=== PATIENT | female | born 1985 | race Two or more races ===

== ENCOUNTER → 2024-02-14 | Outpatient (CLI) | payer BC, SELFPAY ==
--- NOTE | 2024-02-14 15:30 | XR_ITS ---
Examination: Knee, left , 3 views Technique: Knee AP, lateral, oblique 3 views Date and time of exam: February 14, 2024 1456 hours INDICATIONS: Left knee pain today. FINDINGS: No fracture or dislocation. No significant arthritic change No opaque foreign bodies or ossified joint bodies IMPRESSION: No fracture or significant arthritic change
--- NOTE | 2024-02-14 15:30 | XR_ITS ---
Examination: Foot, right, 3 views Technique: AP, oblique, lateral views foot, 3 views Date and time of exam: February 14, 2024 1556 hours INDICATIONS: Patient fell last week with injury to foot, foot pain. FINDINGS: Moderate osteopenia No acute fracture No dislocation IMPRESSION: No acute fracture
--- NOTE | 2024-02-14 15:30 | XR_ITS ---
EXAMINATION: Ankle, right 3 views . Technique: Ankle AP, oblique, lateral 3 views Date and time of exam: February 14, 2024 1546 hours INDICATIONS: Onset ankle pain today. FINDINGS: No fracture or dislocation No avascular necrosis 2 mm plantar bony calcaneal spur IMPRESSION: No fracture or dislocation
--- NOTE | 2024-02-14 15:30 | XR_ITS ---
Examination: Tibia-Fibula, left , 2 views Technique: Tibia-fibula AP lateral 2 views Date and time of exam: February 14, 2024 1456 hours INDICATIONS: Left lower leg pain today FINDINGS: Mild osteopenia. No fracture or dislocation. No cortical bone destruction IMPRESSION: No fracture or dislocation
== END | disposition home or self-care (01) ==
PROVIDERS: Referring Provider Nurse Practitioner Family; Visit Provider Nurse Practitioner Family
DX: M25.571 Pain in right ankle and joints of right foot (principal); M79.662 Pain in left lower leg; S99.921A Unspecified injury of right foot, initial encounter; W19.XXXA Unspecified fall, initial encounter
CPT/HCPCS: 73562; 73590; 73610; 73630

== ENCOUNTER → 2024-03-05 | Outpatient (CLI) | payer BC, SELFPAY ==
--- NOTE | 2024-03-05 10:30 | XR_ITS ---
Examination: MRI right ankle, without contrast Date and time of exam: March 05, 2024 1151 hours INDICATIONS: Patient fell February 10, 2024 with twisting injury to the ankle Technique: Multiple axial sagittal and coronal images of the left ankle have been obtained with the Siemens high-resolution 1.5 Delicia MRI scanner. Images obtained include T2-weighted fat-suppressed sagittal sections, TR 3500, TE 46, T2 weighted coronal fat suppressed images, TR 3050, TE 84, T2-weighted transverse fat suppressed images, TR 3260, TE 63, proton density transverse images, TR 4720 TE 46, and T1 weighted coronal images, TR 560, TE 13. Findings: Mild biconvex thickening of the sella extending Significant edema in the anterior talus Mild thickening and edema involving the plantar fascia Anterior posterior inferior tibiofibular ligaments intact Talar fibular ligaments are intact Diffuse mild tendinitis flexor tendons most prominent posterior tibial tendon Extensor tendons intact IMPRESSION: Significant edema in the anterior talus, consider CT scan ankle without contrast follow-up to assess for microtrabecular fracture lines involving the talus
== END | disposition home or self-care (01) ==
LOC: SMRI 10:21
PROVIDERS: PCP Registered Nurse; Referring Provider Registered Nurse; Visit Provider Registered Nurse
DX: M25.471 Effusion, right ankle (principal); S99.911A Unspecified injury of right ankle, initial encounter; W19.XXXA Unspecified fall, initial encounter
CPT/HCPCS: 73721

== ENCOUNTER → 2024-04-02 | Outpatient (CLI) | payer BC, SELFPAY ==
--- NOTE | 2024-04-02 13:22 | XR_ITS ---
Examination: PA lateral chest 2 views TECHNIQUE: Upright PA lateral chest 2 views Exam date and time: April 02, 2024 at 1342 hours Comparison August 05, 2023 INDICATIONS: Chest pain, shortness of breath beginning 2 weeks ago, cardiomegaly on chest film 2023 FINDINGS: Mild enlargement cardiac contour Moderate vascular congestion Fluid in the fissures on the lateral view IMPRESSION: Suspicious for mild chronic heart failure
[2024-04-02 14:31] LABS: Basophils % (Auto) 1 % (0-2.5); Eosinophils % (Auto) 2 % (0-10); Hematocrit 48.2 % (36.0-46.0); Hemoglobin 15.6 g/dL (12.0-16.0); Lymphocytes # (Auto) 1.9 Thou/mm3 (1.0-4.8); Lymphocytes % (Auto) 21 % (10-50); Mean Corpuscular HGB Conc 32.4 g/dl (31.0-37.0); Mean Corpuscular Hemoglobin 26.2 pg (25.0-35.0); Mean Corpuscular Volume 81 fL (80-100); Monocytes # (Auto) 0.7 Thou/mm3 (0.0-0.8); Monocytes % (Auto) 8 % (0-12); Neutrophils # (Auto) 5.9 Thou/mm3 (1.8-7.7); Neutrophils % (Auto) 68 % (37-80); Platelet Count 251 Thou/mm3 (140-440); RDW Standard Deviation 42.9 fL (36.4-46.3); Red Blood Count 5.95 Miln/mm3 (4.00-5.20); White Blood Count 8.8 Thou/mm3 (3.6-11.0)
[2024-04-02 14:32] LABS: Basophils # (Auto) 0.1 Thou/mm3 (0.0-0.2); Eosinophils # (Auto) 0.2 Thou/mm3 (0.0-0.5); Immature Granulocytes % (Auto) 1 % (0-0); Immature Granulocytes Auto 0.04 Thou/mm3 (0.00-0.00); Nucleated Red Blood Cell % 0 /100 WBC (0)
[2024-04-02 14:53] LABS: Alanine Aminotransferase 20 U/L (10-49); Albumin, Serum 4.3 gm/dL (3.5-5.0); Albumin/Globulin Ratio 1.5 (1.2-2.2); Alkaline Phosphatase 166 U/L (46-116); Anion Gap 9 (7-16); Aspartate Amino Transferase 11 U/L (0-34); B-Type Natriuretic Peptide 1077 pg/mL (0-100); BUN/Creatinine Ratio 18 Ratio (12-20); Bilirubin,Total 4.8 mg/dL (0.3-1.2); Blood Urea Nitrogen 18 mg/dL (9-23); Calcium 9.7 mg/dL (8.3-10.6); Calcium (Corrected) 9.7 mg/dL (8.5-10.1); Carbon Dioxide 26.9 mMol/L (20.0-31.0); Chloride 103 mMol/L (98-107); Globulin 2.9 gm/dL (2.3-3.5); Glucose 121 mg/dL (74-106); Osmolality,Calculated 280 (275-295); Potassium 3.7 mMol/L (3.4-5.1); Sodium 139 mMol/L (136-145); Total Protein 7.2 gm/dL (5.7-8.2); eGFR > 60 See Note
[2024-04-02 14:57] LABS: Troponin I 0.269 ng/mL (0.0-0.045)
== END | disposition home or self-care (01) ==
LOC: COPL 13:02
PROVIDERS: PCP Family Medicine; Referring Provider Registered Nurse; Visit Provider Radiology Diagnostic Radiology
DX: R07.9 Chest pain, unspecified (principal)
CPT/HCPCS: 36415; 71046; 80053; 83880; 84484; 85025

== ENCOUNTER → 2024-05-20 | Outpatient (CLI) | payer BC, SELFPAY ==
--- NOTE | 2024-05-20 13:08 | XR_ITS ---
Examination: Foot, right, 3 views Technique: AP, oblique, lateral views foot, 3 views Date and time of exam: May 20, 2024 1500 hrs. Comparison February 14, 2024 Indications: Patient fell 3 months ago with injury to foot, foot pain Findings: Prominent osteopenia No acute fracture No dislocation Impression: No acute fracture
== END | disposition home or self-care (01) ==
LOC: CDIM 13:03
PROVIDERS: PCP Family Medicine; Referring Provider Registered Nurse; Visit Provider Registered Nurse
DX: S99.921A Unspecified injury of right foot, initial encounter (principal); W19.XXXA Unspecified fall, initial encounter
CPT/HCPCS: 73630

== ENCOUNTER 2024-07-02 11:39 | Inpatient (IN) | payer BC, SELFPAY ==
[2024-07-02] VITALS (60 sets, daily range): BP systolic 173–250; BP diastolic 90–142; PULSE 73–96; RESP 13–38; TEMP 36.6–36.9; O2SAT 92–100; BMI 36.5; BMI 36.1
--- NOTE | 2024-07-02 12:02 | PD.EDADULT ---
ED General RME/HPI General Chief complaint: Chest Pain Stated complaint: SENT BY PCP- SOB, WEIGHT GAIN, CHEST PAIN, ABN EKG Time Seen by Provider: 07/02/24 12:01 Arrival date/time: 07/02/24 11:39 RME / HPI RME / HPI narrative: DR. NOVA MAIN ED EVALUATION: 39 year old female presents to the Emergency Department with complaint of shortness of breath onset 4 days. She states that for the last 4 days she has not been able to sleep well because she is so short of breath. Laying down exacerbates the pain. She also mentions having mild right-sided chest pain that radiates to her right arm and bilateral leg swelling. She states she is on diuretics and takes them daily. She reports a weight gain of 15 pounds, from 218 to 233 pounds. PMHx: Hypertension on hydrochlorothiazide and lisinopril and seizure disorder. Social Hx: No tobacco, alcohol, or substance use. Related Data Home Medications ?Medication ?Instructions ?Recorded ?Confirmed aripiprazole 5 mg tablet 5 mg PO QDAY 11/24/20 09/11/23 duloxetine 60 mg capsule,delayed 60 mg PO HS 11/24/20 09/11/23 release levetiracetam 750 mg tablet 750 mg PO BID 11/24/20 09/11/23 carvedilol 25 mg tablet 25 mg PO 3XD 09/11/23 09/11/23 clonidine HCl 0.1 mg tablet 0.1 mg PO BID 09/11/23 09/11/23 lisinopril 40 mg tablet 40 mg PO QDAY 09/11/23 09/11/23 Allergies Allergy/AdvReac Type Severity Reaction Status Date / Time venlafaxine Allergy Mild Itching Verified 07/02/24 11:44 glucosamine Allergy Unknown Verified 07/02/24 11:44 JALAPENO Allergy Mild THROAT Uncoded 07/02/24 11:44 CLOSES UP Review of Systems Review of Systems Systems Reviewed: All systems reviewed, normal except as documented Past Medical History Past Medical History NEUROLOGIC: Positive Neurological Disorders, Seizures and Martinez's Palsy CARDIAC: Positive Cardiac Disorders and Hypertension RESPIRATORY: Positive Bronchitis GENITOURINARY: Positive Genitourinary Disorders REPRODUCTIVE: Positive Endometriosis and Pelvic Inflammatory Disease ENT: Positive Ear Infection ENDOCRINE: Positive Endocrine Disorders, Hyperthyroidism, Hypothyroidism (normal now) and Graves' Disease PSYCHO/SOCIAL: Positive Depression and Anxiety OTHER HISTORY: Positive Chicken Pox Family History FAMILY HISTORY: Positive Family Psychiatric Problems, Family Cardiac Disorders, Family Cancer, Family Surgery and Family Anesthesia Reaction; Negative Family Respiratory Disorders Surgical History SURGICAL: Positive Section Social History SMOKING STATUS: Never smoker SUBSTANCE USE: does not use ALCOHOL: Never ED Exam Narrative Physical exam: GENERAL APPEARANCE: alert and oriented x 4, well-developed, well-nourished, no acute distress, tachypneic and appears dyspneic VITALS: All vitals were reviewed and the pulse ox is % on room air, which is normal according to my interpretation. HEENT: Normocephalic, atraumatic; pupils equal, round, reactive to light; EOMI; mucous membranes pink, moist; oropharynx clear NECK: Supple LUNGS: tachypneic and appears dyspneic; no wheezes, no rales, no rhonchi HEART: Regular rate, regular rhythm; normal S1, S2; no murmurs ABDOMEN: non distended; normal BS; soft, no tenderness, no guarding, no rebound; no masses, no organomegaly, no hernia BACK: no CVA tenderness EXTREMITIES: atraumatic; there is 3+ pitting edema bilaterally NEUROLOGIC: awake; alert and oriented x4; cranial nerves II-XII grossly intact; no focal sensory or motor deficits PSYCHIATRIC: appropriate mood and affect SKIN: warm, dry, normal color; no rashes Course Quality Measures none Orders Category Date Time Status Bedside COVID-19 Antigen Test NOW Care 07/02/24 12:27 Active Bedside Influenza A&B Antigen Test NOW Care 07/02/24 12:27 Completed Security Systems Engineer NOW Care 07/02/24 12:03 Active EKG (ED ONLY) *Do not use* NOW Care 07/02/24 11:49 Completed CA echo doppler complete Stat Exams 07/02/24 13:02 Ordered EKG (ED Only) Stat Exams 07/02/24 11:48 Ordered XR chest 1V portable Stat Exams 07/02/24 12:03 Completed B-Type Natriuretic Peptide Stat Lab 07/02/24 12:24 Completed CBC Stat Lab 07/02/24 12:24 Completed Comprehensive Metabolic Panel Stat Lab 07/02/24 12:24 Completed Lipase Stat Lab 07/02/24 12:24 Completed Magnesium Stat Lab 07/02/24 12:24 Completed Partial Thromboplastin Time Stat Lab 07/02/24 12:24 Completed Prothrombin Time with INR Stat Lab 07/02/24 12:24 Completed Troponin I Stat Lab 07/02/24 12:24 Completed Aspirin Chew Med 07/02/24 13:22 Discontinued 324 mg PO X1 ONE Bumetanide Inj [Bumex Inj] Med 07/02/24 14:45 Active 2 mg IVP BID Furosemide Inj [Lasix Inj] Med 07/02/24 12:29 Discontinued 40 mg IVP X1 ONE Nicardipine/Ns 20Mg Ivpb [Cardene Ivpb] Med 07/02/24 13:53 Discontinued 20 mg in 200 ml IV 5 mg/hr Nitroglycerin Oint 2% [Nitro-paste Oint 2%] Med 07/02/24 12:27 Discontinued 1 inch TOP X1 ONE Nitroglycerin/D5w 50 MG IVPB [Nitroglycerin in D5w Ivpb Med 07/02/24 14:38 Active ] 50 mg in 250 ml IV 5 mcg/min hydrALAZINE INJ [Apresoline Inj] Med 07/02/24 12:28 Discontinued 10 mg IV X1 ONE Vital Signs Vital signs: Vital Signs Temperature 98.5 F 07/02/24 12:03 Pulse Rate 86 07/02/24 12:03 Respiratory Rate 28 H 07/02/24 12:03 Blood Pressure 250/133 H 07/02/24 12:03 Pulse Oximetry (%) 98 07/02/24 12:03 Oxygen Delivery Method Room Air 07/02/24 12:03 [facility] Patient data External records reviewed:: [facility] previous records (Reviewed operative note by Dr. Lomeli, dated 09/12/23.) Clinical information provided by:: patient Social determinants that could affect healthcare access:: none Patient has the following chronic illnesses:: Hypertension on hydrochlorothiazide and lisinopril and seizure disorder. How is presenting disease/condition affected by chronic disease/condition?: exacerbated by Evaluation data The following diagnostics were reviewed and interpreted by me:: lab results, radiology exam(s) and EKG tracing(s) (EKG#1: EKG at 1159 hours. Interpreted by me: sinus rhythm, rate 90, no acute ischemic changes) Lab and/or radiology exams considered but not ordered:: none Interpretation Summary: Procedure(s): XR chest 1V portable Accession Number(s): [id number] cc: Aubrey Bocanegra MD; Jacqui Nova MD~ Examination: AP chest single view Technique: Portable AP sitting chest single view Exam date and time: April 02, 2024 at 1243 hrs. Indications: Chest pain today. Findings: Mild to moderate enlargement cardiac contour Moderate vascular congestion. No lobar pneumonia or pulmonary edema Impression: Moderate vascular congestion Dictated By: Aubrey Bocanegra MD Medications Medications considered but not ordered:: none Medication administrations:: Medication Administration History Acetaminophen (Acetaminophen 325 Mg Tablet) 650 mg PO Q6H PRN PRN Reason: Fever >101.5 Stop: 08/01/24 14:59 Acetaminophen (Acetaminophen 325 Mg Tablet) 650 mg PO Q6H PRN PRN Reason: PAIN SCALE 1-3 (mild Stop: 08/01/24 14:59 Bumetanide (Bumetanide Inj 0.25 Mg/Ml Vial 4 Ml) 2 mg IVP BID LEON Stop: 08/01/24 14:44 Heparin Sodium (Porcine) (Heparin Sod Inj 5000 Unit/Ml Vial) 5,000 unit SC Q8HR LEON Stop: 07/16/24 21:59 Nitroglycerin/Dextrose (Nitroglycerin In D5w Ivpb) 50 mg in 250 mls @ 1.5 mls/hr IV .Q24H PRN; Protocol PRN Reason: PER PROTOCOL Stop: 08/01/24 14:37 Ondansetron HCl (Ondansetron Inj 2 Mg/Ml Inj 2 Ml) 4 mg IV Q6H PRN; Protocol PRN Reason: NAUSEA OR VOMITING Stop: 08/01/24 14:59 Discontinued Medications Aspirin (Aspirin 81 Mg Chew) 324 mg PO X1 ONE Stop: 07/02/24 13:23 Last Admin: 07/02/24 14:10 Dose: 324 mg Documented By: LANNY Furosemide (Furosemide Inj 10 Mg/Ml 4ml Vial) 40 mg IVP X1 ONE Stop: 07/02/24 12:30 Last Admin: 07/02/24 12:53 Dose: 40 mg Documented By: LANNY Hydralazine HCl (Hydralazine Inj 20 Mg/Ml Vial) 10 mg IV X1 ONE Stop: 07/02/24 12:29 Last Admin: 07/02/24 12:51 Dose: 10 mg Documented By: LANNY Nicardipine/Sodium Chloride (Cardene Ivpb) 20 mg in 200 mls @ 50 mls/hr IV .Q4H PRN; Protocol PRN Reason: PER PROTOCOL Stop: 08/01/24 13:52 Nitroglycerin (Nitroglycerin Oint 2% 1 Inch Packet) 1 inch TOP X1 ONE Stop: 07/02/24 12:28 Last Admin: 07/02/24 12:55 Dose: 1 inch Documented By: LANNY see above Consultations Consultation(s) initiated? (list below): Yes Consultation #1 (Physician, Specialty, Details): Discussed test HPI, PMHx, lab, radiology results and/or management with ICU Dr. Miller. Will admit for further evaluation and management. Accepts patient for admission. Time: 14:50 Diagnosis Differential Diagnosis ED Complaint MDM: CHF, PE, pneumonia Most likely diagnosis given after review of the tests above:: CHF Hypertensive emergency Admission Indicated Admission indicated?: indicated Explain why admission is indicated or not indicated:: Diagnoses meet admission criteria. Admission Request Was there a request for admission?: Yes Admission Attestation Admission request attestation: Discussed case with [] from Hospitalist service regarding admission. Discussed patients ED course, exam findings, labs, and radiology results. The Hospitalist [agrees,declines] to accept the patient for admission. Disposition Plan Disposition Plan: Admit (ICU) Medical Decision Making MDM Narrative MDM Narrative: I, Rona Lobo, am scribing for and in the presence of Dr. Nova. Differential Diagnosis Differential Diagnosis: CHF, PE, pneumonia Lab Data 07/02/24 12:24 07/02/24 12:24 Labs: Lab Results 07/02/24 Range/Units 12:24 WBC 9.2 (3.6-11.0) Thou/mm3 RBC 5.20 (4.00-5.20) Miln/mm3 Hgb 14.1 (12.0-16.0) g/dL Hct 42.7 (36.0-46.0) % MCV 82 (80-100) fL MCH 27.1 (25.0-35.0) pg MCHC 33.0 (31.0-37.0) g/dl RDW Std Deviation 42.5 (36.4-46.3) fL Plt Count 202 (140-440) Thou/mm3 Neut % (Auto) 70 (37-80) % Lymph % (Auto) 18 (10-50) % Bracken % (Auto) 10 (0-12) % Eos % (Auto) 1 (0-10) % Baso % (Auto) 0 (0-2.5) % Neut # (Auto) 6.5 (1.8-7.7) Thou/mm3 Lymph # (Auto) 1.7 (1.0-4.8) Thou/mm3 Bracken # (Auto) 1.0 H (0.0-0.8) Thou/mm3 Eos # (Auto) 0.1 (0.0-0.5) Thou/mm3 Baso # (Auto) 0.0 (0.0-0.2) Thou/mm3 Immature Gran # (Auto) 0.02 H (0.00-0.00) Thou/mm3 Absolute Nucleated RBC 0.00 (0.00-0.00) Thou/mm3 Immature Gran % 0 (0-0) % Nucleated RBC % 0 (0) /100 WBC PT 11.9 (9.0-12.2) Seconds INR 1.1 (0.9-1.3) APTT 25.3 (22.0-36.0) Seconds Sodium 138 (136-145) mMol/L Potassium 3.7 (3.4-5.1) mMol/L Chloride 106 (98-107) mMol/L Carbon Dioxide 21.6 (20.0-31.0) mMol/L Anion Gap 10 (7-16) BUN 21 (9-23) mg/dL Creatinine 0.9 (0.6-1.3) mg/dL Estim Creat Clear Calc 102.9 (>60) mL/min eGFR > 60 (60 - ) See Note BUN/Creatinine Ratio 23 H (12-20) Ratio Glucose 139 H (74-106) mg/dL Calculated Osmolality 280 (275-295) Calcium 8.6 (8.3-10.6) mg/dL Corrected Calcium 8.9 (8.5-10.1) mg/dL Magnesium 1.6 (1.6-2.6) mg/dL Total Bilirubin 3.6 H (0.3-1.2) mg/dL AST 33 (0-34) U/L ALT 23 (10-49) U/L Alkaline Phosphatase 139 H (46-116) U/L Troponin I 0.201 H* (0.0-0.045) ng/mL B-Natriuretic Peptide 1351 H* (0-100) pg/mL Total Protein 6.4 (5.7-8.2) gm/dL Albumin 3.6 (3.5-5.0) gm/dL Globulin 2.8 (2.3-3.5) gm/dL Albumin/Globulin Ratio 1.3 (1.2-2.2) Lipase 38 (12-53) U/L Discharge Plan Plan Patient Disposition: Admit Acute Care w/in Hospital Disposition Comment: ICU Problem List Clinical Impression: CHF (congestive heart failure), Hypertensive emergency
[2024-07-02 12:44] LABS: Basophils % (Auto) 0 % (0-2.5); Eosinophils # (Auto) 0.1 Thou/mm3 (0.0-0.5); Eosinophils % (Auto) 1 % (0-10); Hematocrit 42.7 % (36.0-46.0); Hemoglobin 14.1 g/dL (12.0-16.0); Immature Granulocytes % (Auto) 0 % (0-0); Immature Granulocytes Auto 0.02 Thou/mm3 (0.00-0.00); Lymphocytes # (Auto) 1.7 Thou/mm3 (1.0-4.8); Lymphocytes % (Auto) 18 % (10-50); Mean Corpuscular Hemoglobin 27.1 pg (25.0-35.0); Mean Corpuscular Volume 82 fL (80-100); Monocytes % (Auto) 10 % (0-12); Neutrophils # (Auto) 6.5 Thou/mm3 (1.8-7.7); Neutrophils % (Auto) 70 % (37-80); Nucleated Red Blood Cell % 0 /100 WBC (0); Platelet Count 202 Thou/mm3 (140-440); RDW Standard Deviation 42.5 fL (36.4-46.3); White Blood Count 9.2 Thou/mm3 (3.6-11.0)
[2024-07-02] MEDS: hydrALAZINE INJ 20 MG/ML VIAL 10 MG IV (12:51)
[2024-07-02] MEDS: FUROSEMIDE INJ 10 MG/ML 4ML VIAL 40 MG IVP (12:53)
[2024-07-02] MEDS: NITROGLYCERIN OINT 2% 1 INCH PACKET TOP (12:55)
[2024-07-02 12:58] LABS: INR 1.1 (0.9-1.3); Partial Thromboplastin Time 25.3 Seconds (22.0-36.0); Prothrombin Time 11.9 Seconds (9.0-12.2)
[2024-07-02 13:05] LABS: B-Type Natriuretic Peptide 1351 pg/mL (0-100)
[2024-07-02 13:06] LABS: Alanine Aminotransferase 23 U/L (10-49); Albumin, Serum 3.6 gm/dL (3.5-5.0); Albumin/Globulin Ratio 1.3 (1.2-2.2); Alkaline Phosphatase 139 U/L (46-116); Anion Gap 10 (7-16); Aspartate Amino Transferase 33 U/L (0-34); BUN/Creatinine Ratio 23 Ratio (12-20); Bilirubin,Total 3.6 mg/dL (0.3-1.2); Blood Urea Nitrogen 21 mg/dL (9-23); Calcium 8.6 mg/dL (8.3-10.6); Calcium (Corrected) 8.9 mg/dL (8.5-10.1); Carbon Dioxide 21.6 mMol/L (20.0-31.0); Chloride 106 mMol/L (98-107); Creatinine (Component) 0.9 mg/dL (0.6-1.3); Estimated Creatinine Clearance 102.9 mL/min (>60); Globulin 2.8 gm/dL (2.3-3.5); Glucose 139 mg/dL (74-106); Lipase 38 U/L (12-53); Magnesium 1.6 mg/dL (1.6-2.6); Osmolality,Calculated 280 (275-295); Potassium 3.7 mMol/L (3.4-5.1); Sodium 138 mMol/L (136-145); Total Protein 6.4 gm/dL (5.7-8.2); eGFR > 60 See Note
[2024-07-02 13:09] LABS: Troponin I 0.201 ng/mL (0.0-0.045)
[2024-07-02] MEDS: ASPIRIN 81 MG CHEW 324 MG PO (14:10)
--- NOTE | 2024-07-02 15:18 | ESCONSULT_ITS ---
<Statement entered by Eliane Lomeli MD - 07/06/24 19:46> The patient personally examined by me admitted to hospital with severe uncontrolled hypertension stage II malignant hypertension with heart failure symptoms massive edema recommend aggressive diuretic with Bumex I have known this patient for several years agree with the treatment plan recommendation as formulated by PGY 3 Dr. Eladio Mooney aggressive diuresis and resume her medications including carvedilol 25 mg twice daily subsequently 3 times daily. HPI Data of Consult Patient: known to practice within the last 3 years Requesting Physician: Emil Miller MD Admitting Provider: Emil Miller MD Attending Provider: Emil Miller MD Primary Care Provider: Tigist Rubi NP Consult Narrative Reason for consult: Hypertensive emergency History of present illness: 39-year-old female with a past medical history of chronic pericarditis, seizures, depression, resistant hypertension presented to the emergency department due to shortness of breath lower peripheral edema that started about 3 days ago. Patient was seen by her international first officer on 06/25/2024 in the outpatient setting patient had elevated blood pressure then but no edema. Patient called her international first officer today notifying that she has been having severe shortness of breath with lower extremity edema. Police Artist recommended the patient to come to the clinic for an evaluation. While in the clinic patient was notably short of breath unable to speak full sentences and noted to have lower extremity edema. No change in her management has been done for the past few weeks. Patient does complain of shortness of breath, chest pain. Denies any palpitation. Patient has history of chronic pericarditis being managed in the outpatient setting. In the emergency department patient arrived blood pressure of 250/133 with a heart rate of 86 respiratory rate of 28 satting at 98% on room air. X-ray showed significant pulmonary edema with evident cardiomegaly compared to previous x-rays. Labs showed elevated troponins and BNP. Bedside POCUS was notable for global hypokinesis suggesting decreased ejection fraction, no pericardial effusion noted. cc:: cc: Emil Miller MD Exam Vital Signs Temp Pulse Resp BP Pulse Ox O2 Del Method O2 Flow Rate 97.8 F 80 22 H 217/121 H 100 Nasal Cannula 3 07/02/24 14:40 07/02/24 14:40 07/02/24 14:40 07/02/24 14:40 07/02/24 14:40 07/02/24 14:40 07/02/24 14:40 Narrative Exam Constitutional: AOx3, unable to speak full sentences due to shortness of breath HEENT: NC/AT, PERRLA, oral mucosa moist, prominent JVD CVS: RRR, S1-S2 present, decrescendo diastolic murmur best heard in left lower sternal border 2 out of 6, with notable S3 heart sound RESP: Bilateral lower lobe crackles GI: non distended, non tender to palpation, NBS MSK: full ROM, 2+ peripheral edema, peripheral pulses present Skin: warm and wet, no rashes Neuro: airport ramp agent II-XII grossly intact. Sensation grossly intact. Results Labs 07/02/24 12:24 07/02/24 12:24 Labs: Short CBC 07/02/24 Range/Units 12:24 WBC 9.2 (3.6-11.0) Thou/mm3 Hgb 14.1 (12.0-16.0) g/dL Hct 42.7 (36.0-46.0) % Plt Count 202 (140-440) Thou/mm3 BMP 07/02/24 12:24 Sodium 138 Potassium 3.7 Chloride 106 Carbon Dioxide 21.6 BUN 21 Creatinine 0.9 Glucose 139 H Calcium 8.6 Cardiac Enzymes 07/02/24 Range/Units 12:24 Troponin I 0.201 H* (0.0-0.045) ng/mL Liver Function 07/02/24 Range/Units 12:24 Total Bilirubin 3.6 H (0.3-1.2) mg/dL AST 33 (0-34) U/L ALT 23 (10-49) U/L Alkaline Phosphatase 139 H (46-116) U/L Albumin 3.6 (3.5-5.0) gm/dL Quality Measures Quality Measures none Medications Home Medications and Allergies Home Medications ?Medication ?Instructions ?Recorded ?Confirmed ?Type aripiprazole 5 mg tablet 5 mg PO QDAY 11/24/20 History duloxetine 60 mg capsule,delayed 60 mg PO HS 11/24/20 09/11/23 History release levetiracetam 750 mg tablet 750 mg PO BID 11/24/20 History carvedilol 25 mg tablet 25 mg PO 3XD 09/11/23 History clonidine HCl 0.1 mg tablet 0.1 mg PO BID 09/11/23 History lisinopril 40 mg tablet 40 mg PO QDAY 09/11/2309/10 History Allergies Allergy/AdvReac Type Severity Reaction Status Date / Time venlafaxine Allergy Mild Itching Verified 07/02/24 11:44 glucosamine Allergy Unknown Verified 07/02/24 11:44 JALAPENO Allergy Mild THROAT Uncoded 07/02/24 11:44 CLOSES UP Visit Medications Acetaminophen (Acetaminophen 325 Mg Tablet) 650 mg PO Q6H PRN PRN Reason: Fever >101.5 Stop: 08/01/24 14:59 Acetaminophen (Acetaminophen 325 Mg Tablet) 650 mg PO Q6H PRN PRN Reason: PAIN SCALE 1-3 (mild Stop: 08/01/24 14:59 Bumetanide (Bumetanide Inj 0.25 Mg/Ml Vial 4 Ml) 2 mg IVP BID LEON Stop: 08/01/24 14:44 Heparin Sodium (Porcine) (Heparin Sod Inj 5000 Unit/Ml Vial) 5,000 unit SC Q8HR LEON Stop: 07/16/24 21:59 Nitroglycerin/Dextrose (Nitroglycerin In D5w Ivpb) 50 mg in 250 mls @ 1.5 mls/hr IV .Q24H PRN; Protocol PRN Reason: PER PROTOCOL Stop: 08/01/24 14:37 Ondansetron HCl (Ondansetron Inj 2 Mg/Ml Inj 2 Ml) 4 mg IV Q6H PRN; Protocol PRN Reason: NAUSEA OR VOMITING Stop: 08/01/24 14:59 Discontinued Medications Aspirin (Aspirin 81 Mg Chew) 324 mg PO X1 ONE Stop: 07/02/24 13:23 Last Admin: 07/02/24 14:10 Dose: 324 mg Furosemide (Furosemide Inj 10 Mg/Ml 4ml Vial) 40 mg IVP X1 ONE Stop: 07/02/24 12:30 Last Admin: 07/02/24 12:53 Dose: 40 mg Hydralazine HCl (Hydralazine Inj 20 Mg/Ml Vial) 10 mg IV X1 ONE Stop: 07/02/24 12:29 Last Admin: 07/02/24 12:51 Dose: 10 mg Nicardipine/Sodium Chloride (Cardene Ivpb) 20 mg in 200 mls @ 50 mls/hr IV .Q4H PRN; Protocol PRN Reason: PER PROTOCOL Stop: 08/01/24 13:52 Nitroglycerin (Nitroglycerin Oint 2% 1 Inch Packet) 1 inch TOP X1 ONE Stop: 07/02/24 12:28 Last Admin: 07/02/24 12:55 Dose: 1 inch Assessment & Plan Plan #Hypertensive emergency #Acute respiratory distress #Acute decompensated heart failure #Supply and demand ischemia #Fluid overload #Angina equivalent #History of chronic pericarditis #History of resistant hypertension Assessment: Patient presented with shortness of breath upon exertion, chest pain, lower extremity edema, orthopnea, paroxysmal lower extremity dyspnea for the past 3 days. This is the first time patient has ever had the symptoms after being treated for 7 years for resistant hypertension and chronic pericarditis. Patient's currently on 5 medications max dose for the treatment of resistant hypertension. Patient has already gotten a renal artery angiogram which showed no fibrodysplasia or renal artery stenosis. Patient in 2023 also had workup for pheochromocytoma which the metanephrines and VMA's were negative. Patient also got worked up for any aldosterone or renin abnormalities which returned normal. Etiology of the patient's heart failure likely indicative of patient's hypertensive emergency with evidence of elevated troponin and BNP. Bedside POCUS showed global hypokinesis indicative of low ejection fraction. Also on physical exam he can hear a delay diastolic duction no murmur consistent with aortic regurgitation likely in the setting of fluid overload in the setting of emergency hypertension. X-ray showed moderate to severe pulmonary edema with a very and large cardiac silhouette comparison to previous x-ray patient has significant cardiomegaly noted on this admission. Upon further review back in 2020 patient had a left heart cath which showed no coronary artery disease. Recommendations: Resume patient's home blood pressure medications. After discussion with the product development director it was recommended to put the patient on a nitroglycerin drip to offset patient's increased afterload in the setting of hypertensive emergency. We will diurese the patient with bumetanide 2 mg IV twice daily, we will monitor patient's urine output and a Cuevas will be placed We will order a echocardiogram to evaluate patient's LV function, rule out any valvular disease. - Patient's care was discussed with my attending physician, Dr. Armani Hobbs MD Internal Medicine PGY-3
[2024-07-02 15:19] LABS: Collection Type, Urine Voided; Squamous Epithelial Cell,Urine 0 /hpf (0-5)
[2024-07-02 15:26] LABS: Bacteria,Urine Rare; Bilirubin,Urine Negative (Negative); Blood,Urine Negative (Negative); Clarity,Urine Clear (Clear/Hazy); Color,Urine Colorless (Lt Yel-Yel); Glucose, Urine Negative (Negative); Ketones,Urine Negative (Negative); Leukocyte Esterase,Urine Negative (Negative); Nitrite,Urine Negative (Negative); PH,Urine 7.5 (5.0-7.0); Protein,Urine Negative (Neg - Trace); RBC,Urine 3 /hpf (0-3); Specific Gravity,Urine 1.006 (1.001-1.035); Urobilinogen,Urine Negative mg/dL (0.0-1.0); WBC,Urine 1 /hpf (0-5)
[2024-07-02] MEDS: BUMETANIDE INJ 0.25 MG/ML VIAL 4 ML 2 MG IVP ×2 (15:30→21:37)
[2024-07-02 15:31] LABS: Misc Send Out* See Sep Rpt
[2024-07-02] MEDS: Nitroglycerin/D5w 50 MG IVPB 50 MG/250 ML BTL IV (15:40)
[2024-07-02 16:04] LABS: Thyroid Stimulating Hormone < 0.01 uIU/mL (0.55-4.78)
--- NOTE | 2024-07-02 16:04 | PC.NURSE ---
Patient presents to ED with c/o SOB, bilateral leg swelling, difficulty sleeping and has to sleep in recliner for past 4days. Patient is alert and oriented on room air, noted patient increased WOB and patient is unable to lie flat on gurney, patient prefers to sit up.
--- NOTE | 2024-07-02 16:30 | PC.NURSE ---
report given to Giselle BOWMAN, patient will transfer to ICU.
--- NOTE | 2024-07-02 17:22 | PD.RESHP ---
Documentation for date of: 07/02/24 HPI History of Present Illness History of present illness: 39 yo female with PMH of hyperthyroidism, generalized anxiety disorder with panic attacks, seizure disorder, and resistant hypertension presented to [facility] on 07/02 due to chest pain and shortness of breath. Patient refers for the past 2 weeks she has been experiencing progressively worseing LE edema, accompanied by dyspnea and chest pain that worsens with walking. Patient refers that during this time she has been appropriately taking her antihypertensive medications and has been checking BP at home averaging around 220 systolic, with the highest reading being 255. Today patient's dyspnea significantly increased so she went to her cost control specialist Dr Lomeli's office, where her blood pressure has found to be high and she was advised to present to the ED. Patient denies being sick, sick contacts, fevers. On arrival to the ED: Patient's vitals: 250/199, pulse 86, respiratory rate 20, saturating adequately on room air. Pertinent labs: BNP: 1351. Troponin 0.201. Chest x-ray: Enlarged cardiac contour with vascular congestion. While in the ED patient received Lasix 40 x 1 IV push, hydralazine 10 x 1, and was started on nitroglycerin drip. Cardiology consulted, Bedside echo revealed significant global hypokinesis. Patient will be admitted to ICU for further management of hypertensive emergency PMH: As above Surgical: Cholecystectomy, 2 c-sections Social: Denies alcohol, drugs, cigarrette smoking Meds: Please see med rec section Review of Systems Review of Systems Systems Reviewed: All systems reviewed, normal except as documented Exam Vital Signs Temp Pulse Resp BP Pulse Ox O2 Del Method O2 Flow Rate 98.0 F 76 26 H 227/133 H 92 L Room Air 3 07/02/24 16:16 07/02/24 16:16 07/02/24 16:16 07/02/24 16:16 07/02/24 16:16 07/02/24 16:16 07/02/24 14:40 Narrative Exam GENERAL: Awake, alert and oriented. Dyspneic HEENT: Normocephalic, atraumatic and nontender.? Pupils are equal and reactive to light and accommodation.? Oral mucosa moist. NECK: Supple without adenopathy. Trachea midline. Nontender, carotid pulse 2+ bilaterally without bruits, no JVD.? CHEST: Heart rate and rythm normal, no murmurs, gallops auscultated. S1 & 2 normal insensity. Nontender on palpation, no deformity and no crepitus. LUNGS: Cardiac wheeze auscultated? No intercostal subcostal retraction. Room air ABDOMEN: Soft,symmetric , nontender, no guarding or rebound tenderness. No abnormal masses palpated.? No pulsatile masses or bruits.? Bowel sounds are normoactive in all 4 quadrants. EXTREMITIES: Nontender.? 3+ pitting edema? No cyanosis.? Patient is able to move all 4 extremities. SKIN: No rashes noted. NEURO:? Cranial nerves intact.? There is no focalization.? GCS is 15. Results: Labs 07/03/24 04:15 07/03/24 11:14 Labs: Short CBC 07/02/24 Range/Units 12:24 WBC 9.2 (3.6-11.0) Thou/mm3 Hgb 14.1 (12.0-16.0) g/dL Hct 42.7 (36.0-46.0) % Plt Count 202 (140-440) Thou/mm3 BMP 07/02/24 12:24 Sodium 138 Potassium 3.7 Chloride 106 Carbon Dioxide 21.6 BUN 21 Creatinine 0.9 Glucose 139 H Calcium 8.6 Cardiac Enzymes 07/02/24 Range/Units 12:24 Troponin I 0.201 H* (0.0-0.045) ng/mL Liver Function 07/02/24 Range/Units 12:24 Total Bilirubin 3.6 H (0.3-1.2) mg/dL AST 33 (0-34) U/L ALT 23 (10-49) U/L Alkaline Phosphatase 139 H (46-116) U/L Albumin 3.6 (3.5-5.0) gm/dL Urine 07/02/24 Range/Units 15:14 Urine Color Colorless A (Lt Yel-Yel) Urine Clarity Clear (Clear/Hazy) Urine pH 7.5 H (5.0-7.0) Ur Specific [place] 1.006 (1.001-1.035) Urine Protein Negative (Neg - Trace) Urine Glucose (UA) Negative (Negative) Quality Measures Quality Measures none Medications Home Medications and Allergies Home Medications ?Medication ?Instructions ?Recorded ?Confirmed ?Type aripiprazole 5 mg tablet 5 mg PO QDAY 11/24/20 07/02/24 History duloxetine 60 mg capsule,delayed 60 mg PO HS 11/24/20 09/11/23 History release carvedilol 25 mg tablet 25 mg PO 3XD 09/11/23 07/02/24 History clonidine HCl 0.1 mg tablet 0.1 mg PO QDAY PRN hypertensive 09/11/23 07/02/24 History emergency lisinopril 40 mg tablet 40 mg PO QDAY 09/11/23 07/02/24 History amlodipine 5 mg tablet 5 mg PO BID 07/02/24 07/02/24 History aripiprazole 20 mg tablet (Abilify) 20 mg PO QDAY PRN migraine headache 07/02/24 07/02/24 History bumetanide 2 mg tablet 2 mg PO QDAY 07/02/24 07/02/24 History bupropion HCl 75 mg tablet 150 mg PO BID 07/02/24 07/02/24 History isosorbide mononitrate 60 mg 60 mg PO QDAY 07/02/24 07/02/24 History tablet,extended release 24 hr levetiracetam 500 mg tablet 500 mg PO BID 07/02/24 07/02/24 History methimazole 10 mg tablet 30 mg PO QDAY 07/02/24 07/02/24 History propranolol 10 mg tablet 10 mg PO TID 07/02/24 07/02/24 History rilonacept 220 mg subcutaneous 220 mg subcut Q7D 07/02/24 07/02/24 History solution (Arcalyst) spironolactone 25 mg tablet 25 mg PO QDAY 07/02/24 07/02/24 History ubrogepant 50 mg tablet (Ubrelvy) 50 mg PO .QD PRN migraine headache 07/02/24 07/02/24 History Allergies Allergy/AdvReac Type Severity Reaction Status Date / Time pepper (genus Capsicum) Allergy Mild Swelling Unverified 07/03/24 08:22 of Lip/Tongue/Throat venlafaxine Allergy Mild Itching Verified 07/02/24 11:44 glucosamine Allergy Unknown Verified 07/02/24 11:44 JALAPENO Allergy Mild THROAT Uncoded 07/02/24 11:44 CLOSES UP Visit Medications Acetaminophen (Acetaminophen 325 Mg Tablet) 650 mg PO Q6H PRN PRN Reason: Fever >101.5 Stop: 08/01/24 14:59 Acetaminophen (Acetaminophen 325 Mg Tablet) 650 mg PO Q6H PRN PRN Reason: PAIN SCALE 1-3 (mild Stop: 08/01/24 14:59 Bumetanide (Bumetanide Inj 0.25 Mg/Ml Vial 4 Ml) 2 mg IVP BID [facility] Stop: 08/01/24 14:44 Last Admin: 07/02/24 15:30 Dose: 2 mg Heparin Sodium (Porcine) (Heparin Sod Inj 5000 Unit/Ml Vial) 5,000 unit SC Q8HR [facility] Stop: 07/16/24 21:59 Nitroglycerin/Dextrose (Nitroglycerin In D5w Ivpb) 50 mg in 250 mls @ 1.5 mls/hr IV .Q24H PRN; Protocol PRN Reason: PER PROTOCOL Stop: 08/01/24 14:37 Last Titration: 07/02/24 17:05 Dose: 155 mcg/min, 46.5 mls/hr Ondansetron HCl (Ondansetron Inj 2 Mg/Ml Inj 2 Ml) 4 mg IV Q6H PRN; Protocol PRN Reason: NAUSEA OR VOMITING Stop: 08/01/24 14:59 Discontinued Medications Aspirin (Aspirin 81 Mg Chew) 324 mg PO X1 ONE Stop: 07/02/24 13:23 Last Admin: 07/02/24 14:10 Dose: 324 mg Furosemide (Furosemide Inj 10 Mg/Ml 4ml Vial) 40 mg IVP X1 ONE Stop: 07/02/24 12:30 Last Admin: 07/02/24 12:53 Dose: 40 mg Hydralazine HCl (Hydralazine Inj 20 Mg/Ml Vial) 10 mg IV X1 ONE Stop: 07/02/24 12:29 Last Admin: 07/02/24 12:51 Dose: 10 mg Nicardipine/Sodium Chloride (Cardene Ivpb) 20 mg in 200 mls @ 50 mls/hr IV .Q4H PRN; Protocol PRN Reason: PER PROTOCOL Stop: 08/01/24 13:52 Nitroglycerin (Nitroglycerin Oint 2% 1 Inch Packet) 1 inch TOP X1 ONE Stop: 07/02/24 12:28 Last Admin: 07/02/24 12:55 Dose: 1 inch Assessment & Plan Plan 39 yo female with PMH of hyperthyroidism, generalized anxiety disorder with panic attacks, seizure disorder, and resistant hypertension presented to [facility] on 07/02 due to chest pain and shortness of breath and was found to have hypertensive emergency. ROVING HAND -Stable [facility] #Hypertensive emergency with concurrent #Heart failure and volume overload -Presented with a BP of 250/133, dyspnea, edema 3+, bnp 1351, troponin 0.201 -Bedside echo showed global hypokinesia -Chest xray: Enlarged cardiac contour with vascular congestion -As to the precipitating factor/cause of resistant hypertension, could be hyperthyriodism, bilateral renal stenosis has been ruled out -Follow up formal echocardiogram -Follow up urine VMA and metanephrines -Nitroglycerin drip -Bumex 2mg BID -Daily weight -Strict I&O -Hvac Specialist Dr Lomeli consulted, appreciate recs RESP -Stable GI -Stable ENDO #Hyperthyroidism -Might be the underlying factor for resistant hypertension -Currently takes methimazole 30 QDAY, resume -Follow up Thyroid panel ID -stable Heme onc -stable PSYCH #Anxiety with panick atacks -Restart home buspar #Migraine -Currently asymptomatic Disposition: Patient admitted to ICU for management of hypertensive emergency with concurrent heart failure and volume overload. Diet and fluids: Cardiac DVT prophylaxis:Heparin GI prophylaxis:None CODE STATUS:FULL Cuevas:In place Lines:Peripheral Patient's care discussed with attending physician, Dr Paul Berg MD PGY3 Attending Provider Attestation/Addendum Patient seen and examined with above resident, Lidia Berg MD. I agree with the findings, assessment, and plan of care as document except for any differences below. Patient with accelerated hypertension in setting of hypertensive emergency now with endorgan damage as presence of pulmonary edema and likely worsening acute on chronic diastolic versus systolic heart failure. Previously preserved ejection fraction per cardiology no repeat testing will be done later this hospitalization. They suspected that high afterload previously led to low EF which improved when she was on outpatient basis with multidrug regimen. Patient with extensive history of hypertension after her second . Both pregnancies were complicated by high blood pressure but did not require treatment, no history of pre-/eclampsia. Patient also with recent thyroid storm after COVID, she is being treated for hypothyroidism with methimazole. Pressured speech, evidence of dorsocervical fat pad suggesting potential possible hypercortisolism, will previously excluded both hypercortisolemia as well as hyperaldosteronism. Extensive workup as outpatient to exclude presence of renal vascular disease with catheterization confirming patency without significant stenosis despite noninvasive imaging suggesting otherwise. Patient will be started on BiPAP along with nitroglycerin and challenge with Bumex. She notably has had 10 pound weight gain the previous few weeks. Was seen in cardiology clinic today for from where she was referred to hypertension with increasing shortness of breath. Total critical care time: I personally spent 45 minutes for review of physiologic parameters, directing plan of care throughout the day, coordination of care with other subspecialists, and counseling patient at bedside. This is exclusive of time spent teaching housestaff or performing separate billable procedures. Patient continues to require critical care services for hypertensive emergency with pulmonary edema in setting of acute on chronic diastolic heart failure. Patient remains at high risk for further morbidity and mortality warranting close monitoring and care only available in the intensive care unit.
[2024-07-02] MEDS: ACETAMINOPHEN 325 MG TABLET 650 MG PO (19:24)
--- NOTE | 2024-07-02 20:05 | PC.NURSE ---
Per IV pump guardrail, Maximum dose for Nitroglycerin is 200 mcg/min. per MAR maximum dose is 400mcg/min. Verified with pharmacy and they clarified that maximum dose should be 200mcg/min. Notified MD Watts and she will change order.
[2024-07-02 20:32] LABS: Anion Gap 11 (7-16); BUN/Creatinine Ratio 21 Ratio (12-20); Blood Urea Nitrogen 19 mg/dL (9-23); Calcium 8.9 mg/dL (8.3-10.6); Carbon Dioxide 25.5 mMol/L (20.0-31.0); Chloride 103 mMol/L (98-107); Creatinine (Component) 0.9 mg/dL (0.6-1.3); Estimated Creatinine Clearance 102.4 mL/min (>60); Glucose 109 mg/dL (74-106); Osmolality,Calculated 280 (275-295); Potassium 2.9 mMol/L (3.4-5.1); Sodium 139 mMol/L (136-145); eGFR > 60 See Note
[2024-07-02 21:12] LABS: Magnesium 1.6 mg/dL (1.6-2.6)
[2024-07-02] MEDS: Nitroglycerin/D5w 50 MG IVPB 50 MG/250 ML BTL 60 MG IV (21:15)
[2024-07-02] MEDS: levETIRAcetam 250 MG TABLET 500 MG PO (21:36)
[2024-07-02] MEDS: POTASSIUM CHLORIDE 20 mEq TABCR 40 MEQ PO (21:36)
[2024-07-02] MEDS: BuPROPion HCL 75 MG TABLET 150 MG PO (21:37)
[2024-07-02] MEDS: Magnesium Sulfate 4 GM Ivpb 4 GM/50 ML BAG IV (21:37)
[2024-07-03] VITALS (132 sets, daily range): BP systolic 105–220; BP diastolic 36–127; PULSE 66–96; RESP 14–41; TEMP 36.2–36.9; O2SAT 88–99; BMI 35.4
[2024-07-03] MEDS: POTASSIUM CHLORIDE 20 mEq TABCR 40 MEQ PO (00:43)
[2024-07-03] MEDS: Nitroglycerin/D5w 50 MG IVPB 50 MG/250 ML BTL 60 MG IV ×2 (01:26→10:03)
[2024-07-03] MEDS: Nitroglycerin/D5w 50 MG IVPB 50 MG/250 ML BTL 57 MG IV (05:42)
[2024-07-03] MEDS: HEPARIN SOD INJ 5000 UNIT/ML VIAL SC ×3 (05:43→21:31)
[2024-07-03 06:21] LABS: Anion Gap 11 (7-16); BUN/Creatinine Ratio 21 Ratio (12-20); Blood Urea Nitrogen 21 mg/dL (9-23); Calcium 8.6 mg/dL (8.3-10.6); Carbon Dioxide 26.4 mMol/L (20.0-31.0); Cardiac Risk Estimate 3.4 RATIO (3.7-5.6); Chloride 103 mMol/L (98-107); Cholesterol 112 mg/dL (132-200); Estimated Creatinine Clearance 92.1 mL/min (>60); Glucose 113 mg/dL (74-106); HDL Cholesterol 33 mg/dL (40-60); LDL Cholesterol,Calculated 65 mg/dL (0-130); Magnesium 2.2 mg/dL (1.6-2.6); Osmolality,Calculated 283 (275-295); Phosphorous 3.2 mg/dL (2.4-5.1); Potassium 3.4 mMol/L (3.4-5.1); Sodium 140 mMol/L (136-145); Triglycerides 70 mg/dL (30-150); eGFR > 60 See Note
[2024-07-03 06:28] LABS: Basophils % (Auto) 0 % (0-2.5); Eosinophils # (Auto) 0.1 Thou/mm3 (0.0-0.5); Eosinophils % (Auto) 1 % (0-10); Hemoglobin 13.6 g/dL (12.0-16.0); Immature Granulocytes % (Auto) 0 % (0-0); Immature Granulocytes Auto 0.04 Thou/mm3 (0.00-0.00); Lymphocytes # (Auto) 1.3 Thou/mm3 (1.0-4.8); Lymphocytes % (Auto) 14 % (10-50); Mean Corpuscular HGB Conc 32.4 g/dl (31.0-37.0); Mean Corpuscular Hemoglobin 26.8 pg (25.0-35.0); Mean Corpuscular Volume 83 fL (80-100); Monocytes # (Auto) 1.1 Thou/mm3 (0.0-0.8); Monocytes % (Auto) 11 % (0-12); Neutrophils # (Auto) 7.2 Thou/mm3 (1.8-7.7); Neutrophils % (Auto) 73 % (37-80); Nucleated Red Blood Cell % 0 /100 WBC (0); Platelet Count 181 Thou/mm3 (140-440); RDW Standard Deviation 42.6 fL (36.4-46.3); Red Blood Count 5.07 Miln/mm3 (4.00-5.20); White Blood Count 9.8 Thou/mm3 (3.6-11.0)
[2024-07-03] MEDS: ACETAMINOPHEN 325 MG TABLET 650 MG PO (07:56)
[2024-07-03] MEDS: KETOROLAC INJ 60 MG/2 ML VIAL 30 MG IM (08:29)
[2024-07-03] MEDS: BUMETANIDE INJ 0.25 MG/ML VIAL 4 ML 2 MG IVP (08:34)
[2024-07-03] MEDS: levETIRAcetam 250 MG TABLET 500 MG PO ×2 (08:36→21:29)
[2024-07-03] MEDS: METHIMAZOLE 5 MG TABLET 30 MG PO (08:36)
[2024-07-03] MEDS: BuPROPion HCL 75 MG TABLET 150 MG PO ×2 (08:36→21:30)
[2024-07-03] MEDS: predniSONE 20 MG TABLET PO (09:56)
[2024-07-03] MEDS: VALSARTAN 80 MG TABLET 160 MG PO (10:36)
--- NOTE | 2024-07-03 10:45 | PC.SS ---
Update: Patient is alert/oriented. Room air. On i.v. antibiotics. Cuevas cath in place. P.o. feedings. Cardiac diet. Cardiology consult. Family at bedside.
--- NOTE | 2024-07-03 11:33 | PC.SS ---
BALANCE WEIGHER conducted bedside contact with the patient conduct initial assessment and to discuss discharge planning.? Patient admitted to ICU for management of hypertensive emergency.? Patient confirmed demographic information.? Patient is employed.? Patient resides at home with spouse, Smooth Adam .? Patient does not utilize DME for ambulation assistance.? Patient does not utilize home oxygen.? Patient is able to complete ADL?s independently.? Patient identified spouse, Smooth Adam; as surrogate medical decision maker.? Patient?s PCP is Tigist Rubi.? Patient?s civil celebrant is Dr. Lomeli.? Patient utilizes [facility] for [facility].? Patient reports history of elevated blood pressure.? Patient possesses history of anxiety.? Discharge plan is for the patient to return home at the time of discharge.? Family will provide transportation on behalf of the patient.? ??No further intervention required at this time, social psychologist will be available to address any further concerns.? Next of Kin: Smooth Jair D/C Plan: Home
[2024-07-03 11:37] LABS: Anion Gap 9 (7-16); BUN/Creatinine Ratio 18 Ratio (12-20); Blood Urea Nitrogen 20 mg/dL (9-23); Calcium 8.6 mg/dL (8.3-10.6); Carbon Dioxide 25.4 mMol/L (20.0-31.0); Chloride 103 mMol/L (98-107); Creatinine (Component) 1.1 mg/dL (0.6-1.3); Glucose 129 mg/dL (74-106); Osmolality,Calculated 278 (275-295); Potassium 3.6 mMol/L (3.4-5.1); Sodium 137 mMol/L (136-145); eGFR > 60 See Note
[2024-07-03] MEDS: carVEDILOL 12.5 MG TABLET 25 MG PO ×2 (11:44→17:52)
[2024-07-03] MEDS: CHLORTHALIDONE 25 MG TABLET (NON-FORMULARY) 50 MG PO (11:45)
--- NOTE | 2024-07-03 13:02 | ECHO_ITS ---
Transthoracic Echo Report Ht (in): 67 Wt (lb): 227 Exam Location: Portable Status: Inpatient Discharge Door Operator: MATEO Franklin^^^^ Indications: Procedure Performed: BP: 209 / 105 HR: MEASUREMENTS (Male / Female) Normal Values 2D ECHO LV Diastolic Diameter PLAX 5.1 cm 4.2 - 5.9 / 3.9 - 5.3 cm LV Systolic Diameter PLAX 4.3 cm IVS Diastolic Thickness 0.9 cm 0.6 - 1.0 / 0.6 - 0.9 cm LVPW Diastolic Thickness 1.3 cm 0.6 - 1.0 / 0.6 - 0.9 cm LV Relative Wall Thickness 0.4 LVOT Diameter 1.8 cm Aortic Root Diameter 3.2 cm LA Systolic Diameter LX 2.8 cm 3.0 - 4.0 / 2.7 - 3.8 cm LV Ejection Fraction MOD BP 57.3 % >= 55 % LV Ejection Fraction MOD 4C 65.4 % LV Ejection Fraction 4C AL 66.4 % LV Ejection Fraction MOD 2C 39.6 % LV Ejection Fraction 2C AL 37.2 % LA Volume Index 38.5 cm?/m? 16 - 28 cm?/m? Ascending Aorta Diameter 3.0 cm DOPPLER AV Peak Velocity 183.5 cm/s AV Peak Gradient 13.5 mmHg AV Mean Gradient 7.5 mmHg AV Velocity Time Integral 33.7 cm LVOT Peak Velocity 122.0 cm/s LVOT Peak Gradient 6.0 mmHg LVOT Velocity Time Integral 22.5 cm AV Area Cont Eq vti 1.7 cm? AV Area Cont Eq pk 1.7 cm? MV Area PHT 4.5 cm? MR Peak Velocity 260.0 cm/s MR Peak Gradient 27.0 mmHg Mitral E Point Velocity 96.3 cm/s Mitral A Point Velocity 52.1 cm/s Mitral E to A Ratio 1.8 LV E' Lateral Velocity 7.8 cm/s Mitral E to LV E' Lateral Ratio 12.3 LV E' Septal Velocity 5.6 cm/s Mitral E to LV E' Septal Ratio 17.3 TR Peak Velocity 268.0 cm/s TR Peak Gradient 28.7 mmHg PV Peak Velocity 93.3 cm/s PV Peak Gradient 3.5 mmHg RVOT Peak Velocity 64.3 cm/s FINDINGS Left Ventricle Normal left ventricular size, there is severe concentric left ventricular hypertrophy. mild global hypokinesis LVEF 40-45% Right Ventricle The right ventricle is normal in size and systolic function. The estimated right ventricular systolic pressure, 50 mmHg. Left Atrium The left atrial cavity size is mildly increased. Right Atrium The right atrium is normal by two-dimensional imaging, color flow and Doppler imaging with no structural abnormalities, no thrombus formation present. Atrial Septum The interatrial septum appears normal with no evidence of a shunt. Aorta The aorta is normal by two-dimensional, color flow and Doppler interrogation. Mitral Valve Mild mitral regurgitation. Mild mitral annular calcification. Aortic Valve Mild thickening of the aortic valve leaflets. Diffuse calcification of the aortic valve. Mild aortic valve stenosis, mean gradient 7.5 mmHg, MADDY 1.7 cm?. Tricuspid Valve There is mild tricuspid valve regurgitation. Pulmonic Valve Trivial pulmonic valve regurgitation. Vessels The pulmonary artery appears normal. The inferior vena cava pulmonary and hepatic veins appear normal. Pericardium The pericardium is normal by two-dimensional imaging. There is no significant pericardial effusion. CONCLUSIONS indication: Cardiomegaly Concentric LVH with mild global hypokinesis LV EF 40-45% RV is normal with RVSP 50 mmHg. Mild pulmonary hypertension LA is mildly dilated. Aortic valve sclerosi with no stenosis Mild mitral and tricuspid regurgitation Yvonne Irizarry (Electronically Signed) Final Date: 03 July 2024 12:45
--- NOTE | 2024-07-03 13:26 | ESPR_ITS ---
Documentation for date of: 07/03/24 Subjective Subjective Interval history: 39 yo female with PMH of hyperthyroidism, generalized anxiety disorder with panic attacks, seizure disorder, and resistant hypertension presented to [facility] on 07/02 due to chest pain and shortness of breath. Patient refers for the past 2 weeks she has been experiencing progressively worseing LE edema, accompanied by dyspnea and chest pain that worsens with walking. Patient refers that during this time she has been appropriately taking her antihypertensive medications and has been checking BP at home averaging around 220 systolic, with the highest reading being 255. 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 Patient denies being sick, sick contacts, fevers. On arrival to the ED: Patient's vitals: 250/199, pulse 86, respiratory rate 20, saturating adequately on room air. Pertinent labs: BNP: 1351. Troponin 0.201. Chest x-ray: Enlarged cardiac contour with vascular congestion. While in the ED patient received Lasix 40 x 1 IV push, hydralazine 10 x 1, and was started on nitroglycerin drip. Cardiology consulted, Bedside echo revealed significant global hypokinesis. Patient will be admitted to ICU for further management of hypertensive emergency 07/03: Patient still hypertensive raging from 190s-220s, most likely cause is hyperthyroidism, so we will start steroids. However we will still rule out pheochromocytoma, ordered 24 hr metanephrines and VMA. (previously negative last year). Previous abdomen MRA negative, we will hld off on doing MRA for now, depending on urine metanephrines if we order or not. Cardiology recommended starting antihypertensive medications: coreg, chlorthalidone, and valsartan. Overnight patient had 4.6 urine output and yesterday 2L. Balance is -6L. Exam Vital Signs Temp Pulse Resp BP Pulse Ox O2 Del Method O2 Flow Rate 98.4 F 70 18 124/61 94 L Room Air 3 07/03/24 12:01 07/03/24 13:06 07/03/24 13:06 07/03/24 13:06 07/03/24 13:06 07/03/24 12:01 07/02/24 14:40 Narrative Exam GENERAL: Awake, alert and oriented. No acute distress. HEENT: Normocephalic, atraumatic and nontender.? Pupils are equal and reactive to light and accommodation.? Oral mucosa moist. NECK: Supple without adenopathy. Traquea midline. Nontender, carotid pulse 2+ bilaterally without bruits, no JVD.? CHEST: Heart rate and rythm normal, no murmurs, gallops auscultated. S1 & 2 normal insensity. Nontender on palpation, no deformity and no crepitus. LUNGS: Lung sounds are clear.? No wheezing, rales or ronchi.? No intercostal subcostal retraction. Room air ABDOMEN: Soft,symmetric , nontender, no guarding or rebound tenderness. No abnormal masses palpated.? No pulsatile masses or bruits.? Bowel sounds are normoactive in all 4 quadrants. EXTREMITIES: Nontender.? 1+ edema.? No cyanosis.? Patient is able to move all 4 extremities. SKIN: No rashes noted. NEURO:? Cranial nerves intact.? There is no focalization.? GCS is 15. Objective Labs 07/04/24 04:07 07/04/24 04:07 Labs: Laboratory Results - last 24 hr 07/02/24 07/02/24 07/02/24 12:24 15:14 18:08 WBC RBC Hgb Hct MCV MCH MCHC RDW Std Deviation Plt Count Neut % (Auto) Lymph % (Auto) Dickenson % (Auto) Eos % (Auto) Baso % (Auto) Neut # (Auto) Lymph # (Auto) Dickenson # (Auto) Eos # (Auto) Baso # (Auto) Immature Gran # (Auto) Absolute Nucleated RBC Immature Gran % Nucleated RBC % Sodium 139 Potassium 2.9 L D Chloride 103 Carbon Dioxide 25.5 Anion Gap 11 BUN 19 Creatinine 0.9 Estim Creat Clear Calc 102.4 eGFR > 60 BUN/Creatinine Ratio 21 H Glucose 109 H Calculated Osmolality 280 Calcium 8.9 Phosphorus Magnesium 1.6 Triglycerides Cholesterol LDL Cholesterol, Calc HDL Cholesterol Cholesterol/HDL Ratio TSH < 0.01 L* Free T4 3.80 H Ur Collection Type Voided Urine Color Colorless A Urine Clarity Clear Urine pH 7.5 H Ur Specific [place] 1.006 Urine Protein Negative Urine Glucose (UA) Negative Urine Ketones Negative Urine Blood Negative Urine Nitrite Negative Urine Bilirubin Negative Urine Urobilinogen (Auto) Negative Ur Leukocyte Esterase Negative Urine RBC 3 Urine WBC 1 Ur Squamous Epith Cells 0 Urine Bacteria Rare 07/03/24 07/03/24 04:15 11:14 WBC 9.8 RBC 5.07 Hgb 13.6 Hct 42.0 MCV 83 MCH 26.8 MCHC 32.4 RDW Std Deviation 42.6 Plt Count 181 Neut % (Auto) 73 Lymph % (Auto) 14 Dickenson % (Auto) 11 Eos % (Auto) 1 Baso % (Auto) 0 Neut # (Auto) 7.2 Lymph # (Auto) 1.3 Dickenson # (Auto) 1.1 H Eos # (Auto) 0.1 Baso # (Auto) 0.0 Immature Gran # (Auto) 0.04 H Absolute Nucleated RBC 0.00 Immature Gran % 0 Nucleated RBC % 0 Sodium 140 137 Potassium 3.4 D 3.6 Chloride 103 103 Carbon Dioxide 26.4 25.4 Anion Gap 11 9 BUN 21 20 Creatinine 1.0 1.1 Estim Creat Clear Calc 92.1 83.0 eGFR > 60 > 60 BUN/Creatinine Ratio 21 H 18 Glucose 113 H 129 H Calculated Osmolality 283 278 Calcium 8.6 8.6 Phosphorus 3.2 Magnesium 2.2 Triglycerides 70 Cholesterol 112 L LDL Cholesterol, Calc 65 HDL Cholesterol 33 L Cholesterol/HDL Ratio 3.4 L TSH Free T4 Ur Collection Type Urine Color Urine Clarity Urine pH Ur Specific [place] Urine Protein Urine Glucose (UA) Urine Ketones Urine Blood Urine Nitrite Urine Bilirubin Urine Urobilinogen (Auto) Ur Leukocyte Esterase Urine RBC Urine WBC Ur Squamous Epith Cells Urine Bacteria Quality Measures Quality Measures none Assessment & Plan Assessment Current Active Medications: Generic Name Dose Route Start Last Admin Trade Name Freq PRN Reason Stop Dose Admin Acetaminophen 650 mg 07/03/24 07:40 Acetaminophen 325 Mg Tablet PO 08/01/24 14:59 Q6H PRN Fever >100.4 Acetaminophen 650 mg 07/03/24 07:40 07/03/24 07:56 Acetaminophen 325 Mg Tablet PO 08/01/24 14:59 650 mg Q6H PRN Administration Pain Scale 1-8 Bupropion HCl 150 mg 07/02/24 21:00 07/03/24 08:36 Bupropion Hcl 75 Mg Tablet PO 08/01/24 20:59 150 mg BID LEON Administration Carvedilol 25 mg 07/03/24 12:00 07/03/24 11:44 Carvedilol 12.5 Mg Tablet PO 08/02/24 11:59 25 mg TIDWM LEON Administration Chlorthalidone 50 mg 07/03/24 10:30 07/03/24 11:45 Chlorthalidone 25 Mg Tablet (Non-Formulary) PO 08/02/24 10:29 50 mg QDAY LEON Administration Heparin Sodium (Porcine) 5,000 unit 07/02/24 22:00 07/03/24 05:43 Heparin Sod Inj 5000 Unit/Ml Vial SC 07/16/24 21:59 5,000 unit Q8HR LEON Administration Nitroglycerin/Dextrose 50 mg in 250 mls @ 1.5 mls/hr 07/02/24 20:00 07/03/24 12:59 Nitroglycerin In D5w Ivpb IV 08/01/24 14:37 0 mcg/min .Q24H PRN 0 mls/hr PER PROTOCOL Titration Protocol 5 MCG/MIN Levetiracetam 500 mg 07/02/24 21:00 07/03/24 08:36 Levetiracetam 250 Mg Tablet PO 08/01/24 20:59 500 mg BID LEON Administration Methimazole 30 mg 07/03/24 09:00 07/03/24 08:36 Methimazole 5 Mg Tablet PO 08/02/24 08:59 30 mg QDAY LEON Administration Ondansetron HCl 4 mg 07/02/24 15:00 Ondansetron Inj 2 Mg/Ml Inj 2 Ml IV 08/01/24 14:59 Q6H PRN NAUSEA OR VOMITING Protocol Prednisone 20 mg 07/03/24 09:45 07/03/24 09:56 Prednisone 20 Mg Tablet PO 08/02/24 09:44 20 mg QDAY LEON Administration Valsartan 160 mg 07/03/24 10:15 07/03/24 10:36 Valsartan 80 Mg Tablet PO 08/02/24 10:14 160 mg QDAY LEON Administration Plan 39 yo female with PMH of hyperthyroidism, generalized anxiety disorder with panic attacks, seizure disorder, and resistant hypertension presented to [facility] on 07/02 due to chest pain and shortness of breath and was found to have 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 #Hypertensive emergency with concurrent #Heart failure and volume overload, improving -Presented with a BP of 250/133, dyspnea, edema 3+, bnp 1351, troponin 0.201 -Bedside echo showed global hypokinesia -Chest xray: Enlarged cardiac contour with vascular congestion -As to the precipitating factor/cause of resistant hypertension, could be hyperthyriodism, bilateral renal stenosis has been ruled out -Follow up formal echocardiogram -Follow up urine VMA and metanephrines -Nitroglycerin drip, discontinued -Bumex 2mg BID, discontinued -Daily weight -Strict I&O, 6L negative balance since admit -[employer] 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, appreciate recs: Start: Valsartan, chlorthalidone , coreg RESP -Stable GI -IBS diarrhea predominant -Patient states she's been dagnosed with IBS diarrhea predominant, however picture fits more with GI disturbances associated with hyperthyroidism ENDO #Hyperthyroidism -Most likely underlying factor for resistant hypertension -Thyroid panel: TSH <0.01, T4 3.8 -Currently takes methimazole 30 QDAY, resume, will need outpatient endocrinology follow up to consider ablation/surgical resection since shes not getting adequate control on max dose methimazole for years -Startting prednisone qday ID -stable Heme onc -stable PSYCH #Anxiety with panick atacks -Restart home buspar #Migraine -Currently asymptomatic Disposition: Patient admitted to ICU for management of hypertensive emergency with concurrent heart failure and volume overload. Diet and fluids: Cardiac DVT prophylaxis:Heparin GI prophylaxis:None CODE STATUS:FULL Cuevas:In place Lines:Peripheral Patient's care discussed with attending physician, Dr Paul Berg MD PGY3 Attending Provider Attestation/Addendum Patient seen and examined with above resident, Lidia Berg MD. I agree with the findings, assessment, and plan of care as document except for any differences below. Patient with significant improvement in blood pressure on nitroglycerin drip. Oral regimen initiated by cardiology at their discretion. Patient had significant urine output of nearly 6 L with resolution of pedal edema and return to baseline room air. Her echocardiogram does show consistent findings of hypertensive heart disease with now systolic dysfunction. Patient will need to optimize medical therapy in the long run. Underlying etiology continues to require further investigation, will do 24-hour collections of both metanephrines as well as cortisol to exclude presence of hypercortisolism or pheochromocytoma. Previous abdominal imaging did exclude presence of adrenal lesion. She does not have any other signs of central source of elevated ACTH. Alternative etiology for elevated VMA would be explained by presence of paraganglioma, this can be excluded by MRI of the spine should chemistry testing patient's clinical scenario however close consistent with hyperthyroidism given about her pressured speech, GI symptoms, and persistent hypertension with failure to respond to methimazole. She had been previously on propranolol which has been discontinued while we readjust her regimen based on new findings of heart disease. We can consider potential imaging but prior studies have been repeatedly negative for thyroid nodules and with required thyroidectomy. However given the hyperactive thyroid this may still be warranted for definitive therapy. She did not have a history of thyroid storm following viral infection with COVID. Patient with strong family history of malignancy with multiple family members with bone cancer though these were most likely metastatic versus true sarcomas given the advanced age of her family members at the time of diagnosis. Patient will continued to be monitored in the intensive care unit overnight with plan to transition to medicine song for ongoing management. Total critical care time: I personally spent 45 minutes for review of physiologic parameters, directing plan of care throughout the day, coordination of care with other subspecialties, and counseling the patient and her mother at bedside. This is exclusive of time spent teaching housestaff or performing any separate billable procedures. Patient continued require critical care services for acute hypertensive emergency with acute on chronic systolic heart failure secondary to hypertensive heart disease. She remains at significant risk for morbidity and mortality warranting close monitoring and care only available in the ICU.
--- NOTE | 2024-07-03 13:27 | ESPR_ITS ---
<Statement entered by Eliane Lomeli MD - 07/10/24 22:31> The patient is examined and seen by me patient is doing little better blood pressure control better does not complain of any chest pain shortness of breath with the stress was not chest pain or pericarditis evaluated the patient with resident physician PGY 3 Dr. Hednricks agree with treatment plan recommendation as documented and will continue to monitor the patient closely I was present during examination all essential complaints documentatioN Documentation for date of: 07/03/24 Subjective Subjective Interval history: Patient seen and examined the ICU. Patient feels better. Blood pressure look undercontrol after adding PO medications. 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 Sensation grossly intact. Objective Labs 07/06/24 06:31 07/06/24 06:31 Labs: Laboratory Results - last 24 hr 07/02/24 07/02/24 07/02/24 12:24 15:14 18:08 WBC RBC Hgb Hct MCV MCH MCHC RDW Std Deviation Plt Count Neut % (Auto) Lymph % (Auto) Ransom % (Auto) Eos % (Auto) Baso % (Auto) Neut # (Auto) Lymph # (Auto) Ransom # (Auto) Eos # (Auto) Baso # (Auto) Immature Gran # (Auto) Absolute Nucleated RBC Immature Gran % Nucleated RBC % Sodium 139 Potassium 2.9 L D Chloride 103 Carbon Dioxide 25.5 Anion Gap 11 BUN 19 Creatinine 0.9 Estim Creat Clear Calc 102.4 eGFR > 60 BUN/Creatinine Ratio 21 H Glucose 109 H Calculated Osmolality 280 Calcium 8.9 Phosphorus Magnesium 1.6 Triglycerides Cholesterol LDL Cholesterol, Calc HDL Cholesterol Cholesterol/HDL Ratio TSH < 0.01 L* Free T4 3.80 H Ur Collection Type Voided Urine Color Colorless A Urine Clarity Clear Urine pH 7.5 H Ur Specific [place] 1.006 Urine Protein Negative Urine Glucose (UA) Negative Urine Ketones Negative Urine Blood Negative Urine Nitrite Negative Urine Bilirubin Negative Urine Urobilinogen (Auto) Negative Ur Leukocyte Esterase Negative Urine RBC 3 Urine WBC 1 Ur Squamous Epith Cells 0 Urine Bacteria Rare 07/03/24 07/03/24 04:15 11:14 WBC 9.8 RBC 5.07 Hgb 13.6 Hct 42.0 MCV 83 MCH 26.8 MCHC 32.4 RDW Std Deviation 42.6 Plt Count 181 Neut % (Auto) 73 Lymph % (Auto) 14 Ransom % (Auto) 11 Eos % (Auto) 1 Baso % (Auto) 0 Neut # (Auto) 7.2 Lymph # (Auto) 1.3 Ransom # (Auto) 1.1 H Eos # (Auto) 0.1 Baso # (Auto) 0.0 Immature Gran # (Auto) 0.04 H Absolute Nucleated RBC 0.00 Immature Gran % 0 Nucleated RBC % 0 Sodium 140 137 Potassium 3.4 D 3.6 Chloride 103 103 Carbon Dioxide 26.4 25.4 Anion Gap 11 9 BUN 21 20 Creatinine 1.0 1.1 Estim Creat Clear Calc 92.1 83.0 eGFR > 60 > 60 BUN/Creatinine Ratio 21 H 18 Glucose 113 H 129 H Calculated Osmolality 283 278 Calcium 8.6 8.6 Phosphorus 3.2 Magnesium 2.2 Triglycerides 70 Cholesterol 112 L LDL Cholesterol, Calc 65 HDL Cholesterol 33 L Cholesterol/HDL Ratio 3.4 L TSH Free T4 Ur Collection Type Urine Color Urine Clarity Urine pH Ur Specific [place] Urine Protein Urine Glucose (UA) Urine Ketones Urine Blood Urine Nitrite Urine Bilirubin Urine Urobilinogen (Auto) Ur Leukocyte Esterase Urine RBC Urine WBC Ur Squamous Epith Cells Urine Bacteria Quality Measures Quality Measures none Assessment & Plan Assessment Current Active Medications: Generic Name Dose Route Start Last Admin Trade Name Freq PRN Reason Stop Dose Admin Acetaminophen 650 mg 07/03/24 07:40 Acetaminophen 325 Mg Tablet PO 08/01/24 14:59 Q6H PRN Fever >100.4 Acetaminophen 650 mg 07/03/24 07:40 07/03/24 07:56 Acetaminophen 325 Mg Tablet PO 08/01/24 14:59 650 mg Q6H PRN Administration Pain Scale 1-8 Bupropion HCl 150 mg 07/02/24 21:00 07/03/24 08:36 Bupropion Hcl 75 Mg Tablet PO 08/01/24 20:59 150 mg BID LEON Administration Carvedilol 25 mg 07/03/24 12:00 07/03/24 11:44 Carvedilol 12.5 Mg Tablet PO 08/02/24 11:59 25 mg TIDWM LEON Administration Chlorthalidone 50 mg 07/03/24 10:30 07/03/24 11:45 Chlorthalidone 25 Mg Tablet (Non-Formulary) PO 08/02/24 10:29 50 mg QDAY LEON Administration Heparin Sodium (Porcine) 5,000 unit 07/02/24 22:00 07/03/24 05:43 Heparin Sod Inj 5000 Unit/Ml Vial SC 07/16/24 21:59 5,000 unit Q8HR LEON Administration Nitroglycerin/Dextrose 50 mg in 250 mls @ 1.5 mls/hr 07/02/24 20:00 07/03/24 12:59 Nitroglycerin In D5w Ivpb IV 08/01/24 14:37 0 mcg/min .Q24H PRN 0 mls/hr PER PROTOCOL Titration Protocol 5 MCG/MIN Levetiracetam 500 mg 07/02/24 21:00 07/03/24 08:36 Levetiracetam 250 Mg Tablet PO 08/01/24 20:59 500 mg BID LEON Administration Methimazole 30 mg 07/03/24 09:00 07/03/24 08:36 Methimazole 5 Mg Tablet PO 08/02/24 08:59 30 mg QDAY LEON Administration Ondansetron HCl 4 mg 07/02/24 15:00 Ondansetron Inj 2 Mg/Ml Inj 2 Ml IV 08/01/24 14:59 Q6H PRN NAUSEA OR VOMITING Protocol Prednisone 20 mg 07/03/24 09:45 07/03/24 09:56 Prednisone 20 Mg Tablet PO 08/02/24 09:44 20 mg QDAY LEON Administration Valsartan 160 mg 07/03/24 10:15 07/03/24 10:36 Valsartan 80 Mg Tablet PO 08/02/24 10:14 160 mg QDAY LEON Administration Plan #Hypertensive emergency #Acute respiratory distress #Acute decompensated heart failure #Supply and demand ischemia #Fluid overload #Angina equivalent #History of chronic pericarditis #History of resistant hypertension Assessment: Patient presented with shortness of breath upon exertion, chest pain, lower extremity edema, orthopnea, paroxysmal lower extremity dyspnea for the past 3 days. This is the first time patient has ever had the symptoms after being treated for 7 years for resistant hypertension and chronic pericarditis. Patient's currently on 5 medications max dose for the treatment of resistant hypertension. Patient has already gotten a renal artery angiogram which showed no fibrodysplasia or renal artery stenosis. Patient in 2023 also had workup for pheochromocytoma which the metanephrines and VMA's were negative. Patient also got worked up for any aldosterone or renin abnormalities which returned normal. Etiology of the patient's heart failure likely indicative of patient's hypertensive emergency with evidence of elevated troponin and BNP. Bedside POCUS showed global hypokinesis indicative of low ejection fraction. Also on physical exam he can hear a delay diastolic duction no murmur consistent with aortic regurgitation likely in the setting of fluid overload in the setting of emergency hypertension. X-ray showed moderate to severe pulmonary edema with a very and large cardiac silhouette comparison to previous x-ray patient has significant cardiomegaly noted on this admission. Upon further review back in 2020 patient had a left heart cath which showed no coronary artery disease. Recommendations: DC nitro drip We will diurese the patient with bumetanide 2 mg IV twice daily, we will monitor patient's urine output and a Cuevas will be placed Start carvediolol 25mg TID Start valsartan 160mg QD Start chlotharidone 50mg QD - Patient's care was discussed with my attending physician, Dr. Armani Hobbs MD Internal Medicine PGY-3
[2024-07-04] VITALS (88 sets, daily range): BP systolic 131–195; BP diastolic 71–129; PULSE 61–81; RESP 11–37; TEMP 36–37; O2SAT 91–99; BMI 34.9
[2024-07-04 05:17] LABS: Basophils % (Auto) 0 % (0-2.5); Eosinophils # (Auto) 0.2 Thou/mm3 (0.0-0.5); Eosinophils % (Auto) 2 % (0-10); Hematocrit 42.7 % (36.0-46.0); Immature Granulocytes % (Auto) 0 % (0-0); Immature Granulocytes Auto 0.02 Thou/mm3 (0.00-0.00); Lymphocytes # (Auto) 2.2 Thou/mm3 (1.0-4.8); Lymphocytes % (Auto) 26 % (10-50); Mean Corpuscular HGB Conc 32.8 g/dl (31.0-37.0); Mean Corpuscular Hemoglobin 26.9 pg (25.0-35.0); Mean Corpuscular Volume 82 fL (80-100); Monocytes # (Auto) 0.9 Thou/mm3 (0.0-0.8); Monocytes % (Auto) 10 % (0-12); Neutrophils # (Auto) 5.4 Thou/mm3 (1.8-7.7); Neutrophils % (Auto) 62 % (37-80); Nucleated Red Blood Cell % 0 /100 WBC (0); Platelet Count 202 Thou/mm3 (140-440); RDW Standard Deviation 42.5 fL (36.4-46.3); White Blood Count 8.7 Thou/mm3 (3.6-11.0)
[2024-07-04 05:44] LABS: Anion Gap 9 (7-16); BUN/Creatinine Ratio 21 Ratio (12-20); Blood Urea Nitrogen 27 mg/dL (9-23); Calcium 8.8 mg/dL (8.3-10.6); Carbon Dioxide 24.7 mMol/L (20.0-31.0); Chloride 104 mMol/L (98-107); Creatinine (Component) 1.3 mg/dL (0.6-1.3); Estimated Creatinine Clearance 70.2 mL/min (>60); Glucose 86 mg/dL (74-106); Magnesium 2.3 mg/dL (1.6-2.6); Osmolality,Calculated 279 (275-295); Phosphorous 5.2 mg/dL (2.4-5.1); Potassium 4.1 mMol/L (3.4-5.1); Sodium 138 mMol/L (136-145); eGFR 53 See Note
[2024-07-04] MEDS: HEPARIN SOD INJ 5000 UNIT/ML VIAL SC ×2 (06:15→21:32)
[2024-07-04] MEDS: ACETAMINOPHEN 325 MG TABLET 650 MG PO (06:53)
[2024-07-04] MEDS: carVEDILOL 12.5 MG TABLET 25 MG PO ×3 (07:54→18:39)
[2024-07-04] MEDS: VALSARTAN 80 MG TABLET 160 MG PO (08:00)
[2024-07-04] MEDS: BuPROPion HCL 75 MG TABLET 150 MG PO ×2 (08:00→21:29)
[2024-07-04] MEDS: predniSONE 20 MG TABLET PO (08:02)
[2024-07-04] MEDS: METHIMAZOLE 5 MG TABLET 30 MG PO (08:02)
[2024-07-04] MEDS: levETIRAcetam 250 MG TABLET 500 MG PO ×2 (08:02→21:29)
[2024-07-04] MEDS: CHLORTHALIDONE 25 MG TABLET (NON-FORMULARY) 50 MG PO (08:03)
--- NOTE | 2024-07-04 10:07 | XR_ITS ---
Examination: CT chest with intravenous contrast 2-D sagittal and coronal reconstructions Exam date and time: July 04, 2024 1210 hrs. Indications: History chest pain difficulty breathing, vascular congestion on chest film July 02, 2024, diagnosis thyroid goiter CTDI:vol (mGy) 18.0 DLP: (mGycm) 636 Technique: Multiple axial sections of the thorax have been obtained. Sections have been obtained, 3 mm slice thickness. Mediastinal and lung density settings have been obtained. Intravenous contrast administered, 30 cc Isovue-300. 2-D sagittal, coronal images obtained. Low dose protocols were performed. One or more of the following dose reduction techniques were used; automated exposure control, adjustment of the mA and/or KV according to patient size, use of iterative reconstruction technique. Findings: Bilateral mild thyromegaly No thoracic aortic aneurysm dilatation Pulmonary artery opacification is significantly reduced, no gross filling defects Mild prominence cardiac contour No paratracheal tracheobronchial or bronchopulmonary adenopathy No pneumonia or pulmonary edema or pleural disease No liver splenic lesions Absent gallbladder No pancreatic or adrenal mass Kidneys partially visualized no hydronephrosis Intact osseous structures Impression: Pulmonary artery opacification is poor, no gross filling defects No mediastinal lymphadenopathy Bilateral mild thyromegaly No pneumonia, pulmonary edema or pleural disease
[2024-07-04 11:21] LABS: Misc Send Out* See Sep Rpt
--- NOTE | 2024-07-04 13:14 | PC.SS ---
Update: Patient on room air. P.O. feeding. Blood pressure improving. Patient downgraded from ICU today.
--- NOTE | 2024-07-04 15:25 | ESPR_ITS ---
<Statement entered by Eliane Lomeli MD - 07/06/24 19:47> I personally examined the patient patient appears to be doing better today blood pressure control much better restarted on beta-fred carvedilol 25 mg 3 times daily Diovan 160 mg twice daily continue to have some chest pain due to pericarditis will probably restart her on Arcalyst home medication. Evaluate the patient with PGY 2 Dr. Mary Mchugh agree with the treatment plan recommendations Documentation for date of: 07/04/24 Subjective Subjective Interval history: No acute events overnight.?Patient seen and examined at bedside this AM in ICU, patient is downgraded and will be moved to Tele.?Patient reports improved symptoms since the admission, much better breathing however is still short of breath with walking across her ICU room. Bilateral lower leg swelling has significantly improved but legs feel sore. Per nursing, patient was complaining of Cuevas discomfort therefore was removed, discussed that strict I&Os will need to continue to be documented so patient will urinate in hat.?Labs and vitals were reviewed.?BP ranged from 131/71 to 194/110 over the last 24 hours. Overall improved since restarting carvedilol on 25 mg TID dose, chlorthalidone 50 mg qday, valsartan 160 mg qday. No further complaints at this time. Review of systems otherwise negative except what is mentioned above. Exam Vital Signs Temp Pulse Resp BP Pulse Ox O2 Del Method O2 Flow Rate 97.3 F 73 24 H 156/101 H 97 Room Air 1 07/04/24 12:00 07/04/24 13:01 07/04/24 12:55 07/04/24 13:01 07/04/24 12:55 07/04/24 12:00 07/03/24 16:03 Narrative Exam Constitutional: AOx3, unable to speak full sentences due to shortness of breath HEENT: NC/AT, PERRLA, oral mucosa moist, prominent JVD CVS: RRR, S1-S2 present, decrescendo diastolic murmur best heard in left lower sternal border 2 out of 6, with notable S3 heart sound RESP: Bilateral lower lobe crackles GI: non distended, non tender to palpation, NBS MSK: full ROM, 2+ peripheral edema, peripheral pulses present Skin: warm and wet, no rashes Neuro: rn patient care II-XII grossly intact. Sensation grossly intact. Objective Labs 07/04/24 04:07 07/04/24 04:07 Labs: Laboratory Results - last 24 hr 07/04/24 04:07 WBC 8.7 RBC 5.20 Hgb 14.0 Hct 42.7 MCV 82 MCH 26.9 MCHC 32.8 RDW Std Deviation 42.5 Plt Count 202 Neut % (Auto) 62 Lymph % (Auto) 26 [place] % (Auto) 10 Eos % (Auto) 2 Baso % (Auto) 0 Neut # (Auto) 5.4 Lymph # (Auto) 2.2 [place] # (Auto) 0.9 H Eos # (Auto) 0.2 Baso # (Auto) 0.0 Immature Gran # (Auto) 0.02 H Absolute Nucleated RBC 0.00 Immature Gran % 0 Nucleated RBC % 0 Sodium 138 Potassium 4.1 D Chloride 104 Carbon Dioxide 24.7 Anion Gap 9 BUN 27 H Creatinine 1.3 Estim Creat Clear Calc 70.2 eGFR 53 L BUN/Creatinine Ratio 21 H Glucose 86 Calculated Osmolality 279 Calcium 8.8 Phosphorus 5.2 H Magnesium 2.3 Quality Measures Quality Measures none Assessment & Plan Assessment Current Active Medications: Generic Name Dose Route Start Last Admin Trade Name Freq PRN Reason Stop Dose Admin Acetaminophen 650 mg 07/03/24 07:40 Acetaminophen 325 Mg Tablet PO 08/01/24 14:59 Q6H PRN Fever >100.4 Acetaminophen 650 mg 07/03/24 07:40 07/04/24 06:53 Acetaminophen 325 Mg Tablet PO 08/01/24 14:59 650 mg Q6H PRN Administration Pain Scale 1-8 Bupropion HCl 150 mg 07/02/24 21:00 07/04/24 08:00 Bupropion Hcl 75 Mg Tablet PO 08/01/24 20:59 150 mg BID LEON Administration Carvedilol 25 mg 07/03/24 12:00 07/04/24 13:01 Carvedilol 12.5 Mg Tablet PO 08/02/24 11:59 25 mg TIDWM LEON Administration Chlorthalidone 50 mg 07/03/24 10:30 07/04/24 08:03 Chlorthalidone 25 Mg Tablet (Non-Formulary) PO 08/02/24 10:29 50 mg QDAY LEON Administration Heparin Sodium (Porcine) 5,000 unit 07/02/24 22:00 04/10/25 06:15 Heparin Sod Inj 5000 Unit/Ml Vial SC 07/16/24 21:59 5,000 unit Q8HR LEON Administration Nitroglycerin/Dextrose 50 mg in 250 mls @ 1.5 mls/hr 07/02/24 20:00 07/03/24 12:59 Nitroglycerin In D5w Ivpb IV 08/01/24 14:37 0 mcg/min .Q24H PRN 0 mls/hr PER PROTOCOL Titration Protocol 5 MCG/MIN Levetiracetam 500 mg 07/02/24 21:00 07/04/24 08:02 Levetiracetam 250 Mg Tablet PO 08/01/24 20:59 500 mg BID LEON Administration Methimazole 30 mg 07/03/24 09:00 07/04/24 08:02 Methimazole 5 Mg Tablet PO 08/02/24 08:59 30 mg QDAY LEON Administration Ondansetron HCl 4 mg 07/02/24 15:00 Ondansetron Inj 2 Mg/Ml Inj 2 Ml IV 08/01/24 14:59 Q6H PRN NAUSEA OR VOMITING Protocol Prednisone 20 mg 07/03/24 09:45 07/04/24 08:02 Prednisone 20 Mg Tablet PO 08/02/24 09:44 20 mg QDAY LEON Administration Valsartan 160 mg 07/03/24 10:15 07/04/24 08:00 Valsartan 80 Mg Tablet PO 08/02/24 10:14 160 mg QDAY LEON Administration Plan 39-year-old female with a past medical history of resistant hypertension, chronic pericarditis, hyperthyroidism, seizure disorder, depression, and anxiety presented to the ED referred by outpatient cardiology after appointment with Dr. Lomeli due to worsening shortness of breath and lower peripheral edema that started about 3 days ago. #Hypertensive emergency - resolved #Acute respiratory distress - resolved #Acute decompensated heart failure #Hypertensive heart failure #Supply and demand ischemia #Fluid overload #Angina equivalent #History of chronic pericarditis #History of resistant hypertension Presented with a BP of 250/133, dyspnea, edema 3+, bnp 1351, troponin 0.201 2020 Patient had a left heart cath which showed no coronary artery disease. 07/03/2024 Echo showed concentric LVH with mild global hypokinesis LV EF 40-45% RV is normal with RVSP 50 mmHg. Mild pulmonary hypertension LA is mildly dilated. Aortic valve sclerosis with no stenosis Mild mitral and tricuspid regurgitation Hyperthyroidism may be a precipitating factor/cause of resistant hypertension. Bilateral renal artery stenosis has been ruled out via angiogram done 2023. Patient has had CT scans negative for renal adenoma, pheochromocytoma, renin and aldosterone studies negative. 07/04/2024 Patient has diuresed net negative over 8L since admission. Bumex was discontinued as creatinine started to increase up to 1.3. -Continue strict I&O measurements -Continue carvedilol 25 mg TIDWM -Continue chlorthalidone 50 mg qday -Continue valsartan 160 mg qday Rest of conditions to continue current management per primary team: #Hyperthyroidism #IBS, diarrhea predominant #History of generalized anxiety disorder #History of panic disorder #History of migraines Patient was discussed with the Cardiology attending, Dr. Lomeli. Thank you for allowing us to participate in the care of this patient. Nilda Mchugh, PGY-2
--- NOTE | 2024-07-04 15:43 | PD.RESPRO ---
Documentation for date of: 07/04/24 Subjective Subjective Interval history: Patient downgraded from ICU. Signout received by Dr. Burr. Patient examined at bedside. Continues to complain of some chest discomfort which has improved from initial admission. Describes pressure type pain which worsens with inspiration. Shortness of breath is still present but also has much improved. Lower extremity edema also resolved. Patient is alert and oriented x 3, blood pressure well-controlled systolic 140 after being started on nitroglycerin drip. Oral regimen initiated by cardiology at their discretion. Her echocardiogram does show consistent findings of hypertensive heart disease with now systolic dysfunction. Patient states that she does follow with Dr. Lomeli cardiology outpatient and full workup has been pursued with negative findings underlying cause of resistant hypertension. Urine VMA and metanephrines pending, patient to continue valsartan, chlorthalidone, Coreg. Patient has history of hyperthyroidism managed by Dr. Jorgensen in [place]. Last appointment was 8 months ago, patient needs to follow-up closely at time of discharge. Exam Vital Signs Temp Pulse Resp BP Pulse Ox O2 Del Method O2 Flow Rate 97.3 F 73 24 H 156/101 H 97 Room Air 1 07/04/24 12:00 07/04/24 13:01 07/04/24 12:55 07/04/24 13:01 07/04/24 12:55 07/04/24 12:00 07/03/24 16:03 Narrative Exam GENERAL: Awake, alert and oriented. No acute distress. HEENT: Normocephalic, atraumatic and nontender.? Pupils are equal and reactive to light and accommodation.? Oral mucosa moist. NECK: Supple without adenopathy. Traquea midline. Nontender, carotid pulse 2+ bilaterally without bruits, no JVD.? CHEST: Heart rate and rythm normal, no murmurs, gallops auscultated. S1 & 2 normal insensity. Nontender on palpation, no deformity and no crepitus. LUNGS: Lung sounds are clear.? No wheezing, rales or ronchi.? No intercostal subcostal retraction. Room air ABDOMEN: Soft,symmetric , nontender, no guarding or rebound tenderness. No abnormal masses palpated.? No pulsatile masses or bruits.? Bowel sounds are normoactive in all 4 quadrants. EXTREMITIES: Nontender.? 1+ edema.? No cyanosis.? Patient is able to move all 4 extremities. SKIN: No rashes noted. NEURO:? Cranial nerves intact.? GCS is 15. Objective Labs 07/04/24 04:07 07/04/24 04:07 Labs: Laboratory Results - last 24 hr 07/04/24 04:07 WBC 8.7 RBC 5.20 Hgb 14.0 Hct 42.7 MCV 82 MCH 26.9 MCHC 32.8 RDW Std Deviation 42.5 Plt Count 202 Neut % (Auto) 62 Lymph % (Auto) 26 [place] % (Auto) 10 Eos % (Auto) 2 Baso % (Auto) 0 Neut # (Auto) 5.4 Lymph # (Auto) 2.2 [place] # (Auto) 0.9 H Eos # (Auto) 0.2 Baso # (Auto) 0.0 Immature Gran # (Auto) 0.02 H Absolute Nucleated RBC 0.00 Immature Gran % 0 Nucleated RBC % 0 Sodium 138 Potassium 4.1 D Chloride 104 Carbon Dioxide 24.7 Anion Gap 9 BUN 27 H Creatinine 1.3 Estim Creat Clear Calc 70.2 eGFR 53 L BUN/Creatinine Ratio 21 H Glucose 86 Calculated Osmolality 279 Calcium 8.8 Phosphorus 5.2 H Magnesium 2.3 Quality Measures Quality Measures none Assessment & Plan Assessment Current Active Medications: Generic Name Dose Route Start Last Admin Trade Name Terryq PRN Reason Stop Dose Admin Acetaminophen 650 mg 07/03/24 07:40 Acetaminophen 325 Mg Tablet PO 08/01/24 14:59 Q6H PRN Fever >100.4 Acetaminophen 650 mg 07/03/24 07:40 07/04/24 06:53 Acetaminophen 325 Mg Tablet PO 08/01/24 14:59 650 mg Q6H PRN Administration Pain Scale 1-8 Bupropion HCl 150 mg 07/02/24 21:00 07/04/24 08:00 Bupropion Hcl 75 Mg Tablet PO 08/01/24 20:59 150 mg BID LEON Administration Carvedilol 25 mg 07/03/24 12:00 07/04/24 13:01 Carvedilol 12.5 Mg Tablet PO 08/02/24 11:59 25 mg TIDWM LEON Administration Chlorthalidone 50 mg 07/03/24 10:30 07/04/24 08:03 Chlorthalidone 25 Mg Tablet (Non-Formulary) PO 08/02/24 10:29 50 mg QDAY LEON Administration Heparin Sodium (Porcine) 5,000 unit 07/02/24 22:00 07/04/24 06:15 Heparin Sod Inj 5000 Unit/Ml Vial SC 07/16/24 21:59 5,000 unit Q8HR LEON Administration Nitroglycerin/Dextrose 50 mg in 250 mls @ 1.5 mls/hr 07/02/24 20:00 07/03/24 12:59 Nitroglycerin In D5w Ivpb IV 08/01/24 14:37 0 mcg/min .Q24H PRN 0 mls/hr PER PROTOCOL Titration Protocol 5 MCG/MIN Levetiracetam 500 mg 07/02/24 21:00 07/04/24 08:02 Levetiracetam 250 Mg Tablet PO 08/01/24 20:59 500 mg BID LEON Administration Methimazole 30 mg 07/03/24 09:00 07/04/24 08:02 Methimazole 5 Mg Tablet PO 08/02/24 08:59 30 mg QDAY LEON Administration Ondansetron HCl 4 mg 07/02/24 15:00 Ondansetron Inj 2 Mg/Ml Inj 2 Ml IV 08/01/24 14:59 Q6H PRN NAUSEA OR VOMITING Protocol Prednisone 20 mg 07/03/24 09:45 07/04/24 08:02 Prednisone 20 Mg Tablet PO 08/02/24 09:44 20 mg QDAY LEON Administration Valsartan 160 mg 07/03/24 10:15 07/04/24 08:00 Valsartan 80 Mg Tablet PO 08/02/24 10:14 160 mg QDAY LEON Administration Plan 39 yo female with PMH of hyperthyroidism, generalized anxiety disorder with panic attacks, seizure disorder, and resistant hypertension presented to [facility] on 07/02 due to chest pain and shortness of breath and was found to have hypertensive emergency. #Hypertensive emergency with concurrent #Heart failure and volume overload, improving Presented with a BP of 250/133, dyspnea, edema 3+, bnp 1351, troponin 0.201 Bedside echo showed global hypokinesia Chest xray: Enlarged cardiac contour with vascular congestion As to the precipitating factor/cause of resistant hypertension, could be hyperthyriodism, bilateral renal stenosis has been ruled out Follow up formal echocardiogram -Follow up urine VMA and metanephrines -Nitroglycerin drip, discontinued -Bumex 2mg BID, discontinued -Daily weight -Strict I&O, 6L negative balance since admit -Flake Or Shred Roll Operator Dr Lomeli consulted, appreciate recs: Continue: Valsartan, chlorthalidone , coreg #IBS, diarrhea predominant -Patient states she's been dagnosed with IBS diarrhea predominant, however picture fits more with GI disturbances associated with hyperthyroidism -continue to monitor #Hyperthyroidism Most likely underlying factor for resistant hypertension Thyroid panel: TSH <0.01, T4 3.8 Currently takes methimazole 30 QDAY, resume, will need outpatient endocrinology follow up to consider ablation/surgical resection since shes not getting adequate control on max dose methimazole for years -Startting prednisone qday -Continue methimazole 30 mg daily ? Patient needs to follow-up closely with endocrinology at time of discharge #Anxiety with panick atacks -Restart home buspar #hx Migraine -Currently asymptomatic -Continue to monitor Disposition: Downgraded to floors on 07/04, hypertensive emergency with concurrent heart failure and volume overload. Diet and fluids: Cardiac DVT prophylaxis:Heparin GI prophylaxis:None CODE STATUS:FULL Cuevas:In place Lines:Peripheral The patient's management plan was discussed with my attending physician Dr. Lake. Mariel Braga, PGY-1 Attending Provider Attestation/Addendum I reviewed labs, imaging, EKG, home medications and prior available records. Face to face evaluation was performed by me. I have personally examined the patient and discussed assessment and plan with the IM team. I reviewed the resident note and agree with the plan with exceptions as below. Acute hypoxic respiratory failure, resolved Hypertensive emergency Non-STEMI Acute exacerbation of HFrEF EF 40-45% Hyperthyroidism Nicardipine drip was weaned off Continue carvedilol Added losartan Monitor BP Continue methimazole Repeat thyroid function tests in 4 to 6 weeks Follow-up metanephrine and VMA Ordered echocardiogram that showed reduced EF of 40 to 45%, mild valvular disease, and elevated RVSP Cardiology was consulted and following
--- NOTE | 2024-07-04 16:50 | ESPR_ITS ---
Documentation for date of: 07/04/24 Subjective Subjective Interval history: 39 yo female with PMH of hyperthyroidism, generalized anxiety disorder with panic attacks, seizure disorder, and resistant hypertension presented to [facility] on 07/02 due to chest pain and shortness of breath. Patient refers for the past 2 weeks she has been experiencing progressively worseing LE edema, accompanied by dyspnea and chest pain that worsens with walking. Patient refers that during this time she has been appropriately taking her antihypertensive medications and has been checking BP at home averaging around 220 systolic, with the highest reading being 255. Today patient's dyspnea significantly increased so she went to her director of aviation Dr Lomeli's office, where her blood pressure has found to be high and she was advised to present to the ED. Patient denies being sick, sick contacts, fevers. On arrival to the ED: Patient's vitals: 250/199, pulse 86, respiratory rate 20, saturating adequately on room air. Pertinent labs: BNP: 1351. Troponin 0.201. Chest x-ray: Enlarged cardiac contour with vascular congestion. While in the ED patient received Lasix 40 x 1 IV push, hydralazine 10 x 1, and was started on nitroglycerin drip. Cardiology consulted, Bedside echo revealed significant global hypokinesis. Patient will be admitted to ICU for further management of hypertensive emergency 07/03: Patient still hypertensive raging from 190s-220s, most likely cause is hyperthyroidism, so we will start steroids. However we will still rule out pheochromocytoma, ordered 24 hr metanephrines and VMA. (previously negative last year). Previous abdomen MRA negative, we will hld off on doing MRA for now, depending on urine metanephrines if we order or not. Cardiology recommended starting antihypertensive medications: coreg, chlorthalidone, and valsartan. Overnight patient had 4.6 urine output and yesterday 2L. Balance is -6L. 07/04: Patients BP improved, now 150s-140s. Ordered a chest CT to rule out retrosternal goiter. Patient safe and stable for downgrade. Will most likely need thyroidectomy. Exam Vital Signs Temp Pulse Resp BP Pulse Ox O2 Del Method O2 Flow Rate 97.3 F 73 24 H 156/101 H 97 Room Air 1 07/04/24 12:00 07/04/24 13:01 07/04/24 12:55 07/04/24 13:01 07/04/24 12:55 07/04/24 12:00 07/03/24 16:03 Narrative Exam GENERAL: Awake, alert and oriented. No acute distress. HEENT: Normocephalic, atraumatic and nontender.? Pupils are equal and reactive to light and accommodation.? Oral mucosa moist. NECK: Supple without adenopathy. Trachea midline. Nontender, carotid pulse 2+ bilaterally without bruits, no JVD.? CHEST: Heart rate and rythm normal, no murmurs, gallops auscultated. S1 & 2 normal insensity. Nontender on palpation, no deformity and no crepitus. LUNGS: Lung sounds are clear.? No wheezing, rales or ronchi.? No intercostal subcostal retraction. Room air ABDOMEN: Soft,symmetric , nontender, no guarding or rebound tenderness. No abnormal masses palpated.? No pulsatile masses or bruits.? Bowel sounds are normoactive in all 4 quadrants. EXTREMITIES: Nontender.? 1+ edema.? No cyanosis.? Patient is able to move all 4 extremities. SKIN: No rashes noted. NEURO:? Cranial nerves intact.? There is no focalization.? GCS is 15. Objective Labs 07/05/24 05:14 07/04/24 04:07 Labs: Laboratory Results - last 24 hr 07/04/24 04:07 WBC 8.7 RBC 5.20 Hgb 14.0 Hct 42.7 MCV 82 MCH 26.9 MCHC 32.8 RDW Std Deviation 42.5 Plt Count 202 Neut % (Auto) 62 Lymph % (Auto) 26 [place] % (Auto) 10 Eos % (Auto) 2 Baso % (Auto) 0 Neut # (Auto) 5.4 Lymph # (Auto) 2.2 [place] # (Auto) 0.9 H Eos # (Auto) 0.2 Baso # (Auto) 0.0 Immature Gran # (Auto) 0.02 H Absolute Nucleated RBC 0.00 Immature Gran % 0 Nucleated RBC % 0 Sodium 138 Potassium 4.1 D Chloride 104 Carbon Dioxide 24.7 Anion Gap 9 BUN 27 H Creatinine 1.3 Estim Creat Clear Calc 70.2 eGFR 53 L BUN/Creatinine Ratio 21 H Glucose 86 Calculated Osmolality 279 Calcium 8.8 Phosphorus 5.2 H Magnesium 2.3 Quality Measures Quality Measures none Assessment & Plan Assessment Current Active Medications: Generic Name Dose Route Start Last Admin Trade Name Terryq PRN Reason Stop Dose Admin Acetaminophen 650 mg 07/03/24 07:40 Acetaminophen 325 Mg Tablet PO 08/01/24 14:59 Q6H PRN Fever >100.4 Acetaminophen 650 mg 07/03/24 07:40 07/04/24 06:53 Acetaminophen 325 Mg Tablet PO 08/01/24 14:59 650 mg Q6H PRN Administration Pain Scale 1-8 Bupropion HCl 150 mg 07/02/24 21:00 07/04/24 08:00 Bupropion Hcl 75 Mg Tablet PO 08/01/24 20:59 150 mg BID LEON Administration Carvedilol 25 mg 07/03/24 12:00 07/04/24 13:01 Carvedilol 12.5 Mg Tablet PO 08/02/24 11:59 25 mg TIDWM LEON Administration Chlorthalidone 50 mg 07/03/24 10:30 07/04/24 08:03 Chlorthalidone 25 Mg Tablet (Non-Formulary) PO 08/02/24 10:29 50 mg QDAY LEON Administration Heparin Sodium (Porcine) 5,000 unit 07/02/24 22:00 07/04/24 06:15 Heparin Sod Inj 5000 Unit/Ml Vial SC 07/16/24 21:59 5,000 unit Q8HR LEON Administration Nitroglycerin/Dextrose 50 mg in 250 mls @ 1.5 mls/hr 07/02/24 20:00 07/03/24 12:59 Nitroglycerin In D5w Ivpb IV 08/01/24 14:37 0 mcg/min .Q24H PRN 0 mls/hr PER PROTOCOL Titration Protocol 5 MCG/MIN Levetiracetam 500 mg 07/02/24 21:00 07/04/24 08:02 Levetiracetam 250 Mg Tablet PO 08/01/24 20:59 500 mg BID LEON Administration Methimazole 30 mg 07/03/24 09:00 07/04/24 08:02 Methimazole 5 Mg Tablet PO 08/02/24 08:59 30 mg QDAY LEON Administration Ondansetron HCl 4 mg 07/02/24 15:00 Ondansetron Inj 2 Mg/Ml Inj 2 Ml IV 08/01/24 14:59 Q6H PRN NAUSEA OR VOMITING Protocol Prednisone 20 mg 07/03/24 09:45 07/04/24 08:02 Prednisone 20 Mg Tablet PO 08/02/24 09:44 20 mg QDAY LEON Administration Valsartan 160 mg 07/03/24 10:15 07/04/24 08:00 Valsartan 80 Mg Tablet PO 08/02/24 10:14 160 mg QDAY LEON Administration Plan 39 yo female with PMH of hyperthyroidism, generalized anxiety disorder with panic attacks, seizure disorder, and resistant hypertension presented to [facility] on 07/02 due to chest pain and shortness of breath and was found to have hypertensive emergency, resolved, safe and stable for downgrade, will most likely need thyroidectomy as that is the most likely cause of her resistant 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 #Hypertensive emergency with concurrent #Heart failure and volume overload, improving -Presented with a BP of 250/133, dyspnea, edema 3+, bnp 1351, troponin 0.201 -Bedside echo showed global hypokinesia -Chest xray: Enlarged cardiac contour with vascular congestion -As to the precipitating factor/cause of resistant hypertension, could be hyperthyriodism, bilateral renal stenosis has been ruled out -Follow up formal echocardiogram -Follow up urine VMA and metanephrines -Nitroglycerin drip, discontinued -Bumex 2mg BID, discontinued -Daily weight -Strict I&O, 6L negative balance since admit -Transit Mixer Operator Dr Lomeli consulted, appreciate recs: Start: Valsartan, chlorthalidone , coreg RESP -Stable GI -IBS diarrhea predominant -Patient states she's been dagnosed with IBS diarrhea predominant, however picture fits more with GI disturbances associated with hyperthyroidism ENDO #Hyperthyroidism -Most likely underlying factor for resistant hypertension -Thyroid panel: TSH <0.01, T4 3.8 -Currently takes methimazole 30 QDAY, resume, will need outpatient endocrinology follow up to consider ablation/surgical resection since shes not getting adequate control on max dose methimazole for years -Startting prednisone qday ID -stable Heme onc -stable PSYCH #Anxiety with panick atacks -Restart home buspar #Migraine -Currently asymptomatic Disposition: Patient admitted to ICU for management of hypertensive emergency with concurrent heart failure and volume overload, resolved, safe and stable for downgrade Diet and fluids: Cardiac DVT prophylaxis:Heparin GI prophylaxis:None CODE STATUS:FULL Cuevas:In place Lines:Peripheral Patient's care discussed with attending physician, Dr Paul Berg MD PGY3 Attending Provider Attestation/Addendum Patient seen and examined with above resident, Lidia Berg MD. I agree with the findings, assessment, and plan of care as document except for any differences below. Remains off nitroglycerin gtt. BP improved. OMT being initiated by cardiology for systolic heart failure. Will continue on methimazole. Add on propranolol as well. Pheochromocytoma seems less likely as isolated betablockade would likely precipitate worsening hypertension with alpha agonism. 24 Hour collection was completed including for cortisol now. I favor isolated hyperthyroidism as etiology of worsening hypertension, likely component of essential hypertenison worsened now with inability to control hyperactive thyroid. Retrosternal goiter to also be excluded, CT done today for this. Patient may warrant surgical intervention versus radioablation and we will reach out to GS and endocrinology for further input of what is available for the patient in the inpatient setting. She is however now stable for downgrade to medicine song while we await final plan of care and medication regimen. Patient counseled extensively at bedside and agreeable for ongoing plan of action. If inconclusive therapy at [facility], I did advise patient to seek care at tertiary facility with more readily available resources. Total critical care time: I personally spent 45 minutes for review of physiologic parameters, directing plan of care, coordination of care with other subspecialists, and counseling patient at the bedside. This is exclusive of time spent teaching housestaff or performing any separate billable procedures. Patient required critical care services for acute decompensated systolic heart failure and hypertensive emergency. She remained at significant risk for further morbidity and mortality warranting close monitoring and care only available in the ICU.
[2024-07-05] VITALS (15 sets, daily range): BP systolic 134–155; BP diastolic 74–117; PULSE 64–82; RESP 16–26; TEMP 35.8–36.6; O2SAT 97–99; BMI 34.9; BMI 35.0
[2024-07-05] MEDS: HEPARIN SOD INJ 5000 UNIT/ML VIAL SC ×3 (05:18→21:55)
[2024-07-05 05:39] LABS: Basophils # (Auto) 0.1 Thou/mm3 (0.0-0.2); Basophils % (Auto) 1 % (0-2.5); Eosinophils # (Auto) 0.2 Thou/mm3 (0.0-0.5); Eosinophils % (Auto) 2 % (0-10); Hematocrit 46.1 % (36.0-46.0); Hemoglobin 14.7 g/dL (12.0-16.0); Immature Granulocytes % (Auto) 0 % (0-0); Immature Granulocytes Auto 0.02 Thou/mm3 (0.00-0.00); Lymphocytes # (Auto) 2.9 Thou/mm3 (1.0-4.8); Lymphocytes % (Auto) 27 % (10-50); Mean Corpuscular HGB Conc 31.9 g/dl (31.0-37.0); Mean Corpuscular Hemoglobin 26.6 pg (25.0-35.0); Mean Corpuscular Volume 83 fL (80-100); Monocytes % (Auto) 9 % (0-12); Neutrophils # (Auto) 6.8 Thou/mm3 (1.8-7.7); Neutrophils % (Auto) 62 % (37-80); Nucleated Red Blood Cell % 0 /100 WBC (0); Platelet Count 246 Thou/mm3 (140-440); RDW Standard Deviation 43.4 fL (36.4-46.3); Red Blood Count 5.53 Miln/mm3 (4.00-5.20); White Blood Count 10.9 Thou/mm3 (3.6-11.0)
[2024-07-05 06:09] LABS: Anion Gap 10 (7-16); BUN/Creatinine Ratio 22 Ratio (12-20); Blood Urea Nitrogen 35 mg/dL (9-23); Calcium 9.1 mg/dL (8.3-10.6); Carbon Dioxide 25.2 mMol/L (20.0-31.0); Chloride 104 mMol/L (98-107); Creatinine (Component) 1.6 mg/dL (0.6-1.3); Estimated Creatinine Clearance 56.6 mL/min (>60); Glucose 88 mg/dL (74-106); Magnesium 2.3 mg/dL (1.6-2.6); Osmolality,Calculated 284 (275-295); Phosphorous 5.1 mg/dL (2.4-5.1); Potassium 4.1 mMol/L (3.4-5.1); Sodium 139 mMol/L (136-145); eGFR 41 See Note
[2024-07-05] MEDS: carVEDILOL 12.5 MG TABLET 25 MG PO ×3 (08:08→17:43)
[2024-07-05] MEDS: levETIRAcetam 250 MG TABLET 500 MG PO ×2 (08:10→21:54)
[2024-07-05] MEDS: BuPROPion HCL 75 MG TABLET 150 MG PO ×2 (08:10→21:55)
[2024-07-05] MEDS: VALSARTAN 80 MG TABLET 160 MG PO ×2 (08:10→21:54)
[2024-07-05] MEDS: predniSONE 20 MG TABLET PO (08:10)
[2024-07-05] MEDS: METHIMAZOLE 5 MG TABLET 30 MG PO (08:11)
[2024-07-05] MEDS: CHLORTHALIDONE 25 MG TABLET (NON-FORMULARY) 50 MG PO (09:02)
--- NOTE | 2024-07-05 10:35 | PC.SS ---
Follow up note: ICU down grade. blood presssure high. Optimize medication. Pt will return home upon dc.
--- NOTE | 2024-07-05 10:36 | XR_ITS ---
Exam: Chest 1 view, AP Date and time of exam: 07/05/2024, 11:31 AM INDICATION: Chest pain Comparison: 07/02/2024 Findings: Cardiac silhouette is enlarged. No mediastinal adenopathy. No acute fracture No pulmonary edema or pneumonia. Impression: Persistent cardiomegaly. No active disease.
--- NOTE | 2024-07-05 11:23 | ESPR_ITS ---
Documentation for date of: 07/05/24 Subjective Subjective Interval history: Blood pressure controlled, valsartan increased to 160 twice daily, will continue Coreg 25mg TID and chlorthalidone 50mg daily. Morning labs significant for uptrending of creatinine from 1.3-1.6. Per cardiology, we will continue valsartan. Patient states that she is frustrated and believes she needs to be transferred to a facility that will provide thyroidectomy as patient has Graves' disease. Patient reassured that this is something that needs to be followed in outpatient setting. Later in the day patient once again reassured by sugarcane research technician Dr. Lomeli. Anticipating to discharge patient within 24-48 hours. Exam Vital Signs Temp Pulse Resp BP Pulse Ox O2 Del Method O2 Flow Rate 96.5 F L 70 16 155/117 H 99 Room Air 1 07/05/24 08:00 07/05/24 09:02 07/05/24 08:00 07/05/24 09:02 07/05/24 08:00 07/05/24 08:00 07/05/24 00:00 Narrative Exam GENERAL: Awake, alert and oriented. No acute distress. HEENT: Normocephalic, atraumatic and nontender.? Pupils are equal and reactive to light and accommodation.? Oral mucosa moist. NECK: Supple without adenopathy. [place] midline. Nontender, carotid pulse 2+ bilaterally without bruits, no JVD.? CHEST: Heart rate and rythm normal, no murmurs, gallops auscultated. S1 & 2 normal insensity. Nontender on palpation, no deformity and no crepitus. LUNGS: Lung sounds are clear.? No wheezing, rales or ronchi.? No intercostal subcostal retraction. Room air ABDOMEN: Soft,symmetric , nontender, no guarding or rebound tenderness. No abnormal masses palpated.? No pulsatile masses or bruits.? Bowel sounds are normoactive in all 4 quadrants. EXTREMITIES: Nontender.? 1+ edema.? No cyanosis.? Patient is able to move all 4 extremities. SKIN: No rashes noted. NEURO:? Cranial nerves intact.? GCS is 15. Objective Labs 07/05/24 05:14 07/05/24 05:14 Labs: Laboratory Results - last 24 hr 07/05/24 05:14 WBC 10.9 RBC 5.53 H Hgb 14.7 Hct 46.1 H MCV 83 MCH 26.6 MCHC 31.9 RDW Std Deviation 43.4 Plt Count 246 D Neut % (Auto) 62 Lymph % (Auto) 27 [place] % (Auto) 9 Eos % (Auto) 2 Baso % (Auto) 1 Neut # (Auto) 6.8 Lymph # (Auto) 2.9 [place] # (Auto) 1.0 H Eos # (Auto) 0.2 Baso # (Auto) 0.1 Immature Gran # (Auto) 0.02 H Absolute Nucleated RBC 0.00 Immature Gran % 0 Nucleated RBC % 0 Sodium 139 Potassium 4.1 Chloride 104 Carbon Dioxide 25.2 Anion Gap 10 BUN 35 H Creatinine 1.6 H Estim Creat Clear Calc 56.6 L eGFR 41 L BUN/Creatinine Ratio 22 H Glucose 88 Calculated Osmolality 284 Calcium 9.1 Phosphorus 5.1 Magnesium 2.3 Quality Measures Quality Measures none Assessment & Plan Assessment Current Active Medications: Generic Name Dose Route Start Last Admin Trade Name Freq PRN Reason Stop Dose Admin Acetaminophen 650 mg 07/03/24 07:40 Acetaminophen 325 Mg Tablet PO 08/01/24 14:59 Q6H PRN Fever >100.4 Acetaminophen 650 mg 07/03/24 07:40 07/04/24 06:53 Acetaminophen 325 Mg Tablet PO 08/01/24 14:59 650 mg Q6H PRN Administration Pain Scale 1-8 Bupropion HCl 150 mg 07/02/24 21:00 07/05/24 08:10 Bupropion Hcl 75 Mg Tablet PO 08/01/24 20:59 150 mg BID LEON Administration Carvedilol 25 mg 07/03/24 12:00 07/05/24 08:08 Carvedilol 12.5 Mg Tablet PO 08/02/24 11:59 25 mg TIDWM LEON Administration Chlorthalidone 50 mg 07/03/24 10:30 07/05/24 09:02 Chlorthalidone 25 Mg Tablet (Non-Formulary) PO 08/02/24 10:29 50 mg QDAY LEON Administration Heparin Sodium (Porcine) 5,000 unit 07/02/24 22:00 07/05/24 05:18 Heparin Sod Inj 5000 Unit/Ml Vial SC 07/16/24 21:59 5,000 unit Q8HR LEON Administration Levetiracetam 500 mg 07/02/24 21:00 07/05/24 08:10 Levetiracetam 250 Mg Tablet PO 08/01/24 20:59 500 mg BID LEON Administration Methimazole 30 mg 07/03/24 09:00 07/05/24 08:11 Methimazole 5 Mg Tablet PO 08/02/24 08:59 30 mg QDAY LEON Administration Ondansetron HCl 4 mg 07/02/24 15:00 Ondansetron Inj 2 Mg/Ml Inj 2 Ml IV 08/01/24 14:59 Q6H PRN NAUSEA OR VOMITING Protocol Prednisone 20 mg 07/03/24 09:45 07/05/24 08:10 Prednisone 20 Mg Tablet PO 08/02/24 09:44 20 mg QDAY LEON Administration Valsartan 160 mg 07/03/24 10:15 07/05/24 08:10 Valsartan 80 Mg Tablet PO 08/02/24 10:14 160 mg QDAY LEON Administration Plan 39 yo female with PMH of hyperthyroidism, generalized anxiety disorder with panic attacks, seizure disorder, and resistant hypertension presented to [facility] on 07/02 due to chest pain and shortness of breath and was found to have hypertensive emergency. #Hypertensive emergency with concurrent #HFrEF (40-45%) Presented with a BP of 250/133, dyspnea, edema 3+, bnp 1351, troponin 0.201 Bedside echo showed global hypokinesia Chest xray: Enlarged cardiac contour with vascular congestion As to the precipitating factor/cause of resistant hypertension, could be hyperthyriodism, bilateral renal stenosis has been ruled out Echocardiogram report showed: Concentric LVH with mild global hypokinesis LV EF 40-45%, RV is normal with RVSP 50 mmHg.Mild pulmonary hypertension. LA is mildly dilated. Mild mitral and tricuspid regurgitation Plan: -VMA and metanephrines pending -Daily weight -Strict I&O, 6L negative balance since admit -Paper Twister Tender Dr Lomeli onboard, recommendations are greatly appreciated -Continue: Valsartan, chlorthalidone , coreg #IBS, diarrhea predominant -Patient states she's been dagnosed with IBS diarrhea predominant, however picture fits more with GI disturbances associated with hyperthyroidism -continue to monitor #Hyperthyroidism Most likely underlying factor for resistant hypertension Thyroid panel: TSH <0.01, T4 3.8 Currently takes methimazole 30 QDAY, resume, will need outpatient endocrinology follow up to consider ablation/surgical resection since shes not getting adequate control on max dose methimazole for years -Continue prednisone qday -Continue methimazole 30 mg daily ?Patient needs to follow-up closely with endocrinology at time of discharge #Anxiety with panick atacks -Restart home buspar #hx Migraine -Currently asymptomatic -Continue to monitor Disposition: Downgraded to floors on 07/04, hypertensive emergency with concurrent heart failure and volume overload. Diet and fluids: Cardiac DVT prophylaxis:Heparin GI prophylaxis:None CODE STATUS:FULL Cuevas:In place Lines:Peripheral This patient care was discussed with my attending Dr. Jaya Johnson MD PGY-2 Disclaimer: Minor errors in deputy juvenile officer may be present since this note was dictated by speech recognition software. Attending Provider Attestation/Addendum I reviewed labs, imaging, EKG, home medications and prior available records. Face to face evaluation was performed by me. I have personally examined the patient and discussed assessment and plan with the IM team. I reviewed the resident note and agree with the plan with exceptions as below. Acute hypoxic respiratory failure, resolved Hypertensive emergency Non-STEMI Acute exacerbation of HFrEF EF 40-45% LOUIE, new complication Hyperthyroidism Ordered repeat chest x-ray Nicardipine drip was weaned off Continue carvedilol Creatinine increased. Discussed with cardiology: Okay to continue valsartan Monitor kidney function. Avoid nephrotoxins Monitor BP Continue methimazole and prednisone Repeat thyroid function tests in 4 to 6 weeks Follow-up metanephrine and VMA: Negative Outpatient follow-up with endocrinology/endocrine surgery for evaluation for thyroidectomy Ordered echocardiogram that showed reduced EF of 40 to 45%, mild valvular disease, and elevated RVSP Cardiology was consulted and following
--- NOTE | 2024-07-05 13:33 | ESPR_ITS ---
<Statement entered by Eliane Lomeli MD - 07/06/24 19:48> I personally examined the patient evaluated the patient with PGY [address] Hernandze who resident physician patient will be given Arcalyst today she is having lower chest pain does not complain of orthopnea or PND blood pressure generally controlled well we are restarting her medications including Arcalyst for pain patient can be discharged home tomorrow possibly as an outpatient follow-up mild worsening of renal function not unusual because of diuresis she diuresed and lost more than 15 pounds of weight. Documentation for date of: 07/05/24 Subjective Subjective Interval history: No acute events overnight.?Patient seen and examined at bedside. She reported chest discomfort described as pressure that has increased over the past day. Patient is overdue for her rilonacept weekly injection which she takes for chronic pericarditis, placed order for patient to be able to have family member bring in and have pharmacy verify so she can administer while in hospital.?Patient otherwise feels still short of breath, and reports bilateral lower extremity swelling and discomfort. She continues to report good urine output however since Cuevas was removed unsure if full I&Os are completely in chart. Labs and vitals were reviewed.?Creatinine had increased to 1.6, despite this will remain steady with chlorthalidone dose and increasing the valsartan. BP is improved with systolic in the 150s and diastolic in the 90-110 range. Patient remains on room air. Plan was discussed at bedside with Dr. Lomeli and the patient, if BP is steady tomorrow she may be discharged and plan is for close follow up with Dr. Jorgensen regarding the hyperthyroid, and she will be referred to Dr. Cooney endocrine surgeon stat for thyroidectomy. Patient expresses agreement to the plan. No further concerns at this time. Review of systems otherwise negative except what is mentioned above. Exam Vital Signs Temp Pulse Resp BP Pulse Ox O2 Del Method O2 Flow Rate 97.9 F 71 22 H 153/92 H 98 Room Air 1 07/05/24 11:45 07/05/24 11:45 07/05/24 11:45 07/05/24 11:45 07/05/24 11:45 07/05/24 11:45 07/05/24 00:00 Narrative Exam Physical Exam General: Awake and in no acute distress. Conversational and non-toxic appearing. HEENT: Normocephalic, atraumatic, mucous membranes moist. Heart: Regular rate and rhythm, normal S1 and S2, no murmurs. Tenderness to palpation of chest wall. Lungs: Clear to auscultation with no wheezing or crackles. Abdomen: Soft, obese, nondistended, nontender, positive bowel sounds. ?No guarding or rebound tenderness. Neurologic: Alert and oriented x3, no gross neurological deficit, and patient able to move all 4 extremities. Extremities: Bilateral 1+ nonpitting edema, scratch garcia scabbed over. Tenderness to palpation generalized lower extremities. Skin: No rash or ecchymoses. Objective Labs 07/05/24 05:14 07/05/24 05:14 Labs: Laboratory Results - last 24 hr 07/05/24 05:14 WBC 10.9 RBC 5.53 H Hgb 14.7 Hct 46.1 H MCV 83 MCH 26.6 MCHC 31.9 RDW Std Deviation 43.4 Plt Count 246 D Neut % (Auto) 62 Lymph % (Auto) 27 [place] % (Auto) 9 Eos % (Auto) 2 Baso % (Auto) 1 Neut # (Auto) 6.8 Lymph # (Auto) 2.9 [place] # (Auto) 1.0 H Eos # (Auto) 0.2 Baso # (Auto) 0.1 Immature Gran # (Auto) 0.02 H Absolute Nucleated RBC 0.00 Immature Gran % 0 Nucleated RBC % 0 Sodium 139 Potassium 4.1 Chloride 104 Carbon Dioxide 25.2 Anion Gap 10 BUN 35 H Creatinine 1.6 H Estim Creat Clear Calc 56.6 L eGFR 41 L BUN/Creatinine Ratio 22 H Glucose 88 Calculated Osmolality 284 Calcium 9.1 Phosphorus 5.1 Magnesium 2.3 Quality Measures Quality Measures none Assessment & Plan Assessment Current Active Medications: Generic Name Dose Route Start Last Admin Trade Name Freq PRN Reason Stop Dose Admin Acetaminophen 650 mg 07/03/24 07:40 Acetaminophen 325 Mg Tablet PO 08/01/24 14:59 Q6H PRN Fever >100.4 Acetaminophen 650 mg 07/03/24 07:40 07/04/24 06:53 Acetaminophen 325 Mg Tablet PO 08/01/24 14:59 650 mg Q6H PRN Administration Pain Scale 1-8 Bupropion HCl 150 mg 07/02/24 21:00 07/05/24 08:10 Bupropion Hcl 75 Mg Tablet PO 08/01/24 20:59 150 mg BID LEON Administration Carvedilol 25 mg 07/03/24 12:00 07/05/24 11:43 Carvedilol 12.5 Mg Tablet PO 08/02/24 11:59 25 mg TIDWM LEON Administration Chlorthalidone 50 mg 07/03/24 10:30 07/05/24 09:02 Chlorthalidone 25 Mg Tablet (Non-Formulary) PO 08/02/24 10:29 50 mg QDAY LEON Administration Heparin Sodium (Porcine) 5,000 unit 07/02/24 22:00 07/05/24 05:18 Heparin Sod Inj 5000 Unit/Ml Vial SC 07/16/24 21:59 5,000 unit Q8HR LEON Administration Levetiracetam 500 mg 07/02/24 21:00 07/05/24 08:10 Levetiracetam 250 Mg Tablet PO 08/01/24 20:59 500 mg BID LEON Administration Methimazole 30 mg 07/03/24 09:00 07/05/24 08:11 Methimazole 5 Mg Tablet PO 08/02/24 08:59 30 mg QDAY LEON Administration Ondansetron HCl 4 mg 07/02/24 15:00 Ondansetron Inj 2 Mg/Ml Inj 2 Ml IV 08/01/24 14:59 Q6H PRN NAUSEA OR VOMITING Protocol Prednisone 20 mg 07/03/24 09:45 07/05/24 08:10 Prednisone 20 Mg Tablet PO 08/02/24 09:44 20 mg QDAY LEON Administration Valsartan 160 mg 07/05/24 21:00 Valsartan 80 Mg Tablet PO 08/04/24 20:59 BID LEON Plan 39-year-old female with a past medical history of resistant hypertension, chronic pericarditis, hyperthyroidism, seizure disorder, depression, and anxiety presented to the ED referred by outpatient cardiology after appointment with Dr. Lomeli due to worsening shortness of breath and lower peripheral edema that started about 3 days prior to the admission. #Hypertensive emergency - resolved #Acute respiratory distress - resolved #Acute decompensated heart failure #Hypertensive heart failure #Supply and demand ischemia #Fluid overload #Angina equivalent #History of chronic pericarditis #History of resistant hypertension Presented with a BP of 250/133, dyspnea, edema 3+, bnp 1351, troponin 0.201 2020 Patient had a left heart cath which showed no coronary artery disease. 07/03/2024 Echo showed concentric LVH with mild global hypokinesis LV EF 40-45% RV is normal with RVSP 50 mmHg. Mild pulmonary hypertension LA is mildly dilated. Aortic valve sclerosis with no stenosis Mild mitral and tricuspid regurgitation Hyperthyroidism may be a precipitating factor/cause of resistant hypertension. Bilateral renal artery stenosis has been ruled out via angiogram done 2023. Patient has had CT scans negative for renal adenoma, pheochromocytoma, renin and aldosterone studies negative. 07/04/2024 Patient has diuresed net negative over 8L since admission. Bumex was discontinued as creatinine started to increase up to 1.3. 07/05/2024 Valsartan dose increased to BID. -Continue strict I&O measurements -Continue carvedilol 25 mg TIDWM -Continue chlorthalidone 50 mg qday -Increased valsartan 160 mg qday to BID -Patient received dose of rilonacept 160 mg subQ, maintenance for chronic pericarditis -Patient ready for discharge tomorrow from cardiology standpoint if BP stable, patient in agreement with plan which was discussed with Dr. Lomeli -Follow up with Dr. Jorgensen endocrinology outpatient Rest of conditions to continue current management per primary team: #Hyperthyroidism #IBS, diarrhea predominant #History of generalized anxiety disorder #History of panic disorder #History of migraines Patient was discussed with the Cardiology attending, Dr. Lomeli. Thank you for allowing us to participate in the care of this patient. Nilda Mchugh, PGY-2
[2024-07-05] MEDS: [UNRECOGNIZED DRUG - OTHER] SC (20:18)
[2024-07-06] VITALS (10 sets, daily range): BP systolic 145–165; BP diastolic 93–112; PULSE 58–68; RESP 17–21; TEMP 35.8–36.1; O2SAT 97–99
[2024-07-06] MEDS: HEPARIN SOD INJ 5000 UNIT/ML VIAL SC ×2 (05:32→14:21)
[2024-07-06 07:02] LABS: Basophils % (Auto) 1 % (0-2.5); Eosinophils # (Auto) 0.1 Thou/mm3 (0.0-0.5); Eosinophils % (Auto) 2 % (0-10); Hematocrit 44.1 % (36.0-46.0); Hemoglobin 13.8 g/dL (12.0-16.0); Immature Granulocytes % (Auto) 0 % (0-0); Immature Granulocytes Auto 0.01 Thou/mm3 (0.00-0.00); Lymphocytes # (Auto) 2.8 Thou/mm3 (1.0-4.8); Lymphocytes % (Auto) 34 % (10-50); Mean Corpuscular HGB Conc 31.3 g/dl (31.0-37.0); Mean Corpuscular Hemoglobin 26.8 pg (25.0-35.0); Mean Corpuscular Volume 86 fL (80-100); Monocytes # (Auto) 0.9 Thou/mm3 (0.0-0.8); Monocytes % (Auto) 11 % (0-12); Neutrophils # (Auto) 4.2 Thou/mm3 (1.8-7.7); Neutrophils % (Auto) 53 % (37-80); Nucleated Red Blood Cell % 0 /100 WBC (0); Platelet Count 228 Thou/mm3 (140-440); RDW Standard Deviation 44.4 fL (36.4-46.3); Red Blood Count 5.15 Miln/mm3 (4.00-5.20)
[2024-07-06 07:18] LABS: Alanine Aminotransferase 18 U/L (10-49); Albumin, Serum 3.6 gm/dL (3.5-5.0); Albumin/Globulin Ratio 1.3 (1.2-2.2); Alkaline Phosphatase 133 U/L (46-116); Anion Gap 8 (7-16); Aspartate Amino Transferase 20 U/L (0-34); BUN/Creatinine Ratio 23 Ratio (12-20); Bilirubin,Total 1.5 mg/dL (0.3-1.2); Blood Urea Nitrogen 32 mg/dL (9-23); Calcium 8.8 mg/dL (8.3-10.6); Calcium (Corrected) 9.1 mg/dL (8.5-10.1); Chloride 106 mMol/L (98-107); Creatinine (Component) 1.4 mg/dL (0.6-1.3); Estimated Creatinine Clearance 63.5 mL/min (>60); Globulin 2.7 gm/dL (2.3-3.5); Glucose 88 mg/dL (74-106); Osmolality,Calculated 283 (275-295); Potassium 4.3 mMol/L (3.4-5.1); Sodium 139 mMol/L (136-145); Total Protein 6.3 gm/dL (5.7-8.2); eGFR 48 See Note
[2024-07-06] MEDS: METHIMAZOLE 5 MG TABLET 30 MG PO (08:45)
[2024-07-06] MEDS: BuPROPion HCL 75 MG TABLET 150 MG PO (08:46)
[2024-07-06] MEDS: carVEDILOL 12.5 MG TABLET 25 MG PO ×2 (08:46→14:21)
[2024-07-06] MEDS: VALSARTAN 80 MG TABLET 160 MG PO (08:46)
[2024-07-06] MEDS: predniSONE 20 MG TABLET PO (08:47)
[2024-07-06] MEDS: levETIRAcetam 250 MG TABLET 500 MG PO (08:47)
[2024-07-06] MEDS: CHLORTHALIDONE 25 MG TABLET (NON-FORMULARY) 50 MG PO (08:52)
--- NOTE | 2024-07-06 14:20 | ESDS_ITS ---
<Statement entered by Ha Silva MD - 07/11/24 12:02> Patient seen and examined at bedside with resident. Agree with assessment and plan as dictated below. Patient cleared for discharge back to home today. Advised close follow-up with primary care, cardiology, endocrinology. Take all medications as prescribed. Return to ER if new or worsening symptoms. Ha Silva MD Planned Discharge Date 07/06/24 DS: Providers Provider Date of admission: 07/02/24 15:00 Primary care physician: Tigist Rubi NP Admitting Provider: Emil Miller MD Attending Provider on Admission: Zechariah Lake MD Consults: 07/02/24 15:06 Consult to Cardiology Stat Comment: Consulting Provider: Eliane Lomeli Attending Provider on DC: Bo Johnson MD Discharging Provider: Bo Johnson MD DS: Diagnosis Problem List Completed Was Problem List Reviewed/Reconciled?: Yes Hospital Course Hospital Course Hospital course: [facility] a 39 yo female patient with PMH of hyperthyroidism, generalized anxiety disorder with panic attacks, seizure disorder, and resistant hypertension presented to [facility] on 07/02 due to chest pain and shortness of breath. Patient refers for the past 2 weeks she has been experiencing progressively worsening LE edema, accompanied by dyspnea and chest pain that worsens with walking. Patient went to her field service representative Dr Lomeli's office, where her blood pressure was found to be high and she was advised to go to ED for IV diuresis. In ED, BP was 250/199 and decision was made to upgrade patient to ICU for nitroglycerin drip. Patient's BP medications were adjusted and over time was stable to be downgraded to regular floor. While in hospital, patient was followed by field service representative Dr. Lomeli. Echocardiogram indicated: Concentric LVH with mild global hypokinesis LV EF 40-45% RV is normal with RVSP 50 mmHg. Mild pulmonary hypertension. LA mildly dilated. Patient was cleared by cardiology and primary to discharge patient on: chlorthalidone 50mg Qday, Methimazle 40 mg Qday, Spironolactone 50mg Qday and Valsartan 160 mg BID. Bumex was discontinued and patient was advised to follow up with Dr. Lomeli within x1 week. Discharge summary was reviewed with my attending Dr. Silva. Bo Johnson, PGY-2 #Hypertensive emergency #HFrEF (40-45%) #Hyperthyroidism #Hx of IBS #Anxiety #Depression #Hx Migraine Time Spent with Patient Time attestation: Total time spent providing and/or coordinating discharge services: Time spent: Greater than 30 minutes Exam Vital Signs Temp Pulse Resp BP Pulse Ox O2 Del Method O2 Flow Rate 96.5 F L 65 20 145/112 H 99 Room Air 1 07/06/24 11:43 07/06/24 11:43 07/06/24 11:43 07/06/24 11:43 07/06/24 11:43 07/06/24 11:43 07/06/24 08:00 Narrative Exam GENERAL: Awake, alert and oriented. No acute distress. HEENT: Normocephalic, atraumatic and nontender.? Pupils are equal and reactive to light and accommodation.? Oral mucosa moist. NECK: Supple without adenopathy. Traquea midline. Nontender, carotid pulse 2+ bilaterally without bruits, no JVD.? CHEST: Heart rate and rythm normal, no murmurs, gallops auscultated. S1 & 2 normal insensity. Nontender on palpation, no deformity and no crepitus. LUNGS: Lung sounds are clear.? No wheezing, rales or ronchi.? No intercostal subcostal retraction. Room air ABDOMEN: Soft,symmetric , nontender, no guarding or rebound tenderness. No abnormal masses palpated.? No pulsatile masses or bruits.? Bowel sounds are normoactive in all 4 quadrants. EXTREMITIES: Nontender. No cyanosis.? Patient is able to move all 4 extremities. NEURO:? Cranial nerves intact.? GCS is 15. Discharge Plan Plan Patient Disposition: HOME (Self Care) Prescriptions/Referrals Prescriptions/Med Rec: New methimazole 10 mg tablet 40 mg PO QDAY Qty: 120 2RF chlorthalidone 50 mg tablet 50 mg PO QDAY Qty: 30 2RF valsartan 160 mg tablet 160 mg PO BID Qty: 60 2RF spironolactone 50 mg tablet 50 mg PO QDAY Qty: 30 2RF Continued duloxetine 60 mg capsule,delayed release(DR/EC) 60 mg PO HS Patient Comments: TAKE 1 CAPSULE BY MOUTH EVERY DAY carvedilol 25 mg Tablet 25 mg PO 3XD levetiracetam 500 mg tablet 500 mg PO BID Patient Comments: TAKE 1 TABLET BY MOUTH EVERY 12 HOURS FOR 30 DAYS bupropion HCl 75 mg tablet 150 mg PO BID Rx Instructions: administer 6 hours apart Ubrelvy 50 mg tablet 50 mg PO .QD PRN (Reason: migraine headache) Arcalyst 220 mg recon soln 220 mg subcut Q7D aripiprazole [Abilify] 20 mg tablet 20 mg PO QDAY PRN (Reason: migraine headache) Discontinued aripiprazole 5 mg tablet 5 mg PO QDAY Patient Comments: TAKE 1 TABLET BY MOUTH EVERY DAY clonidine HCl 0.1 mg Tablet 0.1 mg PO QDAY PRN (Reason: hypertensive emergency) lisinopril 40 mg Tablet 40 mg PO QDAY amlodipine 5 mg tablet 5 mg PO BID Patient Comments: TAKE 1 TABLET BY MOUTH TWICE A DAY FOR 30 DAYS bumetanide 2 mg tablet 2 mg PO QDAY Patient Comments: TAKE 1 TABLET BY MOUTH EVERY DAY FOR 30 DAYS isosorbide mononitrate 60 mg tablet extended release 24 hr 60 mg PO QDAY Patient Comments: TAKE 1 TABLET BY MOUTH EVERY DAY IN THE MORNING FOR 30 DAYS spironolactone 25 mg tablet 25 mg PO QDAY Patient Comments: TAKE 1 TABLET BY MOUTH EVERY DAY FOR 30 DAYS propranolol 10 mg tablet 10 mg PO TID methimazole 10 mg tablet 30 mg PO QDAY Patient Comments: TAKE 3 TABLETS BY MOUTH EVERY DAY Referrals: Tigist Rubi, [employer] [Primary Care Provider] - Patient/Caregiver Discharge Instructions Other Discharge Activity Instructions:: Please see your PCP within 1 week of discharge Follow up with field service representative Dr. Lomeli next week Follow up with advertising writer Dr. Jorgensen within 2-3 weeks Start your new and home blood pressure rx as prescribed: Chlorthalidone 50mg, Valsartan 160 mg, spironolactone 50 mg, Coreg 25mg Education Materials: Dealing With the Stress of ..., Blood Pressure Check Steps, ED Hyperthyroidism Print Language: Croatian Stand Alone Forms: [employer] Award Info., Patient Portal Info Letter Discharge Order Discharge Orders: Discharge (Routine); Ordered 07/06/24 Ordered By: Bo Johnson Quality Discharge Quality Measures none
--- NOTE | 2024-07-06 17:32 | ESPR_ITS ---
<Statement entered by Eliane Lomeli MD - 07/07/24 16:24> The patient is evaluated by me personally and she is doing a lot better now still have some shortness of breath and chest pain improved after Arcalyst was given yesterday will discharge the patient home on combination of chlorthalidone and spironolactone in addition to her regular medication including amlodipine to be resumed and as also valsartan 160 twice daily along with carvedilol 25 3 times daily recommend outpatient follow-up and possibly may require thyroidectomy in order to help with the blood pressure management refer to [facility] as an outpatient. Evaluated the patient and went over in great detail more than 30 minutes were spent going over all the questions concerns agree with the treatment plan recommendation as documented by PGY 2 Dr. Mary Mchugh MD Documentation for date of: 07/06/24 Subjective Subjective Interval history: No acute events overnight.?Patient seen and examined at bedside this AM.?Patient reported doing better today, after receiving her injection of Arcalyst for chronic pericarditis. Labs and vitals were reviewed.?BP maintained steady overnight. Patient will be discharged on carvedilol 25 mg TID, No further complaints at this time. Review of systems otherwise negative except what is mentioned above. Exam Vital Signs Temp Pulse Resp BP Pulse Ox O2 Del Method O2 Flow Rate 96.5 F L 65 20 145/112 H 99 Room Air 1 07/06/24 11:43 07/06/24 14:21 07/06/24 11:43 07/06/24 14:21 07/06/24 11:43 07/06/24 11:43 07/06/24 08:00 Objective Labs 07/06/24 06:31 07/06/24 06:31 Labs: Laboratory Results - last 24 hr 07/06/24 06:31 WBC 8.0 RBC 5.15 Hgb 13.8 Hct 44.1 MCV 86 MCH 26.8 MCHC 31.3 RDW Std Deviation 44.4 Plt Count 228 Neut % (Auto) 53 Lymph % (Auto) 34 [place] % (Auto) 11 Eos % (Auto) 2 Baso % (Auto) 1 Neut # (Auto) 4.2 Lymph # (Auto) 2.8 [place] # (Auto) 0.9 H Eos # (Auto) 0.1 Baso # (Auto) 0.0 Immature Gran # (Auto) 0.01 H Absolute Nucleated RBC 0.00 Immature Gran % 0 Nucleated RBC % 0 Sodium 139 Potassium 4.3 Chloride 106 Carbon Dioxide 25.0 Anion Gap 8 BUN 32 H Creatinine 1.4 H Estim Creat Clear Calc 63.5 eGFR 48 L BUN/Creatinine Ratio 23 H Glucose 88 Calculated Osmolality 283 Calcium 8.8 Corrected Calcium 9.1 Total Bilirubin 1.5 H AST 20 ALT 18 Alkaline Phosphatase 133 H Total Protein 6.3 Albumin 3.6 Globulin 2.7 Albumin/Globulin Ratio 1.3 Quality Measures Quality Measures none Assessment & Plan Assessment Current Active Medications: Generic Name Dose Route Start Last Admin Trade Name Freq PRN Reason Stop Dose Admin Acetaminophen 650 mg 07/03/24 07:40 Acetaminophen 325 Mg Tablet PO 08/01/24 14:59 Q6H PRN Fever >100.4 Acetaminophen 650 mg 07/03/24 07:40 07/04/24 06:53 Acetaminophen 325 Mg Tablet PO 08/01/24 14:59 650 mg Q6H PRN Administration Pain Scale 1-8 Bupropion HCl 150 mg 07/02/24 21:00 07/05/24 08:10 Bupropion Hcl 75 Mg Tablet PO 08/01/24 20:59 150 mg BID LEON Administration Carvedilol 25 mg 07/03/24 12:00 07/05/24 11:43 Carvedilol 12.5 Mg Tablet PO 08/02/24 11:59 25 mg TIDWM LEON Administration Chlorthalidone 50 mg 07/03/24 10:30 07/05/24 09:02 Chlorthalidone 25 Mg Tablet (Non-Formulary) PO 08/02/24 10:29 50 mg QDAY LEON Administration Heparin Sodium (Porcine) 5,000 unit 07/02/24 22:00 07/05/24 05:18 Heparin Sod Inj 5000 Unit/Ml Vial SC 07/16/24 21:59 5,000 unit Q8HR LEON Administration Levetiracetam 500 mg 07/02/24 21:00 07/05/24 08:10 Levetiracetam 250 Mg Tablet PO 08/01/24 20:59 500 mg BID LEON Administration Methimazole 30 mg 07/03/24 09:00 07/05/24 08:11 Methimazole 5 Mg Tablet PO 08/02/24 08:59 30 mg QDAY LEON Administration Ondansetron HCl 4 mg 07/02/24 15:00 Ondansetron Inj 2 Mg/Ml Inj 2 Ml IV 08/01/24 14:59 Q6H PRN NAUSEA OR VOMITING Protocol Prednisone 20 mg 07/03/24 09:45 07/05/24 08:10 Prednisone 20 Mg Tablet PO 08/02/24 09:44 20 mg QDAY LEON Administration Valsartan 160 mg 07/05/24 21:00 Valsartan 80 Mg Tablet PO 08/04/24 20:59 BID LEON Plan 39-year-old female with a past medical history of resistant hypertension, chronic pericarditis, hyperthyroidism, seizure disorder, depression, and anxiety presented to the ED referred by outpatient cardiology after appointment with Dr. Lomeli due to worsening shortness of breath and lower peripheral edema that started about 3 days prior to the admission. #Hypertensive emergency - resolved #Acute respiratory distress - resolved #Acute decompensated heart failure #Hypertensive heart failure #Supply and demand ischemia #Fluid overload #Angina equivalent #History of chronic pericarditis #History of resistant hypertension Presented with a BP of 250/133, dyspnea, edema 3+, bnp 1351, troponin 0.201 2020 Patient had a left heart cath which showed no coronary artery disease. 07/03/2024 Echo showed concentric LVH with mild global hypokinesis LV EF 40-45% RV is normal with RVSP 50 mmHg. Mild pulmonary hypertension LA is mildly dilated. Aortic valve sclerosis with no stenosis Mild mitral and tricuspid regurgitation Hyperthyroidism may be a precipitating factor/cause of resistant hypertension. Bilateral renal artery stenosis has been ruled out via angiogram done 2023. Patient has had CT scans negative for renal adenoma, pheochromocytoma, renin and aldosterone studies negative. 07/04/2024 Patient has diuresed net negative over 8L since admission. Bumex was discontinued as creatinine started to increase up to 1.3. 07/05/2024 Valsartan dose increased to BID. 07/06/2024 Patient received dose of rilonacept 160 mg subQ, maintenance for chronic pericarditis. -Continue strict I&O measurements -Continue carvedilol 25 mg TIDWM -Continue chlorthalidone 50 mg qday -Continue valsartan 160 mg qday to BID -Continue home amlodipine on discharge per Dr. Lomeli -Continue home spironolactone at 50 mg daily on discharge -Stop bumex -Patient ready for discharge today, patient in agreement with plan which was discussed with Dr. Lomeli -Follow up with Dr. Jorgensen endocrinology outpatient Rest of conditions to continue current management per primary team: #Hyperthyroidism #IBS, diarrhea predominant #History of generalized anxiety disorder #History of panic disorder #History of migraines Patient was discussed with the Cardiology attending, Dr. Lomeli. Thank you for allowing us to participate in the care of this patient. Nilda Mchugh, PGY-2
[2024-07-08 06:41] LABS: T3,Total* 274 ng/dL (76-181)
[2024-07-08 06:48] LABS: ACTH, Plasma* 14 pg/mL (6-50)
[2024-07-11 22:04] LABS: Cortisol, 24-Hr Volume NOT GIVEN mL
== END 2024-07-06 14:42 | disposition home or self-care (01) | DRG 304 ==
LOC: SERX 13:38 → SERHOLD 15:06 → S2SX 17:19 → S3NX 07-04 19:49 → S3SX 07-06 11:38
PROVIDERS: Student in an Organized Health Care Education/Training Program; Admitting Provider Internal Medicine Critical Care Medicine; Emergency Provider Emergency Medicine; PCP Registered Nurse; Visit Provider Student in an Organized Health Care Education/Training Program
DX: I16.1 Hypertensive emergency (principal); I50.23 Acute on chronic systolic (congestive) heart failure; J96.01 Acute respiratory failure with hypoxia; I24.89 Other forms of acute ischemic heart disease; N17.9 Acute kidney failure, unspecified; I31.9 Disease of pericardium, unspecified; G40.909 Epilepsy, unspecified, not intractable, without status epilepticus; I27.20 Pulmonary hypertension, unspecified; I11.0 Hypertensive heart disease with heart failure; F32.A Depression, unspecified; E05.90 Thyrotoxicosis, unspecified without thyrotoxic crisis or storm; K58.0 Irritable bowel syndrome with diarrhea; E89.0 Postprocedural hypothyroidism; I1A.0 Resistant hypertension; F41.9 Anxiety disorder, unspecified; G43.909 Migraine, unspecified, not intractable, without status migrainosus; Z79.899 Other long term (current) drug therapy; Z90.49 Acquired absence of other specified parts of digestive tract
CPT/HCPCS: 36415; 71045; 71260; 80048; 80053; 80061; 81001; 82024; 82530; 82570; 83690; 83735; 83880; 84100; 84439; 84443; 84480; 84484; 84585; 85025; 85610; 85730; 87081; 87400; 87811; 93005; 93225; 93306; 96374; 96375; 99285; A4649; J0360; J1643; J1885; J1938; J3475; J3490; J7512; Q9967; A9270; J2305

== ENCOUNTER → 2024-09-11 | Outpatient (CLI) | payer BC, SELFPAY ==
--- NOTE | 2024-09-11 12:59 | XR_ITS ---
Examination: Left elbow 3 views Technique: Elbow AP, oblique, lateral 3 views Exam date and time: 11/12/2023 1317 hours INDICATIONS: Elbow pain 3 days. FINDINGS: No fracture or dislocation No foreign body 16 mm bony exostosis versus osteocartilaginous exostosis off the distal medial humeral shaft IMPRESSION: 16 mm bony exostosis versus osteocartilaginous exostosis off the distal medial humeral shaft.
[2024-09-11 14:28] LABS: Basophils % (Auto) 0 % (0-2.5); Eosinophils # (Auto) 0.1 Thou/mm3 (0.0-0.5); Eosinophils % (Auto) 2 % (0-10); Hematocrit 43.5 % (36.0-46.0); Hemoglobin 14.7 g/dL (12.0-16.0); Immature Granulocytes % (Auto) 0 % (0-0); Immature Granulocytes Auto 0.01 Thou/mm3 (0.00-0.00); Lymphocytes # (Auto) 1.4 Thou/mm3 (1.0-4.8); Lymphocytes % (Auto) 21 % (10-50); Mean Corpuscular HGB Conc 33.8 g/dl (31.0-37.0); Mean Corpuscular Hemoglobin 27.4 pg (25.0-35.0); Mean Corpuscular Volume 81 fL (80-100); Monocytes # (Auto) 0.6 Thou/mm3 (0.0-0.8); Monocytes % (Auto) 9 % (0-12); Neutrophils # (Auto) 4.7 Thou/mm3 (1.8-7.7); Neutrophils % (Auto) 68 % (37-80); Nucleated Red Blood Cell % 0 /100 WBC (0); Platelet Count 245 Thou/mm3 (140-440); Red Blood Count 5.36 Miln/mm3 (4.00-5.20); White Blood Count 6.9 Thou/mm3 (3.6-11.0)
[2024-09-11 14:38] LABS: Sed Rate (ESR) 24 mm/hr (0-20)
[2024-09-11 14:40] LABS: Alanine Aminotransferase 22 U/L (10-49); Albumin/Globulin Ratio 1.3 (1.2-2.2); Alkaline Phosphatase 163 U/L (46-116); Anion Gap 11 (7-16); Aspartate Amino Transferase 24 U/L (0-34); BUN/Creatinine Ratio 15 Ratio (12-20); Blood Urea Nitrogen 15 mg/dL (9-23); C-Reactive Protein 0.5 mg/dL (0.0-0.9); Calcium 9.1 mg/dL (8.3-10.6); Calcium (Corrected) 9.1 mg/dL (8.5-10.1); Carbon Dioxide 24.5 mMol/L (20.0-31.0); Chloride 104 mMol/L (98-107); Glucose 159 mg/dL (74-106); Osmolality,Calculated 281 (275-295); Potassium 3.2 mMol/L (3.4-5.1); Sodium 139 mMol/L (136-145); eGFR > 60 See Note
== END | disposition home or self-care (01) ==
PROVIDERS: PCP Internal Medicine; Referring Provider Internal Medicine; Visit Provider Internal Medicine
DX: I10 Essential (primary) hypertension (principal); D16.02 Benign neoplasm of scapula and long bones of left upper limb
CPT/HCPCS: 36415; 73080; 80053; 85025; 85652; 86140

== ENCOUNTER → 2024-10-18 | Outpatient (CLI) | payer BC, SELFPAY ==
[2024-10-18 13:17] LABS: Basophils # (Auto) 0.0 Thou/mm3 (0.0-0.2); Basophils % (Auto) 0 % (0-2.5); Eosinophils # (Auto) 0.2 Thou/mm3 (0.0-0.5); Eosinophils % (Auto) 2 % (0-10); Hematocrit 42.5 % (36.0-46.0); Hemoglobin 14.1 g/dL (12.0-16.0); Immature Granulocytes Auto 0.03 Thou/mm3 (0.00-0.00); Lymphocytes # (Auto) 1.8 Thou/mm3 (1.0-4.8); Lymphocytes % (Auto) 17 % (10-50); Mean Corpuscular HGB Conc 33.2 g/dl (31.0-37.0); Mean Corpuscular Hemoglobin 28.1 pg (25.0-35.0); Mean Corpuscular Volume 85 fL (80-100); Monocytes # (Auto) 0.8 Thou/mm3 (0.0-0.8); Monocytes % (Auto) 7 % (0-12); Neutrophils # (Auto) 7.7 Thou/mm3 (1.8-7.7); Neutrophils % (Auto) 73 % (37-80); Nucleated Red Blood Cell # 0.00 Thou/mm3 (0.00-0.00); Nucleated Red Blood Cell % 0 /100 WBC (0); Platelet Count 218 Thou/mm3 (140-440); RDW Standard Deviation 41.1 fL (36.4-46.3); Red Blood Count 5.02 Miln/mm3 (4.00-5.20); White Blood Count 10.4 Thou/mm3 (3.6-11.0)
[2024-10-18 13:42] LABS: Alanine Aminotransferase 16 U/L (10-49); Albumin, Serum 3.9 gm/dL (3.5-5.0); Albumin/Globulin Ratio 1.3 (1.2-2.2); Alkaline Phosphatase 153 U/L (46-116); Anion Gap 12 (7-16); Aspartate Amino Transferase 19 U/L (0-34); BUN/Creatinine Ratio 14 Ratio (12-20); Bilirubin,Total 2.4 mg/dL (0.3-1.2); Blood Urea Nitrogen 14 mg/dL (9-23); Calcium 9.4 mg/dL (8.3-10.6); Calcium (Corrected) 9.5 mg/dL (8.5-10.1); Carbon Dioxide 24.7 mMol/L (20.0-31.0); Chloride 105 mMol/L (98-107); Creatinine (Component) 1.0 mg/dL (0.6-1.3); Free T4 (Free Thyroxine) 3.65 ng/dL (0.89-1.76); Globulin 2.9 gm/dL (2.3-3.5); Glucose 108 mg/dL (74-106); Osmolality,Calculated 284 (275-295); Potassium 3.6 mMol/L (3.4-5.1); Sodium 142 mMol/L (136-145); Thyroid Stimulating Hormone < 0.01 uIU/mL (0.55-4.78); Total Protein 6.8 gm/dL (5.7-8.2); eGFR > 60 See Note
[2024-10-28 10:52] LABS: T3,Total* 466 ng/dL (76-181); TSI, Thyroid Stimulating Ig* 248 % baseline (<140); Thyrotropin-Binding Inhib Ig* 5.44 IU/L (< OR = 2.00)
== END | disposition home or self-care (01) ==
LOC: COPL 11:47
PROVIDERS: PCP Registered Nurse; Referring Provider Internal Medicine Endocrinology, Diabetes & Metabolism; Visit Provider Internal Medicine Endocrinology, Diabetes & Metabolism
DX: E05.00 Thyrotoxicosis with diffuse goiter without thyrotoxic crisis or storm (principal)
CPT/HCPCS: 36415; 80053; 83519; 84439; 84443; 84445; 84480; 85025

== ENCOUNTER 2024-10-30 23:28 | Inpatient (IN) | payer BC, SELFPAY ==
[2024-10-30 23:29] VITALS: BMI 36.5
--- NOTE | 2024-10-30 23:37 | EKG_ITS ---
[facility] Test Date: 2024-10-30 Pat Name: DIANA RIVAS Department: Room: - Gender: Female V[employer]er D[employer] Feeder: : [id number] Requested By: ED Temporary Provider Order Number: [id number] Reading MD: ED Temporary Provider Measurements Intervals [place] Rate: 112 P: 30 MI: 169 QRS: 24 QRSD: 94 T: 53 QT: 390 QTc: 533 Interpretive Statements SINUS TACHYCARDIA POSSIBLE LEFT ATRIAL ENLARGEMENT [-0.1mV P-WAVE IN V1/V2] NONSPECIFIC ST & T-WAVE ABNORMALITY ABNORMAL RHYTHM ECG Compared to ECG 09/08/2023 10:31:13 Sinus rhythm no longer present T-wave abnormality still present /store/S0/[id number]
[2024-10-30 23:52] VITALS: BP 208/132; PULSE 117; RESP 26; TEMP 37.9; O2SAT 97
[2024-10-31] VITALS (29 sets, daily range): BP systolic 125–243; BP diastolic 72–172; PULSE 58–115; RESP 13–98; TEMP 36.2–37.3; O2SAT 95–99
--- NOTE | 2024-10-31 00:04 | EDNOTE_ITS ---
ED Chest Pain RME/HPI General Chief Complaint: Chest Pain Stated Complaint: HTN CXP DYSPNEA Time Seen by Provider: 10/31/24 00:19 Arrival date/time: 10/30/24 23:28 RME / HPI RME / HPI narrative: This section includes all my notes and documentations, including HPI, PE, and ED course. Jonathan Cheng MD HPI: 39 y/o female with Hx of CHF, Pericarditis, Hypertension, and Graves' Disease presents with worsening shortness of breath and chest pain with deep breaths and palpitations. Has trouble localizing the onset. Possibly for months and weeks but worsening recently. No fever. No cough or congestion. No other complaints . ROS: All negative except as documented in HPI. Physical Exam: General: Alert and oriented. Appears to be in severe pain. High BP noted. Appears severely anxious. Eyes: Conjunctivae and lids clear. PERRL. EOMI. ENT: No nasal congestion. Neck: Supple. No carotid bruit. No JVD. Heart: Sinus tachycardia noted. Lungs: No respiratory distress. Good air movement. No severe rhonchi, whe ezing, rales. Abdomen: Soft and nontender. Normal bowel sounds. No distension. No rebound or guarding. Back: No CVA tenderness. Skin: Warm and dry. Neuro: Alert and oriented X 3. Cranial nerves II to XII grossly normal. No peripheral motor deficits. I reviewed all diagnostic test results: My interpretation of the EKG is: Sinus tachycardia (112 bpm) with nonspecific ST-T changes. Jonathan Cheng MD My interpretation of the chest x-ray is increased vascular congestion. My review of the Head/Brain CT report is NAD. My review of the Chest CTA report is no PE. My review of the Abdomen/Pelvis CT report is NAD. Blood tests and urine tests remarkable for WBC 12.7, lactic acid 2.6, Mg 1.3, T. bili 2.0, troponin 0.224, BNP 628, TSH < 0.01, T4 4. Covid/Influenza: Negative. At this point, diagnoses include: Thyroid toxicosis Hypertensive emergency CHF Hypomagnesemia Elevated troponin Treatment here included: ASA 324 mg Oral clonidine 0.3 mg Metoprolol 5 mg IV and 100 mg orally Xanax 0.5 mg Toradol 30 mg IV Tylenol 650 mg Some improvement noted. 0349: I discussed the case with our hospitalist. About the presentation and exam and diagnostics and treatments here. And need of further care in the hospital. Will accept the patient. Jonathan Cheng MD Related Data Home Medications ?Medication ?Instructions ?Recorded ?Confirmed duloxetine 60 mg capsule,delayed 60 mg PO HS 11/24/20 10/31/24 release carvedilol 25 mg tablet 25 mg PO 3XD 09/11/23 aripiprazole 20 mg tablet (Abilify) 20 mg PO QDAY PRN migraine headache 07/02/24 10/31/24 bupropion HCl 75 mg tablet 150 mg PO BID 07/02/2410/18 levetiracetam 500 mg tablet 500 mg PO BID 07/02/2410/18 rilonacept 220 mg subcutaneous 220 mg subcut Q7D 07/0210/31/24 solution (Arcalyst) ubrogepant 50 mg tablet (Ubrelvy) 50 mg PO .QD PRN kassie drew headache 07/02/24 10/31/24 methimazole 10 mg tablet 60 mg PO QDAY 10/31/2410/31 Previous Rx's ?Medication ?Instructions ?Recorded chlorthalidone 50 mg tablet 50 mg PO QDAY #30 tabs 03/20 spironolactone 50 mg tablet 50 mg PO QDAY #30 tabs 03/20 valsartan 160 mg tablet 160 mg PO BID #60 tabs 07/06 Allergies Allergy/AdvReac Type Severity Reaction Status Date / Time glucosamine Allergy Severe Rash Verified 10/30/24 23:36 pepper (genus Capsicum) Allergy Mild Swelling Verified 10/30/24 23:36 of Lip/Tongue/Throat venlafaxine Allergy Mild Itching Verified 10/30/24 23:36 JALAPENO Allergy Mild THROAT Uncoded 10/30/24 23:36 CLOSES UP Review of Systems Review of Systems Systems Reviewed: All systems reviewed, normal except as documented Past Medical History Past Medical History NEUROLOGIC: Positive Neurological Disorders, Seizures, Martinez's Palsy and Migraine CARDIAC: Positive Cardiac Disorders (HTN), Congestive Heart Failure, Edema, Pericarditis and Hypertension RESPIRATORY: Positive Asthma (SOB with HTN), Bronchitis and Sleep Apnea GASTROINTESTINAL: Positive Gall Bladder Disease and Irritable Bowel GENITOURINARY: Positive Genitourinary Disorders (RT renal artery stenosis) REPRODUCTIVE: Positive Endometriosis and Pelvic Inflammatory Disease ENT: Positive Ear Infection ENDOCRINE: Positive Endocrine Disorders, Hyperthyroidism, Hypothyroidism (normal now) and Graves' Disease PSYCHO/SOCIAL: Positive Depression and Anxiety OTHER HISTORY: Positive Autoimmune Disease and Chicken Pox Family History FAMILY HISTORY: Positive Family Psychiatric Problems, Family Cardiac Disorders, Family Cancer, Family Surgery and Family Anesthesia Reaction Surgical History SURGICAL: Positive Angiogram, Tubal Ligation and Section ED Exam Narrative Physical exam: Refer to HPI Course Course Course Narrative: CXR is ordered for determining the etiology of shortness of breath. Quality Measures none Orders Category Date Time Status Admit to Inpatient Status Routine Admission 10/31/24 04:39 Active Patient Condition Routine Admission 10/31/24 04:39 Ordered Bedside COVID-19 Antigen Test NOW Care 10/31/24 00:20 Active Bedside Influenza A&B Antigen Test NOW Care 10/31/24 00:20 Completed COVID-19 Screening Questionnaire NOW Care 10/31/24 04:[address] Screening NOW Care 10/31/24 00:22 Active Decision to Admit X1 Care 10/31/24 04:47 Completed EKG (ED ONLY) *Do not use* NOW Care 10/30/24 23:37 Completed Miscellaneous Nursing Order NOW Care 10/31/24 04:44 Active Notify provider NEEDED Care 10/31/24 04:39 Active Saline [Insert IV] NOW Care 10/31/24 00:21 Active Diet Low Sodium (2gm) Diet 10/31/[address] abdomen pelvis w con Stat Exams 10/31/24 00:[address] angio chest Stat Exams 10/31/24 00:[address] head/brain wo con Stat Exams 10/31/24 00:22 Completed EKG (ED Only) Stat Exams 10/30/24 23:37 Draft XR chest 1V portable Stat Exams 10/31/24 00:21 Completed BNP [B-Type Natriuretic Peptide] Stat Lab 10/31/24 00:27 Completed Bilirubin,Direct Stat Lab 10/31/24 00:27 Completed Blood Culture (Lab) Stat Lab 10/31/24 00:55 Received CBC AM DRAW Lab 11/01/24 05:00 Ordered CBC AM DRAW Lab 11/02/24 05:00 Ordered CBC AM DRAW Lab 11/03/24 05:00 Ordered CBC Stat Lab 10/31/24 00:27 Completed CMP [Comprehensive Metabolic Panel] Stat Lab 10/31/24 00:27 Completed CRP [C-Reactive Protein] Stat Lab 10/31/24 00:27 Completed Comprehensive Metabolic Panel AM DRAW Lab 11/01/24 05:00 Ordered Comprehensive Metabolic Panel AM DRAW Lab 11/02/24 05:00 Ordered Comprehensive Metabolic Panel AM DRAW Lab 11/03/24 05:00 Ordered D-Dimer Stat Lab 10/31/24 00:27 Completed ESR [Sed Rate (ESR)] Stat Lab 10/31/24 00:27 Completed Free T4 (Free Thyroxine) AM DRAW Lab 11/01/24 05:00 Ordered Free T4 (Free Thyroxine) AM DRAW Lab 11/02/24 05:00 Ordered Free T4 (Free Thyroxine) AM DRAW Lab 11/03/24 05:00 Ordered Free T4 (Free Thyroxine) Stat Lab 10/31/24 00:27 Completed HCG Qualitative,Urine Stat Lab 10/31/24 01:25 Completed HCG,Qualitative Serum Stat Lab 10/31/24 00:27 Completed Lactate (Lactic Acid) Stat Lab 10/31/24 00:27 Completed Lactic Acid, 3 HR Stat Lab 10/31/24 04:40 Completed Lipase Stat Lab 10/31/24 00:27 Completed Magnesium AM DRAW Lab 11/01/24 05:00 Ordered Magnesium AM DRAW Lab 11/02/24 05:00 Ordered Magnesium Stat Lab 10/31/24 00:27 Completed PT [Prothrombin Time with INR] Stat Lab 10/31/24 00:27 Completed PTT [Partial Thromboplastin Time] Stat Lab 10/31/24 00:27 Completed Phosphorous AM DRAW Lab 11/01/24 05:00 Ordered Phosphorous AM DRAW Lab 11/02/24 05:00 Ordered Phosphorous AM DRAW Lab 11/03/24 05:00 Ordered Procalcitonin Stat Lab 10/31/24 00:27 Completed TSH [Thyroid Stimulating Hormone] Stat Lab 10/31/24 00:27 Completed Troponin I Stat Lab 10/31/24 00:27 Completed Troponin I Stat Lab 10/31/24 03:19 Completed UA, C/S IF [Urinalysis, C/S if Indicated] Stat Lab 10/31/24 01:25 Completed ALPRazoLAM [Xanax] Med 10/31/24 00:21 Discontinued 0.5 mg PO X1 ONE Acetaminophen Tab [Tylenol Tab] Med 10/31/24 04:39 Active 650 mg PO Q6H PRN Acetaminophen Tab [Tylenol Tab] Med 10/31/24 04:44 Active 650 mg PO Q6H PRN Acetaminophen Tab [Tylenol Tab] Med 10/31/24 00:23 Discontinued 650 mg PO X1 ONE Aspirin Chew Med 10/31/24 03:06 Discontinued 324 mg PO X1 ONE Cholestyramine/Sucrose Pkt [Questran Pkt] Med 10/31/24 09:00 Active 1 pkt PO BID Enoxaparin [Lovenox] Med 10/31/24 09:00 Active 40 mg SC QDAY Furosemide Inj [Lasix Inj] Med 10/31/24 04:52 Discontinued 40 mg IVP X1 ONE HYDROcodone*/APAP 5/325 [Register 5/325] Med 10/31/24 04:44 Active 1 tab PO Q4HR PRN Hydrocortisone Sod Succ Inj [SoluCORTEF Inj] Med 10/31/24 04:52 Discontinued 100 mg IV X1 ONE Hydrocortisone Sod Succ Inj [SoluCORTEF Inj] Med 10/31/24 12:00 Active 50 mg IV Q8HR Ketorolac Inj [Toradol Inj] Med 10/31/24 00:23 Discontinued 30 mg IVP X1 ONE Labetalol IV [Trandate IV] Med 10/31/24 05:00 Discontinued 10 mg IVP Q6HR PRN Lisinopril [Prinivil] Med 10/31/24 09:00 Active 40 mg PO QDAY Magnesium Sulfate 4 GM Ivpb [Magnesium Sulfate Ivpb] Med 10/31/24 03:05 Discontinued 4 gm in 50 ml IV X1 Metoprolol Tartrate Inj [Lopressor Inj] Med 10/31/24 00:21 Discontinued 5 mg IVP X1 ONE Metoprolol Tartrate [Lopressor] Med 10/31/24 00:10 Discontinued 100 mg PO X1 ONE Metoprolol Tartrate [Lopressor] Med 10/31/24 00:01 Discontinued 75 mg PO X1 ONE Ondansetron Inj [Zofran Inj] Med 10/31/24 04:39 Active 4 mg IVP Q6H PRN Pantoprazole [Protonix] Med 10/31/24 09:00 Active 40 mg PO QDAY Propranolol HCl [Inderal] Med 10/31/24 06:00 Discontinued 10 mg PO TID amLODIPine BESYLATE [Norvasc] Med 10/31/24 04:52 Discontinued 10 mg PO X1 ONE cloNIDine HCL [Catapres] Med 10/31/24 00:01 Discontinued 0.2 mg PO X1 ONE cloNIDine HCL [Catapres] Med 10/31/24 00:10 Discontinued 0.3 mg PO X1 ONE Code Status Routine Oth 10/31/24 04:39 Ordered Oxygen Delivery PRN RT 10/31/24 04:39 Active Vital Signs Vital signs: Vital Signs Temperature 100.3 F 10/30/24 23:52 Pulse Rate 117 H 10/30/24 23:52 Respiratory Rate 26 H 10/30/24 23:52 Blood Pressure 208/132 H 10/30/24 23:52 Pulse Oximetry (%) 97 10/30/24 23:52 Oxygen Delivery Method Room Air 10/30/24 23:52 Chest Pain MDM Narrative MDM Narrative:: Scribe Attestation: Lexie Best, am scribing for and in the presence of Dr. Cheng. Provider Notation: Although this document has been carefully reviewed, there may still be some phonetic and other typographical errors.? These errors are purely grammatical due to imperfections in the software program and should not be construed in any way to? compromise the substance of the patient's medical care during this visit. 39 y/o female with Hx of CHF, Pericarditis, Hypertension, and Graves' Disease presents with worsening shortness of breath and chest pain with deep breaths and palpitations. Has trouble localizing the onset. Possibly for months and weeks but worsening recently. No fever. No cough or congestion. No other complaints. Patient data External records reviewed:: [facility] previous records (Reviewed prior ED records from 07/02/24. Patient was seen for CHF (congestive heart failure).) Clinical information provided by:: patient Social determinants that could affect healthcare access:: none Patient has the following chronic illnesses:: Seizures, Migraine, CHF, Edema, Pericarditis, Hypertension, Asthma, Sleep Apnea, Gall Bladder Disease, Irritable Bowel, RT renal artery stenosis), Endometriosis, Pelvic Inflammatory Disease, Hyperthyroidism, Hypothyroidism, Graves' Disease, Depression and Anxiety How is presenting disease/condition affected by chronic disease/condition?: exacerbated by Evaluation data The following diagnostics were reviewed and interpreted by me:: lab results, radiology exam(s) and EKG tracing(s) (My interpretation of the EKG is: Sinus tachycardia (112 bpm) with nonspecific ST-T changes. Jonathan Cheng MD) Lab and/or radiology exams considered but not ordered:: None Interpretation Summary: I reviewed all diagnostic test results: My interpretation of the EKG is: Sinus tachycardia (112 bpm) with nonspecific ST-T changes. Jonathan Cheng MD My interpretation of the chest x-ray is increased vascular congestion. My review of the Head/Brain CT report is NAD. My review of the Chest CTA report is no PE. My review of the Abdomen/Pelvis CT report is NAD. Blood tests and urine tests remarkable for WBC 12.7, lactic acid 2.6, Mg 1.3, T. bili 2.0, troponin 0.224, BNP 628, TSH < 0.01, T4 4. Covid/Influenza: Negative. Medications / Prescriptions Medications or Prescriptions considered but not ordered:: None Medication administrations:: Medication Administration History Acetaminophen (Acetaminophen 325 Mg Tablet) 650 mg PO Q6H PRN PRN Reason: Fever >100.4 Stop: 11/30/24 04:38 Acetaminophen (Acetaminophen 325 Mg Tablet) 650 mg PO Q6H PRN PRN Reason: PAIN SCALE 1-3 (mild Stop: 11/30/24 04:43 Hydrocodone Bitart/Acetaminophen (Hydrocodone/Apap 5/325 Tablet) 1 tab PO Q4HR PRN PRN Reason: PAIN SCALE 4-10(Mod-Sev Stop: 11/05/24 04:43 Cholestyramine Resin (Cholestyramine/Sucrose 1 Pkt Ea) 1 pkt PO BID [facility] Stop: 11/30/24 08:59 Last Admin: 10/31/24 08:29 Dose: 1 pkt Documented By: VL Enoxaparin Sodium (Enoxaparin Sod Inj 40 Mg/0.4 Ml Syringe) 40 mg SC QDAY LEON Stop: 11/14/24 08:59 Last Admin: 10/31/24 08:28 Dose: 40 mg Documented By: VL Furosemide (Furosemide Inj 10 Mg/Ml 4ml Vial) 40 mg IVP QDAY [facility] Stop: 12/01/24 08:59 Hydrocortisone Sodium Succinate (Hydrocortisone Sod Succ Inj 100 Mg Vial) 50 mg IV Q8HR [facility] Stop: 11/30/24 11:59 Last Admin: 10/31/24 12:13 Dose: 50 mg Documented By: SUKHDEV Labetalol HCl (Labetalol Inj 5 Mg/Ml Vial 20 Ml) 10 mg IVP Q6HR PRN PRN Reason: sbp>180 or DBP>110 Stop: 11/30/24 04:59 Levalbuterol HCl (Levalbuterol Rt 1.25 Mg/0.5 Ml Nebu) 1.25 mg INH Q8HR PRN PRN Reason: WHEEZING Stop: 11/30/24 08:33 Lisinopril (Lisinopril 20 Mg Tablet) 40 mg PO QDAY LEON Stop: 11/30/24 08:59 Last Admin: 10/31/24 08:28 Dose: 40 mg Documented By: SUKHDEV Methimazole (Methimazole 5 Mg Tablet) 20 mg PO X1 ONE Stop: 10/31/24 21:01 Methimazole (Methimazole 5 Mg Tablet) 30 mg PO BID [facility] Stop: 12/01/24 08:59 Ondansetron HCl (Ondansetron Inj 2 Mg/Ml Inj 2 Ml) 4 mg IVP Q6H PRN; Protocol PRN Reason: NAUSEA OR VOMITING Stop: 11/30/24 04:38 Pantoprazole Sodium (Pantoprazole 40 Mg Tablet) 40 mg PO QDAY [facility] Stop: 11/30/24 08:59 Last Admin: 10/31/24 08:29 Dose: 40 mg Documented By: SUKHDEV Propranolol HCl (Propranolol 10 Mg Tablet) 10 mg PO TID [facility] Stop: 11/30/24 05:59 Last Admin: 10/31/24 13:35 Dose: Not Given Documented By: SUKHDEV Non-Admin Reason: HR 59 Admin: 10/31/24 06:46 Dose: Not Given Documented By: LYNDSAY Non-Admin Reason: HR <75 Sodium Chloride (Sodium Chloride Rt Francine 0.9% 3 Ml Nebu) 3 ml INH PRN PRN PRN Reason: SOLN Stop: 11/30/24 08:33 Discontinued Medications Acetaminophen (Acetaminophen 325 Mg Tablet) 650 mg PO X1 ONE Stop: 10/31/24 00:24 Last Admin: 10/31/24 00:46 Dose: 650 mg Documented By: CHUCK Alprazolam (Alprazolam 0.25 Mg Tablet) 0.5 mg PO X1 ONE Stop: 10/31/24 00:22 Last Admin: 10/31/24 00:46 Dose: 0.5 mg Documented By: EE Amlodipine Besylate (Amlodipine Besylate 5 Mg Tablet) 10 mg PO X1 ONE Stop: 10/31/24 04:53 Last Admin: 10/31/24 05:14 Dose: 10 mg Documented By: DT Aspirin (Aspirin 81 Mg Chew) 324 mg PO X1 ONE Stop: 10/31/24 03:07 Last Admin: 10/31/24 03:21 Dose: 324 mg Documented By: EE Clonidine (Clonidine Hcl 0.1 Mg Tablet) 0.2 mg PO X1 ONE Stop: 10/31/24 00:02 Last Admin: 10/31/24 00:11 Dose: Not Given Documented By: DT Non-Admin Reason: Cancelled by Provider Clonidine (Clonidine Hcl 0.1 Mg Tablet) 0.3 mg PO X1 ONE Stop: 10/31/24 00:11 Last Admin: 10/31/24 00:18 Dose: 0.3 mg Documented By: DT Furosemide (Furosemide Inj 10 Mg/Ml 4ml Vial) 40 mg IVP X1 ONE Stop: 10/31/24 04:53 Last Admin: 10/31/24 05:14 Dose: 40 mg Documented By: DT Furosemide (Furosemide Inj 10 Mg/Ml 4ml Vial) 40 mg IVP X1 ONE Stop: 10/31/24 11:44 Last Admin: 10/31/24 12:13 Dose: 40 mg Documented By: VL Hydrocortisone Sodium Succinate (Hydrocortisone Sod Succ Inj 100 Mg Vial) 100 mg IV X1 ONE Stop: 10/31/24 04:53 Last Admin: 10/31/24 05:11 Dose: 100 mg Documented By: DT Magnesium Sulfate (Magnesium Sulfate Ivpb) 4 gm in 50 mls @ 12.5 mls/hr IV X1 ONE Stop: 10/31/24 07:04 Last Admin: 10/31/24 03:22 Dose: 12.5 mls/hr Documented By: EE Ketorolac Tromethamine (Ketorolac Inj 30 Mg/Ml Vial) 30 mg IVP X1 ONE Stop: 10/31/24 00:24 Last Admin: 10/31/24 00:46 Dose: 30 mg Documented By: EE Labetalol HCl (Labetalol Inj 5 Mg/Ml Vial 20 Ml) 10 mg IVP Q6HR PRN PRN Reason: sbp>180 or DBP>110 Stop: 11/30/24 04:59 Methimazole (Methimazole 5 Mg Tablet) 40 mg PO X1 ONE Stop: 10/31/24 05:15 Last Admin: 10/31/24 05:49 Dose: 40 mg Documented By: EE Metoprolol Tartrate (Metoprolol Tartrate 25 Mg Tablet) 75 mg PO X1 ONE Stop: 10/31/24 00:02 Last Admin: 10/31/24 00:11 Dose: Not Given Documented By: DT Non-Admin Reason: Cancelled by Provider Metoprolol Tartrate (Metoprolol Tartrate 25 Mg Tablet) 100 mg PO X1 ONE Stop: 10/31/24 00:11 Last Admin: 10/31/24 00:18 Dose: 100 mg Documented By: DT Metoprolol Tartrate (Metoprolol Tartrate Inj 1 Mg/Ml Amp 5 Ml) 5 mg IVP X1 ONE Stop: 10/31/24 00:22 Last Admin: 10/31/24 00:45 Dose: 5 mg Documented By: EE Propranolol HCl (Propranolol 10 Mg Tablet) 10 mg PO TID LEON Stop: 11/30/24 05:59 Treatment from the here included: ASA 324 mg Oral clonidine 0.3 mg Metoprolol 5 mg IV and 100 mg orally Xanax 0.5 mg Toradol 30 mg IV Tylenol 650 mg Consultations Consultation(s) initiated? (list below): Yes Consultation #1 (Physician, Specialty, Details): [id number]: I discussed the case with our hospitalist. About the presentation and exam and diagnostics and treatments here. And need of further care in the hospital. Will accept the patient. Diagnosis Chest Pain Differential Diagnosis: pneumothorax, stable angina, unstable angina pectoris, atypical chest pain, st elevation myocardial infarction, costochondritis, chest pain and biliary colic Most likely diagnosis given after review of the tests above:: At this point, diagnoses include: Thyroid toxicosis Hypertensive emergency CHF Hypomagnesemia Elevated troponin Admission Indicated Admission indicated?: indicated Explain why admission is indicated or not indicated:: At this point, diagnoses include: Thyroid toxicosis Hypertensive emergency CHF Hypomagnesemia Elevated troponin Admission Request Was there a request for admission?: Yes Admission Attestation Admission request attestation: Discussed case with Hospitalist service regarding admission. Discussed patients ED course, exam findings, labs, and radiology results. The Hospitalist [agrees] to accept the patient for admission. Disposition Plan Disposition Plan: Admit Critical Care Time Critical Care Time Critical Care Time: Yes Total Critical Care Time (min.): 36 Attestation: Due to a high probability of clinically significant, life threatening deterioration, the patient required my highest level of preparedness to intervene emergently and I personally spent this critical care time directly and personally managing the patient. This critical care time included obtaining a history; examining the patient; ordering and review of studies; arranging urgent treatment with development of a management plan; evaluation of patient's response to treatment; frequent reassessment; and discussions with family and other providers. It was exclusive of separately billable procedures and treating other patients and teaching time. Jonathan Cheng MD Discharge Plan Plan Patient Disposition: Admit Acute Care w/in Hospital Problem List Clinical Impression: Thyrotoxicosis, CHF (congestive heart failure), Hypertensive emergency, Hypomagnesemia, Elevated troponin
[2024-10-31] MEDS: METOPROLOL TARTRATE 25 MG TABLET 100 MG PO (00:18)
--- NOTE | 2024-10-31 00:21 | XR_ITS ---
Examination: AP chest single view Technique one AP portable upright chest single view Date and time: October 31, 2024 0029 hours INDICATIONS: Shortness of breath today. FINDINGS: Early CHF Mild to moderate enlargement left ventricle. Prominent vascular congestion with early septal edema at the lung bases IMPRESSION: Early CHF
--- NOTE | 2024-10-31 00:22 | XR_ITS ---
Examination: CT brain head without contrast. 2-D sagittal coronal reconstructions Date and time of exam:October 31, 2024, 0450 hours INDICATIONS: Onset head pain hypertension today CTDI: vol (mGy): 47.4. DLP: (mGycm):900. Technique: Multiple CT axial sections of the brain have been obtained, 5 mm slice thickness. Contrast has not been administered. 2-D sagittal, coronal reconstructions have been obtained Low dose protocols were performed. One or more of the following dose reduction techniques were used; automated exposure control, adjustment of the mA and/or KV according to patient size, use of iterative reconstruction technique. Findings: No significant ventricular enlargement. Intra-axial or extra-axial hemorrhage density is not seen. No mass effect or midline shift Basal cisterns are not remarkable. Fourth ventricle is midline. Cranial vault intact. Impression: Negative for acute hemorrhage, mass effect or midline shift
--- NOTE | 2024-10-31 00:22 | XR_ITS ---
Examination: CTA chest with intravenous contrast 2-D reconstructions 3-D reconstructions, vascular Date and time of exam: October 31, 2024, 0452 hours INDICATIONS: Central chest pain tachycardia shortness of breath today CTDI: vol (mGy) 15.5. DLP: (mGycm) 527. Technique: Multiple axial sections of the thorax have been obtained. 3 mm slice thickness, from below the hemidiaphragms to above the apices of the lungs. Mediastinal and lung density settings have been obtained. 2-D sagittal and coronal reconstructions. 3-D angiographic renderings, 3-D volume renderings, 3D post processing, vascular maximum intensity projections obtained. Contrast administered is 100 cc Isovue 370. Intravenous.. Low dose protocols were performed. One or more of the following dose reduction techniques were used; automated exposure control, adjustment of the mA and/or KV according to patient size, use of iterative reconstruction technique. Findings: No thoracic aortic aneurysm dilatation or dissection. No pulmonary artery filling defects. Mild enlargement cardiac contour. No pneumonia or pulmonary edema. No visualized liver splenic lesion. Absent gallbladder. No pancreatic or adrenal mass IMPRESSION: Negative for pulmonary artery emboli. No pneumonia, pulmonary edema or pleural disease
--- NOTE | 2024-10-31 00:22 | XR_ITS ---
Examination: CT abdomen with intravenous contrast CT pelvis with intravenous contrast 2-D coronal reconstructions 2-D sagittal reconstructions Date and time of exam:October 31, 2024, 0452 hours INDICATIONS: Epigastric pain and abdominal pain and tachycardia today.. CTDI: vol (mGy) 25.4. DLP: (mGycm) 1426. Technique: Multiple axial sections of the abdomen and pelvis have been obtained. 64 slice high-resolution scanner used. 3 mm axial sections have been obtained, post intravenous injection 100 cc Isovue 370. 2-D sagittal, coronal reconstructions obtained. Low dose protocols were performed. One or more of the following dose reduction techniques were used; automated exposure control, adjustment of the mA and/or KV according to patient size, use of iterative reconstruction technique. Findings: No focal liver or splenic lesions Absent gallbladder. Common bile duct is not enlarged. No pancreatic or adrenal mass. No renal or ureteral calculi, hydronephrosis Aorta normal size. No bowel obstruction. Normal appendix. No diverticulitis. 2 cm uterine fundal mass Urinary bladder is intact. Advanced disc narrowing L5-S1 IMPRESSION: No acute process in the abdomen or pelvis
[2024-10-31] MEDS: METOPROLOL TARTRATE INJ 1 MG/ML AMP 5 ML 5 MG IVP (00:45)
[2024-10-31] MEDS: ACETAMINOPHEN 325 MG TABLET 650 MG PO (00:46)
[2024-10-31] MEDS: KETOROLAC INJ 30 MG/ML VIAL IVP (00:46)
[2024-10-31 01:19] LABS: Lactate (Lactic Acid) 2.6 mMol/L (0.4-2.0)
[2024-10-31 01:20] LABS: Basophils # (Auto) 0.0 Thou/mm3 (0.0-0.2); Basophils % (Auto) 0 % (0-2.5); Eosinophils # (Auto) 0.2 Thou/mm3 (0.0-0.5); Eosinophils % (Auto) 1 % (0-10); Hematocrit 42.6 % (36.0-46.0); Hemoglobin 14.2 g/dL (12.0-16.0); Immature Granulocytes Auto 0.05 Thou/mm3 (0.00-0.00); Lymphocytes # (Auto) 2.3 Thou/mm3 (1.0-4.8); Lymphocytes % (Auto) 19 % (10-50); Mean Corpuscular HGB Conc 33.3 g/dl (31.0-37.0); Mean Corpuscular Hemoglobin 27.7 pg (25.0-35.0); Mean Corpuscular Volume 83 fL (80-100); Monocytes # (Auto) 0.9 Thou/mm3 (0.0-0.8); Monocytes % (Auto) 8 % (0-12); Neutrophils # (Auto) 8.6 Thou/mm3 (1.8-7.7); Neutrophils % (Auto) 72 % (37-80); Nucleated Red Blood Cell # 0.00 Thou/mm3 (0.00-0.00); Nucleated Red Blood Cell % 0 /100 WBC (0); Platelet Count 228 Thou/mm3 (140-440); RDW Standard Deviation 41.8 fL (36.4-46.3); Red Blood Count 5.13 Miln/mm3 (4.00-5.20); White Blood Count 12.1 Thou/mm3 (3.6-11.0)
[2024-10-31 01:32] LABS: Sed Rate (ESR) 15 mm/hr (0-20)
[2024-10-31 01:33] LABS: HCG,Qualitative Serum Negative
[2024-10-31 01:41] LABS: INR 1.0 (0.9-1.3); Partial Thromboplastin Time 27.1 Seconds (22.0-36.0); Prothrombin Time 11.0 Seconds (9.0-12.2)
[2024-10-31 01:43] LABS: D-Dimer 377 ng/mL (<600)
[2024-10-31 01:59] LABS: B-Type Natriuretic Peptide 628 pg/mL (0-100)
[2024-10-31 02:06] LABS: Collection Type, Urine Clean Catch; RBC,Urine 0 /hpf (0-3); WBC,Urine 0 /hpf (0-5)
[2024-10-31 02:23] LABS: Bacteria,Urine Rare; Bilirubin,Urine Negative (Negative); Blood,Urine Negative (Negative); Clarity,Urine Clear (Clear/Hazy); Color,Urine Lt-Yellow (Lt Yel-Yel); Culture Indicated,Urine Not Indicated; Glucose, Urine Negative (Negative); Hyaline Casts,Urine < 1 /hpf (0-1); Ketones,Urine Negative (Negative); Leukocyte Esterase,Urine Negative (Negative); Nitrite,Urine Negative (Negative); PH,Urine 6.0 (5.0-7.0); Protein,Urine 1+ (Neg - Trace); Specific Gravity,Urine 1.018 (1.001-1.035); Squamous Epithelial Cell,Urine 3 /hpf (0-5); Urobilinogen,Urine Negative mg/dL (0.0-1.0)
[2024-10-31 02:24] LABS: HCG Qualitative,Urine Negative
[2024-10-31 03:00] LABS: Alanine Aminotransferase 23 U/L (10-49); Albumin, Serum 3.9 gm/dL (3.5-5.0); Albumin/Globulin Ratio 1.5 (1.2-2.2); Alkaline Phosphatase 151 U/L (46-116); Anion Gap 13 (7-16); Aspartate Amino Transferase 29 U/L (0-34); BUN/Creatinine Ratio 14 Ratio (12-20); Bilirubin,Direct 0.7 mg/dL (0.0-0.3); Bilirubin,Total 2.0 mg/dL (0.3-1.2); Blood Urea Nitrogen 13 mg/dL (9-23); C-Reactive Protein 0.8 mg/dL (0.0-0.9); Calcium 8.6 mg/dL (8.3-10.6); Calcium (Corrected) 8.7 mg/dL (8.5-10.1); Carbon Dioxide 19.2 mMol/L (20.0-31.0); Chloride 107 mMol/L (98-107); Creatinine (Component) 0.9 mg/dL (0.6-1.3); Estimated Creatinine Clearance 102.9 mL/min (>60); Free T4 (Free Thyroxine) 4.00 ng/dL (0.89-1.76); Globulin 2.6 gm/dL (2.3-3.5); Glucose 117 mg/dL (74-106); Lipase 39 U/L (12-53); Magnesium 1.3 mg/dL (1.6-2.6); Osmolality,Calculated 278 (275-295); Potassium 3.5 mMol/L (3.4-5.1); Procalcitonin 0.09 ng/ml (0.0-0.49); Sodium 139 mMol/L (136-145); Thyroid Stimulating Hormone < 0.01 uIU/mL (0.55-4.78); Total Protein 6.5 gm/dL (5.7-8.2); eGFR > 60 See Note
[2024-10-31 03:02] LABS: Troponin I 0.224 ng/mL (0.0-0.045)
[2024-10-31] MEDS: ASPIRIN 81 MG CHEW 324 MG PO (03:21)
[2024-10-31] MEDS: Magnesium Sulfate 4 GM Ivpb 4 GM/50 ML BAG IV (03:22)
[2024-10-31 03:58] LABS: Troponin I 0.210 ng/mL (0.0-0.045)
[2024-10-31 04:10] LABS: Reflex Lactate? Y
[2024-10-31 04:44] LABS: Lactic Acid, 3 HR 1.4 mMol/L (0.4-2.0)
--- NOTE | 2024-10-31 05:07 | ESHP_ITS ---
Documentation for date of: 10/31/24 [facility] History of Present Illness Chief complaint: Chest pain and shortness of breath History of present illness: 39-year-old female with a complex medical history including chronic systolic heart failure (EF 40-45%), pericarditis, resistant hypertension, Graves' disease, seizure disorder, anxiety, depression, asthma, and sleep apnea who presents with worsening lower extremity swelling, dyspnea, and chest pain over the past two days. She reports that these symptoms have intermittently been present for the past two weeks but became acutely worse today. Chest pain is pleuritic and exertional, located centrally, and worsens when she moves or ambulates. She denies any current pain at rest. She was previously admitted in June 2024 for a similar presentation with hypertensive emergency and fluid overload requiring IV diuresis, nitroglycerin drip, and ICU monitoring. Echo at the time showed EF 40?45% with global hypokinesis and concentric LVH. Since discharge, she has been on multiple antihypertensives and methimazole, which was recently increased to 60mg QD by her compensation coordinator on 10/24/24. She reports adherence to medications but notes that her blood pressure continues to spike into the 200s systolic despite maximal doses, particularly in the afternoons. She was advised to return to the ED by her underwriting specialist, Dr. Lomeli, due to worsening symptoms. In the ED, she was found to be hypertensive (BP >200/150), tachycardic (HR 112), and mildly febrile (Tmax ~100?F). She received clonidine, metoprolol, magnesium, alprazolam, and ketorolac with partial improvement in blood pressure. Labs showed low TSH with elevated free T4 (Graves? flare), elevated BNP (628), and mildly elevated troponin (peak 0.224). She reports daily brain seizures, improved from ~100/day to 10/day on Keppra. No witnessed convulsions or loss of consciousness reported today. She denies fever, chills, recent illness, or known sick contacts. She notes chronic allergies but no infectious symptoms. Denies recent falls, trauma, or syncope. Mild lightheadedness and ?blank face? sensation today. ROS: * Constitutional: Denies fever/chills. Endorses fatigue. * Cardiac: Chest pain (pleuritic), palpitations. * Respiratory: Dyspnea on exertion, orthopnea. * GI: Denies N/V/D. * Neuro: Chronic seizure disorder, lightheadedness. * Psych: Anxiety. * /Other systems: Otherwise negative. Past Medical History: * CHF (EF 40?45%) * Resistant Hypertension * Pericarditis * Graves? disease (hyperthyroidism) * Hypothyroidism * Seizure disorder (on Keppra) * Asthma * Obstructive sleep apnea * Depression and anxiety * IBS, gallbladder disease * Endometriosis, PID * RT renal artery stenosis (negative cath per prior records) * Migraines Surgical History: * Cholecystectomy * 2 C-sections Medications (per patient) med rec still pending * Methimazole 60mg QD * Multiple antihypertensives including 3 different diuretics and 4 beta-blockers per patient * Keppra (dose unknown) Allergies: * Glucosamine ? rash * Venlafaxine ? itching * Jalapeno ? severe allergy Family History: Extensive history of cancer Social History * Denies tobacco, alcohol, or illicit drugs * Lives in town, sees underwriting specialist Dr. Lomeli and compensation coordinator Dr. Guardado * Reports mass-like lesion in arm being evaluated by Dr. Hinton Exam Vital Signs Temp Pulse Resp BP Pulse Ox O2 Del Method FiO2 97.8 F 61 20 158/90 H 97 Room Air 99 10/31/24 04:33 10/31/24 04:33 10/31/24 04:33 10/31/24 04:33 10/31/24 04:33 10/31/24 04:33 10/31/24 01:44 Narrative Exam Gen: Alert, A&Ox3, in no acute distress at rest. HEENT: Normocephalic, atraumatic. Mucosa moist. No thyromegaly. Neck: Supple, no JVD. CV: Tachycardic. Normal S1/S2. No murmurs appreciated. Resp: Mild tachypnea. No rales or wheezing on auscultation. Mild effort. Abd: Soft, non-tender, no masses. Ext: 3+ pitting edema bilaterally. No cyanosis. Mass in the left elbow Neuro: A&Ox3. CN II?XII grossly intact. No focal deficits. Skin: Warm, dry Psych: Appropriate mood and affect Results: Labs 11/01/24 06:50 11/01/24 06:50 Labs: Short CBC 10/31/24 Range/Units 00:27 WBC 12.1 H (3.6-11.0) Thou/mm3 Hgb 14.2 (12.0-16.0) g/dL Hct 42.6 (36.0-46.0) % Plt Count 228 (140-440) Thou/mm3 BMP 10/31/24 00:27 Sodium 139 Potassium 3.5 Chloride 107 Carbon Dioxide 19.2 L BUN 13 Creatinine 0.9 Glucose 117 H Calcium 8.6 Cardiac Enzymes 10/31/24 10/31/24 Range/Units 00:27 03:19 Troponin I 0.224 H* 0.210 H* (0.0-0.045) ng/mL Liver Function 10/31/24 Range/Units 00:27 Total Bilirubin 2.0 H (0.3-1.2) mg/dL Direct Bilirubin 0.7 H (0.0-0.3) mg/dL AST 29 (0-34) U/L ALT 23 (10-49) U/L Alkaline Phosphatase 151 H (46-116) U/L Albumin 3.9 (3.5-5.0) gm/dL Urine 10/31/24 Range/Units 01:25 Urine Color Lt-Yellow (Lt Yel-Yel) Urine Clarity Clear (Clear/Hazy) Urine pH 6.0 (5.0-7.0) Ur Specific [place] 1.018 (1.001-1.035) Urine Protein 1+ A (Neg - Trace) Urine Glucose (UA) Negative (Negative) Quality Measures Quality Measures VTE prophylaxis Medications Home Medications and Allergies Home Medications ?Medication ?Instructions ?Recorded ?Confirmed ?Type duloxetine 60 mg capsule,delayed 60 mg PO HS 11/24/20 10/31/24 History release carvedilol 25 mg tablet 25 mg PO 3XD 09/11/23 History aripiprazole 20 mg tablet (Abilify) 20 mg PO QDAY PRN migraine headache 07/02/24 10/31/24 History bupropion HCl 75 mg tablet 150 mg PO BID 07/02/2410/18 History levetiracetam 500 mg tablet 500 mg PO BID 07/02/2410/18 History rilonacept 220 mg subcutaneous 220 mg subcut Q7D 07/0210/31/24 History solution (Arcalyst) ubrogepant 50 mg tablet (Ubrelvy) 50 mg PO .QD PRN kassie drew headache 07/02/24 10/31/24 History methimazole 10 mg tablet 60 mg PO QDAY 10/31/2410/31 History Allergies Allergy/AdvReac Type Severity Reaction Status Date / Time glucosamine Allergy Severe Rash Verified 10/30/24 23:36 pepper (genus Capsicum) Allergy Mild Swelling Verified 10/30/24 23:36 of Lip/Tongue/Throat venlafaxine Allergy Mild Itching Verified 10/30/24 23:36 JALAPENO Allergy Mild THROAT Uncoded 10/30/24 23:36 CLOSES UP Visit Medications Acetaminophen (Acetaminophen 325 Mg Tablet) 650 mg PO Q6H PRN PRN Reason: Fever >100.4 Stop: 11/30/24 04:38 Acetaminophen (Acetaminophen 325 Mg Tablet) 650 mg PO Q6H PRN PRN Reason: PAIN SCALE 1-3 (mild Stop: 11/30/24 04:43 Hydrocodone Bitart/Acetaminophen (Hydrocodone/Apap 5/325 Tablet) 1 tab PO Q4HR PRN PRN Reason: PAIN SCALE 4-10(Mod-Sev Stop: 11/05/24 04:43 Cholestyramine Resin (Cholestyramine/Sucrose 1 Pkt Ea) 1 pkt PO BID LEON Stop: 11/30/24 08:59 Enoxaparin Sodium (Enoxaparin Sod Inj 40 Mg/0.4 Ml Syringe) 40 mg SC QDAY LEON Stop: 11/14/24 08:59 Hydrocortisone Sodium Succinate (Hydrocortisone Sod Succ Inj 100 Mg Vial) 50 mg IV Q8HR LEON Stop: 11/30/24 11:59 Magnesium Sulfate (Magnesium Sulfate Ivpb) 4 gm in 50 mls @ 12.5 mls/hr IV X1 ONE Stop: 10/31/24 07:04 Last Admin: 10/31/24 03:22 Dose: 12.5 mls/hr Labetalol HCl (Labetalol Inj 5 Mg/Ml Vial 20 Ml) 10 mg IVP Q6HR PRN PRN Reason: sbp>180 or DBP>110 Stop: 11/30/24 04:59 Lisinopril (Lisinopril 20 Mg Tablet) 40 mg PO QDAY LEON Stop: 11/30/24 08:59 Ondansetron HCl (Ondansetron Inj 2 Mg/Ml Inj 2 Ml) 4 mg IVP Q6H PRN; Protocol PRN Reason: NAUSEA OR VOMITING Stop: 11/30/24 04:38 Pantoprazole Sodium (Pantoprazole 40 Mg Tablet) 40 mg PO QDAY [facility] Stop: 11/30/24 08:59 Propranolol HCl (Propranolol 10 Mg Tablet) 10 mg PO TID [facility] Stop: 11/30/24 05:59 Discontinued Medications Acetaminophen (Acetaminophen 325 Mg Tablet) 650 mg PO X1 ONE Stop: 10/31/24 00:24 Last Admin: 10/31/24 00:46 Dose: 650 mg Alprazolam (Alprazolam 0.25 Mg Tablet) 0.5 mg PO X1 ONE Stop: 10/31/24 00:22 Last Admin: 10/31/24 00:46 Dose: 0.5 mg Amlodipine Besylate (Amlodipine Besylate 5 Mg Tablet) 10 mg PO X1 ONE Stop: 10/31/24 04:53 Aspirin (Aspirin 81 Mg Chew) 324 mg PO X1 ONE Stop: 10/31/24 03:07 Last Admin: 10/31/24 03:21 Dose: 324 mg Clonidine (Clonidine Hcl 0.1 Mg Tablet) 0.2 mg PO X1 ONE Stop: 10/31/24 00:02 Last Admin: 10/31/24 00:11 Dose: Not Given Clonidine (Clonidine Hcl 0.1 Mg Tablet) 0.3 mg PO X1 ONE Stop: 10/31/24 00:11 Last Admin: 10/31/24 00:18 Dose: 0.3 mg Furosemide (Furosemide Inj 10 Mg/Ml 4ml Vial) 40 mg IVP X1 ONE Stop: 10/31/24 04:53 Hydrocortisone Sodium Succinate (Hydrocortisone Sod Succ Inj 100 Mg Vial) 100 mg IV X1 ONE Stop: 10/31/24 04:53 Ketorolac Tromethamine (Ketorolac Inj 30 Mg/Ml Vial) 30 mg IVP X1 ONE Stop: 10/31/24 00:24 Last Admin: 10/31/24 00:46 Dose: 30 mg Metoprolol Tartrate (Metoprolol Tartrate 25 Mg Tablet) 75 mg PO X1 ONE Stop: 10/31/24 00:02 Last Admin: 10/31/24 00:11 Dose: Not Given Metoprolol Tartrate (Metoprolol Tartrate 25 Mg Tablet) 100 mg PO X1 ONE Stop: 10/31/24 00:11 Last Admin: 10/31/24 00:18 Dose: 100 mg Metoprolol Tartrate (Metoprolol Tartrate Inj 1 Mg/Ml Amp 5 Ml) 5 mg IVP X1 ONE Stop: 10/31/24 00:22 Last Admin: 10/31/24 00:45 Dose: 5 mg Assessment & Plan Plan 39F with history of HFrEF, resistant HTN, Graves' disease, seizure disorder, and prior hypertensive emergency presents with worsening edema, dyspnea, and exertional pleuritic chest pain. Found hypertensive with signs of volume overload and suboptimally managed hyperthyroidism. # Hypertensive Emergency Refractory HTN with BP >200 systolic and signs of end-organ effect (dyspnea, elevated BNP, chest discomfort). Aim for BP drop of no more than 15% in first hour. Plan: * Labetalol IV push PRN (started) * Started lisinopril 5 mg daily * Gave 10 mg amlodipine PO x1 * Continue IV metoprolol PRN * Daily BMP for renal status * Strict I/O, daily weights #Graves Disease with thyrotoxicosis Free T4 4.0, TSH <0.01; likely contributing to BP and HR lability. Caal-Wartofsky Score: 45, highly suggestive of thyroid storm Plan: * Gave methimazole 40 mg once in ED * Start propranolol 10 mg TID * Started hydrocortisone 50 mg IV Q8 for possible thyroid storm prophylaxis * Gave hydrocortisone 100 mg IV once in ED * Recheck thyroid panel * Endocrine consult if symptoms worsen or unclear response # HFrEF with reduced EF (EF 40-45%) Evidence of volume overload (BNP 628, LE edema, CHRISTY). History of prior admission with fluid overload. Plan: * Gave furosemide 40 mg IV once in ED * Cardiology to follow * Monitor weight, I/O, and symptoms * Repeat echo if significant change in symptoms # Seizure Disorder History of daily brain seizures, currently at baseline. Plan: * Continue home Keppra (dose TBD) * Monitor for clinical seizures * Maintain normonatremia # Anxiety and Depression Patient distressed from prior hospitalization. Appears medically appropriate today. Plan: * Clarify plan of care with patient to reduce anxiety * Resume home Buspar if confirmed * Psych consult PRN # Asthma and IGNACIO Not acutely symptomatic Plan: * Continue home meds, CPAP if used * Monitor for respiratory decompensation # Electrolyte abnormalities # Hypomagnesemia K 3.5, Mg 1.3 in ED Plan: * Replete magnesium and potassium as needed * Monitor daily BMP/Mg # Elevated LFTs and bilirubin Likely chronic, mildly elevated ALP and total bilirubin Plan: * Trend AST, ALT, bili * No acute intervention needed unless worsening Health Maintenance: Disposition: Tele Diet: Cardiac Thromboprophylaxis: Lovenox GI prophylaxis: Consider PPI Code Status: Full ----- Plan discussed with attending physician Dr. Lee Ann Rios MD PGY-1 Internal Medicine Attending Provider Attestation/Addendum Attending Provider Attestation/Addendum After examination of the patient and review of the clinical data I feel that this patient needs admission to the hospital for further treatment/evaluation. 41-year-old female patient with PMHx and HPI as documented above being managed for severe thyrotoxicosis, hypertensive emergency, acute CHF exacerbation along with NSTEMI. During evaluation in the ED patient's BP was noted to be 247/179, HR 126, labs were noted for TSH<0.01, fT4, 4.0 troponin 0.224, and BNP 628. Patient's presentation was concerning for thyrotoxic crisis, Caal- wartofsky score of 45 indicating high probability of thyroid storm. Patient was started on high-dose methimazole, propranolol, iv hydrocortisone, iv furosemide, and cholestyramine. Patient admitted to Telemetry with close monitoring, follow up on fT4 levels daily. TOTAL CC TIME: 45 MIN TOTAL TIME: 45 Minutes of direct medical management and planning of care. I Jeff Danielle MD, attest that I was physically present for mckenna portions of evaluation, and examined patient, labs and imagings and plan of care were discussed with IM residents team, and I agree with the findings and plans documented above.
[2024-10-31] MEDS: HYDROCORTISONE SOD SUCC INJ 100 MG VIAL IV (05:11)
[2024-10-31] MEDS: FUROSEMIDE INJ 10 MG/ML 4ML VIAL 40 MG IVP ×2 (05:14→12:13)
--- NOTE | 2024-10-31 05:15 | PC.NURSE ---
THIS RN INFORMED PROVIDER KAYLEY OF PATIENTS PRESSURE 132/72 AND HR OF 58 TO VERIFY IF BOTH LISINOPRIL AND AMLODIPINE WERE TO BE ADMINISTERED. THIS RN IS CONCERNED HER PRESSURE WILL DROP BELOW MAP OF 65. PER KAYLEY YES, GIVE THE MEDICATIONS WE ARE WORRIED ABOUT HER GOING INTO A THYROID STORM. WE PREFER HER BLOOD PRESSURE LOW THAN HIGH .
--- NOTE | 2024-10-31 05:17 | PRELIM_ITS ---
CT scan of the head without intravenous contrast (axial sections with sagittal and coronal reformats). October 31, 2024 0450 hours Clinical History: Headache and high BP Comparison: No prior study is available for comparison. Findings: No evidence of intracranial hemorrhage, mass effect or midline shift. The ventricles and CSF spaces are unremarkable. The calvarium is unremarkable. The mastoid air cells and the visualized paranasal sinuses are clear. Impression: No evidence of intracranial hemorrhage, mass effect or midline shift. Report Electronically Signed By: Rafaela Mota 10/31/2024 5:17:30 AM [EST]
--- NOTE | 2024-10-31 05:42 | PRELIM_ITS ---
CT angiogram of the chest with intravenous contrast (axial sections with sagittal and coronal reformats) October 31, 2024 0452 hours Clinical History: SOB CP TACHYCARDIA Technique:Helical axial sections with sagittal and coronal reformats of the chest were obtained with intravenous contrast. Iterative reconstruction technique was employed to reduce patient radiation exposure. 3D/MIP reconstructed images were also provided. Comparison: No prior study is available for comparison. Findings: The evaluation of some of the subsegmental pulmonary artery divisions is limited due to respiratory motion artifact. No pulmonary thromboembolism in the remainder of the pulmonary artery divisions. The mediastinum demonstrates no evidence of mass or lymphadenopathy. The thoracic aorta is unremarkable. There is no pericardial effusion. The lungs are clear. No evidence of pleural effusion or pneumothorax. The osseous structures are unremarkable. The visualized upper abdominal viscera are unremarkable. Impression: No CT evidence of pulmonary thromboembolism (limited evaluation of some of the subsegmental pulmonary artery divisions due to respiratory motion artifact). Recommend additional evaluation, if clinically indicated. Report Electronically Signed By: Rafaela Mota 10/31/2024 5:42:21 AM [EST]
--- NOTE | 2024-10-31 05:43 | PRELIM_ITS ---
CT scan of the abdomen and pelvis with intravenous contrast (axial sections with sagittal and coronal reformats) October 31, 2024 0452 hours Clinical History: ABD PAIN Comparison: No prior study is available for comparison. Findings: The gallbladder is surgically absent. The liver, pancreas, spleen, kidneys and adrenals are unremarkable. No evidence of bowel obstruction. The appendix is within normal limits . There is no mesenteric or retroperitoneal adenopathy. The urinary bladder is incompletely distended at the time of the examination. Uterus ismildly enlarged with uterine fibroid, measuring 2 cm. Involuting follicle in the left ovary with trace amount of free fluid in the pelvis. There is no free air. The osseous structures are unremarkable. Impression: No evidence of bowel obstruction, free air or abscess. Other findings as described above. Report Electronically Signed By: Rafaela Mota 10/31/2024 5:42:37 AM [EST]
[2024-10-31] MEDS: METHIMAZOLE 5 MG TABLET 40 MG PO (05:49)
--- NOTE | 2024-10-31 07:50 | ESPR_ITS ---
<Statement entered by Janeth King MD - 10/31/24 19:24> I have reviewed the note and agree with the resident's assessment & plan with exceptions as below. I have personally reviewed labs, imaging, home meds/prior records, examined the patient, formulated and discussed management plan with the IM team. Patient examined at bedside today. No acute overnight events. Patient currently has gotten methimazole 40 mg, continuing propranolol 10 mg 3 times daily at this time. Pending endocrinology recommendations. Patient reports that she sees Dr. Jorgensen and Dr. Melquiades Lomeli, and has an appointment for endocrine surgery November 18. May start potassium iodine drops tomorrow. Will resume other home medicines. Will continue to trend T4. Repeat hematology and chemistry in the a.m. Janeth King, PGY-2 Internal Medicine Documentation for date of: 10/31/24 Subjective Subjective Interval history: Patient seen and examined in ICU. She appears calm. She endorses chest pain with movement and dry cough with shortness of breath. Endorses medication compliance and no recent weight changes. She denies NVD and states last BM was yesterday at 9pm. She endorses an appetite. Exam Vital Signs Temp Pulse Resp BP Pulse Ox O2 Del Method FiO2 97.1 F 59 L 18 144/99 H 98 Room Air 99 10/31/24 07:37 10/31/24 07:37 10/31/24 07:37 10/31/24 07:37 10/31/24 07:37 10/31/24 07:37 10/31/24 01:44 Narrative Exam Gen: Alert, A&Ox3, in no acute distress at rest. HEENT: Left eye exopthalmos, atraumatic. Mucosa moist. No thyromegaly. Neck: Supple, no JVD. CV: Tachycardic. Normal S1/S2. No murmurs appreciated. Reproducible midsternal chest pain to palpation Resp: Mild tachypnea. Rales. No wheezing on auscultation. Mild effort. Abd: Soft, epigastrium TTP, no masses. Ext: 1+ pitting edema bilaterally. No cyanosis. Mass in the left elbow Neuro: A&Ox3. CN II?XII grossly intact. No focal deficits. Skin: Warm, dry Psych: Appropriate mood and affect Objective Labs 11/01/24 06:50 11/01/24 06:50 Labs: Laboratory Results - last 24 hr 10/31/24 10/31/24 10/31/24 00:27 01:25 03:19 WBC 12.1 H RBC 5.13 Hgb 14.2 Hct 42.6 MCV 83 MCH 27.7 MCHC 33.3 RDW Std Deviation 41.8 Plt Count 228 Neut % (Auto) 72 Lymph % (Auto) 19 [place] % (Auto) 8 Eos % (Auto) 1 Baso % (Auto) 0 Neut # (Auto) 8.6 H Lymph # (Auto) 2.3 [place] # (Auto) 0.9 H Eos # (Auto) 0.2 Baso # (Auto) 0.0 Immature Gran # (Auto) 0.05 H Absolute Nucleated RBC 0.00 Immature Gran % 0 Nucleated RBC % 0 ESR 15 PT 11.0 INR 1.0 APTT 27.1 D-Dimer 377 Sodium 139 Potassium 3.5 Chloride 107 Carbon Dioxide 19.2 L Anion Gap 13 BUN 13 Creatinine 0.9 Estim Creat Clear Calc 102.9 eGFR > 60 BUN/Creatinine Ratio 14 Glucose 117 H Calculated Osmolality 278 Lactic Acid 2.6 H Calcium 8.6 Corrected Calcium 8.7 Magnesium 1.3 L Total Bilirubin 2.0 H Direct Bilirubin 0.7 H AST 29 ALT 23 Alkaline Phosphatase 151 H Troponin I 0.224 H* 0.210 H* C-Reactive Prot, Quant 0.8 B-Natriuretic Peptide 628 H* Total Protein 6.5 Albumin 3.9 Globulin 2.6 Albumin/Globulin Ratio 1.5 Lipase 39 Procalcitonin 0.09 TSH < 0.01 L* Free T4 4.00 H HCG, Qual Negative Ur Collection Type Clean Catch Urine Color Lt-Yellow Urine Clarity Clear Urine pH 6.0 Ur Specific [place] 1.018 Urine Protein 1+ A Urine Glucose (UA) Negative Urine Ketones Negative Urine Blood Negative Urine Nitrite Negative Urine Bilirubin Negative Urine Urobilinogen (Auto) Negative Ur Leukocyte Esterase Negative Urine RBC 0 Urine WBC 0 Ur Squamous Epith Cells 3 Urine Bacteria Rare Hyaline Casts < 1 Ur Culture Indicated? Not Indicated Urine HCG, Qual Negative 10/31/24 04:40 WBC RBC Hgb Hct MCV MCH MCHC RDW Std Deviation Plt Count Neut % (Auto) Lymph % (Auto) [place] % (Auto) Eos % (Auto) Baso % (Auto) Neut # (Auto) Lymph # (Auto) [place] # (Auto) Eos # (Auto) Baso # (Auto) Immature Gran # (Auto) Absolute Nucleated RBC Immature Gran % Nucleated RBC % ESR PT INR APTT D-Dimer Sodium Potassium Chloride Carbon Dioxide Anion Gap BUN Creatinine Estim Creat Clear Calc eGFR BUN/Creatinine Ratio Glucose Calculated Osmolality Lactic Acid 1.4 Calcium Corrected Calcium Magnesium Total Bilirubin Direct Bilirubin AST ALT Alkaline Phosphatase Troponin I C-Reactive Prot, Quant B-Natriuretic Peptide Total Protein Albumin Globulin Albumin/Globulin Ratio Lipase Procalcitonin TSH Free T4 HCG, Qual Ur Collection Type Urine Color Urine Clarity Urine pH Ur Specific [place] Urine Protein Urine Glucose (UA) Urine Ketones Urine Blood Urine Nitrite Urine Bilirubin Urine Urobilinogen (Auto) Ur Leukocyte Esterase Urine RBC Urine WBC Ur Squamous Epith Cells Urine Bacteria Hyaline Casts Ur Culture Indicated? Urine HCG, Qual Quality Measures Quality Measures VTE prophylaxis Assessment & Plan Assessment Current Active Medications: Generic Name Dose Route Start Last Admin Trade Name Freq PRN Reason Stop Dose Admin Acetaminophen 650 mg 10/31/24 04:39 Acetaminophen 325 Mg Tablet PO 11/30/24 04:38 Q6H PRN Fever >100.4 Acetaminophen 650 mg 10/31/24 04:44 Acetaminophen 325 Mg Tablet PO 11/30/24 04:43 Q6H PRN PAIN SCALE 1-3 (mild Hydrocodone Bitart/Acetaminophen 1 tab 10/31/24 04:44 Hydrocodone/Apap 5/325 Tablet PO 11/05/24 04:43 Q4HR PRN PAIN SCALE 4-10(Mod-Sev Cholestyramine Resin 1 pkt 10/31/24 09:00 Cholestyramine/Sucrose 1 Pkt Ea PO 11/30/24 08:59 BID LEON Enoxaparin Sodium 40 mg 10/31/24 09:00 Enoxaparin Sod Inj 40 Mg/0.4 Ml Syringe SC 11/14/24 08:59 QDAY LEON Hydrocortisone Sodium Succinate 50 mg 10/31/24 12:00 Hydrocortisone Sod Succ Inj 100 Mg Vial IV 11/30/24 11:59 Q8HR LEON Labetalol HCl 10 mg 10/31/24 05:26 Labetalol Inj 5 Mg/Ml Vial 20 Ml IVP 11/30/24 04:59 Q6HR PRN sbp>180 or DBP>110 Lisinopril 40 mg 10/31/24 09:00 Lisinopril 20 Mg Tablet PO 11/30/24 08:59 QDAY [facility] Ondansetron HCl 4 mg 10/31/24 04:39 Ondansetron Inj 2 Mg/Ml Inj 2 Ml IVP 11/30/24 04:38 Q6H PRN NAUSEA OR VOMITING Protocol Pantoprazole Sodium 40 mg 10/31/24 09:00 Pantoprazole 40 Mg Tablet PO 11/30/24 08:59 QDAY LEON Propranolol HCl 10 mg 10/31/24 06:00 10/31/24 06:46 Propranolol 10 Mg Tablet PO 11/30/24 05:59 Not Given TID LEON Plan 39F with history of HFrEF, resistant HTN, Graves' disease, seizure disorder, and prior hypertensive emergency presents with worsening edema, dyspnea, and exertional pleuritic chest pain. Found hypertensive with signs of volume overload and uncontrolled hyperthyroidism. # Hypertensive Emergency Refractory HTN with BP >200 systolic and signs of end-organ effect (dyspnea, elevated BNP, chest discomfort). Aim for BP drop of no more than 15% in first hour. Plan: * Labetalol IV push PRN (started) * Started lisinopril 5 mg daily * Gave 10 mg amlodipine PO x1 * Continue IV metoprolol PRN * Propranolol 10mg TID, titrate upwards to 60-90 mg TID if worsening cardiac symptoms * Daily BMP for renal status * Strict I/O, daily weights * IV lasix 40 mg #Graves Disease with thyrotoxicosis Free T4 4.0, TSH <0.01; likely contributing to BP and HR lability. Caal-Wartofsky Score: 45, highly suggestive of thyroid storm. Seeing endocrine surgeon November 18. Plan: * Gave methimazole 40 mg once in ED * Methimazole 30mg BID * Start propranolol 10 mg TID * Started hydrocortisone 50 mg IV Q8 for possible thyroid storm prophylaxis * Gave hydrocortisone 100 mg IV once in ED * Recheck thyroid panel * Endocrine consult if symptoms worsen or unclear response * Follow free T4 and T3 * Consider thyroidectomy dosing scale per up todate for K+Lugol solution/ # HFrEF with reduced EF (EF 40-45%) Evidence of volume overload (BNP 628, LE edema, CHRISTY). History of prior admission with fluid overload. Plan: * Gave furosemide 40 mg IV once in ED * Cardiology to follow * Monitor weight, I/O, and symptoms * Repeat echo if significant change in symptoms * Continue home meds aldoctone and chlorothiadone # Seizure Disorder History of daily brain seizures, currently at baseline. Plan: * Continue home Keppra (dose TBD) * Monitor for clinical seizures * Maintain normonatremia # Anxiety and Depression Patient distressed from prior hospitalization. Appears medically appropriate today. Plan: * Clarify plan of care with patient to reduce anxiety * Resume home Buspar if confirmed * Psych consult PRN # Asthma and IGNACIO Not acutely symptomatic Plan: * Continue home meds, CPAP if used * Monitor for respiratory decompensation # Electrolyte abnormalities # Hypomagnesemia K 3.5, Mg 1.3 in ED Plan: * Replete magnesium and potassium as needed * Monitor daily BMP/Mg # Elevated LFTs and bilirubin Likely chronic, mildly elevated ALP and total bilirubin Plan: * Trend AST, ALT, bili * No acute intervention needed unless worsening Health Maintenance: Disposition: Tele Diet: Cardiac Thromboprophylaxis: Lovenox GI prophylaxis: Consider PPI Code Status: Full ----- Plan discussed with attending physician Dr. Arias and supervising residents Dr. Jorge Aguirre MD PGY-1 Internal Medicine Attending Provider Attestation/Addendum I have discussed and was present for the essential components of the history, physical examination, diagnosis, and treatment plan with the resident. I agree with the patient's care as documented by the resident and amended herein by me. Mitesh Arias, DO. Although this document has been carefully reviewed, there may still be some phonetic and other typographical errors. These errors are purely grammatical due to imperfections in the software program and should not be construed in any way to compromise the substance of the patient's medical care during this visit.
[2024-10-31] MEDS: ENOXAPARIN SOD INJ 40 MG/0.4 ML SYRINGE SC (08:28)
[2024-10-31] MEDS: PANTOPRAZOLE 40 MG TABLET PO (08:29)
[2024-10-31] MEDS: CHOLESTYRAMINE/SUCROSE 1 PKT EA PO ×2 (08:29→20:05)
--- NOTE | 2024-10-31 10:29 | PC.NURSE ---
Patient evaluated by physical therapist. Per PT, patient was able to ambulate short distance outside of room with dyspnea on exertion. Patient oxygen saturation did not drop, but patient felt short of breath when walking. Patient is alert and oriented x4. Vitals signs stable. Patient 97% on room air.
--- NOTE | 2024-10-31 11:44 | XR_ITS ---
Examination: MRI left elbow, without contrast Date and time of exam: October 31, 2024 1509 hours INDICATIONS: Left elbow pain 2 months, elbow study September 11, 2024 16 mm bony exostosis versus osteocartilaginous exostosis off the distal medial humeral shaft Technique: Multiple axial sagittal and coronal images of the left have been obtained with the Siemens high-resolution 1.5 Delicia MRI scanner. Images obtained include T2-weighted fat-suppressed sagittal sections, TR 3500, TE 46, T2 weighted coronal fat suppressed images, TR 3050, TE 84, T2-weighted transverse fat suppressed images, TR 3260, TE 63, proton density transverse images, TR 4720 TE 46, and T1 weighted coronal images, TR 560, TE 13. Findings: Findings most consistent with benign bony spur off the distal humeral shaft medially No cortical bone destruction No permeative soft tissue mass destroying the cortex of the distal humerus No elbow effusion Collateral ligaments are intact Triceps tendon intact Normal insertion long head of the biceps is in the radial tuberosity IMPRESSION: Findings most consistent with benign bony spur off the distal humeral shaft medially
--- NOTE | 2024-10-31 11:54 | PC.PT ---
PT eval only. Patient is safe to ambulate to the bathroom with no staff and no AD. Patient will need 1 staff when ambulating in the halls due to her poor activity tolerance. RN made aware.
[2024-10-31] MEDS: HYDROCORTISONE SOD SUCC INJ 100 MG VIAL 50 MG IV ×2 (12:13→21:01)
--- NOTE | 2024-10-31 13:04 | PC.SS ---
FABRICATION INSPECTOR conducted bedside contact with the patient conduct initial assessment and to discuss discharge planning.? Patient confirmed demographic information.? Patient resides at home with spouse, Smooth Adam .? Patient is currently employed.? Patient does not utilize any form of DME to assist with ambulation.? Patient does not utilize home oxygen.? Patient describes the ability to complete ADL?s independently.? Patient identified spouse, Smooth Adam; as medical surrogate decision maker.? Patient?s PCP is Tigist Rubi. ?Patient?s insurance inspector is Dr. Pena. ?Patient does not participate with dialysis. ?Patient utilizes [facility] for medication services.? Plan is for the patient to return home at the time of discharge.? Family will provide transportation on behalf of the patient. ?No further discharge needs identified by the patient.? No further intervention required at this time, neonatal social worker will be available to address any further concerns.? Next of Kin: Smooth Moraleza D/C Plan: Home
--- NOTE | 2024-10-31 16:06 | PC.SS ---
[facility] No preferred provider identified. Results pending. Documentation placed in chart.
[2024-10-31] MEDS: BUMETANIDE INJ 0.25 MG/ML VIAL 4 ML 2 MG IVP (18:38)
[2024-10-31] MEDS: SPIRONOLACTONE 25 MG TABLET 50 MG PO (18:47)
--- NOTE | 2024-10-31 19:20 | ESCONSULT_ITS ---
<Statement entered by Eliane Lomeli MD - 11/02/24 08:35> I personally examined evaluated the patient in ICU patient came to the hospital last night with severe shortness of breath acute decompensated heart failure HFrEF severe solid hypertension requiring multiple medications she history of hypothyroidism thyrotoxicosis on large dose of methimazole had a complete workup for secondary hypertension coronary angiogram negative in the past await admission she has mild troponin elevation. He also has some discomfort in her chest recurrent pericarditis taking Arcalyst she received Arcalyst yesterday. Evaluated patient agree with treatment plan recommendation resume her carvedilol 25 3 times daily valsartan 160 twice daily might consider giving Tekturna 300 mg as an outpatient when she is discharged home instructed valsartan. Evaluate the patient I agree with the treatment plan recommendation as documented by resident physician team PGY 1 2 HPI Data of Consult Requesting Physician: Isidro Arias DO Admitting Provider: Jeff Danielle MD Attending Provider: Isidro Arias DO Primary Care Provider: Physician No Primary/Family Consult Narrative History of present illness: 39-year-old female with a past medical history of CHF, recurrent pericarditis, hypertension, Graves' disease, and anxiety and depression who presented to the ED with worsening shortness of breath, chest pain and palpitations. The patient's blood pressure was 208/132 upon admission, pulse was 117, respiratory rate was 26, temperature was 100.3 troponins were elevated at first but down trended. She had difficulty specifying the onset of her symptoms but the symptoms have been getting worse over the past few weeks. EKG showed sinus tachycardia, chest x-ray showed increased vascular congestion. Patient was admitted for management of hypertension, volume overload, and hypothyroidism. Cardiology was consulted for management of the patient's hypertension, Graves' disease, and HFrEF. Past Medical History: CHF (EF 40?45%) Resistant Hypertension Pericarditis Graves? disease (hyperthyroidism) Hypothyroidism Seizure disorder (on Keppra) Asthma Obstructive sleep apnea Depression and anxiety IBS, gallbladder disease Endometriosis, PID RT renal artery stenosis (negative cath per prior records) Migraines Surgical history: Cholecystectomy 2 C-sections Medications: Arcalyst Abilify Bupropion Carvedilol Chlorthalidone Duloxetine Levetiracetam Zolpidem Spironolactone Ubrelvy Valsartan cc:: cc: Isidro Arias DO Review of Systems Review of Systems Narrative Review of Systems: Review of Systems: -General: Admits to fatigue, anxiety. - HEENT: Denies heasache, congestion, or sore throat. -Cardiac: Admits to palpitations.. -Pulmonary: Admits to dyspnea on exertion. -GI: Denies nausea, vomiting, diarrhea, constipation, melena, or hematochezia. -: Denies dysuria, hematuria, frequency, or urgency. -MSK: Denies pain in the extremities, joints, or myalgias. -Neuro: Denies weakness, numbness, vision changes, or speech difficulty. Exam Vital Signs Temp Pulse Resp BP Pulse Ox O2 Del Method FiO2 97.1 F 78 13 141/94 H 95 Room Air 99 10/31/24 11:35 10/31/24 18:47 10/31/24 18:14 10/31/24 18:47 10/31/24 18:14 10/31/24 11:35 10/31/24 01:44 Narrative Exam General: Awake and in no acute distress. Conversational and non-toxic appearing. Neurologic: GCS 15. Alert and oriented x3, no gross neurological deficit, and patient able to move all 4 extremities. HEENT: Normocephalic, atraumatic, mucous membranes moist. Pupils reactive to light. Heart: Regular rate and rhythm, normal S1 and S2, no murmurs. Lungs: Clear to auscultation bilaterally with no wheezing or crackles. Abdomen: Soft, nondistended, nontender, positive bowel sounds. No guarding or rebound tenderness. Extremities: 2+ pitting edema in the lower extremities bilaterally. Skin: Warm. Dry. No rash or ecchymoses. Results Labs 10/31/24 00:27 10/31/24 00:27 Labs: Short CBC 10/31/24 Range/Units 00:27 WBC 12.1 H (3.6-11.0) Thou/mm3 Hgb 14.2 (12.0-16.0) g/dL Hct 42.6 (36.0-46.0) % Plt Count 228 (140-440) Thou/mm3 BMP 10/31/24 00:27 Sodium 139 Potassium 3.5 Chloride 107 Carbon Dioxide 19.2 L BUN 13 Creatinine 0.9 Glucose 117 H Calcium 8.6 Cardiac Enzymes 10/31/24 10/31/24 Range/Units 00:27 03:19 Troponin I 0.224 H* 0.210 H* (0.0-0.045) ng/mL Liver Function 10/31/24 Range/Units 00:27 Total Bilirubin 2.0 H (0.3-1.2) mg/dL Direct Bilirubin 0.7 H (0.0-0.3) mg/dL AST 29 (0-34) U/L ALT 23 (10-49) U/L Alkaline Phosphatase 151 H (46-116) U/L Albumin 3.9 (3.5-5.0) gm/dL Urine 10/31/24 Range/Units 01:25 Urine Color Lt-Yellow (Lt Yel-Yel) Urine Clarity Clear (Clear/Hazy) Urine pH 6.0 (5.0-7.0) Ur Specific [place] 1.018 (1.001-1.035) Urine Protein 1+ A (Neg - Trace) Urine Glucose (UA) Negative (Negative) Quality Measures Quality Measures VTE prophylaxis Medications Home Medications and Allergies Home Medications ?Medication ?Instructions ?Recorded ?Confirmed ?Type duloxetine 60 mg capsule,delayed 60 mg PO HS 11/24/20 10/31/24 History release carvedilol 25 mg tablet 25 mg PO 3XD 09/11/23 History aripiprazole 20 mg tablet (Abilify) 20 mg PO QDAY PRN migraine headache 07/02/24 10/31/24 History bupropion HCl 75 mg tablet 150 mg PO BID 07/02/2410/18 History levetiracetam 500 mg tablet 500 mg PO BID 07/02/2410/18 History rilonacept 220 mg subcutaneous 220 mg subcut Q7D 07/0210/31/24 History solution (Arcalyst) ubrogepant 50 mg tablet (Ubrelvy) 50 mg PO .QD PRN kassie drew headache 07/02/24 10/31/24 History methimazole 10 mg tablet 60 mg PO QDAY 10/31/2410/31 History Allergies Allergy/AdvReac Type Severity Reaction Status Date / Time glucosamine Allergy Severe Rash Verified 10/30/24 23:36 pepper (genus Capsicum) Allergy Mild Swelling Verified 10/30/24 23:36 of Lip/Tongue/Throat venlafaxine Allergy Mild Itching Verified 10/30/24 23:36 JALAPENO Allergy Mild THROAT Uncoded 10/30/24 23:36 CLOSES UP Visit Medications Acetaminophen (Acetaminophen 325 Mg Tablet) 650 mg PO Q6H PRN PRN Reason: Fever >100.4 Stop: 11/30/24 04:38 Acetaminophen (Acetaminophen 325 Mg Tablet) 650 mg PO Q6H PRN PRN Reason: PAIN SCALE 1-3 (mild Stop: 11/30/24 04:43 Hydrocodone Bitart/Acetaminophen (Hydrocodone/Apap 5/325 Tablet) 1 tab PO Q4HR PRN PRN Reason: PAIN SCALE 4-10(Mod-Sev Stop: 11/05/24 04:43 Amlodipine Besylate (Amlodipine Besylate 5 Mg Tablet) 5 mg PO BID LEON Stop: 11/30/24 20:59 Aripiprazole (Aripiprazole 5 Mg Tablet) 20 mg PO QDAY PRN PRN Reason: migraine headache Stop: 11/30/24 18:35 Bumetanide (Bumetanide Inj 0.25 Mg/Ml Vial 4 Ml) 2 mg IVP QDAY LEON Stop: 11/30/24 18:44 Last Admin: 10/31/24 18:38 Dose: 2 mg Bupropion HCl (Bupropion Hcl 75 Mg Tablet) 150 mg PO BID LEON Stop: 11/30/24 20:59 Carvedilol (Carvedilol 12.5 Mg Tablet) 25 mg PO TID LEON Stop: 11/30/24 18:44 Last Admin: 10/31/24 18:45 Dose: 25 mg Cholestyramine Resin (Cholestyramine/Sucrose 1 Pkt Ea) 1 pkt PO BID LEON Stop: 11/30/24 08:59 Last Admin: 10/31/24 08:29 Dose: 1 pkt Duloxetine HCl (Duloxetine Hcl 30 Mg Capsule) 60 mg PO HS [facility] Stop: 11/30/24 20:59 Enoxaparin Sodium (Enoxaparin Sod Inj 40 Mg/0.4 Ml Syringe) 40 mg SC QDAY LEON Stop: 11/14/24 08:59 Last Admin: 10/31/24 08:28 Dose: 40 mg Furosemide (Furosemide Inj 10 Mg/Ml 4ml Vial) 40 mg IVP QDAY [facility] Stop: 12/01/24 08:59 Hydrocortisone Sodium Succinate (Hydrocortisone Sod Succ Inj 100 Mg Vial) 50 mg IV Q8HR LEON Stop: 11/30/24 11:59 Last Admin: 10/31/24 12:13 Dose: 50 mg Labetalol HCl (Labetalol Inj 5 Mg/Ml Vial 20 Ml) 10 mg IVP Q6HR PRN PRN Reason: sbp>180 or DBP>110 Stop: 11/30/24 04:59 Levalbuterol HCl (Levalbuterol Rt 1.25 Mg/0.5 Ml Nebu) 1.25 mg INH Q8HR PRN PRN Reason: WHEEZING Stop: 11/30/24 08:33 Levetiracetam (Levetiracetam 250 Mg Tablet) 500 mg PO BID LEON Stop: 11/30/24 20:59 Methimazole (Methimazole 5 Mg Tablet) 20 mg PO X1 ONE Stop: 10/31/24 21:01 Methimazole (Methimazole 5 Mg Tablet) 30 mg PO BID LEON Stop: 12/01/24 08:59 Ondansetron HCl (Ondansetron Inj 2 Mg/Ml Inj 2 Ml) 4 mg IVP Q6H PRN; Protocol PRN Reason: NAUSEA OR VOMITING Stop: 11/30/24 04:38 Pantoprazole Sodium (Pantoprazole 40 Mg Tablet) 40 mg PO QDAY [facility] Stop: 11/30/24 08:59 Last Admin: 10/31/24 08:29 Dose: 40 mg Propranolol HCl (Propranolol 10 Mg Tablet) 10 mg PO TID LEON Stop: 11/30/24 05:59 Last Admin: 10/31/24 13:35 Dose: Not Given Sodium Chloride (Sodium Chloride Rt Francine 0.9% 3 Ml Nebu) 3 ml INH PRN PRN PRN Reason: SOLN Stop: 11/30/24 08:33 Spironolactone (Spironolactone 25 Mg Tablet) 50 mg PO QDAY [facility] Stop: 11/30/24 18:44 Last Admin: 10/31/24 18:47 Dose: 50 mg Valsartan (Valsartan 80 Mg Tablet) 160 mg PO BID [facility] Stop: 11/30/24 20:59 Discontinued Medications Acetaminophen (Acetaminophen 325 Mg Tablet) 650 mg PO X1 ONE Stop: 10/31/24 00:24 Last Admin: 10/31/24 00:46 Dose: 650 mg Alprazolam (Alprazolam 0.25 Mg Tablet) 0.5 mg PO X1 ONE Stop: 10/31/24 00:22 Last Admin: 10/31/24 00:46 Dose: 0.5 mg Amlodipine Besylate (Amlodipine Besylate 5 Mg Tablet) 10 mg PO X1 ONE Stop: 10/31/24 04:53 Last Admin: 10/31/24 05:14 Dose: 10 mg Aspirin (Aspirin 81 Mg Chew) 324 mg PO X1 ONE Stop: 10/31/24 03:07 Last Admin: 10/31/24 03:21 Dose: 324 mg Clonidine (Clonidine Hcl 0.1 Mg Tablet) 0.2 mg PO X1 ONE Stop: 10/31/24 00:02 Last Admin: 10/31/24 00:11 Dose: Not Given Clonidine (Clonidine Hcl 0.1 Mg Tablet) 0.3 mg PO X1 ONE Stop: 10/31/24 00:11 Last Admin: 10/31/24 00:18 Dose: 0.3 mg Furosemide (Furosemide Inj 10 Mg/Ml 4ml Vial) 40 mg IVP X1 ONE Stop: 10/31/24 04:53 Last Admin: 10/31/24 05:14 Dose: 40 mg Furosemide (Furosemide Inj 10 Mg/Ml 4ml Vial) 40 mg IVP X1 ONE Stop: 10/31/24 11:44 Last Admin: 10/31/24 12:13 Dose: 40 mg Hydrocortisone Sodium Succinate (Hydrocortisone Sod Succ Inj 100 Mg Vial) 100 mg IV X1 ONE Stop: 10/31/24 04:53 Last Admin: 10/31/24 05:11 Dose: 100 mg Magnesium Sulfate (Magnesium Sulfate Ivpb) 4 gm in 50 mls @ 12.5 mls/hr IV X1 ONE Stop: 10/31/24 07:04 Last Admin: 10/31/24 03:22 Dose: 12.5 mls/hr Ketorolac Tromethamine (Ketorolac Inj 30 Mg/Ml Vial) 30 mg IVP X1 ONE Stop: 10/31/24 00:24 Last Admin: 10/31/24 00:46 Dose: 30 mg Labetalol HCl (Labetalol Inj 5 Mg/Ml Vial 20 Ml) 10 mg IVP Q6HR PRN PRN Reason: sbp>180 or DBP>110 Stop: 11/30/24 04:59 Lisinopril (Lisinopril 20 Mg Tablet) 40 mg PO QDAY [facility] Stop: 11/30/24 08:59 Last Admin: 10/31/24 08:28 Dose: 40 mg Methimazole (Methimazole 5 Mg Tablet) 40 mg PO X1 ONE Stop: 10/31/24 05:15 Last Admin: 10/31/24 05:49 Dose: 40 mg Metoprolol Tartrate (Metoprolol Tartrate 25 Mg Tablet) 75 mg PO X1 ONE Stop: 10/31/24 00:02 Last Admin: 10/31/24 00:11 Dose: Not Given Metoprolol Tartrate (Metoprolol Tartrate 25 Mg Tablet) 100 mg PO X1 ONE Stop: 10/31/24 00:11 Last Admin: 10/31/24 00:18 Dose: 100 mg Metoprolol Tartrate (Metoprolol Tartrate Inj 1 Mg/Ml Amp 5 Ml) 5 mg IVP X1 ONE Stop: 10/31/24 00:22 Last Admin: 10/31/24 00:45 Dose: 5 mg Propranolol HCl (Propranolol 10 Mg Tablet) 10 mg PO TID [facility] Stop: 11/30/24 05:59 Assessment & Plan Plan 39-year-old female with a past medical history of CHF, recurrent pericarditis, hypertension, Graves' disease, and anxiety and depression who presented to the ED with worsening shortness of breath, chest pain and palpitations. Patient was admitted for management of hypertension, volume overload, and hypothyroidism. Cardiology was consulted for management of the patient's hypertension, Graves' disease, and HFrEF. #Hypertensive emergency #Graves' disease #HFrEF - Patient continues to be hypertensive at 141/94 upon exam - Patient's peripheral edema is improving - Patient is well-known in executive consultant's office for recurrent pericarditis - Echocardiography in June 2019 showed left jugular ejection fraction of 40 - 45%, concentric left ventricular hypertrophy and mild left atrial dilation - Patient is interstitially congested Plan: - Start 2 mg Bumex daily - Start amlodipine 5 mL p.o. twice daily - Start carvedilol 25 mg p.o. 3 times daily - Spironolactone 50 mg p.o. daily - Start valsartan 160 mg p.o. twice daily - Resume home Abilify, bupropion, duloxetine, Keppra, Methimazole - DC clonidine #Seizure disorder #Anxiety and depression #Asthma and obstructive sleep apnea #Electrolyte abnormalities #Hypomagnesemia #Transaminitis - The remainder of the patient's hospital problems will be managed by the primary team. Patient was seen and discussed with my attending physician Dr. Armani JEREZ and my senior resident Dr. Jesusita Cisse DO PGY-2. Kraig Joaquin DO PGY-1.
[2024-10-31] MEDS: DULoxetine HCL 30 MG CAPSULE 60 MG PO (20:05)
[2024-10-31] MEDS: VALSARTAN 80 MG TABLET 160 MG PO (20:06)
[2024-10-31] MEDS: METHIMAZOLE 5 MG TABLET 20 MG PO (20:07)
[2024-11-01] VITALS (19 sets, daily range): BP systolic 131–164; BP diastolic 66–104; PULSE 64–87; RESP 18–98; TEMP 36.1–36.8; O2SAT 95–99
--- NOTE | 2024-11-01 | XR_ITS ---
Examinations: MRI Brain without intravenous contrast. MRA brain without intravenous contrast. MRA carotids without intravenous contrast 3-D vascular reconstructions Date and time of exam: November 01, 2024 1453 hours INDICATIONS: Stroke alert November 01, 2024, onset focal neurologic deficit Technique: Multiple axial and sagittal images of the brain have been obtained MRA brain carotid images without contrast obtained, including 3-D postprocessing, vascular maximum intensity projection images Findings: Sell[place] is not enlarged. The optic chiasm and infundibular stalk are not remarkable. Prepontine and interpeduncular cisterns are not enlarged. No localized enlargement of the medulla or benjamin. Fourth ventricle and cerebellar tonsils normal in position. Subacute hemorrhage is not seen. Fourth ventricle is midline. Mass in the cerebellopontine angle region is not evident. 7th and 8th nerve complexes exhibits symmetry. Globes are symmetrical with no retro-orbital mass. Increased white matter signal not seen Diffusion-weighted images demonstrate no focus of restricted diffusion Mass-effect upon the ventricular system is not identified. MRA carotid images severely degraded by patient motion. MRA brain images severely degraded by patient motion Impression: Negative for acute hemorrhage mass effect or midline shift No acute infarct No MR findings diagnostic for demyelinating disease
[2024-11-01] MEDS: HYDROCORTISONE SOD SUCC INJ 100 MG VIAL 50 MG IV ×3 (05:55→21:10)
--- NOTE | 2024-11-01 06:16 | PC.NURSE ---
Per school bus monitor, Pt had 7 runs of PVCs. Pt complains of left chest pain, described as pressure pain with tightness when she breathes in. Dr. Rios was made aware, no new orders received at this time. Will continue to monitor.
--- NOTE | 2024-11-01 06:19 | EKG_ITS ---
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
[2024-11-01 07:12] LABS: Basophils # (Auto) 0.0 Thou/mm3 (0.0-0.2); Basophils % (Auto) 0 % (0-2.5); Eosinophils # (Auto) 0.1 Thou/mm3 (0.0-0.5); Eosinophils % (Auto) 1 % (0-10); Hematocrit 39.1 % (36.0-46.0); Hemoglobin 12.6 g/dL (12.0-16.0); Immature Granulocytes Auto 0.03 Thou/mm3 (0.00-0.00); Lymphocytes # (Auto) 1.6 Thou/mm3 (1.0-4.8); Lymphocytes % (Auto) 15 % (10-50); Mean Corpuscular HGB Conc 32.2 g/dl (31.0-37.0); Mean Corpuscular Hemoglobin 27.1 pg (25.0-35.0); Mean Corpuscular Volume 84 fL (80-100); Monocytes # (Auto) 1.0 Thou/mm3 (0.0-0.8); Monocytes % (Auto) 9 % (0-12); Neutrophils # (Auto) 8.4 Thou/mm3 (1.8-7.7); Neutrophils % (Auto) 75 % (37-80); Nucleated Red Blood Cell # 0.00 Thou/mm3 (0.00-0.00); Nucleated Red Blood Cell % 0 /100 WBC (0); Platelet Count 216 Thou/mm3 (140-440); RDW Standard Deviation 43.4 fL (36.4-46.3); Red Blood Count 4.65 Miln/mm3 (4.00-5.20); White Blood Count 11.2 Thou/mm3 (3.6-11.0)
[2024-11-01 07:32] LABS: Alanine Aminotransferase 21 U/L (10-49); Albumin, Serum 3.5 gm/dL (3.5-5.0); Albumin/Globulin Ratio 1.5 (1.2-2.2); Alkaline Phosphatase 124 U/L (46-116); Anion Gap 10 (7-16); Aspartate Amino Transferase 18 U/L (0-34); BUN/Creatinine Ratio 16 Ratio (12-20); Bilirubin,Total 1.1 mg/dL (0.3-1.2); Blood Urea Nitrogen 18 mg/dL (9-23); Calcium 8.2 mg/dL (8.3-10.6); Calcium (Corrected) 8.6 mg/dL (8.5-10.1); Carbon Dioxide 22.7 mMol/L (20.0-31.0); Chloride 104 mMol/L (98-107); Creatinine (Component) 1.1 mg/dL (0.6-1.3); Estimated Creatinine Clearance 85.3 mL/min (>60); Free T4 (Free Thyroxine) 3.22 ng/dL (0.89-1.76); Globulin 2.3 gm/dL (2.3-3.5); Glucose 137 mg/dL (74-106); Magnesium 2.0 mg/dL (1.6-2.6); Osmolality,Calculated 277 (275-295); Phosphorous 5.1 mg/dL (2.4-5.1); Potassium 3.3 mMol/L (3.4-5.1); Sodium 137 mMol/L (136-145); Total Protein 5.8 gm/dL (5.7-8.2); eGFR > 60 See Note
[2024-11-01] MEDS: ENOXAPARIN SOD INJ 40 MG/0.4 ML SYRINGE SC (09:02)
[2024-11-01] MEDS: SPIRONOLACTONE 25 MG TABLET 50 MG PO (09:03)
[2024-11-01] MEDS: PANTOPRAZOLE 40 MG TABLET PO (09:05)
[2024-11-01] MEDS: METHIMAZOLE 5 MG TABLET 30 MG PO ×2 (09:05→21:09)
[2024-11-01] MEDS: VALSARTAN 80 MG TABLET 160 MG PO ×2 (09:05→21:10)
[2024-11-01] MEDS: CHOLESTYRAMINE/SUCROSE 1 PKT EA PO ×2 (09:06→21:11)
[2024-11-01] MEDS: BUMETANIDE INJ 0.25 MG/ML VIAL 4 ML 2 MG IVP (09:06)
[2024-11-01] MEDS: POTASSIUM IODIDE PO ×2 (11:25→22:14)
[2024-11-01] MEDS: IODINE PO ×2 (11:25→22:14)
--- NOTE | 2024-11-01 11:31 | ESPR_ITS ---
<Statement entered by Janeth King MD - 11/02/24 15:18> I have reviewed the note and agree with the resident's assessment & plan with exceptions as below. I have personally reviewed labs, imaging, home meds/prior records, examined the patient, formulated and discussed management plan with the IM team. Patient examined at bedside today. Rapid response called for numbness in left cheek and and subjective dizziness. Stroke alert was called and initial workup with head CT and neck CTA was negative, however aspirin recommended and no TNK at the time. Patient recommended to get MRI as well. Patient's dizziness could be related to rapid correcting of blood pressure as she usually runs in the 200 systolic at home and she has been 150s lately. There could be also a component of thyrotoxicosis that could be compressing on some of the branches of the facial nerve that could be contributing to numbness, however will continue with stroke rule out. Repeat hematology and chemistry in AM. Cardiology on consult, appreciate recommendations Janeth King, PGY-2 Internal Medicine Documentation for date of: 11/01/24 Subjective Subjective Interval history: Patient reports vertigo around 0200 overnight. She also had multiple PVCs with chest pressure overnight. EKG this morning showed sinus rhythm. Patient reports that her head feels fuzzy with intermittent dizziness and associated blurry vision that self-resolve within seconds to a few minutes starting this morning. She denied any blurry vision at time of examination around 0920 and 1100. Around 1120, patient reported another episode of blurry vision and dizziness that she felt was worse and more persistent than before. She denies feeling anxious. She notes that home SBPs range in 230-250s. BPs this morning were in 130s. She also notes ongoing chest pressure and cough with deep breaths this morning. She states she has shortness of breath with speaking for extended periods and with minimal activity. She endorses some improvement in bilateral lower extremity swelling and tight sensation, but feels tight sensation is still present up to the mid-calves. Exam Vital Signs Temp Pulse Resp BP Pulse Ox O2 Del Method FiO2 96.9 F 79 20 137/86 H 98 Room Air 99 11/01/24 08:00 11/01/24 11:05 11/01/24 11:05 11/01/24 09:06 11/01/24 11:05 11/01/24 08:00 10/31/24 01:44 Narrative Exam Gen: Alert, A&Ox3, in no acute distress at rest. HEENT: Left eye exopthalmos, normocephalic and atraumatic. CV: RRR. Normal S1/S2. No murmurs appreciated. Resp: Mild tachypnea. Rales and mild wheezing. Mildly increased respiratory effort. Ext: Non-pitting edema of lower extremities below the knee bilaterally. No cyanosis. Mass in the left elbow Neuro: CN II?XII grossly intact. No focal deficits. Skin: Warm and dry Psych: Appropriate mood and affect Objective Labs 11/02/24 04:30 11/02/24 04:30 Labs: Laboratory Results - last 24 hr 11/01/24 06:50 WBC 11.2 H RBC 4.65 Hgb 12.6 Hct 39.1 MCV 84 MCH 27.1 MCHC 32.2 RDW Std Deviation 43.4 Plt Count 216 Neut % (Auto) 75 Lymph % (Auto) 15 [place] % (Auto) 9 Eos % (Auto) 1 Baso % (Auto) 0 Neut # (Auto) 8.4 H Lymph # (Auto) 1.6 [place] # (Auto) 1.0 H Eos # (Auto) 0.1 Baso # (Auto) 0.0 Immature Gran # (Auto) 0.03 H Absolute Nucleated RBC 0.00 Immature Gran % 0 Nucleated RBC % 0 Sodium 137 Potassium 3.3 L Chloride 104 Carbon Dioxide 22.7 Anion Gap 10 BUN 18 Creatinine 1.1 Estim Creat Clear Calc 85.3 eGFR > 60 BUN/Creatinine Ratio 16 Glucose 137 H Calculated Osmolality 277 Calcium 8.2 L Corrected Calcium 8.6 Phosphorus 5.1 Magnesium 2.0 Total Bilirubin 1.1 D AST 18 ALT 21 Alkaline Phosphatase 124 H D Total Protein 5.8 Albumin 3.5 Globulin 2.3 Albumin/Globulin Ratio 1.5 Free T4 3.22 H Quality Measures Quality Measures VTE prophylaxis Assessment & Plan Assessment Current Active Medications: Generic Name Dose Route Start Last Admin Trade Name Freq PRN Reason Stop Dose Admin Acetaminophen 650 mg 10/31/24 04:39 Acetaminophen 325 Mg Tablet PO 11/30/24 04:38 Q6H PRN Fever >100.4 Acetaminophen 650 mg 10/31/24 04:44 Acetaminophen 325 Mg Tablet PO 11/30/24 04:43 Q6H PRN PAIN SCALE 1-3 (mild Hydrocodone Bitart/Acetaminophen 1 tab 10/31/24 04:44 Hydrocodone/Apap 5/325 Tablet PO 11/05/24 04:43 Q4HR PRN PAIN SCALE 4-10(Mod-Sev Amlodipine Besylate 5 mg 10/31/24 21:00 11/01/24 09:04 Amlodipine Besylate 5 Mg Tablet PO 11/30/24 20:59 5 mg BID LEON Administration Aripiprazole 20 mg 10/31/24 18:36 Aripiprazole 5 Mg Tablet PO 11/30/24 18:35 QDAY PRN migraine headache Bumetanide 2 mg 10/31/24 18:45 11/01/24 09:06 Bumetanide Inj 0.25 Mg/Ml Vial 4 Ml IVP 11/30/24 18:44 2 mg QDAY LEON Administration Bupropion HCl 150 mg 10/31/24 21:00 11/01/24 09:05 Bupropion Hcl 75 Mg Tablet PO 11/30/24 20:59 150 mg BID LEON Administration Carvedilol 25 mg 10/31/24 18:45 11/01/24 05:53 Carvedilol 12.5 Mg Tablet PO 11/30/24 18:44 25 mg TID LEON Administration Cholestyramine Resin 1 pkt 10/31/24 09:00 11/01/24 09:06 Cholestyramine/Sucrose 1 Pkt Ea PO 11/30/24 08:59 1 pkt BID LEON Administration Duloxetine HCl 60 mg 10/31/24 21:00 10/31/24 20:05 Duloxetine Hcl 30 Mg Capsule PO 11/30/24 20:59 60 mg HS LEON Administration Enoxaparin Sodium 40 mg 10/31/24 09:00 11/01/24 09:02 Enoxaparin Sod Inj 40 Mg/0.4 Ml Syringe SC 11/14/24 08:59 40 mg QDAY LEON Administration Hydrocortisone Sodium Succinate 50 mg 10/31/24 12:00 11/01/24 05:55 Hydrocortisone Sod Succ Inj 100 Mg Vial IV 11/30/24 11:59 50 mg Q8HR LEON Administration Iodine/Potassium Iodide 0.05 ml 11/01/24 10:15 11/01/24 11:25 Potassium Iodide/Iodine 1 Ml (Lugol's) PO 12/01/24 10:14 0.05 ml BID LEON Administration Protocol Labetalol HCl 10 mg 10/31/24 05:26 Labetalol Inj 5 Mg/Ml Vial 20 Ml IVP 11/30/24 04:59 Q6HR PRN sbp>180 or DBP>110 Levalbuterol HCl 1.25 mg 10/31/24 08:34 Levalbuterol Rt 1.25 Mg/0.5 Ml Nebu INH 11/30/24 08:33 Q8HR PRN WHEEZING Levetiracetam 500 mg 10/31/24 21:00 11/01/24 09:04 Levetiracetam 250 Mg Tablet PO 11/30/24 20:59 500 mg BID LEON Administration Methimazole 30 mg 11/01/24 20:00 Methimazole 5 Mg Tablet PO 12/01/24 19:59 BID@0800,2000 LEON Protocol Ondansetron HCl 4 mg 10/31/24 04:39 Ondansetron Inj 2 Mg/Ml Inj 2 Ml IVP 11/30/24 04:38 Q6H PRN NAUSEA OR VOMITING Protocol Pantoprazole Sodium 40 mg 10/31/24 09:00 11/01/24 09:05 Pantoprazole 40 Mg Tablet PO 11/30/24 08:59 40 mg QDAY LEON Administration Potassium Chloride 40 meq 11/01/24 12:00 Potassium Chloride 20 Meq Tabcr PO 11/01/24 12:01 X1 ONE Sodium Chloride 3 ml 10/31/24 08:34 Sodium Chloride Rt Francine 0.9% 3 Ml Nebu INH 11/30/24 08:33 PRN PRN SOLN Spironolactone 50 mg 10/31/24 18:45 11/01/24 09:03 Spironolactone 25 Mg Tablet PO 11/30/24 18:44 50 mg QDAY LEON Administration Valsartan 160 mg 10/31/24 21:00 11/01/24 09:05 Valsartan 80 Mg Tablet PO 11/30/24 20:59 160 mg BID LEON Administration Plan Assessment 39F with history of HFrEF, resistant HTN, Graves' disease, seizure disorder, and prior hypertensive emergency presents with worsening edema, dyspnea, and exertional pleuritic chest pain. Admitted for management of hypertensive emergency with signs of volume overload and uncontrolled hyperthyroidism. #Graves Disease with thyrotoxicosis Free T4 4.0 on 10/31, 3.22 on 11/01. TSH <0.01; likely contributing to BP and HR lability. Caal-Wartofsky Score: 45, highly suggestive of thyroid storm. Seeing endocrine surgeon November 18. ED course: methimazole 40 mg x1, hydrocortisone 100 mg IV x1 Plan: * Methimazole 30mg BID * hydrocortisone 50 mg IV q8h for possible thyroid storm prophylaxis * Trend free T4 and T3 * Start K+ Lugol's solution 0.05 ml liquid po BID, per Endocrine recommendations * Discontinued propranolol as patient is already on carvedilol for HTN # Hypertensive Emergency # Hypertension Initially with refractory HTN with BP >200 systolic and signs of end-organ effect (dyspnea, elevated BNP, chest discomfort). This morning, SBP has been in the 130s. Per patient, home SBPs range in 230- 250s. Plan: * Cardiology consulted, appreciate recs. * amlodipine 5 mg po BID * carvedilol 25 mg TID * Bumex 2 mg QD * spironolactone 50 mg BID * valsartan 160 mg BID * Labetalol IV push PRN * Discontinued clonidine * Daily BMP for renal status * Strict I/O, daily weights # HFrEF with reduced EF (EF 40-45%) Evidence of volume overload (BNP 628, LE edema, CHRISTY). History of prior admission with fluid overload. ED course: furosemide 40 mg IV x1 Plan: * Cardiology to follow * Monitor weight, I/O, and symptoms * Repeat echo if significant change in symptoms * Continue medications as above #Stroke precaution Low suspicion, but given episode of persistent dizziness and blurry vision, tele-neurology consulted and stroke alert was called on 11/01 at 1145. Troponin 0.121, which was decreased from previous afternoon. CT Head wo contrast: Negative for acute hemorrhage, mass effect or midline shift CTA Head/Neck: No significant neck arterial stenoses. No cerebral large vessel arterial occlusions or thrombus Plan: * Tele-Neuro consulted. Appreciate recs: * Start aspirin 325 mg po QD * MRI brain ordered, f/u # Seizure Disorder History of daily brain seizures, currently at baseline. Plan: * Continue home Keppra 500 mg po BID * Monitor for clinical seizures * Maintain normonatremia # Anxiety and Depression Patient distressed from prior hospitalization. Appears medically appropriate today. Plan: * duloxetine 60 mg po qHS * buproprion 150 mg po BID * Psych consult PRN # Asthma and IGNACIO Not acutely symptomatic Plan: * Continue home meds, CPAP if used * Monitor for respiratory decompensation # Electrolyte abnormalities # Hypomagnesemia K 3.5, Mg 1.3 in ED Plan: * Replete magnesium and potassium as needed * Monitor daily BMP/Mg # Elevated LFTs and bilirubin Likely chronic, mildly elevated ALP and total bilirubin Plan: * Trend AST, ALT, bili * No acute intervention needed unless worsening Health Maintenance: Disposition: Tele Diet: Cardiac Thromboprophylaxis: Lovenox GI prophylaxis: Consider PPI Code Status: Full Case discussed with my attending Dr. Arias, and my senior resident, Dr. Fernando Higginbotham, OMS4 Attending Provider Attestation/Addendum I have discussed and was present for the essential components of the history, physical examination, diagnosis, and treatment plan with the resident. I agree with the patient's care as documented by the resident and amended herein by me. Mitesh Arias DO. Although this document has been carefully reviewed, there may still be some phonetic and other typographical errors. These errors are purely grammatical due to imperfections in the software program and should not be construed in any way to compromise the substance of the patient's medical care during this visit.
--- NOTE | 2024-11-01 11:35 | PC.NURSE ---
Pt started she is having blurring vision. her bp at home is usually over 200/100.current bp at 137/86. Dr peng at bedside evaluating the pt.
--- NOTE | 2024-11-01 11:46 | EKG_ITS ---
[facility] Test Date: 2024-11-01 Pat Name: DIANA RIVAS [facility] Gender[facility] Science Faculty Member: ZULEMA : 1985 Requested By: Brandon Heredia Order Number: [id number] Reading MD: Brandon Heredia Measurements Intervals [place] Rate: 78 P: 35 KS: 176 QRS: 22 QRSD: 91 T: 115 QT: 416 QTc: 476 Interpretive Statements SINUS RHYTHM ST DEVIATION AND MODERATE T-WAVE ABNORMALITY, CONSIDER LATERAL ISCHEMIA Compared to ECG 11/01/2024 06:36:02 T-wave abnormality now present Possible ischemia now present Left ventricular hypertrophy no longer present ST (T wave) deviation no longer present /store/S0/[id number]/[id number].pdf
--- NOTE | 2024-11-01 11:57 | XR_ITS ---
Examination: CT brain head without contrast. 2-D sagittal coronal reconstructions Date and time of exam:November 11, 2024, 12 noon, comparison October 31, 2024 INDICATIONS: Stroke alert, onset focal neurologic deficit, generalized weakness blurred vision beginning 1145 this morning CTDI: vol (mGy):46.1 DLP: (mGycm):893 Technique: Multiple CT axial sections of the brain have been obtained, 5 mm slice thickness. Contrast has not been administered. 2-D sagittal, coronal reconstructions have been obtained Low dose protocols were performed. One or more of the following dose reduction techniques were used; automated exposure control, adjustment of the mA and/or KV according to patient size, use of iterative reconstruction technique. Findings: No significant ventricular enlargement. Intra-axial or extra-axial hemorrhage density is not seen. No mass effect or midline shift Basal cisterns are not remarkable. Fourth ventricle is midline. Cranial vault intact. Impression: Negative for acute hemorrhage, mass effect or midline shift
--- NOTE | 2024-11-01 12:12 | XR_ITS ---
Examination: CTA carotids with intravenous contrast CTA brain, head with intravenous contrast. 2-D sagittal, coronal reconstructions. 3-D reconstructions. Exam date and time: November 11, 2024 1218 hours INDICATIONS: Stroke alert today, onset focal neurologic deficit CTDI: vol (mGy) 74.2 DLP: (mGycm) 513 Technique: Multiple CTA axial brain, head carotid images post intravenous contrast injection 100 cc, [id number]. 2-D sagittal, coronal reconstructions. 3-D reconstructions, 3-D post processing including vascular maximum intensity projection images. Low dose protocols were performed. One or more of the following dose reduction techniques were used; automated exposure control, adjustment of the mA and/or KV according to patient size, use of iterative reconstruction technique. Findings: No significant common carotid carotid bifurcation or internal carotid artery stenoses Codominant vertebral arteries in the neck with no critical stenoses Bilateral thyromegaly No cerebral large vessel arterial occlusions thrombus dissection or cerebral aneurysm IMPRESSION: No significant neck arterial stenoses No cerebral large vessel arterial occlusions or thrombus
--- NOTE | 2024-11-01 12:27 | ESCONSULT_ITS ---
Tele Neuro Consultation Consultation Date 11/01/24 Most Recent Vital Signs Last Vital Signs Temp 96.9 F 11/01/24 08:00 Pulse 79 11/01/24 12:00 Resp 20 11/01/24 11:05 BP 137/86 H 11/01/24 09:06 Pulse Ox 98 11/01/24 11:05 O2 Del Method Room Air 11/01/24 08:00 FiO2 99 10/31/24 01:44 Laboratory-Coagulation Panel PT 11.0 Seconds (9.0-12.2) 10/31/24 00:27 INR 1.0 (0.9-1.3) 10/31/24 00:27 APTT 27.1 Seconds (22.0-36.0) 10/31/24 00:27 D-Dimer 377 ng/mL (<600) 10/31/24 00:27 Consultation Narrative [facility] Tele[facility]urology Consult Services Patient Name:???Aslhey Adam Date of :???1985 Identification Number:??? Date of Service:???11/01/2024 11:48:03 Diagnosis:?I63.89 - Cerebrovascular accident (CVA) due to other mechanism ([facility]) ?G45.9 - Transient cerebral ischemic attack, unspecified ?G93.49 - Encephalopathy Multifactorial Impression: ?Ashley Adam is a 39-year-old female with a history of epilepsy, Graves' disease, and resistant hypertension, presenting with sudden onset of blurry vision, left eye pain, weakness, and dizziness. The patient's symptoms have been evolving over several days, with dizziness starting about a week ago, weakness and numbness beginning yesterday, and blurry vision starting this morning. Given the gradual onset and duration of symptoms, the patient is not a candidate for thrombolysis (TNK) as the 4.5-hour window has been exceeded. The differential diagnosis includes stroke, complex migraine, and hypertensive emergency. CT head was negative for acute findings. Despite low suspicion for stroke, we are proceeding with a stroke workup due to the constellation of symptoms. Neurological exam revealed bilateral weakness, left-sided sensory changes, and visual disturbances. CT angiography was ordered to rule out large vessel occlusion. Aspirin 325 mg was initiated as antithrombotic therapy. An MRI brain was recommended to further evaluate for ischemic stroke. The patient's blood pressure, which is usually elevated (220-230s at home), has dropped significantly during admission (130s), which could be contributing to symptoms. The patient was provided with a thorough explanation of the diagnosis, treatment options, risks, and benefits. All questions were answered to her satisfaction. She demonstrated understanding and verbally expressed agreement with the proposed plan of care. Our recommendations are outlined below. Recommendations: ? Stroke/Telemetry Floor ? Neuro Checks (Q2) ? Bedside Swallow Eval ? DVT Prophylaxis ? IV Fluids, Normal Saline ? Head of Bed 30 Degrees ? Euglycemia and Avoid Hyperthermia (PRN Acetaminophen) ?load with Aspirin 325 mg and will continue with aspirin 81 mg daily Sign Out: ? Discussed with Emergency Department Provider Advanced Imaging:Advanced imaging has been ordered. Results pending. Metrics: Last Known Well: Unknown Dispatch Time: 11/01/2024 11:48:03 Initial Response Time: 11/01/2024 11:50:24Symptoms: Blurry vision, numbness, weakness, dizziness . Initial patient interaction: 11/01/2024 12:01:14 NIHSS Assessment Completed: 11/01/2024 12:07:00Patient is not a candidate for Thrombolytic. Thrombolytic Medical Decision: 11/01/2024 12:07:00Patient was not deemed candidate for Thrombolytic because of following reasons: LKW outside 4.[address] Head: I personally reviewed all the CT images that were available to me and it showed: no acute events Primary Provider Notified of Diagnostic Impression and Management Plan on: 11/01/2024 12:16:53 Spoke With: Dr. Bartholomew Able to Reach Attempted to reach the consulting physician but was unsuccessful History of Present Illness:Patient is a 39 year old Female. Inpatient stroke alert was called for symptoms of Blurry vision, numbness, wea kness, dizziness . Ashley Adam, a 39-year-old female with a history of epilepsy, Graves' disease, and resistant hypertension, presents with sudden onset of blurry vision, left eye pain, weakness, and dizziness. She was admitted for concerns of thyroid toxicosis and thyroid storm. The patient reports that her symptoms began about a week ago with dizziness, which has been persistent and worsens when she sits up or stands. Yesterday, she began experiencing numbness and weakness. This morning, she developed blurry vision and left eye pain. The blurry vision is described as intermittent, with periods of clarity followed by blurriness. The left eye pain is exacerbated by light and horizontal lateral movement. She denies any history of migraines. Ms. Adam also complains of feeling very weak and tired throughout her whole body, particularly on the left side. She notes that her legs felt shaky when she got up to use the restroom. The patient reports that her usual blood pressure at home is around 220-230, but it has been lower in the hospital, with recent readings in the 130s. The patient denies any headache but mentions experiencing some chest pain. She is not taking any blood thinners such as aspirin or Plavix. Ms. Adam states that she has not felt completely normal since the beginning of last week, with persistent dizziness, particularly in the mornings and upon position changes. ? Past Medical History: ?Hypertension ?Seizures Medications: No Anticoagulant use? No Antiplatelet use Reviewed EMR for current medications Allergies:? Reviewed Social History: Drug Use: No Family History: There is no family history of premature cerebrovascular disease pertinent to this consultation ROS : 14 Points Review of Systems was performed and was negative except mentioned in HPI. Past Surgical History: There Is No Surgical History Contributory To Today?s Visit ? Examination: BP(137/86),?Pulse(79), 1A: Level of Consciousness - Alert; keenly responsive?+ 0 1B: Ask Month and Age - Both Questions Right?+ 0 1C: Blink Eyes & Squeeze Hands - Performs Both Tasks?+ 0 2: Test Horizontal Extraocular Movements - Normal?+ 0 3: Test Visual Flowers - Partial Hemianopia?+ 1 4: Test Facial Palsy (Use Grimace if Obtunded) - Normal symmetry?+ 0 5A: Test Left Arm Motor Drift - No Drift for 10 Seconds?+ 0 5B: Test Right Arm Motor Drift - No Drift for 10 Seconds?+ 0 6A: Test Left Leg Motor Drift - Drift, hits bed?+ 2 6B: Test Right Leg Motor Drift - Drift, hits bed?+ 2 7: Test Limb Ataxia (FNF/Heel-Dias) - No Ataxia?+ 0 8: Test Sensation - Mild-Moderate Loss: Less Sharp/More Dull?+ 1 9: Test Language/Aphasia - Normal; No aphasia?+ 0 10: Test Dysarthria - Normal?+ 0 11: Test Extinction/Inattention - No abnormality?+ 0 NIHSS Score:?6 Pre-Morbid Modified Ed Scale:Unable to assess Spoke with :?Dr. Bartholomew This consult was conducted in real time using interactive audio and video technology. Patient was informed of the technology being used for this visit and agreed to proceed. Patient located in hospital and provider located at home/office setting. Patient is being evaluated for possible acute neurologic impairment and high probability of imminent or life-threatening deterioration. I spent total of 35 minutes providing care to this patient, including time for face to face visit via telemedicine, review of medical records, imaging studies and discussion of findings with providers, the patient and/or family. Dr Portia Padilla [facility] For Inpatient follow-up with [facility] physician please call [facility] at . As we are not an outpatient service for any post hospital discharge needs please contact the hospital for assistance. If you have any questions for the [facility] physicians or need to reconsult for clinical or diagnostic changes please contact us via [facility] at . Signature :Osmani Padilla
[2024-11-01 12:51] LABS: Troponin I 0.121 ng/mL (0.0-0.045)
--- NOTE | 2024-11-01 13:05 | PC.NURSE ---
Security Assessor: (Late entry for 1140) - Received call from M/S medical charge entry specialist stating the patient has had sudden onset of blurry vision. She has also had intermittent dizziness x days, but blurriness just started and is new. Note that her home BP runs well over 200 systolically and is now 137. Advised probably stroke alert, but placed quick call to attending, Dr Arias, and he did confirm to stroke alert the patient. Pt received head CT, CTA, and TeleNeuro consultation. Dr King accompanied to CT with ICU medical charge entry specialist and med surg medical charge entry specialist. pt deemed not a candidate for TNKase, but advised MRI brain.
--- NOTE | 2024-11-01 13:29 | EVENTNT_ITS ---
<Statement entered by Janeth King MD - 11/02/24 15:12> I have reviewed the note and agree with the resident's assessment & plan with exceptions as below. I have personally reviewed labs, imaging, home meds/prior records, examined the patient, formulated and discussed management plan with the IM team. Janeth King, PGY-2 Internal Medicine Documentation for date of: 11/01/24 @ 1145 Event Note Event Note: Stroke alert called at 1145 for persistent dizziness and blurry vision onset about 15-20 minutes prior to when stroke alert was called. Patient was assessed. On examination, patient reported left eye pain with light and mildly with movement. However, no focal deficits on neuro exam. EKG, troponin, and CT head wo contrast were ordered. On the way to have CT done, patient noted burning mid- chest/epigastric discomfort. CT head wo contrast was negative for acute hemorrhage, mass effect or midline shift. Tele-neuro, Dr. Padilla, was consulted. Dr. Padilla had low suspicion for stroke but recommended brain MRI, CTA head, and to start aspirin 325 mg po QD as precaution. Tele-neuro felt TNK not indicated at this time. Troponin was 0.121, which was lower than troponin from yesterday at 1500. Case discussed with my attending Dr. Arias, and my senior resident, Dr. Fernando Higginbotham, OMS4
--- NOTE | 2024-11-01 15:53 | PC.SS ---
Follow up note: Patient had a stroke alert and rapid response earlier today. Patient had consult with teleneuro.
--- NOTE | 2024-11-01 18:27 | XR_ITS ---
Examination: AP chest single view TECHNIQUE: AP portable upright chest single view Date and time: November 01, 2024 1859 hours Comparison October 31, 2024 INDICATIONS: Shortness of breath today. FINDINGS: Mild prominence left ventricle. No pneumonia or pulmonary edema. The osseous structures are intact IMPRESSION: No active disease
[2024-11-01] MEDS: DULoxetine HCL 30 MG CAPSULE 60 MG PO (21:10)
--- NOTE | 2024-11-01 21:36 | ESPR_ITS ---
<Statement entered by Eliane Lomeli MD - 11/02/24 08:37> I personally evaluated examined the patient and appears to be doing a little better today but still not doing that well today blood pressure was low she did not feel well rapid response was called but clinically she is stable blood pressure is a lot better not have any chest pain shortness of breath mild troponin elevation type II troponin no need for any angiogram. Continue to monitor patient closely if she feels well discharged home will follow-up as an outpatient on current regimen.Agree with treatment plan recommendation as documented by PGY 1 and 2 Documentation for date of: 11/01/24 Subjective Subjective Interval history: Stroke alert was called on the patient today at 11:45 AM for dizziness and blurred vision that set on about 15 or 20 minutes prior to when the alert was called. The patient endorsed left eye pain at the time but no focal deficits were found on neuroexam. Patient endorsed burning epigastric discomfort on the way to CT. CT head was negative for acute hemorrhage mass effect or midline shift. Telemetry neuro was consulted and Dr. Padilla had a low suspicion for stroke but recommended brain MRI and to start aspirin 325 p.o. daily. Troponins are trending down. Patient continues to be hypertensive. BNP is elevated at 628. Lower extremity swelling is reduced. Exam Vital Signs Temp Pulse Resp BP Pulse Ox O2 Del Method FiO2 98.3 F 68 23 H 142/92 H 95 Room Air 99 11/01/24 20:00 11/01/24 21:10 11/01/24 20:00 11/01/24 21:10 11/01/24 20:00 11/01/24 20:00 10/31/24 01:44 Narrative Exam General: Overweight female, lethargic. Neurologic: GCS 15. Alert and oriented x3, no gross neurological deficit, and patient able to move all 4 extremities. HEENT: Normocephalic, atraumatic, mucous membranes moist. Pupils reactive to light. Heart: Regular rate and rhythm, normal S1 and S2, no murmurs. Lungs: Clear to auscultation bilaterally with no wheezing or crackles. Abdomen: Soft, nondistended, nontender, positive bowel sounds. No guarding or rebound tenderness. Extremities: 2+ pitting edema in the lower extremities bilaterally. Skin: Warm. Dry. No rash or ecchymoses. Objective Labs 11/01/24 06:50 11/01/24 06:50 Labs: Laboratory Results - last 24 hr 11/01/24 11/01/24 06:50 12:18 WBC 11.2 H RBC 4.65 Hgb 12.6 Hct 39.1 MCV 84 MCH 27.1 MCHC 32.2 RDW Std Deviation 43.4 Plt Count 216 Neut % (Auto) 75 Lymph % (Auto) 15 [place] % (Auto) 9 Eos % (Auto) 1 Baso % (Auto) 0 Neut # (Auto) 8.4 H Lymph # (Auto) 1.6 [place] # (Auto) 1.0 H Eos # (Auto) 0.1 Baso # (Auto) 0.0 Immature Gran # (Auto) 0.03 H Absolute Nucleated RBC 0.00 Immature Gran % 0 Nucleated RBC % 0 Sodium 137 Potassium 3.3 L Chloride 104 Carbon Dioxide 22.7 Anion Gap 10 BUN 18 Creatinine 1.1 Estim Creat Clear Calc 85.3 eGFR > 60 BUN/Creatinine Ratio 16 Glucose 137 H Calculated Osmolality 277 Calcium 8.2 L Corrected Calcium 8.6 Phosphorus 5.1 Magnesium 2.0 Total Bilirubin 1.1 D AST 18 ALT 21 Alkaline Phosphatase 124 H D Troponin I 0.121 H* Total Protein 5.8 Albumin 3.5 Globulin 2.3 Albumin/Globulin Ratio 1.5 Free T4 3.22 H Quality Measures Quality Measures VTE prophylaxis Assessment & Plan Assessment Current Active Medications: Generic Name Dose Route Start Last Admin Trade Name Freq PRN Reason Stop Dose Admin Acetaminophen 650 mg 10/31/24 04:39 Acetaminophen 325 Mg Tablet PO 11/30/24 04:38 Q6H PRN Fever >100.4 Acetaminophen 650 mg 10/31/24 04:44 Acetaminophen 325 Mg Tablet PO 11/30/24 04:43 Q6H PRN PAIN SCALE 1-3 (mild Hydrocodone Bitart/Acetaminophen 1 tab 10/31/24 04:44 Hydrocodone/Apap 5/325 Tablet PO 11/05/24 04:43 Q4HR PRN PAIN SCALE 4-10(Mod-Sev Amlodipine Besylate 5 mg 10/31/24 21:00 11/01/24 21:09 Amlodipine Besylate 5 Mg Tablet PO 11/30/24 20:59 5 mg BID LEON Administration Aripiprazole 20 mg 10/31/24 18:36 Aripiprazole 5 Mg Tablet PO 11/30/24 18:35 QDAY PRN migraine headache Aspirin 81 mg 11/02/24 09:00 Aspirin Ec 81 Mg Tabec PO 12/02/24 08:59 QDAY LEON Bumetanide 2 mg 10/31/24 18:45 11/01/24 09:06 Bumetanide Inj 0.25 Mg/Ml Vial 4 Ml IVP 11/30/24 18:44 2 mg QDAY LEON Administration Bupropion HCl 150 mg 10/31/24 21:00 11/01/24 21:11 Bupropion Hcl 75 Mg Tablet PO 11/30/24 20:59 150 mg BID LEON Administration Carvedilol 25 mg 10/31/24 18:45 11/01/24 21:10 Carvedilol 12.5 Mg Tablet PO 11/30/24 18:44 25 mg TID LEON Administration Cholestyramine Resin 1 pkt 10/31/24 09:00 11/01/24 21:11 Cholestyramine/Sucrose 1 Pkt Ea PO 11/30/24 08:59 1 pkt BID LEON Administration Duloxetine HCl 60 mg 10/31/24 21:00 11/01/24 21:10 Duloxetine Hcl 30 Mg Capsule PO 11/30/24 20:59 60 mg HS LEON Administration Enoxaparin Sodium 40 mg 10/31/24 09:00 11/01/24 09:02 Enoxaparin Sod Inj 40 Mg/0.4 Ml Syringe SC 11/14/24 08:59 40 mg QDAY LEON Administration Hydrocortisone Sodium Succinate 50 mg 10/31/24 12:00 11/01/24 21:10 Hydrocortisone Sod Succ Inj 100 Mg Vial IV 11/30/24 11:59 50 mg Q8HR LEON Administration Iodine/Potassium Iodide 0.05 ml 11/01/24 10:15 11/01/24 11:25 Potassium Iodide/Iodine 1 Ml (Lugol's) PO 12/01/24 10:14 0.05 ml BID LEON Administration Protocol Labetalol HCl 10 mg 10/31/24 05:26 Labetalol Inj 5 Mg/Ml Vial 20 Ml IVP 11/30/24 04:59 Q6HR PRN sbp>180 or DBP>110 Levalbuterol HCl 1.25 mg 10/31/24 08:34 Levalbuterol Rt 1.25 Mg/0.5 Ml Nebu INH 11/30/24 08:33 Q8HR PRN WHEEZING Levetiracetam 500 mg 10/31/24 21:00 11/01/24 21:09 Levetiracetam 250 Mg Tablet PO 11/30/24 20:59 500 mg BID LEON Administration Methimazole 30 mg 11/01/24 20:00 11/01/24 21:09 Methimazole 5 Mg Tablet PO 12/01/24 19:59 30 mg BID@0800,2000 LEON Administration Protocol Ondansetron HCl 4 mg 10/31/24 04:39 Ondansetron Inj 2 Mg/Ml Inj 2 Ml IVP 11/30/24 04:38 Q6H PRN NAUSEA OR VOMITING Protocol Pantoprazole Sodium 40 mg 10/31/24 09:00 11/01/24 09:05 Pantoprazole 40 Mg Tablet PO 11/30/24 08:59 40 mg QDAY LEON Administration Sodium Chloride 3 ml 10/31/24 08:34 Sodium Chloride Rt Francine 0.9% 3 Ml Nebu INH 11/30/24 08:33 PRN PRN SOLN Spironolactone 50 mg 10/31/24 18:45 11/01/24 09:03 Spironolactone 25 Mg Tablet PO 11/30/24 18:44 50 mg QDAY LEON Administration Valsartan 160 mg 10/31/24 21:00 11/01/24 21:10 Valsartan 80 Mg Tablet PO 11/30/24 20:59 160 mg BID LEON Administration Plan 39-year-old female with a past medical history of CHF, recurrent pericarditis, hypertension, Graves' disease, and anxiety and depression who presented to the ED with worsening shortness of breath, chest pain and palpitations. Patient was admitted for management of hypertension, volume overload, and hypothyroidism. Cardiology was consulted for management of the patient's hypertension, Graves' disease, and HFrEF. 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 daily - Continue 2 mg Bumex daily - Continue amlodipine 5 mL p.o. twice daily - Continue carvedilol 25 mg p.o. 3 times daily - Continue 50 mg p.o. daily - Continue valsartan 160 mg p.o. twice daily - Continue home Abilify, bupropion, duloxetine, Keppra, Methimazole #Seizure disorder #Anxiety and depression #Asthma and obstructive sleep apnea #Electrolyte abnormalities #Hypomagnesemia #Transaminitis - The remainder of the patient's hospital problems will be managed by the primary team. Patient was seen and discussed with my attending physician Dr. Armani JEREZ and my senior resident Dr. Jesusita Cisse DO PGY-2. Kraig Joaquin DO PGY-1.
[2024-11-02] VITALS (13 sets, daily range): BP systolic 142–162; BP diastolic 81–97; PULSE 65–72; RESP 17–96; TEMP 36.2–36.6; O2SAT 96–99; BMI 37.0
[2024-11-02] MEDS: HYDROCORTISONE SOD SUCC INJ 100 MG VIAL 50 MG IV ×3 (05:08→21:07)
[2024-11-02 06:19] LABS: Basophils # (Auto) 0.0 Thou/mm3 (0.0-0.2); Basophils % (Auto) 0 % (0-2.5); Eosinophils # (Auto) 0.1 Thou/mm3 (0.0-0.5); Eosinophils % (Auto) 0 % (0-10); Hematocrit 40.5 % (36.0-46.0); Hemoglobin 13.3 g/dL (12.0-16.0); Immature Granulocytes Auto 0.15 Thou/mm3 (0.00-0.00); Lymphocytes # (Auto) 1.6 Thou/mm3 (1.0-4.8); Lymphocytes % (Auto) 11 % (10-50); Mean Corpuscular HGB Conc 32.8 g/dl (31.0-37.0); Mean Corpuscular Hemoglobin 28.4 pg (25.0-35.0); Mean Corpuscular Volume 87 fL (80-100); Monocytes # (Auto) 1.0 Thou/mm3 (0.0-0.8); Monocytes % (Auto) 7 % (0-12); Neutrophils # (Auto) 11.6 Thou/mm3 (1.8-7.7); Neutrophils % (Auto) 80 % (37-80); Nucleated Red Blood Cell # 0.00 Thou/mm3 (0.00-0.00); Nucleated Red Blood Cell % 0 /100 WBC (0); Platelet Count 227 Thou/mm3 (140-440); RDW Standard Deviation 45.0 fL (36.4-46.3); Red Blood Count 4.68 Miln/mm3 (4.00-5.20); White Blood Count 14.4 Thou/mm3 (3.6-11.0)
[2024-11-02 06:34] LABS: Alanine Aminotransferase 18 U/L (10-49); Albumin, Serum 3.7 gm/dL (3.5-5.0); Albumin/Globulin Ratio 1.5 (1.2-2.2); Alkaline Phosphatase 130 U/L (46-116); Anion Gap 12 (7-16); Aspartate Amino Transferase 25 U/L (0-34); BUN/Creatinine Ratio 20 Ratio (12-20); Bilirubin,Total 1.1 mg/dL (0.3-1.2); Blood Urea Nitrogen 20 mg/dL (9-23); Calcium 8.7 mg/dL (8.3-10.6); Calcium (Corrected) 8.9 mg/dL (8.5-10.1); Carbon Dioxide 20.2 mMol/L (20.0-31.0); Chloride 107 mMol/L (98-107); Creatinine (Component) 1.0 mg/dL (0.6-1.3); Estimated Creatinine Clearance 93.3 mL/min (>60); Free T4 (Free Thyroxine) 3.30 ng/dL (0.89-1.76); Globulin 2.5 gm/dL (2.3-3.5); Glucose 120 mg/dL (74-106); Magnesium 2.2 mg/dL (1.6-2.6); Osmolality,Calculated 281 (275-295); Phosphorous 3.9 mg/dL (2.4-5.1); Potassium 4.6 mMol/L (3.4-5.1); Sodium 139 mMol/L (136-145); Total Protein 6.2 gm/dL (5.7-8.2); eGFR > 60 See Note
[2024-11-02] MEDS: METHIMAZOLE 5 MG TABLET 30 MG PO ×2 (07:57→20:07)
[2024-11-02] MEDS: VALSARTAN 80 MG TABLET 160 MG PO ×2 (09:20→21:04)
[2024-11-02] MEDS: PANTOPRAZOLE 40 MG TABLET PO (09:20)
[2024-11-02] MEDS: SPIRONOLACTONE 25 MG TABLET 50 MG PO (09:20)
[2024-11-02] MEDS: CHOLESTYRAMINE/SUCROSE 1 PKT EA PO ×3 (09:21→20:07)
[2024-11-02] MEDS: BUMETANIDE INJ 0.25 MG/ML VIAL 4 ML 2 MG IVP (09:21)
[2024-11-02] MEDS: ASPIRIN EC 81 MG TABEC PO (09:21)
[2024-11-02] MEDS: POTASSIUM IODIDE PO ×2 (09:22→21:04)
[2024-11-02] MEDS: IODINE PO ×2 (09:22→21:04)
[2024-11-02] MEDS: ENOXAPARIN SOD INJ 40 MG/0.4 ML SYRINGE SC (09:23)
--- NOTE | 2024-11-02 12:32 | PD.TNEUROPRO ---
Tele Neuro Progress Note Progress Note Date 11/02/24 [facility] Tele[facility]urology Progress Note Date of Service 11/02/2024 Presentation: Based on previous neurology note(s) 11/01 : 39-year-old female with a history of epilepsy, Graves' disease, and resistant hypertension, presenting with sudden onset of blurry vision, left eye pain, weakness, and dizziness. The patient's symptoms have been evolving over several days, with dizziness starting about a week ago, weakness and numbness beginning yesterday, and blurry vision starting this morning. initial NIHSS 6 Interval history: 11/02/2024: etiology is being investigated Impression: dizziness, blurred vision, left eye pain, weakness uncontrolled hypertension seizures Recommendations: (Primary Team to order Controlled Medications) Unless specifically noted I Agree with Impression and Plan from previous Neurology note/consult. 1- brain MRI and CTA head and neck unremarkable. 2- continue home dose keppra. 3- explained that wellbutrin can lower seizure threshold. 4- from neurology perspective does not need aspirin. 5- Blood Pressure target normotension, avoid rapid lowering of Blood Pressure 6- consider ophthalmology consult for blurry vision. Neurology will sign off. Follow up with outpatient PCP in 2-3 weeks. Please contact [facility] Navigator to reach me if further questions/concerns arise. Examination: Examination done through interactive audio and video telecommunications with the assist of bedside nursing (when available) awake, alert, oriented x3 speech no aphasia Extraocular movements intact face symmetric arms no drift (10s) coordination intact in finger to nose Patient / Family was informed the Neurology Consult would occur via TeleHealth consult by way of interactive audio and video telecommunications and consented to receiving care in this manner. Patient is being evaluated for possible acute neurologic impairment and high probability of imminent or life - threatening deterioration. I spent total of 15 minutes providing care to this patient, including time for face to face visit via telemedicine, review of medical records, imaging studies and discussion of findings with providers, the patient and / or family. Dr Terence Colón [facility] For Inpatient follow-up with [facility] physician please call [facility] . This is not an outpatient service. Post hospital discharge, please contact hospital directly. Please do not communicate with [facility] physicians via secure chat. If you have any questions, Please contact [facility]. Please call or reconsult our service if there are any clinical or diagnostic changes. Most Recent Vital Signs Last Vital Signs Temp 97.7 F 11/02/24 08:00 Pulse 70 11/02/24 09:21 Resp 18 11/02/24 08:00 BP 147/97 H 11/02/24 09:21 Pulse Ox 96 11/02/24 08:00 O2 Del Method Room Air 11/02/24 08:00 FiO2 99 10/31/24 01:44 Laboratory-Coagulation Panel PT 11.0 Seconds (9.0-12.2) 10/31/24 00:27 INR 1.0 (0.9-1.3) 10/31/24 00:27 APTT 27.1 Seconds (22.0-36.0) 10/31/24 00:27 D-Dimer 377 ng/mL (<600) 10/31/24 00:27
--- NOTE | 2024-11-02 14:23 | ESPR_ITS ---
<Statement entered by Eliane Lomeli MD - 11/03/24 18:46> I personally evaluated examined this patient who is well well-known to me apparently had rapid response and altered mental status and dizziness and vision disturbance blood pressure is normal but on the blood pressure now she does not feel that well could be if she is used to higher blood pressure readings evaluated the patient with resident physician agree with the treatment plan recommendation rest for today , and try ambulating tomorrow. So the medications could be adjusted to try to keep the blood pressure around 150-160 range instead of 130-140 range since she is used to higher readings possibly causing some of these neurologic symptoms. Patient will benefit from thyroid surgery which will be scheduled later on this month to see a specialist in [place]. Agree with the treatment plan recommendation as documented by resident physician PGY 2 Documentation for date of: 11/02/24 Subjective Subjective Interval history: No acute overnight events. Reports improvement in her symptoms, although still feels dizzy and lightheaded at rest. Denies fever, chills, headaches, chest pain, sob, cough, GI or urinary symptoms. Exam Vital Signs Temp Pulse Resp BP Pulse Ox O2 Del Method FiO2 97.4 F 72 18 156/81 H 98 Room Air 99 11/02/24 12:00 11/02/24 13:31 11/02/24 12:00 11/02/24 13:31 11/02/24 12:00 11/02/24 12:00 10/31/24 01:44 Narrative Exam General: Overweight female, lethargic. Neurologic: GCS 15. Alert and oriented x3, no gross neurological deficit, and patient able to move all 4 extremities. HEENT: Normocephalic, atraumatic, mucous membranes moist. Pupils reactive to light. Heart: Regular rate and rhythm, normal S1 and S2, no murmurs. Lungs: Clear to auscultation bilaterally with no wheezing or crackles. Abdomen: Soft, nondistended, nontender, positive bowel sounds. No guarding or rebound tenderness. Extremities: 2+ pitting edema in the lower extremities bilaterally. Skin: Warm. Dry. No rash or ecchymoses. Objective Labs 11/02/24 04:30 11/02/24 04:30 Labs: Laboratory Results - last 24 hr 11/02/24 04:30 WBC 14.4 H RBC 4.68 Hgb 13.3 Hct 40.5 MCV 87 MCH 28.4 MCHC 32.8 RDW Std Deviation 45.0 Plt Count 227 Neut % (Auto) 80 Lymph % (Auto) 11 [place] % (Auto) 7 Eos % (Auto) 0 Baso % (Auto) 0 Neut # (Auto) 11.6 H Lymph # (Auto) 1.6 [place] # (Auto) 1.0 H Eos # (Auto) 0.1 Baso # (Auto) 0.0 Immature Gran # (Auto) 0.15 H Absolute Nucleated RBC 0.00 Immature Gran % 1 H Nucleated RBC % 0 Sodium 139 Potassium 4.6 D Chloride 107 Carbon Dioxide 20.2 Anion Gap 12 BUN 20 Creatinine 1.0 Estim Creat Clear Calc 93.3 eGFR > 60 BUN/Creatinine Ratio 20 Glucose 120 H Calculated Osmolality 281 Calcium 8.7 Corrected Calcium 8.9 Phosphorus 3.9 Magnesium 2.2 Total Bilirubin 1.1 AST 25 ALT 18 Alkaline Phosphatase 130 H Total Protein 6.2 Albumin 3.7 Globulin 2.5 Albumin/Globulin Ratio 1.5 Free T4 3.30 H Quality Measures Quality Measures VTE prophylaxis Assessment & Plan Assessment Current Active Medications: Generic Name Dose Route Start Last Admin Trade Name Freq PRN Reason Stop Dose Admin Acetaminophen 650 mg 10/31/24 04:39 Acetaminophen 325 Mg Tablet PO 11/30/24 04:38 Q6H PRN Fever >100.4 Acetaminophen 650 mg 10/31/24 04:44 Acetaminophen 325 Mg Tablet PO 11/30/24 04:43 Q6H PRN PAIN SCALE 1-3 (mild Hydrocodone Bitart/Acetaminophen 1 tab 10/31/24 04:44 Hydrocodone/Apap 5/325 Tablet PO 11/05/24 04:43 Q4HR PRN PAIN SCALE 4-10(Mod-Sev Amlodipine Besylate 5 mg 10/31/24 21:00 11/02/24 09:21 Amlodipine Besylate 5 Mg Tablet PO 11/30/24 20:59 5 mg BID LEON Administration Aripiprazole 20 mg 10/31/24 18:36 Aripiprazole 5 Mg Tablet PO 11/30/24 18:35 QDAY PRN migraine headache Aspirin 81 mg 11/02/24 09:00 11/02/24 09:21 Aspirin Ec 81 Mg Tabec PO 12/02/24 08:59 81 mg QDAY LEON Administration Bumetanide 2 mg 10/31/24 18:45 11/02/24 09:21 Bumetanide Inj 0.25 Mg/Ml Vial 4 Ml IVP 11/30/24 18:44 2 mg QDAY LEON Administration Bupropion HCl 150 mg 10/31/24 21:00 11/02/24 09:19 Bupropion Hcl 75 Mg Tablet PO 11/30/24 20:59 150 mg BID LEON Administration Carvedilol 25 mg 10/31/24 18:45 11/02/24 13:31 Carvedilol 12.5 Mg Tablet PO 11/30/24 18:44 25 mg TID LEON Administration Cholestyramine Resin 1 pkt 10/31/24 09:00 11/02/24 09:21 Cholestyramine/Sucrose 1 Pkt Ea PO 11/30/24 08:59 1 pkt BID LEON Administration Duloxetine HCl 60 mg 10/31/24 21:00 11/01/24 21:10 Duloxetine Hcl 30 Mg Capsule PO 11/30/24 20:59 60 mg HS LEON Administration Enoxaparin Sodium 40 mg 10/31/24 09:00 11/02/24 09:23 Enoxaparin Sod Inj 40 Mg/0.4 Ml Syringe SC 11/14/24 08:59 40 mg QDAY LEON Administration Hydrocortisone Sodium Succinate 50 mg 10/31/24 12:00 11/02/24 13:30 Hydrocortisone Sod Succ Inj 100 Mg Vial IV 11/30/24 11:59 50 mg Q8HR LEON Administration Iodine/Potassium Iodide 0.05 ml 11/01/24 10:15 11/02/24 09:22 Potassium Iodide/Iodine 1 Ml (Lugol's) PO 12/01/24 10:14 0.05 ml BID LEON Administration Protocol Labetalol HCl 10 mg 10/31/24 05:26 Labetalol Inj 5 Mg/Ml Vial 20 Ml IVP 11/30/24 04:59 Q6HR PRN sbp>180 or DBP>110 Levalbuterol HCl 1.25 mg 10/31/24 08:34 Levalbuterol Rt 1.25 Mg/0.5 Ml Nebu INH 11/30/24 08:33 Q8HR PRN WHEEZING Levetiracetam 500 mg 10/31/24 21:00 11/02/24 09:21 Levetiracetam 250 Mg Tablet PO 11/30/24 20:59 500 mg BID LEON Administration Methimazole 30 mg 11/01/24 20:00 11/02/24 07:57 Methimazole 5 Mg Tablet PO 12/01/24 19:59 30 mg BID@0800,2000 LEON Administration Protocol Ondansetron HCl 4 mg 10/31/24 04:39 Ondansetron Inj 2 Mg/Ml Inj 2 Ml IVP 11/30/24 04:38 Q6H PRN NAUSEA OR VOMITING Protocol Pantoprazole Sodium 40 mg 10/31/24 09:00 11/02/24 09:20 Pantoprazole 40 Mg Tablet PO 11/30/24 08:59 40 mg QDAY LEON Administration Sodium Chloride 3 ml 10/31/24 08:34 Sodium Chloride Rt Francine 0.9% 3 Ml Nebu INH 11/30/24 08:33 PRN PRN SOLN Spironolactone 50 mg 10/31/24 18:45 11/02/24 09:20 Spironolactone 25 Mg Tablet PO 11/30/24 18:44 50 mg QDAY LEON Administration Valsartan 160 mg 10/31/24 21:00 11/02/24 09:20 Valsartan 80 Mg Tablet PO 11/30/24 20:59 160 mg BID LEON Administration Plan 39-year-old female with a past medical history of CHF, recurrent pericarditis, hypertension, Graves' disease, and anxiety and depression who presented to the ED with worsening shortness of breath, chest pain and palpitations. Patient was admitted for management of hypertension, volume overload, and hypothyroidism. Cardiology was consulted for management of the patient's hypertension, Graves' disease, and HFrEF. Hypertensive emergency Graves' disease HFrEF She has a longstanding history of Graves' disease, with persistent elevated thyroid hormone despite aggressive management with METHIMAZOLE. She is fairly symptomatic and follows up in office for persistent hypertension as a result of poorly controlled Graves' disease, leading to HFrEF with EF in the 40s. Additionally, she appears symptomatic when blood pressure is decreased from baseline. At this point, recommended maintaining SBP around 160 if possible. 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 No signs of CHF exacerbation. On exam, she has minimal edema of bilateral extremity. ? Continue to hypertensives, goal systolic around 160 ? Continue diuresis with BUMEX ? Continue ANXIOLYTIC medications ? Maintain potassium ? Continue seizure medications ? May be discharged if symptoms i.e. dizziness, resolved ? Follow-up in office in 2 weeks. Case was discussed with attending physician, Dr. Lomeli. Jesusita Cisse, DO PGY II This document was transcribed using voice recognition technology. Minor inaccuracies may be present.
--- NOTE | 2024-11-02 16:28 | ESPR_ITS ---
Documentation for date of: 11/02/24 Subjective Subjective Interval history: Patient was seen and examined at bedside. Yesterday stroke alert was called after the patient started to experience dizziness, blurry vision. Brain CT, head and neck CT angio, and MRI all were negative. Neurologist at the time recommended no need for aspirin and Plavix. Today patient reported mild improvement of her dizziness however still has some blurry vision. She mentions that her blurry vision wax and wane and is not related to eye movement. She reported mild improvement of her shortness of breath. Exam Vital Signs Temp Pulse Resp BP Pulse Ox O2 Del Method FiO2 97.4 F 72 18 156/81 H 98 Room Air 99 11/02/24 12:00 11/02/24 13:31 11/02/24 12:00 11/02/24 13:31 11/02/24 12:00 11/02/24 12:00 10/31/24 01:44 Narrative Exam GEN: AOx3, able to speak full sentences HEENT: NC/AC, PERRLA, positive lid lag, positive horizontal nystagmus to the left and to the right. oral mucosa moist, neck supple CVS: RRR, S1-S2 present, no murmurs appreciated RESP: CTAB GI: soft,non distended, non tender, NBS MSK: able to move all 4 limbs, nonpitting edema in the lower extremities. 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 Objective Labs 11/02/24 04:30 11/02/24 04:30 Labs: Laboratory Results - last 24 hr 11/02/24 04:30 WBC 14.4 H RBC 4.68 Hgb 13.3 Hct 40.5 MCV 87 MCH 28.4 MCHC 32.8 RDW Std Deviation 45.0 Plt Count 227 Neut % (Auto) 80 Lymph % (Auto) 11 Bland % (Auto) 7 Eos % (Auto) 0 Baso % (Auto) 0 Neut # (Auto) 11.6 H Lymph # (Auto) 1.6 Bland # (Auto) 1.0 H Eos # (Auto) 0.1 Baso # (Auto) 0.0 Immature Gran # (Auto) 0.15 H Absolute Nucleated RBC 0.00 Immature Gran % 1 H Nucleated RBC % 0 Sodium 139 Potassium 4.6 D Chloride 107 Carbon Dioxide 20.2 Anion Gap 12 BUN 20 Creatinine 1.0 Estim Creat Clear Calc 93.3 eGFR > 60 BUN/Creatinine Ratio 20 Glucose 120 H Calculated Osmolality 281 Calcium 8.7 Corrected Calcium 8.9 Phosphorus 3.9 Magnesium 2.2 Total Bilirubin 1.1 AST 25 ALT 18 Alkaline Phosphatase 130 H Total Protein 6.2 Albumin 3.7 Globulin 2.5 Albumin/Globulin Ratio 1.5 Free T4 3.30 H Quality Measures Quality Measures VTE prophylaxis Assessment & Plan Assessment Current Active Medications: Generic Name Dose Route Start Last Admin Trade Name Freq PRN Reason Stop Dose Admin Acetaminophen 650 mg 10/31/24 04:39 Acetaminophen 325 Mg Tablet PO 11/30/24 04:38 Q6H PRN Fever >100.4 Acetaminophen 650 mg 10/31/24 04:44 Acetaminophen 325 Mg Tablet PO 11/30/24 04:43 Q6H PRN PAIN SCALE 1-3 (mild Hydrocodone Bitart/Acetaminophen 1 tab 10/31/24 04:44 Hydrocodone/Apap 5/325 Tablet PO 11/05/24 04:43 Q4HR PRN PAIN SCALE 4-10(Mod-Sev Amlodipine Besylate 5 mg 10/31/24 21:00 11/02/24 09:21 Amlodipine Besylate 5 Mg Tablet PO 11/30/24 20:59 5 mg BID LEON Administration Aripiprazole 20 mg 10/31/24 18:36 Aripiprazole 5 Mg Tablet PO 11/30/24 18:35 QDAY PRN migraine headache Aspirin 81 mg 11/02/24 09:00 11/02/24 09:21 Aspirin Ec 81 Mg Tabec PO 12/02/24 08:59 81 mg QDAY LEON Administration Bumetanide 2 mg 10/31/24 18:45 11/02/24 09:21 Bumetanide Inj 0.25 Mg/Ml Vial 4 Ml IVP 11/30/24 18:44 2 mg QDAY LEON Administration Bupropion HCl 150 mg 10/31/24 21:00 11/02/24 09:19 Bupropion Hcl 75 Mg Tablet PO 11/30/24 20:59 150 mg BID LEON Administration Carvedilol 25 mg 10/31/24 18:45 11/02/24 13:31 Carvedilol 12.5 Mg Tablet PO 11/30/24 18:44 25 mg TID LEON Administration Cholestyramine Resin 1 pkt 10/31/24 09:00 11/02/24 09:21 Cholestyramine/Sucrose 1 Pkt Ea PO 11/30/24 08:59 1 pkt BID LEON Administration Duloxetine HCl 60 mg 10/31/24 21:00 11/01/24 21:10 Duloxetine Hcl 30 Mg Capsule PO 11/30/24 20:59 60 mg HS LEON Administration Enoxaparin Sodium 40 mg 10/31/24 09:00 11/02/24 09:23 Enoxaparin Sod Inj 40 Mg/0.4 Ml Syringe SC 11/14/24 08:59 40 mg QDAY LEON Administration Hydrocortisone Sodium Succinate 50 mg 10/31/24 12:00 11/02/24 13:30 Hydrocortisone Sod Succ Inj 100 Mg Vial IV 11/30/24 11:59 50 mg Q8HR LEON Administration Iodine/Potassium Iodide 0.05 ml 11/01/24 10:15 11/02/24 09:22 Potassium Iodide/Iodine 1 Ml (Lugol's) PO 12/01/24 10:14 0.05 ml BID LEON Administration Protocol Labetalol HCl 10 mg 10/31/24 05:26 Labetalol Inj 5 Mg/Ml Vial 20 Ml IVP 11/30/24 04:59 Q6HR PRN sbp>180 or DBP>110 Levalbuterol HCl 1.25 mg 10/31/24 08:34 Levalbuterol Rt 1.25 Mg/0.5 Ml Nebu INH 11/30/24 08:33 Q8HR PRN WHEEZING Levetiracetam 500 mg 10/31/24 21:00 11/02/24 09:21 Levetiracetam 250 Mg Tablet PO 11/30/24 20:59 500 mg BID LEON Administration Methimazole 30 mg 11/01/24 20:00 11/02/24 07:57 Methimazole 5 Mg Tablet PO 12/01/24 19:59 30 mg BID@0800,2000 LEON Administration Protocol Ondansetron HCl 4 mg 10/31/24 04:39 Ondansetron Inj 2 Mg/Ml Inj 2 Ml IVP 11/30/24 04:38 Q6H PRN NAUSEA OR VOMITING Protocol Pantoprazole Sodium 40 mg 10/31/24 09:00 11/02/24 09:20 Pantoprazole 40 Mg Tablet PO 11/30/24 08:59 40 mg QDAY LEON Administration Sodium Chloride 3 ml 10/31/24 08:34 Sodium Chloride Rt Francine 0.9% 3 Ml Nebu INH 11/30/24 08:33 PRN PRN SOLN Spironolactone 50 mg 10/31/24 18:45 11/02/24 09:20 Spironolactone 25 Mg Tablet PO 11/30/24 18:44 50 mg QDAY LEON Administration Valsartan 160 mg 10/31/24 21:00 11/02/24 09:20 Valsartan 80 Mg Tablet PO 11/30/24 20:59 160 mg BID LEON Administration Plan Assessment 39F with history of HFrEF, resistant HTN, Graves' disease, seizure disorder, and prior hypertensive emergency presents with worsening edema, dyspnea, and exertional pleuritic chest pain. Admitted for management of hypertensive emergency with signs of volume overload and uncontrolled hyperthyroidism. #Graves Disease with thyrotoxicosis Free T4 4.0 on 10/31, 3.22 on 11/01. TSH <0.01; likely contributing to BP and HR lability. Caal-Wartofsky Score: 45, highly suggestive of thyroid storm. Seeing endocrine surgeon November 18. ED course: methimazole 40 mg x1, hydrocortisone 100 mg IV x1 11/02 Free T4 today's 3.3 increased from 3.22 yesterday. Plan: * Methimazole 30mg BID * hydrocortisone 50 mg IV q8h for possible thyroid storm prophylaxis * Trend free T4 and T3 and TSH * Start K+ Lugol's solution 0.05 ml liquid po BID, per Endocrine recommendations * Discontinued propranolol as patient is already on carvedilol for HTN # Hypertensive Emergency # Hypertension Initially with refractory HTN with BP >200 systolic and signs of end-organ effect (dyspnea, elevated BNP, chest discomfort). This morning, SBP has been in the 130s. Per patient, home SBPs range in 230- 250s. Patient today complains blurry vision, headache, dizziness. Patient chronically blood pressure runs between 180 and 220 at home. Her blood pressure today was 150/94, due to this significant drop from her baseline we believe that is the reason for her neurological symptoms. For that reason we will down titrate her antihypertension meds to keep her blood pressure above 160 and below 180.. Plan: * Cardiology consulted, appreciate recs. * Hold amlodipine 5 mg po BID * carvedilol 25 mg TID * Bumex 2 mg QD * spironolactone 50 mg BID * valsartan 160 mg BID * Labetalol IV push PRN * Discontinued clonidine * Daily BMP for renal status * Strict I/O, daily weights # HFrEF with reduced EF (EF 40-45%) Evidence of volume overload (BNP 628, LE edema, CHRISTY). History of prior admission with fluid overload. ED course: furosemide 40 mg IV x1 Plan: * Cardiology to follow * Monitor weight, I/O, and symptoms * Repeat echo if significant change in symptoms * Continue medications as above #Blurry vision and dizziness #Stroke ruled out Low suspicion, but given episode of persistent dizziness and blurry vision, tele-neurology consulted and stroke alert was called on 11/01 at 1145. Troponin 0.121, which was decreased from previous afternoon. CT Head wo contrast: Negative for acute hemorrhage, mass effect or midline shift CTA Head/Neck: No significant neck arterial stenoses. No cerebral large vessel arterial occlusions or thrombus Brain MRI/MRI were negative for any acute stroke. Plan: * Tele-Neuro consulted. Appreciate recs, stop Wellbutrin * Start aspirin 325 mg po QD * MRI brain ordered, f/u # Seizure Disorder History of daily brain seizures, currently at baseline. Plan: * Continue home Keppra 500 mg po BID * Monitor for clinical seizures * Maintain normonatremia # Anxiety and Depression Patient distressed from prior hospitalization. Appears medically appropriate today. Plan: * duloxetine 60 mg po qHS * Stop buproprion 150 mg po BID * Psych consult PRN # Asthma and IGNACIO Not acutely symptomatic Plan: * Continue home meds, CPAP if used * Monitor for respiratory decompensation # Electrolyte abnormalities # Hypomagnesemia K 3.5, Mg 1.3 in ED Plan: * Replete magnesium and potassium as needed * Monitor daily BMP/Mg # Elevated LFTs and bilirubin Likely chronic, mildly elevated ALP and total bilirubin Plan: * Trend AST, ALT, bili * No acute intervention needed unless worsening Health Maintenance: Disposition: Tele Diet: Cardiac Thromboprophylaxis: Lovenox GI prophylaxis: Consider PPI Code Status: Full - Patient's plan and care discussed with my attending, Dr. Juana Patel MD Internal Medicine PGY-3 Attending Provider Attestation/Addendum I have discussed and was present for the essential components of the history, physical examination, diagnosis, and treatment plan with the resident. I agree with the patient's care as documented by the resident and amended herein by me. Mitesh Arias DO. Although this document has been carefully reviewed, there may still be some phonetic and other typographical errors. These errors are purely grammatical due to imperfections in the software program and should not be construed in any way to compromise the substance of the patient's medical care during this visit. Patient seen and evaluated this AM. No acute events overnight, BP 147/90 7 in the AM. I's and O's 1970/600 mL overnight. Labs largely unremarkable with exception of WBC which is 14, T43.30. The patient's speech is much softer today, she does appear to be experiencing some impairment, she still endorses brain fog, has nystagmus, as such we did consult teleneurology today, recommended continuing Keppra, noted that Wellbutrin can definitely lower the seizure threshold and stated that we do not need aspirin at this time. Patient's previous brain imaging to include MRI and CTA head and neck were unremarkable. He did recommend ophthalmology consult however we do not have those services here. We may try to keep the ablations blood pressure a bit higher, I suspect that the patient has lived so long with an SBP greater than 200 that when she gets down in the more normotensive ranges as she has been the last couple of days, she is feeling the effects. We may decide to hold her amlodipine however will consult with cardiology first. Will continue to monitor closely, likely discharge in a few days once the patient's mentation and neurological symptoms improve. Will continue valsartan, spironolactone, Keppra, Coreg, methimazole 30 mg twice daily, and Bumex for now.
[2024-11-02 18:02] LABS: Amphetamine/Methamp Scrn,U Negative (Negative); Barbiturate Screen,Urine Negative (Negative); Benzodiazepines Screen,Urine Negative (Negative); Benzoylecgonine Screen, Ur Negative (Negative); Fentanyl Screen,Urine Negative (Negative); Opiate Screen,Urine Negative (Negative); THC Screen,Urine Negative (Negative)
[2024-11-02] MEDS: DULoxetine HCL 30 MG CAPSULE 60 MG PO (20:07)
[2024-11-03] VITALS (15 sets, daily range): BP systolic 146–186; BP diastolic 86–107; PULSE 64–73; RESP 18–99; TEMP 36.1–36.6; O2SAT 92–99; BMI 37.0
[2024-11-03] MEDS: HYDROCORTISONE SOD SUCC INJ 100 MG VIAL 50 MG IV ×3 (05:02→21:02)
[2024-11-03] MEDS: CHOLESTYRAMINE/SUCROSE 1 PKT EA PO ×4 (05:02→20:03)
[2024-11-03 06:06] LABS: Basophils # (Auto) 0.0 Thou/mm3 (0.0-0.2); Basophils % (Auto) 0 % (0-2.5); Eosinophils # (Auto) 0.0 Thou/mm3 (0.0-0.5); Eosinophils % (Auto) 0 % (0-10); Hematocrit 39.8 % (36.0-46.0); Hemoglobin 13.2 g/dL (12.0-16.0); Immature Granulocytes Auto 0.03 Thou/mm3 (0.00-0.00); Lymphocytes # (Auto) 1.1 Thou/mm3 (1.0-4.8); Lymphocytes % (Auto) 14 % (10-50); Mean Corpuscular HGB Conc 33.2 g/dl (31.0-37.0); Mean Corpuscular Hemoglobin 28.1 pg (25.0-35.0); Mean Corpuscular Volume 85 fL (80-100); Monocytes # (Auto) 0.6 Thou/mm3 (0.0-0.8); Monocytes % (Auto) 7 % (0-12); Neutrophils # (Auto) 6.3 Thou/mm3 (1.8-7.7); Neutrophils % (Auto) 79 % (37-80); Nucleated Red Blood Cell # 0.00 Thou/mm3 (0.00-0.00); Nucleated Red Blood Cell % 0 /100 WBC (0); Platelet Count 228 Thou/mm3 (140-440); RDW Standard Deviation 41.7 fL (36.4-46.3); Red Blood Count 4.70 Miln/mm3 (4.00-5.20); White Blood Count 8.0 Thou/mm3 (3.6-11.0)
[2024-11-03 07:22] LABS: Alanine Aminotransferase 19 U/L (10-49); Albumin, Serum 3.7 gm/dL (3.5-5.0); Albumin/Globulin Ratio 1.4 (1.2-2.2); Alkaline Phosphatase 133 U/L (46-116); Anion Gap 14 (7-16); Aspartate Amino Transferase 28 U/L (0-34); BUN/Creatinine Ratio 14 Ratio (12-20); Bilirubin,Total 1.4 mg/dL (0.3-1.2); Blood Urea Nitrogen 13 mg/dL (9-23); Calcium 8.9 mg/dL (8.3-10.6); Calcium (Corrected) 9.1 mg/dL (8.5-10.1); Carbon Dioxide 19.3 mMol/L (20.0-31.0); Chloride 105 mMol/L (98-107); Creatinine (Component) 0.9 mg/dL (0.6-1.3); Estimated Creatinine Clearance 103.7 mL/min (>60); Free T3 5.0 pg/mL (2.3-4.2); Free T4 (Free Thyroxine) 2.98 ng/dL (0.89-1.76); Globulin 2.6 gm/dL (2.3-3.5); Glucose 126 mg/dL (74-106); Magnesium 1.8 mg/dL (1.6-2.6); Osmolality,Calculated 277 (275-295); Phosphorous 4.0 mg/dL (2.4-5.1); Potassium 4.9 mMol/L (3.4-5.1); Sodium 138 mMol/L (136-145); Thyroid Stimulating Hormone < 0.01 uIU/mL (0.55-4.78); Total Protein 6.3 gm/dL (5.7-8.2); eGFR > 60 See Note
[2024-11-03] MEDS: METHIMAZOLE 5 MG TABLET 30 MG PO ×2 (07:58→20:02)
[2024-11-03] MEDS: ENOXAPARIN SOD INJ 40 MG/0.4 ML SYRINGE SC (09:23)
[2024-11-03] MEDS: BUMETANIDE INJ 0.25 MG/ML VIAL 4 ML 2 MG IVP (09:23)
[2024-11-03] MEDS: SPIRONOLACTONE 25 MG TABLET 50 MG PO (09:24)
[2024-11-03] MEDS: VALSARTAN 80 MG TABLET 160 MG PO ×2 (09:24→20:02)
[2024-11-03] MEDS: ASPIRIN EC 81 MG TABEC PO (09:25)
[2024-11-03] MEDS: PANTOPRAZOLE 40 MG TABLET PO (09:25)
[2024-11-03] MEDS: IODINE PO ×2 (09:26→21:02)
[2024-11-03] MEDS: POTASSIUM IODIDE PO ×2 (09:26→21:02)
--- NOTE | 2024-11-03 13:10 | ESPR_ITS ---
<Statement entered by Janeth King MD - 11/03/24 14:39> I have reviewed the note and agree with the resident's assessment & plan with exceptions as below. I have personally reviewed labs, imaging, home meds/prior records, examined the patient, formulated and discussed management plan with the IM team. Patient examined at bedside today. No acute overnight events. Patient reports he is doing slightly better, Will continue to to augment blood pressure, however not too quickly as we believe this is the culprit of the patient's weakness. May consult neurology to monitor for further recommendations. Cardiology on consult, appreciate recommendations. Repeat hematology and chemistry in AM. Janeth King, PGY-2 Internal Medicine Documentation for date of: 11/03/24 Subjective Subjective Interval history: Patient was examined at bedside. No acute events overnight. However, patient reports ongoing dizziness. She also notes that her blurry vision continues to wax and wane. She states she feels overall the same as yesterday, despite SBPs in 160s this morning. She notes chest pain with deep breaths, which she states is unchanged from prior days. She denies headache today. Exam Vital Signs Temp Pulse Resp BP Pulse Ox O2 Del Method FiO2 97.8 F 66 19 168/107 H 99 Room Air 99 11/03/24 08:00 11/03/24 12:00 11/03/24 08:55 11/03/24 09:24 11/03/24 08:55 11/03/24 08:00 10/31/24 01:44 Narrative Exam Gen: Alert, A&Ox3, in no acute distress at rest. HEENT: Left eye exopthalmos. Horizontal nystagmus. Normocephalic and atraumatic. CV: RRR. Normal S1/S2. No murmurs appreciated. Resp: Mildly increased respiratory effort, but CTAB Ext: Non-pitting edema of lower extremities bilaterally. Neuro: Moving all extremities spontaneously. Skin: Warm and dry Psych: Appropriate mood and affect Objective Labs 11/03/24 04:50 11/03/24 04:50 Labs: Laboratory Results - last 24 hr 11/02/24 11/03/24 17:15 04:50 WBC 8.0 D RBC 4.70 Hgb 13.2 Hct 39.8 MCV 85 MCH 28.1 MCHC 33.2 RDW Std Deviation 41.7 Plt Count 228 Neut % (Auto) 79 Lymph % (Auto) 14 Ector % (Auto) 7 Eos % (Auto) 0 Baso % (Auto) 0 Neut # (Auto) 6.3 Lymph # (Auto) 1.1 Ector # (Auto) 0.6 Eos # (Auto) 0.0 Baso # (Auto) 0.0 Immature Gran # (Auto) 0.03 H Absolute Nucleated RBC 0.00 Immature Gran % 0 Nucleated RBC % 0 Sodium 138 Potassium 4.9 Chloride 105 Carbon Dioxide 19.3 L Anion Gap 14 BUN 13 Creatinine 0.9 Estim Creat Clear Calc 103.7 eGFR > 60 BUN/Creatinine Ratio 14 Glucose 126 H Calculated Osmolality 277 Calcium 8.9 Corrected Calcium 9.1 Phosphorus 4.0 Magnesium 1.8 Total Bilirubin 1.4 H AST 28 ALT 19 Alkaline Phosphatase 133 H Total Protein 6.3 Albumin 3.7 Globulin 2.6 Albumin/Globulin Ratio 1.4 TSH < 0.01 L* Free T4 2.98 H Free T3 pg/dL 5.0 H Urine Opiates Screen Negative Urine Fentanyl Screen Negative Ur Barbiturates Screen Negative U Amphetamin/Meth Scrn Negative U Benzodiazepines Scrn Negative U Cocaine Metab Screen Negative U Marijuana (THC) Screen Negative Quality Measures Quality Measures VTE prophylaxis Assessment & Plan Assessment Current Active Medications: Generic Name Dose Route Start Last Admin Trade Name Freq PRN Reason Stop Dose Admin Acetaminophen 650 mg 10/31/24 04:39 Acetaminophen 325 Mg Tablet PO 11/30/24 04:38 Q6H PRN Fever >100.4 Acetaminophen 650 mg 10/31/24 04:44 Acetaminophen 325 Mg Tablet PO 11/30/24 04:43 Q6H PRN PAIN SCALE 1-3 (mild Hydrocodone Bitart/Acetaminophen 1 tab 10/31/24 04:44 Hydrocodone/Apap 5/325 Tablet PO 11/05/24 04:43 Q4HR PRN PAIN SCALE 4-10(Mod-Sev Amlodipine Besylate 5 mg 10/31/24 21:00 11/02/24 09:21 Amlodipine Besylate 5 Mg Tablet PO 11/30/24 20:59 5 mg BID LEON Administration Aripiprazole 20 mg 10/31/24 18:36 Aripiprazole 5 Mg Tablet PO 11/30/24 18:35 QDAY PRN migraine headache Aspirin 81 mg 11/02/24 09:00 11/03/24 09:25 Aspirin Ec 81 Mg Tabec PO 12/02/24 08:59 81 mg QDAY LEON Administration Bumetanide 2 mg 10/31/24 18:45 11/03/24 09:23 Bumetanide Inj 0.25 Mg/Ml Vial 4 Ml IVP 11/30/24 18:44 2 mg QDAY LEON Administration Carvedilol 25 mg 10/31/24 18:45 11/03/24 05:02 Carvedilol 12.5 Mg Tablet PO 11/30/24 18:44 25 mg TID LEON Administration Cholestyramine Resin 1 pkt 11/02/24 17:00 11/03/24 11:46 Cholestyramine/Sucrose 1 Pkt Ea PO 12/02/24 16:59 1 pkt QID LEON Administration Duloxetine HCl 60 mg 10/31/24 21:00 11/02/24 20:07 Duloxetine Hcl 30 Mg Capsule PO 11/30/24 20:59 60 mg HS LEON Administration Enoxaparin Sodium 40 mg 10/31/24 09:00 11/03/24 09:23 Enoxaparin Sod Inj 40 Mg/0.4 Ml Syringe SC 11/14/24 08:59 40 mg QDAY LEON Administration Hydrocortisone Sodium Succinate 50 mg 10/31/24 12:00 11/03/24 05:02 Hydrocortisone Sod Succ Inj 100 Mg Vial IV 11/30/24 11:59 50 mg Q8HR LEON Administration Iodine/Potassium Iodide 0.05 ml 11/01/24 10:15 11/03/24 09:26 Potassium Iodide/Iodine 1 Ml (Lugol's) PO 12/01/24 10:14 0.05 ml BID LEON Administration Protocol Labetalol HCl 10 mg 10/31/24 05:26 Labetalol Inj 5 Mg/Ml Vial 20 Ml IVP 11/30/24 04:59 Q6HR PRN sbp>180 or DBP>110 Levalbuterol HCl 1.25 mg 10/31/24 08:34 Levalbuterol Rt 1.25 Mg/0.5 Ml Nebu INH 11/30/24 08:33 Q8HR PRN WHEEZING Levetiracetam 500 mg 10/31/24 21:00 11/03/24 09:25 Levetiracetam 250 Mg Tablet PO 11/30/24 20:59 500 mg BID LEON Administration Methimazole 30 mg 11/01/24 20:00 11/03/24 07:58 Methimazole 5 Mg Tablet PO 12/01/24 19:59 30 mg BID@0800,2000 LEON Administration Protocol Ondansetron HCl 4 mg 10/31/24 04:39 Ondansetron Inj 2 Mg/Ml Inj 2 Ml IVP 11/30/24 04:38 Q6H PRN NAUSEA OR VOMITING Protocol Pantoprazole Sodium 40 mg 10/31/24 09:00 11/03/24 09:25 Pantoprazole 40 Mg Tablet PO 11/30/24 08:59 40 mg QDAY LEON Administration Sodium Chloride 3 ml 10/31/24 08:34 Sodium Chloride Rt Francine 0.9% 3 Ml Nebu INH 11/30/24 08:33 PRN PRN SOLN Spironolactone 50 mg 10/31/24 18:45 11/03/24 09:24 Spironolactone 25 Mg Tablet PO 11/30/24 18:44 50 mg QDAY LEON Administration Valsartan 160 mg 10/31/24 21:00 11/03/24 09:24 Valsartan 80 Mg Tablet PO 11/30/24 20:59 160 mg BID LEON Administration Plan Assessment 39F with history of HFrEF, resistant HTN, Graves' disease, seizure disorder, and prior hypertensive emergency presents with worsening edema, dyspnea, and exertional pleuritic chest pain. Admitted for management of hypertensive emergency with signs of volume overload and uncontrolled hyperthyroidism. #Graves Disease with thyrotoxicosis Free T4 4.0 on 10/31, overall on downtrend. TSH <0.01; likely contributing to BP and HR lability. Caal-Wartofsky Score: 45, highly suggestive of thyroid storm. Seeing endocrine surgeon November 18. ED course: methimazole 40 mg x1, hydrocortisone 100 mg IV x1 Plan: * Methimazole 30mg BID * hydrocortisone 50 mg IV q8h for possible thyroid storm prophylaxis * Trend free T4, T3, and TSH * Continue K+ Lugol's solution 0.05 ml liquid po BID, per Endocrine recommendations * Discontinued propranolol as patient is already on carvedilol for HTN # Hypertensive Emergency # Hypertension Initially with refractory HTN with BP >200 systolic and signs of end-organ effect (dyspnea, elevated BNP, chest discomfort). Per patient, home SBPs typically range in 180-220s, and sometimes higher. Patient continues to complain of blurry vision, headache, dizziness. Her blood pressure on 11/02 were ranging 130-150 and today in the 160s. Suspect her neurological symptoms to be secondary to this significant drop from her baseline. For that reason, we will down titrate her antihypertensive meds to keep her blood pressure above 160 and below 180. Plan: * Cardiology consulted, appreciate recs. * Hold amlodipine 5 mg po BID * carvedilol 25 mg TID * Bumex 2 mg QD * spironolactone 50 mg BID * valsartan 160 mg BID * Labetalol IV push PRN * Discontinued clonidine * Daily BMP for renal status * Strict I/O, daily weights #Blurry vision and dizziness #Stroke ruled out Low suspicion for stroke, but given episode of persistent dizziness and blurry vision, tele-neurology consulted and stroke alert was called on 11/01 at 1145. Troponin 0.121, which was decreased from previous afternoon. Suspect 2/2 significant drop in BP to 130-160s, given she reports home BPs have chronically been uncontrolled in 180-220s. CT Head wo contrast: Negative for acute hemorrhage, mass effect or midline shift CTA Head/Neck: No significant neck arterial stenoses. No cerebral large vessel arterial occlusions or thrombus Brain MRI/MRI were negative for any acute stroke. Plan: * Tele-Neuro consulted. Appreciate recs, stop Wellbutrin * Continue aspirin 325 mg po QD * Plan to consult Neurology, Dr. Raya, tomorrow # HFrEF with reduced EF (EF 40-45%) Evidence of volume overload (BNP 628, LE edema, CHRISTY). History of prior admission with fluid overload. ED course: furosemide 40 mg IV x1 Plan: * Cardiology to follow * Monitor weight, I/O, and symptoms * Repeat echo if significant change in symptoms * Continue medications as above # Seizure Disorder History of daily brain seizures, currently at baseline. Plan: * Continue home Keppra 500 mg po BID * Monitor for clinical seizures * Maintain normonatremia # Anxiety and Depression Patient distressed from prior hospitalization. Appears medically appropriate today. Plan: * duloxetine 60 mg po qHS * Stop buproprion 150 mg po BID * Psych consult PRN # Asthma and IGNACIO Not acutely symptomatic Plan: * Continue home meds, CPAP if used * Monitor for respiratory decompensation # Electrolyte abnormalities # Hypomagnesemia K 3.5, Mg 1.3 in ED Plan: * Replete magnesium and potassium as needed * Monitor daily BMP/Mg # Elevated LFTs and bilirubin Likely chronic, mildly elevated ALP and total bilirubin Plan: * Trend AST, ALT, bili * No acute intervention needed unless worsening Health Maintenance: Disposition: Tele Diet: Cardiac Thromboprophylaxis: Lovenox GI prophylaxis: Consider PPI Code Status: Full Case discussed with my attending Dr. Arias, and senior resident, Dr. Fernando Higginbotham, OMS4 Attending Provider Attestation/Addendum I have discussed and was present for the essential components of the history, physical examination, diagnosis, and treatment plan with the resident. I agree with the patient's care as documented by the resident and amended herein by me. Mitesh Arias, DO. Although this document has been carefully reviewed, there may still be some phonetic and other typographical errors. These errors are purely grammatical due to imperfections in the software program and should not be construed in any way to compromise the substance of the patient's medical care during this visit.
--- NOTE | 2024-11-03 17:30 | PC.NURSE ---
Dr. Lomeli [facility] wants orthostatic vitals done on patient. Patient has family at bedside and eating dinner at this time. I will notify operations supervisor 2nd shift nurse to get them tonight.
--- NOTE | 2024-11-03 17:57 | ESPR_ITS ---
<Statement entered by Eliane Lomeli MD - 11/03/24 19:03> I personally evaluated examined this patient appears to be doing little better but still having this problem with vision blurry vision blood pressures in 160 range now there were possibility of drug interaction multiple psychotropic medications were given now the removed the Wellbutrin only taking Cymbalta Keppra most medically removed might improve her symptoms blood pressure is not satisfactory controlled we will purposely keeping a 160 range rather than 130 range as she is unable to function. I agree with the treatment plan recommendation as documented by PGY 1 Dr. Joaquin will continue to monitor the patient closely. Documentation for date of: 11/03/24 Subjective Subjective Interval history: No significant overnight events. The patient mentions that her symptoms are about the same, including dizziness and lightheadedness at rest. She has been seeing triple and sees halos surrounding objects. She denies fever chills chest pain shortness of breath. She continues to be hypertensive with a BP of 168/107. Patient becomes symptomatic when her blood pressure drops below a systolic of about 140, therefore her systolic blood pressure goal will be slightly higher than a normal value. Exam Vital Signs Temp Pulse Resp BP Pulse Ox O2 Del Method FiO2 97.6 F 66 18 168/107 H 96 Room Air 99 11/03/24 12:00 11/03/24 16:00 11/03/24 12:00 11/03/24 13:16 11/03/24 12:00 11/03/24 12:00 10/31/24 01:44 Narrative Exam General: Overweight female, lethargic. Neurologic: GCS 15. Alert and oriented x3, no gross neurological deficit, and patient able to move all 4 extremities. HEENT: Normocephalic, atraumatic, mucous membranes moist. Pupils reactive to light. Heart: Regular rate and rhythm, normal S1 and S2, no murmurs. Lungs: Clear to auscultation bilaterally with no wheezing or crackles. Abdomen: Soft, nondistended, nontender, positive bowel sounds. No guarding or rebound tenderness. Extremities: 1+ pitting edema in the lower extremities bilaterally. Skin: Warm. Dry. No rash or ecchymoses. Objective Labs 11/03/24 04:50 11/03/24 04:50 Labs: Laboratory Results - last 24 hr 11/02/24 11/03/24 17:15 04:50 WBC 8.0 D RBC 4.70 Hgb 13.2 Hct 39.8 MCV 85 MCH 28.1 MCHC 33.2 RDW Std Deviation 41.7 Plt Count 228 Neut % (Auto) 79 Lymph % (Auto) 14 [place] % (Auto) 7 Eos % (Auto) 0 Baso % (Auto) 0 Neut # (Auto) 6.3 Lymph # (Auto) 1.1 [place] # (Auto) 0.6 Eos # (Auto) 0.0 Baso # (Auto) 0.0 Immature Gran # (Auto) 0.03 H Absolute Nucleated RBC 0.00 Immature Gran % 0 Nucleated RBC % 0 Sodium 138 Potassium 4.9 Chloride 105 Carbon Dioxide 19.3 L Anion Gap 14 BUN 13 Creatinine 0.9 Estim Creat Clear Calc 103.7 eGFR > 60 BUN/Creatinine Ratio 14 Glucose 126 H Calculated Osmolality 277 Calcium 8.9 Corrected Calcium 9.1 Phosphorus 4.0 Magnesium 1.8 Total Bilirubin 1.4 H AST 28 ALT 19 Alkaline Phosphatase 133 H Total Protein 6.3 Albumin 3.7 Globulin 2.6 Albumin/Globulin Ratio 1.4 TSH < 0.01 L* Free T4 2.98 H Free T3 pg/dL 5.0 H Urine Opiates Screen Negative Urine Fentanyl Screen Negative Ur Barbiturates Screen Negative U Amphetamin/Meth Scrn Negative U Benzodiazepines Scrn Negative U Cocaine Metab Screen Negative U Marijuana (THC) Screen Negative Quality Measures Quality Measures VTE prophylaxis Assessment & Plan Assessment Current Active Medications: Generic Name Dose Route Start Last Admin Trade Name Freq PRN Reason Stop Dose Admin Acetaminophen 650 mg 10/31/24 04:39 Acetaminophen 325 Mg Tablet PO 11/30/24 04:38 Q6H PRN Fever >100.4 Acetaminophen 650 mg 10/31/24 04:44 Acetaminophen 325 Mg Tablet PO 11/30/24 04:43 Q6H PRN PAIN SCALE 1-3 (mild Hydrocodone Bitart/Acetaminophen 1 tab 10/31/24 04:44 Hydrocodone/Apap 5/325 Tablet PO 11/05/24 04:43 Q4HR PRN PAIN SCALE 4-10(Mod-Sev Amlodipine Besylate 5 mg 10/31/24 21:00 11/02/24 09:21 Amlodipine Besylate 5 Mg Tablet PO 11/30/24 20:59 5 mg BID LEON Administration Aripiprazole 20 mg 10/31/24 18:36 Aripiprazole 5 Mg Tablet PO 11/30/24 18:35 QDAY PRN migraine headache Aspirin 81 mg 11/02/24 09:00 11/03/24 09:25 Aspirin Ec 81 Mg Tabec PO 12/02/24 08:59 81 mg QDAY LEON Administration Bumetanide 2 mg 10/31/24 18:45 11/03/24 09:23 Bumetanide Inj 0.25 Mg/Ml Vial 4 Ml IVP 11/30/24 18:44 2 mg QDAY LEON Administration Carvedilol 25 mg 10/31/24 18:45 11/03/24 13:16 Carvedilol 12.5 Mg Tablet PO 11/30/24 18:44 25 mg TID LEON Administration Cholestyramine Resin 1 pkt 11/02/24 17:00 11/03/24 17:31 Cholestyramine/Sucrose 1 Pkt Ea PO 12/02/24 16:59 1 pkt QID LEON Administration Duloxetine HCl 60 mg 10/31/24 21:00 11/02/24 20:07 Duloxetine Hcl 30 Mg Capsule PO 11/30/24 20:59 60 mg HS LEON Administration Enoxaparin Sodium 40 mg 10/31/24 09:00 11/03/24 09:23 Enoxaparin Sod Inj 40 Mg/0.4 Ml Syringe SC 11/14/24 08:59 40 mg QDAY LEON Administration Hydrocortisone Sodium Succinate 50 mg 10/31/24 12:00 11/03/24 13:17 Hydrocortisone Sod Succ Inj 100 Mg Vial IV 11/30/24 11:59 50 mg Q8HR LEON Administration Iodine/Potassium Iodide 0.05 ml 11/01/24 10:15 11/03/24 09:26 Potassium Iodide/Iodine 1 Ml (Lugol's) PO 12/01/24 10:14 0.05 ml BID LEON Administration Protocol Labetalol HCl 10 mg 10/31/24 05:26 Labetalol Inj 5 Mg/Ml Vial 20 Ml IVP 11/30/24 04:59 Q6HR PRN sbp>180 or DBP>110 Levalbuterol HCl 1.25 mg 10/31/24 08:34 Levalbuterol Rt 1.25 Mg/0.5 Ml Nebu INH 11/30/24 08:33 Q8HR PRN WHEEZING Levetiracetam 500 mg 10/31/24 21:00 11/03/24 09:25 Levetiracetam 250 Mg Tablet PO 11/30/24 20:59 500 mg BID LEON Administration Methimazole 30 mg 11/01/24 20:00 11/03/24 07:58 Methimazole 5 Mg Tablet PO 12/01/24 19:59 30 mg BID@0800,2000 LEON Administration Protocol Ondansetron HCl 4 mg 10/31/24 04:39 Ondansetron Inj 2 Mg/Ml Inj 2 Ml IVP 11/30/24 04:38 Q6H PRN NAUSEA OR VOMITING Protocol Pantoprazole Sodium 40 mg 10/31/24 09:00 11/03/24 09:25 Pantoprazole 40 Mg Tablet PO 11/30/24 08:59 40 mg QDAY LEON Administration Sodium Chloride 3 ml 10/31/24 08:34 Sodium Chloride Rt Francine 0.9% 3 Ml Nebu INH 11/30/24 08:33 PRN PRN SOLN Spironolactone 50 mg 10/31/24 18:45 11/03/24 09:24 Spironolactone 25 Mg Tablet PO 11/30/24 18:44 50 mg QDAY LEON Administration Valsartan 160 mg 10/31/24 21:00 11/03/24 09:24 Valsartan 80 Mg Tablet PO 11/30/24 20:59 160 mg BID LEON Administration Plan 39-year-old female with a past medical history of CHF, recurrent pericarditis, hypertension, Graves' disease, and anxiety and depression who presented to the ED with worsening shortness of breath, chest pain and palpitations. Patient was admitted for management of hypertension, volume overload, and hypothyroidism. Cardiology was consulted for management of the patient's hypertension, Graves' disease, and HFrEF. #Hypertensive emergency #Graves' disease #HFrEF She has a longstanding history of Graves' disease, with persistent elevated thyroid hormone despite aggressive management with METHIMAZOLE. She is fairly symptomatic and follows up in office for persistent hypertension as a result of poorly controlled Graves' disease, leading to HFrEF with EF in the 40s. Additionally, she appears volume dependent because she becomes symptomatic when blood pressure is decreased from baseline. At this point, recommended maintaining SBP around 160 if possible. 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 No signs of CHF exacerbation. On exam, she has minimal edema of bilateral extremity. Plan: ? Continue to hypertensives, goal systolic around 140-160 ? Continue diuresis with BUMEX ? Continue ANXIOLYTIC medications ? Maintain potassium ? Continue seizure medications ? May be discharged if symptoms i.e. dizziness, resolved ? Follow-up in office in 2 weeks. #Seizure disorder #Anxiety and depression #Asthma and obstructive sleep apnea #Electrolyte abnormalities #Hypomagnesemia #Transaminitis - The remainder of the patient's hospital problems will be managed by the primary team. Patient was seen and discussed with my attending physician Dr. Lomeli. Kraig Joaquin DO PGY-1.
--- NOTE | 2024-11-03 19:09 | ESPR_ITS ---
RE: DIANA RIVAS : 1985 DATE OF SERVICE: 11/03/2024 SUBJECTIVE: The patient is a 39-year-old with history of severe difficult to control hypertension. She has been doing fairly well except she is still having a lot of dizziness and unable to get out of bed because of dizziness and visual disturbance. She is on multiple medications. One of the medications was discontinued. She was on multiple medications including Abilify and duloxetine as well as Keppra. Some of the medications are discontinued now. It may be causing some of her side effects. Blood pressure is controlled fairly well; though, she is still on the higher side. PHYSICAL EXAMINATION: Her examination shows her blood pressure went up again to 180/90. RECOMMENDATION: We will keep her at higher levels as she feels better at higher levels. Evaluate the patient with resident physician. We will continue to monitor the patient closely and ambulate as tolerated. The patient will benefit from thyroidectomy. She will be scheduled for the procedure in [place]. She will be seeing the specialist surgeon in [place], Dr. Cooney. DT: 18:15:23 TT: 19:08:00 Ref: [id number] - TID: [id number]
[2024-11-03] MEDS: DULoxetine HCL 30 MG CAPSULE 60 MG PO (20:02)
[2024-11-04] VITALS (17 sets, daily range): BP systolic 157–185; BP diastolic 75–112; PULSE 63–73; RESP 16–96; TEMP 36.1–36.4; O2SAT 96–99; BMI 36.3
[2024-11-04] MEDS: HYDROCORTISONE SOD SUCC INJ 100 MG VIAL 50 MG IV (05:13)
[2024-11-04] MEDS: CHOLESTYRAMINE/SUCROSE 1 PKT EA PO ×4 (05:13→21:59)
[2024-11-04 06:33] LABS: Basophils # (Auto) 0.0 Thou/mm3 (0.0-0.2); Basophils % (Auto) 0 % (0-2.5); Eosinophils # (Auto) 0.0 Thou/mm3 (0.0-0.5); Eosinophils % (Auto) 0 % (0-10); Hematocrit 40.2 % (36.0-46.0); Hemoglobin 13.3 g/dL (12.0-16.0); Immature Granulocytes Auto 0.02 Thou/mm3 (0.00-0.00); Lymphocytes # (Auto) 1.8 Thou/mm3 (1.0-4.8); Lymphocytes % (Auto) 17 % (10-50); Mean Corpuscular HGB Conc 33.1 g/dl (31.0-37.0); Mean Corpuscular Hemoglobin 27.9 pg (25.0-35.0); Mean Corpuscular Volume 84 fL (80-100); Monocytes # (Auto) 0.9 Thou/mm3 (0.0-0.8); Monocytes % (Auto) 9 % (0-12); Neutrophils # (Auto) 7.4 Thou/mm3 (1.8-7.7); Neutrophils % (Auto) 73 % (37-80); Nucleated Red Blood Cell # 0.00 Thou/mm3 (0.00-0.00); Nucleated Red Blood Cell % 0 /100 WBC (0); Platelet Count 250 Thou/mm3 (140-440); RDW Standard Deviation 40.8 fL (36.4-46.3); Red Blood Count 4.77 Miln/mm3 (4.00-5.20); White Blood Count 10.0 Thou/mm3 (3.6-11.0)
[2024-11-04 07:08] LABS: Alanine Aminotransferase 14 U/L (10-49); Albumin, Serum 3.6 gm/dL (3.5-5.0); Albumin/Globulin Ratio 1.4 (1.2-2.2); Alkaline Phosphatase 125 U/L (46-116); Anion Gap 10 (7-16); Aspartate Amino Transferase 13 U/L (0-34); BUN/Creatinine Ratio 19 Ratio (12-20); Bilirubin,Total 1.0 mg/dL (0.3-1.2); Blood Urea Nitrogen 19 mg/dL (9-23); Calcium 8.9 mg/dL (8.3-10.6); Calcium (Corrected) 9.2 mg/dL (8.5-10.1); Carbon Dioxide 22.8 mMol/L (20.0-31.0); Chloride 107 mMol/L (98-107); Creatinine (Component) 1.0 mg/dL (0.6-1.3); Estimated Creatinine Clearance 92.4 mL/min (>60); Free T3 4.4 pg/mL (2.3-4.2); Free T4 (Free Thyroxine) 2.82 ng/dL (0.89-1.76); Globulin 2.6 gm/dL (2.3-3.5); Glucose 111 mg/dL (74-106); Magnesium 1.8 mg/dL (1.6-2.6); Osmolality,Calculated 282 (275-295); Phosphorous 4.1 mg/dL (2.4-5.1); Potassium 4.1 mMol/L (3.4-5.1); Sodium 140 mMol/L (136-145); Total Protein 6.2 gm/dL (5.7-8.2); eGFR > 60 See Note
[2024-11-04] MEDS: METHIMAZOLE 5 MG TABLET 30 MG PO ×2 (07:36→21:53)
[2024-11-04] MEDS: POTASSIUM IODIDE PO ×3 (08:54→22:08)
[2024-11-04] MEDS: BUMETANIDE INJ 0.25 MG/ML VIAL 4 ML 2 MG IVP (08:54)
[2024-11-04] MEDS: ENOXAPARIN SOD INJ 40 MG/0.4 ML SYRINGE SC (08:54)
[2024-11-04] MEDS: IODINE PO ×3 (08:54→22:08)
[2024-11-04] MEDS: VALSARTAN 80 MG TABLET 160 MG PO ×2 (08:55→21:54)
[2024-11-04] MEDS: PANTOPRAZOLE 40 MG TABLET PO (08:55)
[2024-11-04] MEDS: SPIRONOLACTONE 25 MG TABLET 50 MG PO (08:56)
[2024-11-04] MEDS: ASPIRIN EC 81 MG TABEC PO (08:56)
--- NOTE | 2024-11-04 10:57 | PC.PT ---
Patient is safe to ambulate to the bathroom and outside her room with a FWW and 1 staff assist. RN made aware.
--- NOTE | 2024-11-04 11:44 | PC.SS ---
rounding note: Patient not medically stable for discharge. Possible d/c home 1-2 days
[2024-11-04] MEDS: HYDROCORTISONE SOD SUCC INJ 100 MG VIAL 25 MG IV ×2 (13:37→22:01)
--- NOTE | 2024-11-04 13:57 | ESPR_ITS ---
<Statement entered by Janeth King MD - 11/04/24 16:25> I have reviewed the note and agree with the resident's assessment & plan with exceptions as below. I have personally reviewed labs, imaging, home meds/prior records, examined the patient, formulated and discussed management plan with the IM team. Patient examined at bedside today. No acute overnight events. Patient continues to improve. Will order physical therapy on this patient to evaluate further weakness and dizziness. Contacted cardiology who recommend to continue with Coreg 25 mg 3 times a day. Spoke with endocrinology who recommended to continue methimazole 30 mg twice daily, increase Lugol's solution to 3 times a day, and also to decrease hydrocortisone 25 mg IV every 8 hours for 2 days, then twice daily for 2 days and then once a day for 2 days. Repeat hematology and chemistry in AM. Free T3 and T4 continue to downtrend, will continue to trend these markers as well. Anticipate discharge in the next 24 to 48 hours. Janeth King, PGY-2 Internal Medicine Documentation for date of: 11/04/24 Subjective Subjective Interval history: Patient was examined at bedside. No acute events overnight. Patient reports some improvement in dizziness, blurry vision, and shortness of breath today. She notes improvement in tight sensation of her RLE, now just at the toes of the right foot. Exam Vital Signs Temp Pulse Resp BP Pulse Ox O2 Del Method FiO2 97.2 F 65 18 168/85 H 96 Room Air 99 11/04/24 11:49 11/04/24 13:37 11/04/24 11:49 11/04/24 13:37 11/04/24 11:49 11/04/24 11:49 10/31/24 01:44 Narrative Exam Gen: Alert, A&Ox3, in no acute distress at rest. HEENT: Left eye exopthalmos. Normocephalic and atraumatic. CV: RRR. Normal S1/S2. No murmurs appreciated. Resp: Mildly increased respiratory effort, but CTAB Ext: Trace non-pitting edema of lower extremities bilaterally. Neuro: Moving all extremities spontaneously. Skin: Warm and dry Psych: Appropriate mood and affect Objective Labs 11/04/24 05:04 11/04/24 05:04 Labs: Laboratory Results - last 24 hr 11/04/24 05:04 WBC 10.0 RBC 4.77 Hgb 13.3 Hct 40.2 MCV 84 MCH 27.9 MCHC 33.1 RDW Std Deviation 40.8 Plt Count 250 Neut % (Auto) 73 Lymph % (Auto) 17 [place] % (Auto) 9 Eos % (Auto) 0 Baso % (Auto) 0 Neut # (Auto) 7.4 Lymph # (Auto) 1.8 [place] # (Auto) 0.9 H Eos # (Auto) 0.0 Baso # (Auto) 0.0 Immature Gran # (Auto) 0.02 H Absolute Nucleated RBC 0.00 Immature Gran % 0 Nucleated RBC % 0 Sodium 140 Potassium 4.1 D Chloride 107 Carbon Dioxide 22.8 Anion Gap 10 BUN 19 Creatinine 1.0 Estim Creat Clear Calc 92.4 eGFR > 60 BUN/Creatinine Ratio 19 Glucose 111 H Calculated Osmolality 282 Calcium 8.9 Corrected Calcium 9.2 Phosphorus 4.1 Magnesium 1.8 Total Bilirubin 1.0 AST 13 ALT 14 Alkaline Phosphatase 125 H Total Protein 6.2 Albumin 3.6 Globulin 2.6 Albumin/Globulin Ratio 1.4 Free T4 2.82 H Free T3 pg/dL 4.4 H Quality Measures Quality Measures VTE prophylaxis Assessment & Plan Assessment Current Active Medications: Generic Name Dose Route Start Last Admin Trade Name Freq PRN Reason Stop Dose Admin Acetaminophen 650 mg 10/31/24 04:39 Acetaminophen 325 Mg Tablet PO 11/30/24 04:38 Q6H PRN Fever >100.4 Acetaminophen 650 mg 10/31/24 04:44 Acetaminophen 325 Mg Tablet PO 11/30/24 04:43 Q6H PRN PAIN SCALE 1-3 (mild Hydrocodone Bitart/Acetaminophen 1 tab 10/31/24 04:44 Hydrocodone/Apap 5/325 Tablet PO 11/05/24 04:43 Q4HR PRN PAIN SCALE 4-10(Mod-Sev Amlodipine Besylate 5 mg 10/31/24 21:00 11/02/24 09:21 Amlodipine Besylate 5 Mg Tablet PO 11/30/24 20:59 5 mg BID LEON Administration Aripiprazole 20 mg 10/31/24 18:36 Aripiprazole 5 Mg Tablet PO 11/30/24 18:35 QDAY PRN migraine headache Aspirin 81 mg 11/02/24 09:00 11/04/24 08:56 Aspirin Ec 81 Mg Tabec PO 12/02/24 08:59 81 mg QDAY LEON Administration Bumetanide 2 mg 10/31/24 18:45 11/04/24 08:54 Bumetanide Inj 0.25 Mg/Ml Vial 4 Ml IVP 11/30/24 18:44 2 mg QDAY LEON Administration Carvedilol 25 mg 10/31/24 18:45 11/04/24 13:37 Carvedilol 12.5 Mg Tablet PO 11/30/24 18:44 25 mg TID LEON Administration Cholestyramine Resin 1 pkt 11/02/24 17:00 11/04/24 11:44 Cholestyramine/Sucrose 1 Pkt Ea PO 12/02/24 16:59 1 pkt QID LEON Administration Duloxetine HCl 60 mg 10/31/24 21:00 11/03/24 20:02 Duloxetine Hcl 30 Mg Capsule PO 11/30/24 20:59 60 mg HS LEON Administration Enoxaparin Sodium 40 mg 10/31/24 09:00 11/04/24 08:54 Enoxaparin Sod Inj 40 Mg/0.4 Ml Syringe SC 11/14/24 08:59 40 mg QDAY LEON Administration Hydrocortisone Sodium Succinate 25 mg 11/04/24 14:00 11/04/24 13:37 Hydrocortisone Sod Succ Inj 100 Mg Vial IV 12/04/24 13:59 25 mg Q8HR LEON Administration Iodine/Potassium Iodide 0.05 ml 11/04/24 14:00 11/04/24 13:38 Potassium Iodide/Iodine 1 Ml (Lugol's) PO 12/04/24 13:59 0.05 ml TID LEON Administration Protocol Labetalol HCl 10 mg 10/31/24 05:26 Labetalol Inj 5 Mg/Ml Vial 20 Ml IVP 11/30/24 04:59 Q6HR PRN sbp>180 or DBP>110 Levalbuterol HCl 1.25 mg 10/31/24 08:34 Levalbuterol Rt 1.25 Mg/0.5 Ml Nebu INH 11/30/24 08:33 Q8HR PRN WHEEZING Levetiracetam 500 mg 10/31/24 21:00 11/04/24 08:55 Levetiracetam 250 Mg Tablet PO 11/30/24 20:59 500 mg BID LEON Administration Methimazole 30 mg 11/01/24 20:00 08/11/25 07:36 Methimazole 5 Mg Tablet PO 12/01/24 19:59 30 mg BID@0800,2000 LEON Administration Protocol Ondansetron HCl 4 mg 10/31/24 04:39 Ondansetron Inj 2 Mg/Ml Inj 2 Ml IVP 11/30/24 04:38 Q6H PRN NAUSEA OR VOMITING Protocol Pantoprazole Sodium 40 mg 10/31/24 09:00 11/04/24 08:55 Pantoprazole 40 Mg Tablet PO 11/30/24 08:59 40 mg QDAY LEON Administration Sodium Chloride 3 ml 10/31/24 08:34 Sodium Chloride Rt Francine 0.9% 3 Ml Nebu INH 11/30/24 08:33 PRN PRN SOLN Spironolactone 50 mg 10/31/24 18:45 11/04/24 08:56 Spironolactone 25 Mg Tablet PO 11/30/24 18:44 50 mg QDAY LEON Administration Valsartan 160 mg 10/31/24 21:00 11/04/24 08:55 Valsartan 80 Mg Tablet PO 11/30/24 20:59 160 mg BID LEON Administration Plan Assessment 39F with history of HFrEF, resistant HTN, Graves' disease, seizure disorder, and prior hypertensive emergency presents with worsening edema, dyspnea, and exertional pleuritic chest pain. Admitted for management of hypertensive emergency with signs of volume overload and uncontrolled hyperthyroidism. #Graves Disease with thyrotoxicosis Free T4 4.0 on 10/31. T3 and T4 both on downtrend overall. TSH <0.01; likely contributing to BP and HR lability. Caal-Wartofsky Score: 45, highly suggestive of thyroid storm. Seeing endocrine surgeon November 18. ED course: methimazole 40 mg x1, hydrocortisone 100 mg IV x1 Plan: * Methimazole 30mg BID * Decrease hydrocortisone from 50 mg to 25 mg IV q8h x 2 days for possible thyroid storm prophylaxis. Starting 11/06, plan to decrease to 25 mg BID x 2 days, then 25 mg QD x 2 days, per Endocrine recs. * Continue K+ Lugol's solution 0.05 ml liquid po BID, per Endocrine recommendations * Discontinued propranolol as patient is already on carvedilol for HTN * Trend free T4 and T3 # Hypertensive Emergency # Hypertension Initially with refractory HTN with BP >200 systolic and signs of end-organ effect (dyspnea, elevated BNP, chest discomfort). Per patient, home SBPs typically range in 180-220s, and sometimes higher. Suspect secondary to uncontrolled thyroid levels. Patient continues to complain of blurry vision, headache, dizziness. Her blood pressure on 11/02 were ranging 130-150 and today in the 160s. Suspect her neurological symptoms to be secondary to this significant drop from her baseline. For that reason, we will down titrate her antihypertensive meds to keep her blood pressure above 160 and below 180. Plan: * Cardiology consulted, appreciate recs. Goal SBP of 140-160 for now, per Cardiology. * Hold amlodipine 5 mg po BID * carvedilol 25 mg TID. Per cardiology recs, will stay at this dose for now. * Bumex 2 mg QD * spironolactone 50 mg BID * valsartan 160 mg BID * Labetalol IV push PRN * Discontinued clonidine * Daily BMP for renal status * Strict I/O, daily weights #Blurry vision and dizziness #Stroke ruled out Low suspicion for stroke, but given episode of persistent dizziness and blurry vision, tele-neurology consulted and stroke alert was called on 11/01 at 1145. Troponin 0.121, which was decreased from previous afternoon. Suspect 2/2 significant drop in BP to 130-160s, given she reports home BPs have chronically been uncontrolled in 180-220s. CT Head wo contrast: Negative for acute hemorrhage, mass effect or midline shift CTA Head/Neck: No significant neck arterial stenoses. No cerebral large vessel arterial occlusions or thrombus Brain MRI/MRI were negative for any acute stroke. Plan: * Tele-Neuro consulted. Appreciate recs, stop Wellbutrin * Continue aspirin 325 mg po QD * Plan to consult Neurology, Dr. Raya. Appreciate recs * PT/OT consulted, appreciate recs # HFrEF with reduced EF (EF 40-45%) Evidence of volume overload (BNP 628, LE edema, CHRISTY). History of prior admission with fluid overload. ED course: furosemide 40 mg IV x1 Plan: * Cardiology to follow * Monitor weight, I/O, and symptoms * Repeat echo if significant change in symptoms * Continue medications as above # Seizure Disorder History of daily brain seizures, currently at baseline. Plan: * Continue home Keppra 500 mg po BID * Monitor for clinical seizures * Maintain normonatremia # Anxiety and Depression Patient distressed from prior hospitalization. Appears medically appropriate today. Plan: * duloxetine 60 mg po qHS * Stop buproprion 150 mg po BID * Psych consult PRN # Asthma and IGNACIO Not acutely symptomatic Plan: * Continue home meds, CPAP if used * Monitor for respiratory decompensation # Electrolyte abnormalities # Hypomagnesemia K 3.5, Mg 1.3 in ED Plan: * Replete magnesium and potassium as needed * Monitor daily BMP/Mg # Elevated LFTs and bilirubin Likely chronic, mildly elevated ALP and total bilirubin Plan: * Trend AST, ALT, bili * No acute intervention needed unless worsening Health Maintenance: Disposition: Tele Diet: Cardiac Thromboprophylaxis: Lovenox GI prophylaxis: Consider PPI Code Status: Full Case discussed with my attending Dr. Arias, and senior resident, Dr. Fernando Higginbotham, OMS4 Attending Provider Attestation/Addendum I have discussed and was present for the essential components of the history, physical examination, diagnosis, and treatment plan with the resident. I agree with the patient's care as documented by the resident and amended herein by me. Mitesh Arias, DO. Although this document has been carefully reviewed, there may still be some phonetic and other typographical errors. These errors are purely grammatical due to imperfections in the software program and should not be construed in any way to compromise the substance of the patient's medical care during this visit. Patient seen and evaluated this AM. Still feels lightheaded today, although improved from previous day, BP is 176/102 mmHg this morning. I/O14 . Labs largely unremarkable, free T42.82 Today. Neurology consulted, appreciate recommendations. 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 Patient can be discharged once her mentation improves however were not there yet. She did work with physical therapy today and is able to get up and walk to the bathroom without issue.
--- NOTE | 2024-11-04 16:03 | PC.SS ---
SS met with patient to verify d/c plans. Patient confirmed she will be returning home. Patient states her insurance goes through [employer]. SS re submitted for DME request to [employer]. Pending walker order for review and delivery
--- NOTE | 2024-11-04 16:37 | PC.SS ---
SENIOR TECHNICAL PROJECT MANAGER received phone call from [facility] stating that vendor can deliver walker to patient's bedside today. SENIOR TECHNICAL PROJECT MANAGER provided patient's room number to [facility] for DME delivery.
--- NOTE | 2024-11-04 17:51 | PD.RESPRO ---
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 Patient examined at bedside. Denied any chest pain or vision loss but continues to complain of blurry vision. Denied chest pain. Denied any numbness or loss of motor function in upper or lower extremities. Exam Vital Signs Temp Pulse Resp BP Pulse Ox O2 Del Method FiO2 97 F 70 18 169/105 H 99 Room Air 99 11/04/24 16:00 11/04/24 16:11/04/24 16:11/04/24 16:11/04/24 16:11/04/24 16:00 10/31/24 01:44 Narrative Exam General Appearance: Alert & Oriented X3, well-nourished female who is lying in bed in no acute distress HEENT: Skull symmetrical and atraumatic. Conjunctivae pink and moist. Pupils equal, round, reactive to light and accommodation (PERRL). External ear without lesion or discharge. Straight, nares patient, mucosa pink, no discharge. Cardio: Normal Rate and Rhythm with S1 and S2 heart sounds. No murmurs or extra heart sounds auscultated. No bruits on carotid auscultation. No peripheral edema or cyanosis. Lungs: Symmetric with good expansion. Chest and back non-tender. Breath sounds vesicular without crackles, wheezing or rhonchi Abdomen: Non-tender, Non-distended, Normal Reactive Bowel Sounds Neuro: Alert, cooperative, oriented to person, place, and time. Speech clear. CN grossly intact. Upper motor strength 5/5 and Lower motor strength 5/5. Sensation intact. Brisk reflexes Objective Labs 11/05/24 05:45 11/05/24 05:45 Labs: Laboratory Results - last 24 hr 11/04/24 05:04 WBC 10.0 RBC 4.77 Hgb 13.3 Hct 40.2 MCV 84 MCH 27.9 MCHC 33.1 RDW Std Deviation 40.8 Plt Count 250 Neut % (Auto) 73 Lymph % (Auto) 17 [place] % (Auto) 9 Eos % (Auto) 0 Baso % (Auto) 0 Neut # (Auto) 7.4 Lymph # (Auto) 1.8 [place] # (Auto) 0.9 H Eos # (Auto) 0.0 Baso # (Auto) 0.0 Immature Gran # (Auto) 0.02 H Absolute Nucleated RBC 0.00 Immature Gran % 0 Nucleated RBC % 0 Sodium 140 Potassium 4.1 D Chloride 107 Carbon Dioxide 22.8 Anion Gap 10 BUN 19 Creatinine 1.0 Estim Creat Clear Calc 92.4 eGFR > 60 BUN/Creatinine Ratio 19 Glucose 111 H Calculated Osmolality 282 Calcium 8.9 Corrected Calcium 9.2 Phosphorus 4.1 Magnesium 1.8 Total Bilirubin 1.0 AST 13 ALT 14 Alkaline Phosphatase 125 H Total Protein 6.2 Albumin 3.6 Globulin 2.6 Albumin/Globulin Ratio 1.4 Free T4 2.82 H Free T3 pg/dL 4.4 H Quality Measures Quality Measures VTE prophylaxis Assessment & Plan Assessment Current Active Medications: Generic Name Dose Route Start Last Admin Trade Name Freq PRN Reason Stop Dose Admin Acetaminophen 650 mg 10/31/24 04:39 Acetaminophen 325 Mg Tablet PO 11/30/24 04:38 Q6H PRN Fever >100.4 Acetaminophen 650 mg 10/31/24 04:44 Acetaminophen 325 Mg Tablet PO 11/30/24 04:43 Q6H PRN PAIN SCALE 1-3 (mild Hydrocodone Bitart/Acetaminophen 1 tab 10/31/24 04:44 Hydrocodone/Apap 5/325 Tablet PO 11/05/24 04:43 Q4HR PRN PAIN SCALE 4-10(Mod-Sev Amlodipine Besylate 5 mg 10/31/24 21:00 11/02/24 09:21 Amlodipine Besylate 5 Mg Tablet PO 11/30/24 20:59 5 mg BID LEON Administration Aripiprazole 20 mg 10/31/24 18:36 Aripiprazole 5 Mg Tablet PO 11/30/24 18:35 QDAY PRN migraine headache Aspirin 81 mg 11/02/24 09:00 11/04/24 08:56 Aspirin Ec 81 Mg Tabec PO 12/02/24 08:59 81 mg QDAY LEON Administration Bumetanide 2 mg 10/31/24 18:45 11/04/24 08:54 Bumetanide Inj 0.25 Mg/Ml Vial 4 Ml IVP 11/30/24 18:44 2 mg QDAY LEON Administration Carvedilol 25 mg 10/31/24 18:45 11/04/24 13:37 Carvedilol 12.5 Mg Tablet PO 11/30/24 18:44 25 mg TID LEON Administration Cholestyramine Resin 1 pkt 11/02/24 17:00 11/04/24 16:49 Cholestyramine/Sucrose 1 Pkt Ea PO 12/02/24 16:59 1 pkt QID LEON Administration Duloxetine HCl 60 mg 10/31/24 21:00 11/03/24 20:02 Duloxetine Hcl 30 Mg Capsule PO 11/30/24 20:59 60 mg HS LEON Administration Enoxaparin Sodium 40 mg 10/31/24 09:00 11/04/24 08:54 Enoxaparin Sod Inj 40 Mg/0.4 Ml Syringe SC 11/14/24 08:59 40 mg QDAY LEON Administration Hydrocortisone Sodium Succinate 25 mg 11/04/24 14:00 11/04/24 13:37 Hydrocortisone Sod Succ Inj 100 Mg Vial IV 12/04/24 13:59 25 mg Q8HR LEON Administration Iodine/Potassium Iodide 0.05 ml 11/04/24 14:00 11/04/24 13:38 Potassium Iodide/Iodine 1 Ml (Lugol's) PO 12/04/24 13:59 0.05 ml TID LEON Administration Protocol Labetalol HCl 10 mg 10/31/24 05:26 Labetalol Inj 5 Mg/Ml Vial 20 Ml IVP 11/30/24 04:59 Q6HR PRN sbp>180 or DBP>110 Levalbuterol HCl 1.25 mg 10/31/24 08:34 Levalbuterol Rt 1.25 Mg/0.5 Ml Nebu INH 11/30/24 08:33 Q8HR PRN WHEEZING Levetiracetam 500 mg 10/31/24 21:00 11/04/24 08:55 Levetiracetam 250 Mg Tablet PO 11/30/24 20:59 500 mg BID LEON Administration Methimazole 30 mg 11/01/24 20:00 11/04/24 07:36 Methimazole 5 Mg Tablet PO 12/01/24 19:59 30 mg BID@0800,2000 LEON Administration Protocol Ondansetron HCl 4 mg 10/31/24 04:39 Ondansetron Inj 2 Mg/Ml Inj 2 Ml IVP 11/30/24 04:38 Q6H PRN NAUSEA OR VOMITING Protocol Pantoprazole Sodium 40 mg 10/31/24 09:00 11/04/24 08:55 Pantoprazole 40 Mg Tablet PO 11/30/24 08:59 40 mg QDAY LEON Administration Sodium Chloride 3 ml 10/31/24 08:34 Sodium Chloride Rt Francine 0.9% 3 Ml Nebu INH 11/30/24 08:33 PRN PRN SOLN Spironolactone 50 mg 10/31/24 18:45 11/04/24 08:56 Spironolactone 25 Mg Tablet PO 11/30/24 18:44 50 mg QDAY LEON Administration Valsartan 160 mg 10/31/24 21:00 11/04/24 08:55 Valsartan 80 Mg Tablet PO 11/30/24 20:59 160 mg BID LEON Administration Plan Patient is a 39 year old female with a past medical history of resistant hypertension, CHFrEF 40-45% (07/03/2024), Mild pulmonary arterial hypertension, 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 Given dizziness and blurry vision, history of hypertension and graves disease contributing to visual changes can not be ruled out vs trigeminal neuralgia less likely vs unlikely optic neurtitis as there no pain associated with changes vs migraines can not be ruled out. Lipid: Triglyceries 70, Cholesterol 112, LDL 65, HDL 33 ASCVD: 1.2% no statins recommended. Plan -EEG -Aspirin 81 mg PO HS -Orthostatic Vitals Obtained, negative -Monitor electrolytes #Seizure Patient has a past medical history of seizure with home medicaiton keppra 500 mg PO BID. Per patient, was started on Abilify secondary to headaches Plan -Continue home medicaiton Keppra 500 mg PO BID -Wellbutin d/c given risk of loweirng seizure threshould -EEG ordered #Graves Disease, concern for thyrotoxicosi #Resistant Hypertension #Hypertension #CHF HFrEF 40-45% (07/03/2024) #Mild PAH #History of percarditis #MARCELO and Depression #IGNACIO #Asthma - The patient's plan was discussed with attending Dr. Elver Hollis MD PGY2 Internal Medicine Attending Provider Attestation/Addendum I personally have seen and examined the patient at the bedside and I agreed with resident's findings, assessment and plan of care. Imp: her presenting symptom is most likely from Hypertensive crisis/Presyncope/Syncope FU with EEG Continue with Keppra. Recommend to dc wellbutrin as it can lower the sx threshold. She can continue with Cymbalta and Abilify and aggressive BP mgt.
--- NOTE | 2024-11-04 20:23 | ESPR_ITS ---
<Statement entered by Eliane Lomeli MD - 11/10/24 18:32> I personally evaluated and examined this patient with resident physician Dr. talha Cisse PGY2 on agree with the treatment plan regulation as documented patient still has labile hypertension but somewhat feeling lightheaded and dizzy we will continue to adjust the medications she is a blood pressure slightly higher than normal and I referred her not to get too much dizziness. Elevated to the patient agree with the treatment plan recommendations documented Documentation for date of: 11/04/24 Subjective Subjective Interval history: No acute overnight events. Seen and examined at bedside. Reports improvement in her symptoms of dizziness and lightheadedness, however still reports visual disturbances, seeing double vision although improved from yesterday. Currently we're allowing for permissive hypertension with SBP around 160 to prevent symptoms of drastic altercation of blood pressure given that her blood pressure chronically elevated. Additionally, recommended obtaining EEG to rule out seizures as a patient has a history of seizures, and has been on the same medication for years and not following with neurology. Exam Vital Signs Temp Pulse Resp BP Pulse Ox O2 Del Method FiO2 97 F 70 18 169/105 H 99 Room Air 99 11/04/24 16:00 11/04/24 16:00 11/04/24 16:00 11/04/24 16:11/04/24 16:11/04/24 16:00 10/31/24 01:44 Narrative Exam General: Overweight female, lethargic. Neurologic: GCS 15. Alert and oriented x3, no gross neurological deficit, and patient able to move all 4 extremities. HEENT: Normocephalic, atraumatic, mucous membranes moist. Pupils reactive to light. Heart: Regular rate and rhythm, normal S1 and S2, no murmurs. Lungs: Clear to auscultation bilaterally with no wheezing or crackles. Abdomen: Soft, nondistended, nontender, positive bowel sounds. No guarding or rebound tenderness. Extremities: 2+ pitting edema in the lower extremities bilaterally. Skin: Warm. Dry. No rash or ecchymoses. Objective Labs 11/05/24 05:45 11/05/24 05:45 Labs: Laboratory Results - last 24 hr 11/04/24 05:04 WBC 10.0 RBC 4.77 Hgb 13.3 Hct 40.2 MCV 84 MCH 27.9 MCHC 33.1 RDW Std Deviation 40.8 Plt Count 250 Neut % (Auto) 73 Lymph % (Auto) 17 [place] % (Auto) 9 Eos % (Auto) 0 Baso % (Auto) 0 Neut # (Auto) 7.4 Lymph # (Auto) 1.8 [place] # (Auto) 0.9 H Eos # (Auto) 0.0 Baso # (Auto) 0.0 Immature Gran # (Auto) 0.02 H Absolute Nucleated RBC 0.00 Immature Gran % 0 Nucleated RBC % 0 Sodium 140 Potassium 4.1 D Chloride 107 Carbon Dioxide 22.8 Anion Gap 10 BUN 19 Creatinine 1.0 Estim Creat Clear Calc 92.4 eGFR > 60 BUN/Creatinine Ratio 19 Glucose 111 H Calculated Osmolality 282 Calcium 8.9 Corrected Calcium 9.2 Phosphorus 4.1 Magnesium 1.8 Total Bilirubin 1.0 AST 13 ALT 14 Alkaline Phosphatase 125 H Total Protein 6.2 Albumin 3.6 Globulin 2.6 Albumin/Globulin Ratio 1.4 Free T4 2.82 H Free T3 pg/dL 4.4 H Quality Measures Quality Measures VTE prophylaxis Assessment & Plan Assessment Current Active Medications: Generic Name Dose Route Start Last Admin Trade Name Freq PRN Reason Stop Dose Admin Acetaminophen 650 mg 10/31/24 04:39 Acetaminophen 325 Mg Tablet PO 11/30/24 04:38 Q6H PRN Fever >100.4 Acetaminophen 650 mg 10/31/24 04:44 Acetaminophen 325 Mg Tablet PO 11/30/24 04:43 Q6H PRN PAIN SCALE 1-3 (mild Hydrocodone Bitart/Acetaminophen 1 tab 10/31/24 04:44 Hydrocodone/Apap 5/325 Tablet PO 11/05/24 04:43 Q4HR PRN PAIN SCALE 4-10(Mod-Sev Amlodipine Besylate 5 mg 10/31/24 21:00 11/02/24 09:21 Amlodipine Besylate 5 Mg Tablet PO 11/30/24 20:59 5 mg BID LEON Administration Aripiprazole 20 mg 10/31/24 18:36 Aripiprazole 5 Mg Tablet PO 11/30/24 18:35 QDAY PRN migraine headache Aspirin 81 mg 11/02/24 09:00 11/04/24 08:56 Aspirin Ec 81 Mg Tabec PO 12/02/24 08:59 81 mg QDAY LEON Administration Bumetanide 2 mg 10/31/24 18:45 11/04/24 08:54 Bumetanide Inj 0.25 Mg/Ml Vial 4 Ml IVP 11/30/24 18:44 2 mg QDAY LEON Administration Carvedilol 25 mg 10/31/24 18:45 11/04/24 13:37 Carvedilol 12.5 Mg Tablet PO 11/30/24 18:44 25 mg TID LEON Administration Cholestyramine Resin 1 pkt 11/02/24 17:00 11/04/24 16:49 Cholestyramine/Sucrose 1 Pkt Ea PO 12/02/24 16:59 1 pkt QID LEON Administration Duloxetine HCl 60 mg 10/31/24 21:00 11/03/24 20:02 Duloxetine Hcl 30 Mg Capsule PO 11/30/24 20:59 60 mg HS LEON Administration Enoxaparin Sodium 40 mg 10/31/24 09:00 11/04/24 08:54 Enoxaparin Sod Inj 40 Mg/0.4 Ml Syringe SC 11/14/24 08:59 40 mg QDAY LEON Administration Hydrocortisone Sodium Succinate 25 mg 11/04/24 14:00 11/04/24 13:37 Hydrocortisone Sod Succ Inj 100 Mg Vial IV 12/04/24 13:59 25 mg Q8HR LEON Administration Iodine/Potassium Iodide 0.05 ml 11/04/24 14:00 11/04/24 13:38 Potassium Iodide/Iodine 1 Ml (Lugol's) PO 12/04/24 13:59 0.05 ml TID LEON Administration Protocol Labetalol HCl 10 mg 10/31/24 05:26 Labetalol Inj 5 Mg/Ml Vial 20 Ml IVP 11/30/24 04:59 Q6HR PRN sbp>180 or DBP>110 Levalbuterol HCl 1.25 mg 10/31/24 08:34 Levalbuterol Rt 1.25 Mg/0.5 Ml Nebu INH 11/30/24 08:33 Q8HR PRN WHEEZING Levetiracetam 500 mg 10/31/24 21:00 11/04/24 08:55 Levetiracetam 250 Mg Tablet PO 11/30/24 20:59 500 mg BID LEON Administration Methimazole 30 mg 11/01/24 20:00 11/04/24 07:36 Methimazole 5 Mg Tablet PO 12/01/24 19:59 30 mg BID@0800,2000 LEON Administration Protocol Ondansetron HCl 4 mg 10/31/24 04:39 Ondansetron Inj 2 Mg/Ml Inj 2 Ml IVP 11/30/24 04:38 Q6H PRN NAUSEA OR VOMITING Protocol Pantoprazole Sodium 40 mg 10/31/24 09:00 11/04/24 08:55 Pantoprazole 40 Mg Tablet PO 11/30/24 08:59 40 mg QDAY LEON Administration Sodium Chloride 3 ml 10/31/24 08:34 Sodium Chloride Rt Francine 0.9% 3 Ml Nebu INH 11/30/24 08:33 PRN PRN SOLN Spironolactone 50 mg 10/31/24 18:45 11/04/24 08:56 Spironolactone 25 Mg Tablet PO 11/30/24 18:44 50 mg QDAY LEON Administration Valsartan 160 mg 10/31/24 21:00 11/04/24 08:55 Valsartan 80 Mg Tablet PO 11/30/24 20:59 160 mg BID LEON Administration Plan 39-year-old female with a past medical history of CHF, recurrent pericarditis, hypertension, Graves' disease, and anxiety and depression who presented to the ED with worsening shortness of breath, chest pain and palpitations. Patient was admitted for management of hypertension, volume overload, and hypothyroidism. Cardiology was consulted for management of the patient's hypertension, Graves' disease, and HFrEF. #Hypertensive emergency #Graves' disease #HFrEF She has a longstanding history of Graves' disease, with persistent elevated thyroid hormone despite aggressive management with METHIMAZOLE. She is fairly symptomatic and follows up in office for persistent hypertension as a result of poorly controlled Graves' disease, leading to HFrEF with EF in the 40s. Additionally, she appears volume dependent because she becomes symptomatic when blood pressure is decreased from baseline. At this point, recommended maintaining SBP around 160 if possible. 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 No signs of CHF exacerbation. On exam, she has minimal edema of bilateral extremity. Plan: ? Recommended EEG to rule out active seizures as an underlying cause for her dizziness and visual disturbances. ? Continue to hypertensives, goal systolic around 140-160 ? Continue diuresis with BUMEX ? Continue ANXIOLYTIC medications ? Maintain potassium ? Continue seizure medications ? May be discharged if symptoms i.e. dizziness, resolved ? Follow-up in office in 2 weeks. #Seizure disorder #Anxiety and depression #Asthma and obstructive sleep apnea #Electrolyte abnormalities #Hypomagnesemia #Transaminitis - The remainder of the patient's hospital problems will be managed by the primary team. Patient was seen and discussed with my attending physician Dr. Lomeli. Kraig Joaquin DO PGY-1.
[2024-11-04] MEDS: DULoxetine HCL 30 MG CAPSULE 60 MG PO (21:54)
[2024-11-05] VITALS (12 sets, daily range): BP systolic 144–181; BP diastolic 81–106; PULSE 61–72; RESP 17–28; TEMP 36.2–36.6; O2SAT 96–99
--- NOTE | 2024-11-05 01:14 | RESP.EEG ---
EEG completed and ready for review
[2024-11-05] MEDS: hydrALAZINE INJ 20 MG/ML VIAL 10 MG IVP (01:38)
[2024-11-05] MEDS: CHOLESTYRAMINE/SUCROSE 1 PKT EA PO ×3 (05:31→17:30)
[2024-11-05] MEDS: HYDROCORTISONE SOD SUCC INJ 100 MG VIAL 25 MG IV ×2 (05:36→13:40)
[2024-11-05 06:49] LABS: Basophils # (Auto) 0.0 Thou/mm3 (0.0-0.2); Basophils % (Auto) 0 % (0-2.5); Eosinophils # (Auto) 0.1 Thou/mm3 (0.0-0.5); Eosinophils % (Auto) 1 % (0-10); Hematocrit 44.1 % (36.0-46.0); Hemoglobin 14.5 g/dL (12.0-16.0); Immature Granulocytes Auto 0.03 Thou/mm3 (0.00-0.00); Lymphocytes # (Auto) 2.3 Thou/mm3 (1.0-4.8); Lymphocytes % (Auto) 22 % (10-50); Mean Corpuscular HGB Conc 32.9 g/dl (31.0-37.0); Mean Corpuscular Hemoglobin 28.2 pg (25.0-35.0); Mean Corpuscular Volume 86 fL (80-100); Monocytes # (Auto) 0.8 Thou/mm3 (0.0-0.8); Monocytes % (Auto) 8 % (0-12); Neutrophils # (Auto) 7.1 Thou/mm3 (1.8-7.7); Neutrophils % (Auto) 69 % (37-80); Nucleated Red Blood Cell # 0.00 Thou/mm3 (0.00-0.00); Nucleated Red Blood Cell % 0 /100 WBC (0); Platelet Count 274 Thou/mm3 (140-440); RDW Standard Deviation 40.7 fL (36.4-46.3); Red Blood Count 5.15 Miln/mm3 (4.00-5.20); White Blood Count 10.3 Thou/mm3 (3.6-11.0)
[2024-11-05 07:01] LABS: Alanine Aminotransferase 13 U/L (10-49); Albumin, Serum 3.6 gm/dL (3.5-5.0); Albumin/Globulin Ratio 1.3 (1.2-2.2); Alkaline Phosphatase 121 U/L (46-116); Anion Gap 10 (7-16); Aspartate Amino Transferase 21 U/L (0-34); BUN/Creatinine Ratio 18 Ratio (12-20); Bilirubin,Total 0.8 mg/dL (0.3-1.2); Blood Urea Nitrogen 18 mg/dL (9-23); Calcium 8.9 mg/dL (8.3-10.6); Calcium (Corrected) 9.2 mg/dL (8.5-10.1); Carbon Dioxide 23.1 mMol/L (20.0-31.0); Chloride 106 mMol/L (98-107); Creatinine (Component) 1.0 mg/dL (0.6-1.3); Estimated Creatinine Clearance 90.8 mL/min (>60); Free T3 3.9 pg/mL (2.3-4.2); Free T4 (Free Thyroxine) 2.75 ng/dL (0.89-1.76); Globulin 2.7 gm/dL (2.3-3.5); Glucose 111 mg/dL (74-106); Magnesium 1.7 mg/dL (1.6-2.6); Osmolality,Calculated 280 (275-295); Phosphorous 3.7 mg/dL (2.4-5.1); Potassium 4.4 mMol/L (3.4-5.1); Sodium 139 mMol/L (136-145); Total Protein 6.3 gm/dL (5.7-8.2); eGFR > 60 See Note
[2024-11-05] MEDS: IODINE PO ×2 (08:22→13:39)
[2024-11-05] MEDS: POTASSIUM IODIDE PO ×2 (08:22→13:39)
[2024-11-05] MEDS: PANTOPRAZOLE 40 MG TABLET PO (09:43)
[2024-11-05] MEDS: METHIMAZOLE 5 MG TABLET 30 MG PO (09:43)
[2024-11-05] MEDS: VALSARTAN 80 MG TABLET 160 MG PO (09:44)
[2024-11-05] MEDS: ASPIRIN EC 81 MG TABEC PO (09:44)
[2024-11-05] MEDS: SPIRONOLACTONE 25 MG TABLET 50 MG PO (09:44)
[2024-11-05] MEDS: BUMETANIDE INJ 0.25 MG/ML VIAL 4 ML 2 MG IVP (09:45)
[2024-11-05] MEDS: ENOXAPARIN SOD INJ 40 MG/0.4 ML SYRINGE SC (09:46)
--- NOTE | 2024-11-05 10:37 | CHAP ---
Patient was visited by a Spiritual Care Volunteer on 11/05/2024 between 0900 and 0945 and received comfort, encouragement and/or prayer.
--- NOTE | 2024-11-05 14:56 | ESDS_ITS ---
<Statement entered by Bree Patel MD - 11/06/24 11:31> Patient was seen and examined at [facility]. Agree on the DC plan on this note. - Patient's plan and care discussed with my attending, Dr. Juana Patel MD Internal Medicine PGY-3 Planned Discharge Date 11/05/24 DS: Providers Provider Date of admission: 10/31/24 05:11 Primary care physician: Physician No Primary/Family Admitting Provider: Jeff Danielle MD Attending Provider on Admission: Isidro Arias DO Consults: 10/31/24 06:39 Referral Dagmar Routine Comment: Referral Physical Therapy Routine Comment: Physician Instructions: 10/31/24 11:37 Consult to Cardiology Routine Comment: Consulting Provider: Eliane Lomeli 11/01/24 11:49 Consult to Neurology / Tele-Neurology Stat Comment: Neurology Consulting Provider: [facility] 11/03/24 13:46 Consult to Neurology / Tele-Neurology Urgent Comment: Dizziness and blurry vision Consulting Provider: Donny Raya 11/04/24 08:00 Referral Physical Therapy Routine Comment: Physician Instructions: Attending Provider on DC: Isidro Arias DO Discharging Provider: Isidro Arias DO DS: Diagnosis Problem List Completed Was Problem List Reviewed/Reconciled?: Yes Hospital Course Hospital Course Hospital course: 39 year old female with history of HFrEF, resistant HTN, Graves' disease, seizure disorder, and prior hypertensive emergency presents with worsening edema, dyspnea, and exertional pleuritic chest pain. Admitted for management of hypertensive emergency with signs of volume overload and uncontrolled hyperthyroidism. ED course: BP >200/150, tachycardic (HR 112), and mildly febrile (Tmax ~100?F). Labs showed low TSH <0.01 with elevated free T4 of 4.0 (Graves? flare), elevated BNP (628), and mildly elevated troponin (peak 0.224). She received clonidine, metoprolol, magnesium, alprazolam, and ketorolac with partial impr ovement in blood pressure. Hospital course: Patient restarted on carvedilol 25 mg TID, Bumex 2 mg QD, spironolactone 50 mg BID, and valsartan 160 mg BID. Held amlodipine and discontinued clonidine. Patient had dizziness and blurry vision, with stroke ruled out. Suspect her neurological symptoms to be secondary to this significant drop from her baseline BPs, which she reports range in 180-220s+ at home. Improving today despite BPs in 140-160s. Patient cleared for discharge by Neurology, who recommended EEG (pending reading) and aspirin 81 mg po QD. Also cleared for discharge by Endocrine, who recommended to continue hospital course of methimazole 30 mg BID, iodine solution TID, and prednisone 20 mg QD x 5 days. Patient to be discharged on medication regimen as recommended by Neurology, Endocrine, and Cardiology. Patient to follow up with specialist surgeon, Dr. Cooney, for possible thyroidectomy. Patient blood pressure still slightly elevated, but overall hypodermically stable at discharge. Consults during this admission: Tele-Neuro - Dr. Padilla Neurology - Dr. Raya Endocrine - Dr. Jorgensen Cardiology - Dr. Lomeli Discharge Instructions: ? Follow-up with your primary care physician within 1 week from discharge ? Follow-up with a medical librarian Dr. Lomeli within 1 week from discharge ? Follow-up with the surgeon Dr. Chew as per your appointment on 18 November this year. ? Follow-up with assistant tennis professional Dr. Jorgensen immediately after your appointment with the surgeon Dr. Chew . ? Follow-up with the neurologist Dr. Raya for the EEG result and for further recommendations ? We stopped your medication bupropion as it may increase your risk of seizures. ? Use medications as prescribed. You will have to use methimazole 30 mg per oral twice a day ? Use strong iodine 0.05 milliliters per mouth 3 times a day ? You will need to participate on outpatient physical therapy as instructed by the physical therapist. ? Continue on cholestyramine 4 g powder 4 times a day ? Use Bumex 2 mg tablet once a day, for 7 days, your PCP or your medical librarian to refill the prescription. ? In case of worsening her symptoms please return to the ED as soon as possible. Problem list: #Thyrotoxicosis with impending thyroid storm #Graves Disease # Hypertensive Emergency # Hypertension # Blurry vision and dizziness # Stroke ruled out # HFrEF with reduced EF (EF 40-45%) # Seizure Disorder # Anxiety and Depression # Asthma and IGNACIO # Electrolyte abnormalities # Hypomagnesemia # Elevated LFTs and bilirubin Case discussed with my attending Dr. Arias, and senior resident, Dr. Jorge Higginbotham, OMS4 Status at Discharge Functional status at discharge: independent ambulation Overall status at discharge: patient is progressing back to baseline Time Spent with Patient Time attestation: Total time spent providing and/or coordinating discharge services: Time spent: Greater than 30 minutes Exam Vital Signs Temp Pulse Resp BP Pulse Ox O2 Del Method FiO2 97.1 F 65 17 152/90 H 99 Room Air 99 11/05/24 08:00 11/05/24 13:41 11/05/24 08:00 11/05/24 13:41 11/05/24 08:00 11/05/24 08:00 10/31/24 01:44 Narrative Exam Gen: Alert, A&Ox3, in no acute distress at rest. HEENT: Left eye exopthalmos. Normocephalic and atraumatic. EOMI. CV: RRR. Normal S1/S2. No murmurs appreciated. Resp: Mildly increased respiratory effort, but CTAB Ext: No lower extremity edema. Neuro: Moving all extremities spontaneously. Skin: Warm and dry Psych: Appropriate mood and affect Discharge Plan Plan Patient Disposition: HOME (Self Care) Patient condition on transfer: Stable and Benefits outweigh risks Care Plan Goals: Discharge instructions: ? Follow-up with your primary care physician within 1 week from discharge ? Follow-up with a medical librarian Dr. Lomeli within 1 week from discharge ? Follow-up with the surgeon Dr. Chew as per your appointment on 18 November this year. ? Follow-up with assistant tennis professional Dr. Jorgensen immediately after your appointment with the surgeon Dr. Chew . ? Follow-up with the neurologist Dr. Raya for the EEG result and for further recommendations ? We stopped your medication bupropion as it may increase your risk of seizures. ? Use medications as prescribed. You will have to use methimazole 30 mg per oral twice a day ? Use strong iodine 0.05 milliliters per mouth 3 times a day ? You will need to participate on outpatient physical therapy as instructed by the physical therapist. ? Continue on cholestyramine 4 g powder 4 times a day ?Use Bumex 2 mg tablet once a day, for 7 days, your PCP or your medical librarian to refill the prescription. ? In case of worsening her symptoms please return to the ED as soon as possible. Prescriptions/Referrals Prescriptions/Med Rec: New aspirin 81 mg Tablet,Delayed Release (Dr/Ec) 81 mg PO QDAY 14 Days Qty: 14 0RF cholestyramine (with sugar) 4 gram Powder In Packet 4 g PO QID 20 Days Qty: 60 0RF bumetanide 2 mg tablet 2 mg PO QDAY 7 Days Qty: 7 0RF methimazole 10 mg tablet 30 mg PO BID 20 Days Qty: 120 0RF Strong Iodine 5 % Solution 0.05 ml PO TID 20 Days Qty: 14 0RF pantoprazole 40 mg Tablet,Delayed Release (Dr/Ec) 40 mg PO QDAY 7 Days Qty: 7 0RF prednisone 10 mg tablet 20 mg PO QAM 5 Days Qty: 10 0RF Continued duloxetine 60 mg capsule,delayed release(DR/EC) 60 mg PO HS Patient Comments: TAKE 1 CAPSULE BY MOUTH EVERY DAY carvedilol 25 mg Tablet 25 mg PO 3XD levetiracetam 500 mg tablet 500 mg PO BID Patient Comments: TAKE 1 TABLET BY MOUTH EVERY 12 HOURS FOR 30 DAYS Ubrelvy 50 mg tablet 50 mg PO .QD PRN (Reason: migraine headache) Arcalyst 220 mg recon soln 220 mg subcut Q7D aripiprazole [Abilify] 20 mg tablet 20 mg PO QDAY PRN (Reason: migraine headache) valsartan 160 mg tablet 160 mg PO BID Qty: 60 2RF spironolactone 50 mg tablet 50 mg PO QDAY Qty: 30 2RF Discontinued bupropion HCl 75 mg tablet 150 mg PO BID Rx Instructions: administer 6 hours apart chlorthalidone 50 mg tablet 50 mg PO QDAY Qty: 30 2RF methimazole 10 mg tablet 60 mg PO QDAY Referrals: Manuela Jorgensen MD [Physician] - No Primary/Family,Physician [Primary Care Provider] - Eliane Lomeli MD [Physician] - Donny Raya MD [Physician] - Patient/Caregiver Discharge Instructions Discharge Activity: as per physical therapy Education Materials: Treating Thyroid Problems, Low-Salt Choices, Common Thyroid Problems, Coping with Heart Failure, When You Have Hyperthyroidism Print Language: Mozambican Stand Alone Forms: Nanci Award Info., Patient Portal Info Letter Discharge Order Discharge Orders: Discharge (Routine); Ordered 11/05/24 Ordered By: Bree Patel Quality Discharge Quality Measures none MD Attestestation MD Attestation I have discussed and was present for the essential components of the discharge history, physical examination, diagnosis, and discharge treatment plan with the resident. I agree with the patient's discharge care as documented by the resident and amended herein by me. Mitesh Arias DO. The patient understood all discharge instructions, all questions were answered satisfactorily. The patient was instructed to return to the Emergency Department is symptoms worsened or persisted. Although this document has been carefully reviewed, there may still be some phonetic and other typographical errors. These errors are purely grammatical due to imperfections in the software program and should not be construed in any way to compromise the substance of the patient's medical care during this visit.
--- NOTE | 2024-11-05 15:00 | ESPR_ITS ---
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 Patient examined at bedside this evening. Patient denied any overnight events. Patient stated improved dizziness. Improved blurry vision. Denied any upper or lower extremity weakness. Exam Vital Signs Temp Pulse Resp BP Pulse Ox O2 Del Method FiO2 97.2 F 65 18 152/90 H 98 Room Air 99 11/05/24 12:00 11/05/24 13:41 11/05/24 12:00 11/05/24 13:41 11/05/24 12:00 11/05/24 12:00 10/31/24 01:44 Narrative Exam General Appearance: Alert & Oriented X3, well-nourished female who is lying in bed in no acute distress HEENT: Skull symmetrical and atraumatic. Conjunctivae pink and moist. Pupils equal, round, reactive to light and accommodation (PERRL). External ear without lesion or discharge. Straight, nares patient, mucosa pink, no discharge. Cardio: Normal Rate and Rhythm with S1 and S2 heart sounds. No murmurs or extra heart sounds auscultated. No bruits on carotid auscultation. No peripheral edema or cyanosis. Lungs: Symmetric with good expansion. Chest and back non-tender. Breath sounds vesicular without crackles, wheezing or rhonchi Abdomen: Non-tender, Non-distended, Normal Reactive Bowel Sounds Neuro: Alert, cooperative, oriented to person, place, and time. Speech clear. CN grossly intact. Upper motor strength 5/5 and Lower motor strength 5/5. Sensation intact. Brisk reflexes Objective Labs 11/05/24 05:45 11/05/24 05:45 Labs: Laboratory Results - last 24 hr 11/05/24 05:45 WBC 10.3 RBC 5.15 Hgb 14.5 Hct 44.1 MCV 86 MCH 28.2 MCHC 32.9 RDW Std Deviation 40.7 Plt Count 274 Neut % (Auto) 69 Lymph % (Auto) 22 [place] % (Auto) 8 Eos % (Auto) 1 Baso % (Auto) 0 Neut # (Auto) 7.1 Lymph # (Auto) 2.3 [place] # (Auto) 0.8 Eos # (Auto) 0.1 Baso # (Auto) 0.0 Immature Gran # (Auto) 0.03 H Absolute Nucleated RBC 0.00 Immature Gran % 0 Nucleated RBC % 0 Sodium 139 Potassium 4.4 Chloride 106 Carbon Dioxide 23.1 Anion Gap 10 BUN 18 Creatinine 1.0 Estim Creat Clear Calc 90.8 eGFR > 60 BUN/Creatinine Ratio 18 Glucose 111 H Calculated Osmolality 280 Calcium 8.9 Corrected Calcium 9.2 Phosphorus 3.7 Magnesium 1.7 Total Bilirubin 0.8 AST 21 ALT 13 Alkaline Phosphatase 121 H Total Protein 6.3 Albumin 3.6 Globulin 2.7 Albumin/Globulin Ratio 1.3 Free T4 2.75 H Free T3 pg/dL 3.9 Quality Measures Quality Measures none Assessment & Plan Assessment Current Active Medications: Generic Name Dose Route Start Last Admin Trade Name Freq PRN Reason Stop Dose Admin Acetaminophen 650 mg 10/31/24 04:39 Acetaminophen 325 Mg Tablet PO 11/30/24 04:38 Q6H PRN Fever >100.4 Acetaminophen 650 mg 10/31/24 04:44 Acetaminophen 325 Mg Tablet PO 11/30/24 04:43 Q6H PRN PAIN SCALE 1-3 (mild Amlodipine Besylate 5 mg 10/31/24 21:00 11/02/24 09:21 Amlodipine Besylate 5 Mg Tablet PO 11/30/24 20:59 5 mg BID LEON Administration Aripiprazole 20 mg 10/31/24 18:36 Aripiprazole 5 Mg Tablet PO 11/30/24 18:35 QDAY PRN migraine headache Aspirin 81 mg 11/02/24 09:00 11/05/24 09:44 Aspirin Ec 81 Mg Tabec PO 12/02/24 08:59 81 mg QDAY LEON Administration Bumetanide 2 mg 10/31/24 18:45 11/05/24 09:45 Bumetanide Inj 0.25 Mg/Ml Vial 4 Ml IVP 11/30/24 18:44 2 mg QDAY LEON Administration Carvedilol 25 mg 10/31/24 18:45 11/05/24 13:41 Carvedilol 12.5 Mg Tablet PO 11/30/24 18:44 25 mg TID LEON Administration Cholestyramine Resin 1 pkt 11/02/24 17:00 11/05/24 12:40 Cholestyramine/Sucrose 1 Pkt Ea PO 12/02/24 16:59 1 pkt QID LEON Administration Duloxetine HCl 60 mg 10/31/24 21:00 11/04/24 21:54 Duloxetine Hcl 30 Mg Capsule PO 11/30/24 20:59 60 mg HS LEON Administration Enoxaparin Sodium 40 mg 10/31/24 09:00 11/05/24 09:46 Enoxaparin Sod Inj 40 Mg/0.4 Ml Syringe SC 11/14/24 08:59 40 mg QDAY LEON Administration Hydrocortisone Sodium Succinate 25 mg 11/04/24 14:00 11/05/24 13:40 Hydrocortisone Sod Succ Inj 100 Mg Vial IV 12/04/24 13:59 25 mg Q8HR LEON Administration Iodine/Potassium Iodide 0.05 ml 11/04/24 14:00 11/05/24 13:39 Potassium Iodide/Iodine 1 Ml (Lugol's) PO 12/04/24 13:59 0.05 ml TID LEON Administration Protocol Labetalol HCl 10 mg 10/31/24 05:26 Labetalol Inj 5 Mg/Ml Vial 20 Ml IVP 11/30/24 04:59 Q6HR PRN sbp>180 or DBP>110 Levalbuterol HCl 1.25 mg 10/31/24 08:34 Levalbuterol Rt 1.25 Mg/0.5 Ml Nebu INH 11/30/24 08:33 Q8HR PRN WHEEZING Levetiracetam 500 mg 10/31/24 21:00 11/05/24 09:45 Levetiracetam 250 Mg Tablet PO 11/30/24 20:59 500 mg BID LEON Administration Methimazole 30 mg 11/01/24 20:00 11/05/24 09:43 Methimazole 5 Mg Tablet PO 12/01/24 19:59 30 mg BID@0800,2000 LEON Administration Protocol Ondansetron HCl 4 mg 10/31/24 04:39 Ondansetron Inj 2 Mg/Ml Inj 2 Ml IVP 11/30/24 04:38 Q6H PRN NAUSEA OR VOMITING Protocol Pantoprazole Sodium 40 mg 10/31/24 09:00 08/12/25 09:43 Pantoprazole 40 Mg Tablet PO 11/30/24 08:59 40 mg QDAY LEON Administration Sodium Chloride 3 ml 10/31/24 08:34 Sodium Chloride Rt Francine 0.9% 3 Ml Nebu INH 11/30/24 08:33 PRN PRN SOLN Spironolactone 50 mg 10/31/24 18:45 11/05/24 09:44 Spironolactone 25 Mg Tablet PO 11/30/24 18:44 50 mg QDAY LEON Administration Valsartan 160 mg 10/31/24 21:00 11/05/24 09:44 Valsartan 80 Mg Tablet PO 11/30/24 20:59 160 mg BID LEON Administration Plan Patient is a 39 year old female with a past medical history of resistant hypertension, CHFrEF 40-45% (07/03/2024), Mild pulmonary arterial hypertension, 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 Given dizziness and blurry vision, history of hypertension and graves disease contributing to visual changes can not be ruled out vs trigeminal neuralgia less likely vs unlikely optic neurtitis as there no pain associated with changes vs migraines can not be ruled out. Pre-syncope likely secondary to history of resistant hypertension. Previoulsy extensive work up showing negative ACTH. Elevated VMA. Absence of significant renal artery stenosis on bilateral renal angiogram. Lipid: Triglyceries 70, Cholesterol 112, LDL 65, HDL 33 ASCVD: 1.2% no statins recommended. Plan -EEG, taken but not read. Follow up with Dr. Raya outpatient. Referral added. -Aspirin 81 mg PO HS -Orthostatic Vitals Obtained, negative -Monitor electrolytes -Given elevated VMA, please follow up with endrocrinology. #Seizure Patient has a past medical history of seizure with home medicaiton keppra 500 mg PO BID. Per patient, was started on Abilify secondary to headaches Plan -Continue home medicaiton Keppra 500 mg PO BID -Wellbutin d/c given risk of loweirng seizure threshould -EEG ordered #Graves Disease, concern for thyrotoxicosi #Resistant Hypertension #Hypertension #CHF HFrEF 40-45% (07/03/2024) #Mild PAH #History of percarditis #MARCELO and Depression #IGNACIO #Asthma - The patient's plan was discussed with attending Dr. Elver Hollis MD PGY2 Internal Medicine Attending Provider Attestation/Addendum I independently reviewed the patient's chart and I agreed with resident's findings, assessment and plan of care. Imp: her presenting symptom is most likely from Hypertensive crisis/Presyncope/Syncope Continue with Keppra as before. EEG showed paroxysmal multifocal epileptiform discharges consistent with sz disorder. Recommend to dc wellbutrin as it can lower the sz threshold. She can continue with Cymbalta and Abilify and needs aggressive BP mgt. OK to dc home and I will see her in 2-3 weeks upon referral.
== END 2024-11-05 18:09 | disposition home or self-care (01) | DRG 643 ==
LOC: SERX 10-31 04:47 → SERHOLD 10-31 05:19 → S2SX 10-31 06:11 → S3NX 10-31 22:34
PROVIDERS: Student in an Organized Health Care Education/Training Program; Admitting Provider Student in an Organized Health Care Education/Training Program; Emergency Provider Emergency Medicine; Visit Provider Student in an Organized Health Care Education/Training Program
DX: E05.91 Thyrotoxicosis, unspecified with thyrotoxic crisis or storm (principal); I50.23 Acute on chronic systolic (congestive) heart failure; I16.1 Hypertensive emergency; I11.0 Hypertensive heart disease with heart failure; G40.909 Epilepsy, unspecified, not intractable, without status epilepticus; F41.9 Anxiety disorder, unspecified; F32.A Depression, unspecified; J45.909 Unspecified asthma, uncomplicated; G47.33 Obstructive sleep apnea (adult) (pediatric); G43.909 Migraine, unspecified, not intractable, without status migrainosus; Z90.49 Acquired absence of other specified parts of digestive tract; E83.42 Hypomagnesemia; I1A.0 Resistant hypertension; Z79.82 Long term (current) use of aspirin; Z79.899 Other long term (current) drug therapy; Z88.8 Allergy status to other drugs, medicaments and biological substances
CPT/HCPCS: 36415; 70450; 70496; 70498; 70544; 71045; 71275; 73222; 74177; 80053; 80307; 81001; 81025; 82248; 83605; 83690; 83735; 83880; 84100; 84145; 84439; 84443; 84481; 84484; 84703; 85025; 85379; 85610; 85652; 85730; 86140; 87040; 87400; 87811; 93005; 95816; 96374; 96375; 97162; 99285; A4649; A9577; J0360; J1650; J1720; J1885; J1938; J3475; J3490; Q9967; A9270

== ENCOUNTER → 2024-12-11 | Outpatient (CLI) | payer BC, SELFPAY ==
--- NOTE | 2024-12-11 15:36 | XR_ITS ---
Examination: PA lateral chest 2 views TECHNIQUE: Upright PA lateral chest 2 views Date and time: December 11, 2024 1542 hours INDICATIONS: Shortness of breath beginning one week ago. FINDINGS: Suspicious for early heart failure Mild enlargement cardiac contour Prominent vascular congestion Thickening of the fissures on the lateral view IMPRESSION: Suspicious for early heart failure
== END | disposition home or self-care (01) ==
PROVIDERS: PCP Registered Nurse; Referring Provider Registered Nurse; Visit Provider Registered Nurse
DX: R06.02 Shortness of breath (principal)
CPT/HCPCS: 71046

== ENCOUNTER 2024-12-17 13:40 | Inpatient (IN) | payer BC, SELFPAY ==
[2024-12-17] VITALS (13 sets, daily range): BP systolic 139–195; BP diastolic 106–155; PULSE 64–86; RESP 13–22; TEMP 36.1–36.8; O2SAT 95–99; BMI 35.9
--- NOTE | 2024-12-17 | XR_ITS ---
MRI abdomen, without contrast. MRCP Date and time of exam: December 17, 2024, 1738 hrs. Indications: Chest pain epigastric pain elevated bilirubin 4.6 cm examination today Technique: Multiple axial and coronal images of the abdomen have been obtained with the Siemens 1.5T MRI scanner. Images obtained included T1 weighted transverse images, T2-weighted transverse images, T2-weighted transverse images fat-suppressed, T2 weighted haste fat suppressed transverse images, T1 weighted images, in and out of phase images, T2-weighted coronal images, breath hold, T2 weighted haze coronal images as well as T2 weighted coronal thick slab images, MRCP. Findings: No focal liver lesions, no intrahepatic biliary tract dilatation Gallbladder is not visualized Common hepatic duct 5 mm common bile duct 4 mm no stones Pancreatic duct is not dilated No pancreatic edema or mass No ascites Spleen is not enlarged No hydronephrosis Impression: No focal liver lesions Absent gallbladder No extrahepatic biliary tract dilatation No common hepatic or common bile duct stones
--- NOTE | 2024-12-17 13:45 | EKG_ITS ---
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
--- NOTE | 2024-12-17 13:57 | XR_ITS ---
Examination: PA lateral chest 2 views TECHNIQUE: Upright PA lateral chest 2 views Date and time: December 17, 2024 1404 hours INDICATIONS: Chest pain beginning 5 days ago. FINDINGS: Minimal prominence left ventricle Mild vascular congestion No lobar pneumonia or pulmonary edema IMPRESSION: Mild vascular congestion
--- NOTE | 2024-12-17 13:58 | PD.EDRME ---
Rapid Medical Screening Exam E Arrival date/time: 12/17/24 13:40 39-year-old female with a history of congestive heart failure, presents to the emergency room with a chief complaint of chest pain, palpitations, difficulty breathing, bilateral lower extremity swelling x 3 days I have greeted and performed a focused initial assessment of this patient. A comprehensive ED assessment and evaluation of the patient, analysis of all test results, and completion of the medical decision making process will be conducted by additional ED providers. Chief Complaint: Chest Pain Time Seen by Provider: 12/17/24 13:46 Vital signs: Vital Signs Temperature 98.2 F 12/17/24 13:53 Pulse Rate 86 12/17/24 13:53 Respiratory Rate 18 12/17/24 13:53 Blood Pressure 191/144 H 12/17/24 13:53 Pulse Oximetry (%) 95 12/17/24 13:53 Oxygen Delivery Method Room Air 12/17/24 13:53 Vital signs reviewed by provider: Yes
[2024-12-17 14:22] LABS: Basophils # (Auto) 0.0 Thou/mm3 (0.0-0.2); Basophils % (Auto) 0 % (0-2.5); Eosinophils # (Auto) 0.2 Thou/mm3 (0.0-0.5); Eosinophils % (Auto) 1 % (0-10); Hematocrit 42.9 % (36.0-46.0); Hemoglobin 14.0 g/dL (12.0-16.0); Immature Granulocytes Auto 0.02 Thou/mm3 (0.00-0.00); Lymphocytes # (Auto) 3.4 Thou/mm3 (1.0-4.8); Lymphocytes % (Auto) 30 % (10-50); Mean Corpuscular HGB Conc 32.6 g/dl (31.0-37.0); Mean Corpuscular Hemoglobin 27.8 pg (25.0-35.0); Mean Corpuscular Volume 85 fL (80-100); Monocytes # (Auto) 1.2 Thou/mm3 (0.0-0.8); Monocytes % (Auto) 10 % (0-12); Neutrophils # (Auto) 6.4 Thou/mm3 (1.8-7.7); Neutrophils % (Auto) 57 % (37-80); Nucleated Red Blood Cell # 0.05 Thou/mm3 (0.00-0.00); Nucleated Red Blood Cell % 0 /100 WBC (0); Platelet Count 233 Thou/mm3 (140-440); RDW Standard Deviation 49.3 fL (36.4-46.3); Red Blood Count 5.03 Miln/mm3 (4.00-5.20); White Blood Count 11.1 Thou/mm3 (3.6-11.0)
[2024-12-17 14:39] LABS: INR 1.2 (0.9-1.3); Partial Thromboplastin Time 25.9 Seconds (22.0-36.0); Prothrombin Time 12.6 Seconds (9.0-12.2)
[2024-12-17 14:52] LABS: B-Type Natriuretic Peptide 1726 pg/mL (0-100)
[2024-12-17 15:03] LABS: Alanine Aminotransferase 32 U/L (10-49); Albumin, Serum 3.9 gm/dL (3.5-5.0); Albumin/Globulin Ratio 1.6 (1.2-2.2); Alkaline Phosphatase 144 U/L (46-116); Anion Gap 14 (7-16); Aspartate Amino Transferase 31 U/L (0-34); BUN/Creatinine Ratio 15 Ratio (12-20); Bilirubin,Total 4.6 mg/dL (0.3-1.2); Blood Urea Nitrogen 19 mg/dL (9-23); Calcium 9.2 mg/dL (8.3-10.6); Calcium (Corrected) 9.3 mg/dL (8.5-10.1); Carbon Dioxide 21.9 mMol/L (20.0-31.0); Chloride 103 mMol/L (98-107); Creatinine (Component) 1.3 mg/dL (0.6-1.3); Free T4 (Free Thyroxine) 1.86 ng/dL (0.89-1.76); Globulin 2.5 gm/dL (2.3-3.5); Glucose 125 mg/dL (74-106); Magnesium 1.8 mg/dL (1.6-2.6); Osmolality,Calculated 280 (275-295); Potassium 3.4 mMol/L (3.4-5.1); Sodium 139 mMol/L (136-145); Thyroid Stimulating Hormone < 0.01 uIU/mL (0.55-4.78); Total Protein 6.4 gm/dL (5.7-8.2); eGFR 53 See Note
[2024-12-17 15:21] LABS: Troponin I 0.231 ng/mL (0.0-0.045)
--- NOTE | 2024-12-17 16:03 | PD.EDCHEST ---
ED Chest Pain RME/HPI General Chief Complaint: Chest Pain Stated Complaint: CHEST PAIN, SOB, SENT BY DR. FARRAR Time Seen by Provider: 12/17/24 13:46 Arrival date/time: 12/17/24 13:40 Limitations: no limitations RME / HPI RME / HPI narrative: 12/17/24 13:40 39-year-old female with a history of congestive heart failure, presents to the emergency room with a chief complaint of chest pain, palpitations, difficulty breathing, bilateral lower extremity swelling x 3 days I have greeted and performed a focused initial assessment of this patient. A comprehensive ED assessment and evaluation of the patient, analysis of all test results, and completion of the medical decision making process will be conducted by additional ED providers. DR. BINGHAM MAIN ED EVALUATION 39 year old female with history of HFrEF (EF 40-45% 06/2024), hypertenion, Graves' disease, thyrotoxicosis, seizures, s/p cholecystectomy (2017) presents to the ED for evaluation of sharp central chest pain beginning intermittently 3 days ago. States this morning the pain began radiating to her back, right side of chest, and up her neck which concerned her. Accompanied by cough, shortness of breath, and bilateral lower extremity swelling. Additionally reported while receiving physical therapy today, noted her oxygen saturation to be low 90s. Denies fevers, chills, abdominal pain, n/v/d, or urinary symptoms. 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 Bill Farrar Related Data Home Medications ?Medication ?Instructions ?Recorded ?Confirmed duloxetine 60 mg capsule,delayed 60 mg PO HS 11/24/20 10/31/24 release carvedilol 25 mg tablet 25 mg PO 3XD 09/11/23 10/31/24 aripiprazole 20 mg tablet (Abilify) 20 mg PO QDAY PRN migraine headache 07/02/24 10/31/24 levetiracetam 500 mg tablet 500 mg PO BID 07/02/24 10/31/24 rilonacept 220 mg subcutaneous 220 mg subcut Q7D 07/02/24 10/31/24 solution (Arcalyst) ubrogepant 50 mg tablet (Ubrelvy) 50 mg PO .QD PRN migraine headache 07/02/24 10/31/24 Previous Rx's ?Medication ?Instructions ?Recorded spironolactone 50 mg tablet 50 mg PO QDAY #30 tabs 07/06/24 valsartan 160 mg tablet 160 mg PO BID #60 tabs 07/06/24 Allergies Allergy/AdvReac Type Severity Reaction Status Date / Time glucosamine Allergy Severe Rash Verified 12/17/24 13:44 pepper (genus Capsicum) Allergy Mild Swelling Verified 12/17/24 13:44 of Lip/Tongue/Throat venlafaxine Allergy Mild Itching Verified 12/17/24 13:44 Review of Systems Review of Systems Systems Reviewed: All systems reviewed, normal except as documented Past Medical History Past Medical History NEUROLOGIC: Positive Neurological Disorders, Seizures, Martinez's Palsy and Migraine CARDIAC: Positive Cardiac Disorders, Congestive Heart Failure, Edema, Pericarditis and Hypertension RESPIRATORY: Positive Bronchitis and Sleep Apnea GASTROINTESTINAL: Positive Gall Bladder Disease and Irritable Bowel GENITOURINARY: Positive Genitourinary Disorders (RT renal artery stenosis) REPRODUCTIVE: Positive Endometriosis and Pelvic Inflammatory Disease ENT: Positive Ear Infection ENDOCRINE: Positive Endocrine Disorders, Hyperthyroidism, Hypothyroidism and Graves' Disease PSYCHO/SOCIAL: Positive Depression and Anxiety OTHER HISTORY: Positive Autoimmune Disease and Chicken Pox Family History FAMILY HISTORY: Positive Family Psychiatric Problems, Family Cardiac Disorders, Family Cancer, Family Surgery and Family Anesthesia Reaction Surgical History SURGICAL: Positive Angiogram, Tubal Ligation and Section Social History SMOKING STATUS: Never smoker SUBSTANCE USE: does not use ED Exam General Limitations: Present no limitations General appearance: Present alert and other (chronically ill appearing with acute decompensation) Head Head exam: Present atraumatic Eye Eye exam: Present normal appearance, PERRL and EOMI ENT ENT exam: Present normal exam, normal oropharynx and mucous membranes moist Neck Neck exam: Present normal inspection, full ROM and trachea midline Chest Chest inspection: Present normal inspection and symmetric chest wall rise Respiratory Respiratory exam: Present normal lung sounds bilaterally Cardiovascular Cardiovascular exam: Present regular rate, normal rhythm and normal heart sounds Abdominal Exam Abdominal exam: Present soft and normal bowel sounds Extremities Exam Extremities exam: Present full ROM and other (Bilateral lower extremity with pitting edema, symetrical. ) Back Exam Back exam: Present normal inspection and full ROM Neurological Exam Neurological exam: Present alert, oriented X3 and CN II-XII intact Psychiatric Psychiatric exam: Present normal affect and normal mood Skin Skin exam: Present warm, dry, intact and normal color Course Quality Measures none Orders Category Date Time Status EKG (ED ONLY) *Do not use* NOW Care 12/17/24 13:45 Completed MRI Screening NOW Care 12/17/24 16:10 Active EKG (ED Only) Stat Exams 12/17/24 13:45 Draft MR MRCP Stat Exams 12/17/24 Taken XR chest 2V Stat Exams 12/17/24 13:57 Completed B-Type Natriuretic Peptide Stat Lab 12/17/24 14:15 Completed CBC Stat Lab 12/17/24 14:15 Completed Comprehensive Metabolic Panel Stat Lab 12/17/24 14:15 Completed Drug Screen,Urine Stat Lab 12/17/24 17:10 Completed Free T4 (Free Thyroxine) Stat Lab 12/17/24 14:15 Completed Magnesium Stat Lab 12/17/24 14:15 Completed Partial Thromboplastin Time Stat Lab 12/17/24 14:15 Completed Prothrombin Time with INR Stat Lab 12/17/24 14:15 Completed TSH [Thyroid Stimulating Hormone] Stat Lab 12/17/24 14:15 Completed Troponin I Stat Lab 12/17/24 14:15 Completed Urinalysis, C/S if Indicated Stat Lab 12/17/24 17:10 Completed Furosemide Inj [Lasix Inj] Med 12/17/24 16:29 Discontinued 80 mg IVP X1 ONE Morphine* Inj Med 12/17/24 17:11 Discontinued 2 mg IVP STAT STA Vital Signs Vital signs: Vital Signs Temperature 98.2 F 12/17/24 13:53 Pulse Rate 86 12/17/24 13:53 Respiratory Rate 18 12/17/24 13:53 Blood Pressure 191/144 H 12/17/24 13:53 Pulse Oximetry (%) 95 12/17/24 13:53 Oxygen Delivery Method Room Air 12/17/24 13:53 Pulse ox is 95% on room air which is adequate. Chest Pain MDM Narrative MDM Narrative:: Patient is a 39-year-old female is in emerged primary concerns for chest pain and bilateral lower extremity swelling. Patient has a history of CHF, thyrotoxicosis, chronic kidney disease, pericarditis, seizures PR. Vital signs and exam as listed. Concern for hypertensive emergency, CHF exacerbation, ACS, arrhythmia among others. Prior provider evaluated patient. Ordered labs EKG chest x-ray. Labs without any acute significant acute hematologic abnormality. Patient without any acute electrolyte abnormality. Patient T. bili is 4.6. AST and ALT normal, alk phos is 144. Per chart review patient has intermittent hyperbilirubinemia at times as high as 4 and then normalizes. Troponin 0.231. BNP 1726. Patient's troponin is near her baseline. BNP is worse than prior. Patient TSH is undetectable, free T4 is 1.86. Chest x-ray with mild vascular congestion. EKG performed today at 1349 notable for heart rate 81, normal intervals, nonspecific T wave changes, not a cardiac alert. I evaluate patient, patient dyspneic. Has bilateral lower extremity edema. Patient has a history of COVID induced cardiomyopathy, thyrotoxicosis she is in the care of an ear nose and throat doctor as well as a microsystems engineer Dr. Melquiades Farrar. She is pending resection of her thyroid next month. Patient has had an MRI with and without contrast [facility] that did not show any malignancies in her brain that could be contributing to patient's hypothyroidism, hyperparathyroidism. Patient takes methimazole for her hyper thyroidism. Patient takes Bumex is compliant with her medications. Her microsystems engineer requested that she come to the emergency department. I provided patient with IV diuretics. Medication for pain relief. Given patient with epigastric pain radiates to the back worse with respiration and elevated bilirubin, ordered MRCP for evaluation of spilled gallstones could be contributing to her symptoms. Patient is pending results of her MRCP and admission. Signed out to Dr. Genao. Patient data External records reviewed:: [facility] previous records Clinical information provided by:: patient Social determinants that could affect healthcare access:: none Patient has the following chronic illnesses:: HFrEF (EF 40-45% 06/2024), hypertenion, Graves' disease, thyrotoxicosis, seizures, s/p cholecystectomy (2018) How is presenting disease/condition affected by chronic disease/condition?: exacerbated by Evaluation data The following diagnostics were reviewed and interpreted by me:: lab results, radiology exam(s) and EKG tracing(s) Lab and/or radiology exams considered but not ordered:: None Interpretation Summary: Ordering Physician: Feliciano Chilel Date of Service: 12/17/24 Procedure(s): XR chest 2V Accession Number(s): [id number] cc: Feliciano Chilel; Aubrey Bocanegra MD~ Examination: PA lateral chest 2 views TECHNIQUE: Upright PA lateral chest 2 views Date and time: December 17, 2024 1404 hours INDICATIONS: Chest pain beginning 5 days ago. FINDINGS: Minimal prominence left ventricle Mild vascular congestion No lobar pneumonia or pulmonary edema IMPRESSION: Mild vascular congestion Dictated By: Aubrey Bocanegra MD Signed By: <Electronically signed by Aubrey Bocanegra MD in OV> 12/17/24 1429 Medications / Prescriptions Medications or Prescriptions considered but not ordered:: None Medication administrations:: Medication Administration History Discontinued Medications Furosemide (Furosemide Inj 10 Mg/Ml 4ml Vial) 80 mg IVP X1 ONE Stop: 12/17/24 16:30 Last Admin: 12/17/24 16:39 Dose: 80 mg Documented By: VL Morphine Sulfate (Morphine Sulf Inj 4 Mg/Ml Vial) 2 mg IVP STAT STA Stop: 12/17/24 17:12 Last Admin: 12/17/24 17:21 Dose: 2 mg Documented By: VL See above Consultations Consultation(s) initiated? (list below): No Diagnosis Most likely diagnosis given after review of the tests above:: CHF exacerbation Admission Indicated Admission indicated?: not indicated Explain why admission is indicated or not indicated:: Signed out pending MRCP Admission Request Was there a request for admission?: No Disposition Plan Disposition Plan: other (specify) (Signed out pending MRCP. ) Critical Care Time Critical Care Time Critical Care Time: Yes Total Critical Care Time (min.): 45 Attestation: ?I spent 45 minutes of critical care time with this patient not including reportable procedures. There was an acute impairment of an organ system with a high probability of imminent or life threatening deterioration in the patient's condition. Interventions and changes required in the course of therapy are located in the chart. Time involved was spent in direct patient care, reviewing ancillary data, old records, consulting with decision makers, EMS, other doctors, giving orders and documenting. Discharge Plan Prescriptions/Referrals Prescriptions/Med Rec: No Action duloxetine 60 mg capsule,delayed release(DR/EC) 60 mg PO HS Patient Comments: TAKE 1 CAPSULE BY MOUTH EVERY DAY carvedilol 25 mg Tablet 25 mg PO 3XD levetiracetam 500 mg tablet 500 mg PO BID Patient Comments: TAKE 1 TABLET BY MOUTH EVERY 12 HOURS FOR 30 DAYS Ubrelvy 50 mg tablet 50 mg PO .QD PRN (Reason: migraine headache) Arcalyst 220 mg recon soln 220 mg subcut Q7D aripiprazole [Abilify] 20 mg tablet 20 mg PO QDAY PRN (Reason: migraine headache) valsartan 160 mg tablet 160 mg PO BID Qty: 60 2RF spironolactone 50 mg tablet 50 mg PO QDAY Qty: 30 2RF Referrals: No Primary/Family,Physician [Primary Care Provider] - In 1 week Problem List Clinical Impression: Acute exacerbation of CHF (congestive heart failure) Patient/Caregiver Discharge Instructions Print Language: Turkmen
[2024-12-17] MEDS: FUROSEMIDE INJ 10 MG/ML 4ML VIAL 80 MG IVP (16:39)
[2024-12-17 17:17] LABS: Collection Type, Urine Clean Catch
[2024-12-17] MEDS: MORPHINE SULF INJ 4 MG/ML VIAL 2 MG IVP (17:21)
[2024-12-17 17:24] LABS: Bacteria,Urine Rare; Bilirubin,Urine Negative (Negative); Blood,Urine Negative (Negative); Clarity,Urine Clear (Clear/Hazy); Color,Urine Yellow (Lt Yel-Yel); Culture Indicated,Urine Not Indicated; Glucose, Urine Negative (Negative); Ketones,Urine Negative (Negative); Leukocyte Esterase,Urine Negative (Negative); Nitrite,Urine Negative (Negative); PH,Urine 6.0 (5.0-7.0); Protein,Urine 1+ (Neg - Trace); RBC,Urine 2 /hpf (0-3); Specific Gravity,Urine 1.019 (1.001-1.035); Squamous Epithelial Cell,Urine 1 /hpf (0-5); Urobilinogen,Urine Negative mg/dL (0.0-1.0); WBC,Urine 2 /hpf (0-5)
[2024-12-17 17:35] LABS: Amphetamine/Methamp Scrn,U Negative (Negative); Barbiturate Screen,Urine Negative (Negative); Benzodiazepines Screen,Urine Negative (Negative); Benzoylecgonine Screen, Ur Negative (Negative); Fentanyl Screen,Urine Negative (Negative); Opiate Screen,Urine Negative (Negative); THC Screen,Urine Positive (Negative)
--- NOTE | 2024-12-17 18:22 | EDNOTE_ITS ---
Emergency Room Addendum <Soumya Drake - Last Filed: 12/17/24 19:02> Addendum Narrative: 1800: Care assumed from Dr. Mccabe, the previous shift emergency physician. Past medical, surgical, social and family history reviewed. Vitals and home medications reviewed. Results and treatment plan discussed. I will assume the care of the patient at this time and will follow the patient. Please refer to the emergency department record for history and examination from initial visit. RADIOLOGY RESULTS: [facility] Report Signed Patient: DIANA RIVAS. Record#: [id number] Birthdate: 1985 Age/Sex: 39 / F Location: [facility] Attending Dr: Ordering Physician: Courtney Mccabe MD Date of Service: 12/17/24 Procedure(s): MR MRCP Accession Number(s): [id number] cc: Aubrey Bocanegra MD; NO PRIMARY/FAMILY,PHYSICIAN; Courtney Mccabe MD~ MRI abdomen, without contrast. MRCP Date and time of exam: December 17, 2024, 1738 hrs. Indications: Chest pain epigastric pain elevated bilirubin 4.6 cm examination today Technique: Multiple axial and coronal images of the abdomen have been obtained with the Siemens 1.5T MRI scanner. Images obtained included T1 weighted transverse images, T2-weighted transverse images, T2-weighted transverse images fat-suppressed, T2 weighted haste fat suppressed transverse images, T1 weighted images, in and out of phase images, T2-weighted coronal images, breath hold, T2 weighted haze coronal images as well as T2 weighted coronal thick slab images, MRCP. Findings: No focal liver lesions, no intrahepatic biliary tract dilatation Gallbladder is not visualized Common hepatic duct 5 mm common bile duct 4 mm no stones Pancreatic duct is not dilated No pancreatic edema or mass No ascites Spleen is not enlarged No hydronephrosis Impression: No focal liver lesions Absent gallbladder No extrahepatic biliary tract dilatation No common hepatic or common bile duct stones Dictated By: Aubrey Bocanegra MD Signed By: <Electronically signed by Aubrey Bocanegra MD in OV> 12/17/24 1813 <Shabbir Genao, - Last Filed: 12/17/24 19:37> Addendum Narrative: 1800: Care assumed from Dr. Mccabe, the previous shift emergency physician. Past medical, surgical, social and family history reviewed. Vitals and home medications reviewed. Results and treatment plan discussed. I will assume the care of the patient at this time and will follow the patient. Please refer to the emergency department record for history and examination from initial visit. RADIOLOGY RESULTS: [facility] Report Signed Patient: DIANA RIVAS. Record#: [id number] Birthdate: 1985 Age/Sex: 39 / F Location: [facility] Attending Dr: Ordering Physician: Courtney Mccabe MD Date of Service: 12/17/24 Procedure(s): MR MRCP Accession Number(s): [id number] cc: Aubrey Bocanegra MD; NO PRIMARY/FAMILY,PHYSICIAN; Courtney Mccabe MD~ MRI abdomen, without contrast. MRCP Date and time of exam: December 17, 2024, 1738 hrs. Indications: Chest pain epigastric pain elevated bilirubin 4.6 cm examination today Technique: Multiple axial and coronal images of the abdomen have been obtained with the Siemens 1.5T MRI scanner. Images obtained included T1 weighted transverse images, T2-weighted transverse images, T2-weighted transverse images fat-suppressed, T2 weighted haste fat suppressed transverse images, T1 weighted images, in and out of phase images, T2-weighted coronal images, breath hold, T2 weighted haze coronal images as well as T2 weighted coronal thick slab images, MRCP. Findings: No focal liver lesions, no intrahepatic biliary tract dilatation Gallbladder is not visualized Common hepatic duct 5 mm common bile duct 4 mm no stones Pancreatic duct is not dilated No pancreatic edema or mass No ascites Spleen is not enlarged No hydronephrosis Impression: No focal liver lesions Absent gallbladder No extrahepatic biliary tract dilatation No common hepatic or common bile duct stones Dictated By: Aubrey Bocanegra MD Signed By: <Electronically signed by Aubrey Bocanegra MD in OV> 12/17/24 1813 Case was signed out to me. Patient became hypertensive here in the emergency room with a blood pressure of 180s over 140s. Patient received labetalol 20 mg IV x 2 which brought down the blood pressure. MRCP was unremarkable. Patient has had a cholecystectomy in the past. Patient has a history of Graves' disease and her TSH is less than 0.01. She does have a history of COVID induced cardiomyopathy and the chest x-ray showed cardiomegaly with mild vascular congestion. Dr. Mccabe had already given Lasix 80 mg IV. BNP is elevated. Troponin is slightly elevated. EKG shows no ST segment elevations. Patient will require admission to the hospital for diuresis for her CHF exacerbation and better blood pressure control. Case was discussed with the hospitalist who is graciously agreed to admit this patient to hospital for further treatment and evaluation.
--- NOTE | 2024-12-17 18:34 | PC.NURSE ---
PATIENT IS BACK FROM [facility]. PATIENT IS STILL HYPERTENSIVE. PATIENT BLOOD PRESSURE 182/144. DR. BARKER HADOOP ANALYST ED DOCTOR MADE AWARE. WILL PUT IN NEW ORDERS
[2024-12-17] MEDS: LABETALOL INJ 5 MG/ML VIAL 20 ML 20 MG IVP ×2 (18:54→19:45)
--- NOTE | 2024-12-17 21:20 | ESHP_ITS ---
<Statement entered by Jesusita Cisse MD - 12/18/24 03:13> This is a 39-year-old female with PMHx of poorly controlled Graves' disease, poorly controlled hypertension, hypertensive related, CHF with a EF 40-45%, seizure disorder, anxiety, depression, and asthma presented to the ED with worsening shortness of breath. She was recently seen by her PCP and was prescribed oxygen which was delivered today. At home she was satting in the 80s, worsening with exertion. Reports poor sleep secondary to shortness of breath and orthopnea. Also reports worsening dry cough but no fever or chills. She has a history of poorly controlled Graves' disease, currently pending thyroidectomy in December. She follows Dr. Lomeli for hypertension and CHF management, and her BUMEX was recently increased to 4 mg daily which she is taking along with other medications as listed in HPI. On presentation, she was afebrile, hypertensive with BP 192/155 which improved with LABETALOL and after a dose of LASIX 80 mg. Oxygenation also improved with nasal cannula. CXR showed vascular congestion but no pneumonia. She had mild leukocytosis which is likely reactive, COVID was negative, thus unlikely she has pneumonia. She had NSTEMI type II in settings of increased demand with troponin peaked at 0.231. BNP was elevated at 1726 with lower extremity edema bilateral on exam, pointing towards CHF exacerbation as the most likely underlying cause of her respiratory failure. TB is elevated 4.6, LFTs are normal, ALP 144. She has previous admissions for elevated total bili. She denies current abdominal pain. MRCP was negative for hepatobiliary pathology. Will admit to telemetry. Continue with aggressive diuresis of BUMEX 2 mg IV BID, along with fluid restrictions. Kidney function is normal. Will resume antihypertensives with target SBP 140?160 as she usually is symptomatic with dizziness and lightheadedness with SBP below 140 based on previous admission. Resumed all other home medications including those for hypothyroidism. Pending further recommendations from cardiology. Case was discussed with attending physician, Dr. Silva. Jesusita Cisse, DO PGY II This document was transcribed using voice recognition technology. Minor inaccuracies may be present. Documentation for date of: 12/17/24 HPI History of Present Illness History of present illness: Mrs Adam is a 39 year-old female with past medical history of HFrEF (EF40- 45%), hypertension, Graves disease (not in remission), seizure disorder, asthma, IGNACIO, anxiety and depression who presented to the ED on 12/17/2024 with chest pain and shortness of breath. Patient reported having difficulty sleeping for the past fives days due to difficulty breathing. However 3 days she went to see her PCP for evaluation. Patient failed walk test, was started on home oxygen. She reports this is the first time experiencing shortness of breath. Patient endorses intermittent chest pain for the past 3 days. However this morning the pain became more constant, characterized as substernal chest pain radiating to the right arms and upwards to the neck. Associated with with dry cough and nausea,patient went to PCP, COVID test perfomed was negative. She also denies recent sick contact. She contacted Dr. Lomeli about his shortness of breath and chest pain and advised her to come to the ED immediately. She denies headache, chest palpitation, and bilateral leg edema for the past few days. Additionally patient is states that since cholecystectomy in 2018, there were some complication that lead to IBS consistent with intermittent diarrhea constipation. Also she noted she has been having high T. bili at baseline however denies dark urine, pale stools, itchiness. Patient conveyor feeder is Dr. Dwyer. Patient has a thyroidectomy scheduled for January 09. Patient sales and marketing representative is Dr. Lomeli. ED Course: -Initial vitals were BP 181/144, pulse 86, respiratory 18, temp 98.2, O2 sat 95% on 2 L NC -Labs significant for WBC 11.1, PT 12.6, T. bili 4.6. Troponin 0.231, BNP 1726, TSH< 0.01. Free T4 1.86 -Imaging included MRCP showed common hepatic duct 5 mm common bile duct 4 mm no stones and absent gallbladder. Chest x-ray showed mild vascular congestion -In the ED, patient was given Lasix 80 mg x 1, morphine 2 mg x 1, labetalol 20 mg x 1 -Patient was admitted for acute hypoxic respiratory failure evaluation and management. Review of Systems Review of systems otherwise negative except what is mentioned above. Past Medical History: - CHF (EF 40?45%) - Resistant Hypertension - Pericarditis - Graves? disease (hyperthyroidism) - Seizure disorder (on Keppra) - Asthma - Obstructive sleep apnea - Depression and anxiety - IBS, gallbladder disease - Endometriosis, PID - RT renal artery stenosis (negative cath per prior records) - Migraines Family History: Extensive history of cancer Surgical History: - s/p cholecystectomy (2018) - 2 C-sections Social History: - Denies history of smoking, denies current alcohol use, denies recreational drug use - Lives in town, sees sales and marketing representative Dr. Lomeli and conveyor feeder Dr. Guardado Current Medications: med list Allergies: - Glucosamine ? rash -Venlafaxine ? itching - Jalapeno ? severe allergy Exam Vital Signs Temp Pulse Resp BP Pulse Ox O2 Del Method O2 Flow Rate 97.8 F 66 20 156/117 H 98 Nasal Cannula 2 12/17/24 19:32 12/17/24 19:45 12/17/24 19:32 12/17/24 19:45 12/17/24 19:32 12/17/24 19:32 12/17/24 19:32 Narrative Exam General: Alert, no acute distress.Conversational and non-toxic appearing. Skin: Warm, dry, intact. No rash or ecchymoses. Head: Normocephalic, atraumatic. Eye: Mild scleral icterus, PERRL. Throat: Oral mucosa moist. No obvious lesions in oropharynx. Cardiovascular: Regular rate and rhythm, no murmur, +S1/S2. Respiratory: Lungs are clear to auscultation, respirations unlabored, no crackles, no wheezing. Gastrointestinal: Soft, nontender, non-distended. No guarding or rebound tenderness. Extremities: Mild trace edema LE. no cyanosis, no clubbing. Neuro: Alert and oriented x3.No focal deficits observed. Conversant, moving all extremities. No overt cerebellar signs/incoordination. Psychiatric: Cooperative, appropriate affect Results: Labs 12/18/24 06:15 12/18/24 04:49 Labs: Short CBC 12/17/24 Range/Units 14:15 WBC 11.1 H (3.6-11.0) Thou/mm3 Hgb 14.0 (12.0-16.0) g/dL Hct 42.9 (36.0-46.0) % Plt Count 233 (140-440) Thou/mm3 BMP 12/17/24 14:15 Sodium 139 Potassium 3.4 Chloride 103 Carbon Dioxide 21.9 BUN 19 Creatinine 1.3 Glucose 125 H Calcium 9.2 Cardiac Enzymes 12/17/24 Range/Units 14:15 Troponin I 0.231 H* (0.0-0.045) ng/mL Liver Function 12/17/24 Range/Units 14:15 Total Bilirubin 4.6 H (0.3-1.2) mg/dL AST 31 (0-34) U/L ALT 32 (10-49) U/L Alkaline Phosphatase 144 H (46-116) U/L Albumin 3.9 (3.5-5.0) gm/dL Urine 12/17/24 Range/Units 17:10 Urine Color Yellow (Lt Yel-Yel) Urine Clarity Clear (Clear/Hazy) Urine pH 6.0 (5.0-7.0) Ur Specific [place] 1.019 (1.001-1.035) Urine Protein 1+ A (Neg - Trace) Urine Glucose (UA) Negative (Negative) Quality Measures Quality Measures none Medications Home Medications and Allergies Home Medications ?Medication ?Instructions ?Recorded ?Confirmed ?Type duloxetine 60 mg capsule,delayed 60 mg PO HS 11/24/20 12/17/24 History release carvedilol 25 mg tablet 25 mg PO 3XD 09/11/23 History aripiprazole 20 mg tablet (Abilify) 20 mg PO QDAY PRN migraine headache 07/02/24 12/17/24 History levetiracetam 500 mg tablet 500 mg PO BID 07/02/24 History rilonacept 220 mg subcutaneous 220 mg subcut Q7D 07/0212/17/24 History solution (Arcalyst) ubrogepant 50 mg tablet (Ubrelvy) 50 mg PO .QD PRN kassie drew headache 07/02/24 12/17/24 History aspirin 81 mg tablet,delayed 81 mg PO DAILY 12/17/24 0 12/17/24 History release bumetanide 2 mg tablet 2 mg PO DAILY 12/17/2412/17 History hydroxyzine HCl 25 mg tablet 25 mg PO DAILY 12/17/24 0 12/17/24 History iodine strong (Lugols) 5 % oral 0.05 ml PO TID 5 12/17/24 History solution (Strong Iodine) methimazole 10 mg tablet 30 mg PO BID 12/17/24 History nicardipine 20 mg capsule 20 mg PO TID 12/17/24 History propranolol 10 mg tablet 10 mg PO TID 12/17/24 History Allergies Allergy/AdvReac Type Severity Reaction Status Date / Time glucosamine Allergy Severe Rash Verified 12/17/24 13:44 pepper (genus Capsicum) Allergy Mild Swelling Verified 12/17/24 13:44 of Lip/Tongue/Throat venlafaxine Allergy Mild Itching Verified 12/17/24 13:44 Visit Medications Acetaminophen (Acetaminophen 325 Mg Tablet) 650 mg PO Q6H PRN PRN Reason: PAIN SCALE 1-3 (mild Stop: 01/16/25 21:00 Hydrocodone Bitart/Acetaminophen (Hydrocodone/Apap 5/325 Tablet) 1 tab PO Q4HR PRN PRN Reason: PAIN SCALE 4-6 (Moderate Stop: 12/22/24 21:00 Aripiprazole (Aripiprazole 5 Mg Tablet) 20 mg PO QDAY PRN PRN Reason: Migraine Headache Stop: 01/16/25 21:05 Carvedilol (Carvedilol 12.5 Mg Tablet) 25 mg PO 3XD LEON Stop: 01/16/25 21:14 Duloxetine HCl (Duloxetine Hcl 30 Mg Capsule) 60 mg PO HS LEON Stop: 01/17/25 20:59 Levetiracetam (Levetiracetam 250 Mg Tablet) 500 mg PO BID LEON Stop: 01/16/25 21:14 Methimazole (Methimazole 5 Mg Tablet) 10 mg PO BID LEON Stop: 01/16/25 21:14 Morphine Sulfate (Morphine Sulf Inj 4 Mg/Ml Vial) 2 mg IVP Q2H PRN PRN Reason: PAIN SCALE 7-10 (Severe Stop: 12/22/24 21:00 Non-Formulary Medication (Rilonacept [Arcalyst]) 220 mg SC Q7D LEON Stop: 01/16/25 21:14 Non-Formulary Medication (Ubrogepant [Ubrelvy]) 20 mg PO .QD PRN PRN Reason: migraine headache Spironolactone (Spironolactone 25 Mg Tablet) 50 mg PO QDAY LEON Stop: 01/17/25 08:59 Valsartan (Valsartan 80 Mg Tablet) 160 mg PO BID LEON Stop: 01/16/25 21:14 Discontinued Medications Furosemide (Furosemide Inj 10 Mg/Ml 4ml Vial) 80 mg IVP X1 ONE Stop: 12/17/24 16:30 Last Admin: 12/17/24 16:39 Dose: 80 mg Labetalol HCl (Labetalol Inj 5 Mg/Ml Vial 20 Ml) 20 mg IVP X1 ONE Stop: 12/17/24 18:45 Last Admin: 12/17/24 18:54 Dose: 20 mg Labetalol HCl (Labetalol Inj 5 Mg/Ml Vial 20 Ml) 20 mg IVP X1 ONE Stop: 12/17/24 19:34 Last Admin: 12/17/24 19:45 Dose: 20 mg Morphine Sulfate (Morphine Sulf Inj 4 Mg/Ml Vial) 2 mg IVP STAT STA Stop: 12/17/24 17:12 Last Admin: 12/17/24 17:21 Dose: 2 mg Assessment & Plan Plan Mrs Adam is a 39 year-old female with past medical history of HFrEF (EF40- 45%), hypertension, Graves disease, seizure disorder, asthma, IGNACIO, anxiety and depression who presented to the ED on 12/17/2024 with chest pain and shortness of breath. Admitted for acute possible heart failure secondary to CHF evaluation and management. #Acute hypoxic respiratory failure secondary to #Congestive heart failure exacerbation #HFreF (EF 40-45) #Hx asthma DDx; CHF exacerbation vs ashma exacerbation vs Pneumonia The patient reported acute shortness of breath on exertion, with oxygen saturation dropping to the 80s. The patient had recently visited PCP and was prescribed home oxygen. Upon evaluation in the clinic, the patient?s saturation improved to 95% on 2L NC, but they continued to experience shortness of breath. The NC was increased to 3L, but the patient still experienced difficulty breathing. In addition to shortness of breath, the patient exhibited trace bilateral extremity edema and a dry cough, likely due to vascular congestion, which supports the clinical diagnosis of volume overload. As a result, the AHRF is most likely secondary to CHF exacerbation rather than an asthma exacerbation, as there have been no recent asthma attacks, and the asthma is well-controlled with the current treatment. On physical examination, the pulmonary exam revealed no evidence of wheezes or crackles, further supporting the diagnosis of CHF exacerbation over an asthma attack. Less likely pneumonia, given CXR negative, lungs CTA, mild leukocytosis WBC 11.1 likely reactive, afebrile. COVID-19 negative BNP 1726 Trop 0.231> 0.208. Chest x-ray showed mild vascular congestion EKG showed mild sinus rhythm with nonspecific ST -T wave abnormalities Last echo on 07/03/24: LV EF 40-45%, RV is normal with RVSP 50 mmHg. Mild pulmonary hypertension -Started Bumex 2 mg IVP twice daily -Resume home regimen-valsartan 160 mg p.o. twice daily, Aldactone 50 mg p.o. daily, Coreg 25 mg p.o. TID -Fluid restriction daily -Strict ins and outs, urinary catheter in place -MRSA nasal screen -Pain control with acetaminophen,morphine and norco -Cardiology Dr. Lomeli consulted, recommendation appreciated #Hypertensive emergency #Hx Resistant Hypertension #NSTEMI likely type II #Graves Disease Hypertensive emergency given blood pressure BP 191/144 with signs of end organ damage (Trop 0.231> 0.208, shortness of breath and chest pain). High troponin is likely due to NSTEMI type II secondary to demand ischemia from hypertensive emergency. In the ED patient received labetalol 20 mg IVP x 2. Patient has thyroidectomy scheduled for January 09. On admission Free T4 1.86, TSH <0.01; likely contributing to BP and HR lability. Patient has a history of resistant hypertension. Poorly control Grave disease - Goal SBP 140-160, anything bellow that pt can't tolerate, prior hx of dizziness with soft BP - Resume home methimazole 30 mg p.o. twice daily - Follow-up outpatient for thyroidectomy - Resume home medication as mentioned above #Elevated T.caridad #IBS s/p cholecystectomy (2018) Patient has chronic elevated T. bili. On evaluation patient and scleral icterus-no generalized jaundice. Patient has abdominal pain, itchiness, pale stool, no dark urine. MRCP ordered in the ED showed no extrahepatic biliary tract dilation, absent gallbladder, common hepatic 5 mm, bile duct 4 mm no stone. Possibly secondary to high doses of methimazole History of IBS s/p cholecystectomy T. bili 4.6 -Resume home Cholestryramine/sucrose 1 pkt - Continue to monitor - No acute intervention needed unless worsening # Seizure Disorder - Resume home Keppra 500 mg twice daily # Anxiety and Depression -Resume home Abilify 20 mg p.o -Resume home dose Cymbalta 60 mg p.o. #Migraine - resume home ubrelvy Hospital management: Lines: peripheral IV Diet: Cardiac DVT prophylaxis: Heparin SC Disposition: tele acute upper respiratory secondary CHF exacerbation evaluation and management CODE STATUS: Full code Patient seen and assessed under supervision of attending physician . Danielle Rome MD PGY-1, Internal Medicine Please note: this document was transcribed using voice recognition technology; minor inaccuracies may be present. Attending Provider Attestation/Addendum I have examined the patient, reviewed labs and imaging findings, discussed the case with the resident(s), and reviewed entered orders. I agree with the plan of care as outlined in this note, with these additional summaries/recommendations: 39-year-old female with past medical history of uncontrolled Graves' disease complicated by heart failure currently on methimazole 30 twice daily and SSKI drops with planned total thyroidectomy 12/2024, resistant hypertension, HFmrEF, asthma, seizure disorder presented to the ED with chief complaint of worsening shortness of breath has been ongoing for the last week. Lab significant for elevated BNP, chest x-ray showed some moderate vascular congestion. Patient desatted on room air requiring 2 L supplemental oxygen. She will be admitted for further management of acute hypoxic respiratory failure likely secondary to fluid overload in setting of uncontrolled Graves' disease and HFmrEF. Patient with elevated total bilirubin unclear etiology but could represent sequela of pernicious anemia versus high dose of methimazole versus possible transport issue. Recommend further evaluation if no improvement. Ha Silva MD
[2024-12-17 22:04] LABS: Troponin I 0.208 ng/mL (0.0-0.045)
[2024-12-17] MEDS: VALSARTAN 80 MG TABLET 160 MG PO (23:15)
[2024-12-17] MEDS: BUMETANIDE 0.5 MG TABLET 2 MG PO (23:16)
[2024-12-18] VITALS (15 sets, daily range): BP systolic 107–145; BP diastolic 82–101; PULSE 56–100; RESP 11–31; TEMP 35.8–36.3; O2SAT 93–100; BMI 36.9
[2024-12-18] MEDS: HEPARIN SOD INJ 5000 UNIT/ML VIAL SC ×2 (05:12→22:00)
[2024-12-18 06:20] LABS: Anion Gap 13 (7-16); BUN/Creatinine Ratio 13 Ratio (12-20); Blood Urea Nitrogen 17 mg/dL (9-23); Calcium 8.9 mg/dL (8.3-10.6); Carbon Dioxide 21.6 mMol/L (20.0-31.0); Chloride 104 mMol/L (98-107); Creatinine (Component) 1.3 mg/dL (0.6-1.3); Estimated Creatinine Clearance 70.6 mL/min (>60); Glucose 119 mg/dL (74-106); Magnesium 1.6 mg/dL (1.6-2.6); Osmolality,Calculated 280 (275-295); Phosphorous 4.1 mg/dL (2.4-5.1); Potassium 3.2 mMol/L (3.4-5.1); Sodium 139 mMol/L (136-145); eGFR 53 See Note
[2024-12-18 06:36] LABS: Basophils # (Auto) 0.0 Thou/mm3 (0.0-0.2); Basophils % (Auto) 0 % (0-2.5); Eosinophils # (Auto) 0.2 Thou/mm3 (0.0-0.5); Eosinophils % (Auto) 2 % (0-10); Hematocrit 38.4 % (36.0-46.0); Hemoglobin 12.9 g/dL (12.0-16.0); Immature Granulocytes Auto 0.02 Thou/mm3 (0.00-0.00); Lymphocytes # (Auto) 2.1 Thou/mm3 (1.0-4.8); Lymphocytes % (Auto) 28 % (10-50); Mean Corpuscular HGB Conc 33.6 g/dl (31.0-37.0); Mean Corpuscular Hemoglobin 28.4 pg (25.0-35.0); Mean Corpuscular Volume 84 fL (80-100); Monocytes # (Auto) 1.0 Thou/mm3 (0.0-0.8); Monocytes % (Auto) 14 % (0-12); Neutrophils # (Auto) 4.2 Thou/mm3 (1.8-7.7); Neutrophils % (Auto) 56 % (37-80); Nucleated Red Blood Cell # 0.03 Thou/mm3 (0.00-0.00); Nucleated Red Blood Cell % 0 /100 WBC (0); Platelet Count 180 Thou/mm3 (140-440); RDW Standard Deviation 48.8 fL (36.4-46.3); Red Blood Count 4.55 Miln/mm3 (4.00-5.20); White Blood Count 7.6 Thou/mm3 (3.6-11.0)
[2024-12-18 09:07] LABS: Alanine Aminotransferase 32 U/L (10-49); Albumin, Serum 3.6 gm/dL (3.5-5.0); Alkaline Phosphatase 129 U/L (46-116); Aspartate Amino Transferase 30 U/L (0-34); Bilirubin,Direct 1.3 mg/dL (0.0-0.3); Bilirubin,Total 4.5 mg/dL (0.3-1.2); Total Protein 5.8 gm/dL (5.7-8.2)
[2024-12-18] MEDS: VALSARTAN 80 MG TABLET 160 MG PO ×2 (09:10→21:59)
[2024-12-18] MEDS: ALBUMIN HUMAN 25% IVPB 25 GM/100 ML BTL IV (09:10)
[2024-12-18] MEDS: CHOLESTYRAMINE/SUCROSE 1 PKT EA PO ×2 (09:10→22:00)
[2024-12-18] MEDS: METHIMAZOLE 5 MG TABLET 30 MG PO ×2 (09:10→22:00)
[2024-12-18] MEDS: SPIRONOLACTONE 25 MG TABLET 50 MG PO (09:17)
[2024-12-18] MEDS: BUMETANIDE INJ 0.25 MG/ML VIAL 4 ML 2 MG IVP ×2 (09:17→21:58)
--- NOTE | 2024-12-18 10:04 | ESCONSULT_ITS ---
<Statement entered by Eliane Lomeli MD - 12/20/24 10:09> I personally evaluated examined the patient was very well-known to me alongside history of severe uncontrolled hypertension stage II congestive heart failure preserved ejection fraction negative coronary angiogram after multiple hospitalization again came to the hospital severe hypertension heart failure symptoms anxiety has severe orthopnea and shortness of breath clinically stable x-ray showed negative findings however patient continues to have shortness of breath and chest pain concerned about possible CAD. Agree with the present medical management we will plan on possibly perform coronary angiogram cardiac catheterization for assessment of CAD. Evaluated patient with resident physician Dr. Bryce Drake PGY2 will continue to monitor the patient closely HPI Data of Consult Consult date: 12/18/24 Requesting Physician: Macarena Trevizo MD Admitting Provider: Ha Silva MD Attending Provider: Eliane Lomeli MD Primary Care Provider: Physician No Primary/Family Consult Narrative Reason for consult: Heart failure exacerbation History of present illness: 39-year-old female with past medical history of severe Graves' disease, hypertension, heart failure with reduced ejection fraction [40-45%], seizure disorder, anxiety, depression, asthma who was sent to the ED due to worsening shortness of breath. Patient spoke to veneer patcher Dr. Lomeli who instructed the patient to come to the ED. She currently is on home oxygen. But apparently was desaturating to the 80s. ED course: BP 181/144, pulse 86, respiratory 18, temp 98.2, O2 sat 95% on 2 L NC. Labs significant for WBC 11.1, PT 12.6, T. bili 4.6. Troponin 0.231, BNP 1726, TSH< 0.01. Free T4 1.86. Imaging included MRCP showed common hepatic duct 5 mm common bile duct 4 mm no stones and absent gallbladder. Chest x-ray showed mild vascular congestion. In the ED, patient was given Lasix 80 mg x 1, morphine 2 mg x 1, labetalol 20 mg x 1 PMHx: as above SX Hx: cholecystectomy, C-sections x2 Social Hx: denies smoking, alcochol, denies illicit substances including thc FHx: unknown cardiac history Cardiology consulted for management of acute decompensated heart failure. cc:: cc: Macarena Trevizo MD Review of Systems Review of Systems Systems Reviewed: All systems reviewed, normal except as documented Exam Vital Signs Temp Pulse Resp BP Pulse Ox O2 Del Method O2 Flow Rate 96.9 F 58 L 11 L 131/84 H 100 Nasal Cannula 1 12/18/24 08:00 12/18/24 09:17 12/18/24 08:00 12/18/24 09:17 12/18/24 08:00 12/18/24 08:00 12/18/24 08:00 Narrative Exam GENERAL: NAD, AAOx3 HEENT: Moist mucosa. Eyes open, scleral icterus, symmetrical, & clear CARDIO: Heart RRR, no obvious murmurs PULM: No noted coughing/dyspnea CTA B/L, no R/W/R GI: Abdomen soft, nondistended, no pain on palpation. BSx4 SKIN/MSK/EXT: No wounds/rashes/edema/amputations, no pain on palpation. Pedal pulses present B/L NEURO: AAOx3, no focal neuro deficits, able to move all 4 extremities Results Labs 12/18/24 06:15 12/18/24 04:49 Labs: Short CBC 12/17/24 12/18/24 Range/Units 14:15 06:15 WBC 11.1 H 7.6 (3.6-11.0) Thou/mm3 Hgb 14.0 12.9 (12.0-16.0) g/dL Hct 42.9 38.4 (36.0-46.0) % Plt Count 233 180 D (140-440) Thou/mm3 BMP 12/17/24 12/18/24 14:15 04:49 Sodium 139 139 Potassium 3.4 3.2 L Chloride 103 104 Carbon Dioxide 21.9 21.6 BUN 19 17 Creatinine 1.3 1.3 Glucose 125 H 119 H Calcium 9.2 8.9 Cardiac Enzymes 12/17/24 12/17/24 Range/Units 14:15 21:34 Troponin I 0.231 H* 0.208 H* (0.0-0.045) ng/mL Liver Function 12/17/24 12/18/24 Range/Units 14:15 05:37 Total Bilirubin 4.6 H 4.5 H (0.3-1.2) mg/dL Direct Bilirubin 1.3 H (0.0-0.3) mg/dL AST 31 30 (0-34) U/L ALT 32 32 (10-49) U/L Alkaline Phosphatase 144 H 129 H (46-116) U/L Albumin 3.9 3.6 (3.5-5.0) gm/dL Urine 12/17/24 Range/Units 17:10 Urine Color Yellow (Lt Yel-Yel) Urine Clarity Clear (Clear/Hazy) Urine pH 6.0 (5.0-7.0) Ur Specific [place] 1.019 (1.001-1.035) Urine Protein 1+ A (Neg - Trace) Urine Glucose (UA) Negative (Negative) Quality Measures Quality Measures none Medications Home Medications and Allergies Home Medications ?Medication ?Instructions ?Recorded ?Confirmed ?Type duloxetine 60 mg capsule,delayed 60 mg PO HS 11/24/20 12/17/24 History release carvedilol 25 mg tablet 25 mg PO 3XD 09/11/23 History aripiprazole 20 mg tablet (Abilify) 20 mg PO QDAY PRN migraine headache 07/02/24 12/17/24 History levetiracetam 500 mg tablet 500 mg PO BID 07/02/24 History rilonacept 220 mg subcutaneous 220 mg subcut Q7D 07/0212/17/24 History solution (Arcalyst) ubrogepant 50 mg tablet (Ubrelvy) 50 mg PO .QD PRN kassie drew headache 07/02/24 12/17/24 History aspirin 81 mg tablet,delayed 81 mg PO DAILY 12/17/24 0 12/17/24 History release bumetanide 2 mg tablet 2 mg PO DAILY 12/17/2412/17 History hydroxyzine HCl 25 mg tablet 25 mg PO DAILY 12/17/24 0 12/17/24 History iodine strong (Lugols) 5 % oral 0.05 ml PO TID 5 12/17/24 History solution (Strong Iodine) methimazole 10 mg tablet 30 mg PO BID 12/17/24 History nicardipine 20 mg capsule 20 mg PO TID 12/17/24 History propranolol 10 mg tablet 10 mg PO TID 12/17/24 History Allergies Allergy/AdvReac Type Severity Reaction Status Date / Time glucosamine Allergy Severe Rash Verified 12/17/24 13:44 pepper (genus Capsicum) Allergy Mild Swelling Verified 12/17/24 13:44 of Lip/Tongue/Throat venlafaxine Allergy Mild Itching Verified 12/17/24 13:44 Visit Medications Acetaminophen (Acetaminophen 325 Mg Tablet) 650 mg PO Q6H PRN PRN Reason: PAIN SCALE 1-3 (mild Stop: 01/16/25 21:00 Hydrocodone Bitart/Acetaminophen (Hydrocodone/Apap 5/325 Tablet) 1 tab PO Q4HR PRN PRN Reason: PAIN SCALE 4-6 (Moderate Stop: 12/22/24 21:00 Aripiprazole (Aripiprazole 5 Mg Tablet) 20 mg PO QDAY PRN PRN Reason: Migraine Headache Stop: 01/16/25 21:05 Bumetanide (Bumetanide Inj 0.25 Mg/Ml Vial 4 Ml) 2 mg IVP BID LEON Stop: 01/17/25 08:59 Last Admin: 12/18/24 09:17 Dose: 2 mg Carvedilol (Carvedilol 12.5 Mg Tablet) 25 mg PO TID LEON Stop: 01/16/25 21:14 Last Admin: 12/18/24 05:12 Dose: 25 mg Cholestyramine Resin (Cholestyramine/Sucrose 1 Pkt Ea) 1 pkt PO BID LEON Stop: 01/17/25 08:59 Last Admin: 12/18/24 09:10 Dose: 1 pkt Duloxetine HCl (Duloxetine Hcl 30 Mg Capsule) 60 mg PO HS LEON Stop: 01/17/25 20:59 Heparin Sodium (Porcine) (Heparin Sod Inj 5000 Unit/Ml Vial) 5,000 unit SC BID LEON Stop: 01/01/25 05:59 Last Admin: 12/18/24 09:21 Dose: Not Given Albumin Human (Albuminar-25 Ivpb) 25 gm in 100 mls @ 100 mls/hr IV QDAY LEON Stop: 12/21/24 08:24 Last Admin: 12/18/24 09:10 Dose: 100 mls/hr Magnesium Sulfate (Magnesium Sulfate Ivpb) 4 gm in 50 mls @ 12.5 mls/hr IV X1 ONE Stop: 12/18/24 12:24 Levetiracetam (Levetiracetam 250 Mg Tablet) 500 mg PO BID LEON Stop: 01/16/25 21:14 Last Admin: 12/18/24 09:18 Dose: 500 mg Methimazole (Methimazole 5 Mg Tablet) 30 mg PO BID LEON Stop: 01/17/25 08:59 Last Admin: 12/18/24 09:10 Dose: 30 mg Morphine Sulfate (Morphine Sulf Inj 4 Mg/Ml Vial) 2 mg IVP Q2H PRN PRN Reason: PAIN SCALE 7-10 (Severe Stop: 12/22/24 21:00 Non-Formulary Medication (Ubrogepant [Ubrelvy]) 20 mg PO .QD PRN PRN Reason: migraine headache Spironolactone (Spironolactone 25 Mg Tablet) 50 mg PO QDAY LEON Stop: 01/17/25 08:59 Last Admin: 12/18/24 09:17 Dose: 50 mg Valsartan (Valsartan 80 Mg Tablet) 160 mg PO BID LEON Stop: 01/16/25 21:14 Last Admin: 12/18/24 09:10 Dose: 160 mg Discontinued Medications Bumetanide (Bumetanide 0.5 Mg Tablet) 2 mg PO BID LEON Stop: 01/16/25 21:29 Last Admin: 12/17/24 23:16 Dose: 2 mg Furosemide (Furosemide Inj 10 Mg/Ml 4ml Vial) 80 mg IVP X1 ONE Stop: 12/17/24 16:30 Last Admin: 12/17/24 16:39 Dose: 80 mg Potassium Chloride (Kcl Ivpb) 10 meq in 100 mls @ 100 mls/hr IV Q1H LEON Stop: 12/18/24 12:12 Last Admin: 12/18/24 08:53 Dose: Not Given Labetalol HCl (Labetalol Inj 5 Mg/Ml Vial 20 Ml) 20 mg IVP X1 ONE Stop: 12/17/24 18:45 Last Admin: 12/17/24 18:54 Dose: 20 mg Labetalol HCl (Labetalol Inj 5 Mg/Ml Vial 20 Ml) 20 mg IVP X1 ONE Stop: 12/17/24 19:34 Last Admin: 12/17/24 19:45 Dose: 20 mg Methimazole (Methimazole 5 Mg Tablet) 10 mg PO BID LEON Stop: 01/16/25 21:14 Last Admin: 09/24/25 07:59 Dose: Not Given Morphine Sulfate (Morphine Sulf Inj 4 Mg/Ml Vial) 2 mg IVP STAT STA Stop: 12/17/24 17:12 Last Admin: 12/17/24 17:21 Dose: 2 mg Non-Formulary Medication (Rilonacept [Arcalyst]) 220 mg SC Q7D LEON Stop: 01/16/25 21:14 Last Admin: 12/18/24 07:59 Dose: Not Given Non-Formulary Medication (Ubrogepant [Ubrelvy]) 20 mg PO .QD PRN PRN Reason: migraine headache Non-Formulary Medication (Rilonacept [Arcalyst]) 220 mg SC Q7D LEON Stop: 01/16/25 21:14 Last Admin: 12/18/24 07:59 Dose: Not Given Non-Formulary Medication (Ubrogepant [Ubrelvy]) 20 mg PO .QD PRN PRN Reason: migraine headache Non-Formulary Medication (Rilonacept [Arcalyst]) 220 mg SC Q7D LEON Stop: 01/16/25 21:14 Potassium Chloride (Potassium Chloride 20 Meq Tabcr) 40 meq PO X1 ONE Stop: 12/18/24 08:52 Last Admin: 12/18/24 09:10 Dose: 40 meq Assessment & Plan Plan 39-year-old female with past medical history of severe Graves' disease, hypertension, heart failure with reduced ejection fraction [40-45%], seizure disorder, anxiety, depression, asthma who was sent to the ED due to worsening shortness of breath. Admitted for CHF exacerbation. 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 BNP: 1726 Trop 0.231> 0.208. EKG shows NSR Chest x-ray showed mild vascular congestion Last echo June 2024: Concentric LVH with mild global hypokinesis LV EF 40-45%. RV is normal with RVSP 50 mmHg. 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 Mild mitral and tricuspid regurgitation ? Possible cardiac cath prior to discharge, as patient has come previously with same elevated troponins and last cardiac cath was around 4 years ago. ? Continue Bumex 2mg iV BID ? Resume goal-directed medical therapy, as tolerated ? Continue Graves disease medications ? Keep K>4, Mg>2 ? Provide oxygen as required ? Strict I's and O's ? Fluid restriction #Anxiety and Depression #Obstructive sleep apnea #Graves Disease #Elevated T.caridad #IBS s/p cholecystectomy (2018) # Seizure Disorder #Migraine - as per primary team Case discussed with my attending Dr. Armani Drake MD PGY-2 Disclaimer: Despite multiple revisions, due to the dictation software being used, the document bellow may not be free of grammatical errors including phonetic/typographic errors. However, this does not deter from our commitment to providing health care in the patient's best interest in mind.
[2024-12-18] MEDS: Magnesium Sulfate 4 GM Ivpb 4 GM/50 ML BAG IV (10:26)
--- NOTE | 2024-12-18 10:33 | PC.SS ---
Update: Cardiology consultation is pending.
--- NOTE | 2024-12-18 11:40 | PC.SS ---
[employer] conducted bedside contact with the patient conduct initial assessment and to discuss discharge planning.? Patient confirmed demographic information.? Patient resides at home with spouse, Smooth Adam .? Patient utilizes a walker to assist with ambulation on a as needed basis.? Patient was to obtain home oxygen on 12-17-24, but was admitted to the hospital.? Vendor is [employer].? Patient is able to complete ADL?s independently.? Patient identified spouse, Smooth Adam; as medical surrogate decision maker.? Patient?s PCP is Tigist Rubi. ?Patient?s rn hedis is Dr. Pena. ?Patient reports scheduled for cardiac surgical procedure on 01-09-25 in [place].? ?Patient does not participate with dialysis. ?Patient utilizes [facility] for medication services.? Plan is for the patient to return home at the time of discharge.? Family will provide transportation on behalf of the patient. ?No further discharge needs identified by the patient.? No further intervention required at this time, social security assessor will be available to address any further concerns.? Next of Kin: Smooth Adam D/C Plan: Home
--- NOTE | 2024-12-18 13:00 | ESPR_ITS ---
<Statement entered by Madhu Davis MD - 12/18/24 20:47> Admission. Seen and examined at bedside patient resting comfortably in bed on 1 L nasal cannula and saturating well. States that she came in for shortness of breath but also endorses a burning, epigastric pain that radiated to her right shoulder and neck. Also states that she is noted to have difference in blood pressure in both arms but during this admission there is no significant difference. Cardiology following, currently on Bumex 2 mg IV twice daily, Coreg 25 mg p.o. 3 times daily, valsartan 160 mg p.o. twice daily. Will follow-up on recommendations, monitor I's and O's. Otherwise, vital signs stable, CBC unremarkable, CHEM panel showed K 3.2 and repleted, and troponins down trended. ----- Note reviewed and agree with care plan as documented. Please refer to the note below for further details. Plan discussed with attending physician Dr. Santhosh Davis MD PGY-2 Internal Medicine Documentation for date of: 12/18/24 Subjective Subjective Interval history: Patient seen and examined at bedside. No acute overnight events. T. bili 4.5, Direct bili 1.3, alk phos 144, AST ALT negative. ?Potassium 3.2 and will be repleted, troponins were 0.208 and had downtrended. Patient began to become anxious later in the day. She described having a fear of falling asleep. Was given a one-time dose of 25 mg hydralazine. Vitals were reviewed and are stable. Exam Vital Signs Temp Pulse Resp BP Pulse Ox O2 Del Method O2 Flow Rate 97.1 F 59 L 12 124/90 H 97 Nasal Cannula 0.5 12/18/24 12:12/18/24 12:12/18/24 12:00 12/18/24 12:00 12/18/24 12:00 12/18/24 12:12/18/24 12:00 Narrative Exam General: Overweight woman. Appears uncomfortable, short of breath. Neurologic: GCS 15. Alert and oriented x3, no gross neurological deficit, and patient able to move all 4 extremities. HEENT: Normocephalic, atraumatic, mucous membranes moist. Pupils reactive to light. Heart: Regular rate and rhythm, normal S1 and S2, no murmurs. Lungs: Clear to auscultation bilaterally with no wheezing or crackles. Abdomen: Soft, nondistended, nontender, positive bowel sounds. No guarding or rebound tenderness. Extremities: No edema. 2+ radial and dorsalis pedis pulses bilaterally. Skin: Warm. Dry. No rash or ecchymoses. Objective Labs 12/18/24 06:15 12/18/24 04:49 Labs: Laboratory Results - last 24 hr 12/17/24 12/17/24 12/17/24 14:15 17:10 21:34 WBC 11.1 H RBC 5.03 Hgb 14.0 Hct 42.9 MCV 85 MCH 27.8 MCHC 32.6 RDW Std Deviation 49.3 H Plt Count 233 Neut % (Auto) 57 Lymph % (Auto) 30 [place] % (Auto) 10 Eos % (Auto) 1 Baso % (Auto) 0 Neut # (Auto) 6.4 Lymph # (Auto) 3.4 [place] # (Auto) 1.2 H Eos # (Auto) 0.2 Baso # (Auto) 0.0 Immature Gran # (Auto) 0.02 H Absolute Nucleated RBC 0.05 H Immature Gran % 0 Nucleated RBC % 0 PT 12.6 H INR 1.2 APTT 25.9 Sodium 139 Potassium 3.4 Chloride 103 Carbon Dioxide 21.9 Anion Gap 14 BUN 19 Creatinine 1.3 Estim Creat Clear Calc Not Performed. eGFR 53 L BUN/Creatinine Ratio 15 Glucose 125 H Calculated Osmolality 280 Calcium 9.2 Corrected Calcium 9.3 Phosphorus Magnesium 1.8 Total Bilirubin 4.6 H Direct Bilirubin AST 31 ALT 32 Alkaline Phosphatase 144 H Troponin I 0.231 H* 0.208 H* B-Natriuretic Peptide 1726 H* Total Protein 6.4 Albumin 3.9 Globulin 2.5 Albumin/Globulin Ratio 1.6 TSH < 0.01 L* Free T4 1.86 H Ur Collection Type Clean Catch Urine Color Yellow Urine Clarity Clear Urine pH 6.0 Ur Specific [place] 1.019 Urine Protein 1+ A Urine Glucose (UA) Negative Urine Ketones Negative Urine Blood Negative Urine Nitrite Negative Urine Bilirubin Negative Urine Urobilinogen (Auto) Negative Ur Leukocyte Esterase Negative Urine RBC 2 Urine WBC 2 Ur Squamous Epith Cells 1 Urine Bacteria Rare Ur Culture Indicated? Not Indicated Urine Opiates Screen Negative Urine Fentanyl Screen Negative Ur Barbiturates Screen Negative U Amphetamin/Meth Scrn Negative U Benzodiazepines Scrn Negative U Cocaine Metab Screen Negative U Marijuana (THC) Screen Positive A 12/18/24 12/18/24 12/18/24 04:49 05:37 06:15 WBC 7.6 RBC 4.55 Hgb 12.9 Hct 38.4 MCV 84 MCH 28.4 MCHC 33.6 RDW Std Deviation 48.8 H Plt Count 180 D Neut % (Auto) 56 Lymph % (Auto) 28 [place] % (Auto) 14 H Eos % (Auto) 2 Baso % (Auto) 0 Neut # (Auto) 4.2 Lymph # (Auto) 2.1 [place] # (Auto) 1.0 H Eos # (Auto) 0.2 Baso # (Auto) 0.0 Immature Gran # (Auto) 0.02 H Absolute Nucleated RBC 0.03 H Immature Gran % 0 Nucleated RBC % 0 PT INR APTT Sodium 139 Potassium 3.2 L Chloride 104 Carbon Dioxide 21.6 Anion Gap 13 BUN 17 Creatinine 1.3 Estim Creat Clear Calc 70.6 eGFR 53 L BUN/Creatinine Ratio 13 Glucose 119 H Calculated Osmolality 280 Calcium 8.9 Corrected Calcium Phosphorus 4.1 Magnesium 1.6 Total Bilirubin 4.5 H Direct Bilirubin 1.3 H AST 30 ALT 32 Alkaline Phosphatase 129 H Troponin I B-Natriuretic Peptide Total Protein 5.8 Albumin 3.6 Globulin Albumin/Globulin Ratio TSH Free T4 Ur Collection Type Urine Color Urine Clarity Urine pH Ur Specific [place] Urine Protein Urine Glucose (UA) Urine Ketones Urine Blood Urine Nitrite Urine Bilirubin Urine Urobilinogen (Auto) Ur Leukocyte Esterase Urine RBC Urine WBC Ur Squamous Epith Cells Urine Bacteria Ur Culture Indicated? Urine Opiates Screen Urine Fentanyl Screen Ur Barbiturates Screen U Amphetamin/Meth Scrn U Benzodiazepines Scrn U Cocaine Metab Screen U Marijuana (THC) Screen Quality Measures Quality Measures none Assessment & Plan Assessment Current Active Medications: Generic Name Dose Route Start Last Admin Trade Name Freq PRN Reason Stop Dose Admin Acetaminophen 650 mg 12/17/24 21:01 Acetaminophen 325 Mg Tablet PO 01/16/25 21:00 Q6H PRN PAIN SCALE 1-3 (mild Hydrocodone Bitart/Acetaminophen 1 tab 12/17/24 21:01 Hydrocodone/Apap 5/325 Tablet PO 12/22/24 21:00 Q4HR PRN PAIN SCALE 4-6 (Moderate Aripiprazole 20 mg 12/17/24 21:06 Aripiprazole 5 Mg Tablet PO 01/16/25 21:05 QDAY PRN Migraine Headache Bumetanide 2 mg 12/18/24 09:00 12/18/24 09:17 Bumetanide Inj 0.25 Mg/Ml Vial 4 Ml IVP 01/17/25 08:59 2 mg BID LEON Administration Carvedilol 25 mg 12/17/24 21:15 12/18/24 05:12 Carvedilol 12.5 Mg Tablet PO 01/16/25 21:14 25 mg TID LEON Administration Cholestyramine Resin 1 pkt 12/18/24 09:00 12/18/24 09:10 Cholestyramine/Sucrose 1 Pkt Ea PO 01/17/25 08:59 1 pkt BID LEON Administration Duloxetine HCl 60 mg 12/18/24 21:00 Duloxetine Hcl 30 Mg Capsule PO 01/17/25 20:59 HS LEON Heparin Sodium (Porcine) 5,000 unit 12/18/24 06:00 12/18/24 09:21 Heparin Sod Inj 5000 Unit/Ml Vial SC 01/01/25 05:59 Not Given BID LEON Albumin Human 25 gm in 100 mls @ 100 mls/hr 12/18/24 08:25 12/18/24 10:22 Albuminar-25 Ivpb IV 12/21/24 08:24 Not Given QDAY LEON Levetiracetam 500 mg 12/17/24 21:15 12/18/24 09:18 Levetiracetam 250 Mg Tablet PO 01/16/25 21:14 500 mg BID LEON Administration Methimazole 30 mg 12/18/24 09:00 12/18/24 09:10 Methimazole 5 Mg Tablet PO 01/17/25 08:59 30 mg BID LEON Administration Morphine Sulfate 2 mg 12/17/24 21:01 Morphine Sulf Inj 4 Mg/Ml Vial IVP 12/22/24 21:00 Q2H PRN PAIN SCALE 7-10 (Severe Spironolactone 50 mg 12/18/24 09:00 12/18/24 09:17 Spironolactone 25 Mg Tablet PO 01/17/25 08:59 50 mg QDAY LEON Administration Valsartan 160 mg 12/17/24 21:15 12/18/24 09:10 Valsartan 80 Mg Tablet PO 01/16/25 21:14 160 mg BID [facility] Administration Plan Mrs. Adam is a 39 year-old female with past medical history of HFrEF (EF40- 45%), hypertension, Graves disease, seizure disorder, asthma, IGNACIO, anxiety and depression who presented to the ED on 12/17/2024 with chest pain and shortness of breath. Admitted for acute possible heart failure secondary to CHF evaluation and management. #Acute hypoxic respiratory failure secondary to #Congestive heart failure exacerbation #HFreF (EF 40-45) #Hx asthma DDx; CHF exacerbation vs ashma exacerbation vs Pneumonia The patient reported acute shortness of breath on exertion, with oxygen saturation dropping to the 80s. The patient had recently visited PCP and was prescribed home oxygen. Upon evaluation in the clinic, the patient?s saturation improved to 95% on 2L NC, but they continued to experience shortness of breath. The NC was increased to 3L, but the patient still experienced difficulty breathing. In addition to shortness of breath, the patient exhibited trace bilateral extremity edema and a dry cough, likely due to vascular congestion, which supports the clinical diagnosis of volume overload. As a result, the AHRF is most likely secondary to CHF exacerbation rather than an asthma exacerbation, as there have been no recent asthma attacks, and the asthma is well-controlled with the current treatment. On physical examination, the pulmonary exam revealed no evidence of wheezes or crackles, further supporting the diagnosis of CHF exacerbation over an asthma attack. Less likely pneumonia, given CXR negative, lungs CTA, mild leukocytosis WBC 11.1 likely reactive, afebrile. COVID-19 negative BNP 1726 Trop 0.231> 0.208. Chest x-ray showed mild vascular congestion EKG showed mild sinus rhythm with nonspecific ST -T wave abnormalities Last echo on 07/03/24: LV EF 40-45%, RV is normal with RVSP 50 mmHg. Mild pulmonary hypertension The patient's clinical picture of CHF appears to be improving. She is negative for wheezes or crackles on auscultation. Her shortness of breath has improved since receiving Bumex. Plan: - Cardiology consulted - Continue Bumex 2 mg IVP twice daily - Continue home regimen: valsartan 160 mg p.o. twice daily, spironolactone 50 mg p.o. daily, Coreg 25 mg p.o. TID - Fluid restriction daily - Strict ins and outs, urinary catheter in place - MRSA nasal screen - Pain control with acetaminophen,morphine and norco #Anxiety and Depression Patient became anxious afternoon of 12/18/2024 with associated shortness of breath and rapid speech Clinical picture of heart failure appears to be improving with treatment of Bumex. Patient's associated shortness of breath in the absence of crackles or wheezes on auscultation is likely in the presence of anxiety. She expressed fear of hypoxemia associated with taking a nap She was treated for several years with Wellbutrin but recently it was discontinued by her PCP. Plan: - Continue home Abilify 20 mg p.o - Continue home dose Cymbalta 60 mg p.o. - Hydroxyzine 25 mg as needed for anxiety #Obstructive sleep apnea The patient mentions that she intermittently uses a CPAP at home but that it is difficult for her She mentioned that she has anxiety about falling asleep and becoming hypoxemic, likely related to anxiety as mentioned earlier Plan: - Consider CPAP machine at night - Monitor oxygen saturation #Hypertensive emergency #Hx Resistant Hypertension #NSTEMI likely type II Hypertensive emergency given blood pressure BP 191/144 with signs of end organ damage (Trop 0.231> 0.208, shortness of breath and chest pain). High troponin is likely due to NSTEMI type II secondary to demand ischemia from hypertensive emergency. In the ED patient received labetalol 20 mg IVP x 2. Plan: - Goal SBP 140-160, anything bellow that pt can't tolerate, prior hx of dizziness with soft BP #Graves Disease Patient has thyroidectomy scheduled for January 09. On admission Free T4 1.86, TSH <0.01; likely contributing to BP and HR lability. Patient has a history of resistant hypertension. Poorly control Grave disease Plan: - Continue home methimazole 30 mg p.o. twice daily - Follow-up outpatient for thyroidectomy #Elevated T.caridad #IBS s/p cholecystectomy (2018) Patient has chronic elevated T. bili. On evaluation patient and scleral icterus-no generalized jaundice. Patient has abdominal pain, itchiness, pale stool, no dark urine. MRCP ordered in the ED showed no extrahepatic biliary tract dilation, absent gallbladder, common hepatic 5 mm, bile duct 4 mm no stone. History of IBS s/p cholecystectomy T. bili 4.6 Plan: - Resume home Cholestryramine/sucrose 1 pkt - Continue to monitor - No acute intervention needed unless worsening # Seizure Disorder Plan: - Continue home Keppra 500 mg twice daily #Migraine Patient is prescribed Ubrelvy at home but has not been taking it Plan - Hold home Ubrelvy Hospital management: Lines: peripheral IV Diet: Cardiac DVT prophylaxis: Heparin SC Disposition: Tele, cardiology on board, patient is anxious and received hydroxyzine, clinical picture of CHF exacerbation improving, current condition of shortness of breath is likely related to anxiety. CODE STATUS: Full code Patient was seen and discussed with my attending physician Dr. Santhosh JEREZ and my senior resident Dr. Susan JEREZ-2. Kraig Joaquin DO PGY-1. Attending Provider Attestation/Addendum I attest that I was physically present for the evaluation, physical examination, lab and imaging review of the patient with the residents. I discussed the case with the residents and agree with the findings and plans of care as documented above. Macarena Trevizo MD
[2024-12-18] MEDS: DULoxetine HCL 30 MG CAPSULE 60 MG PO (22:00)
[2024-12-19] VITALS (14 sets, daily range): BP systolic 102–129; BP diastolic 67–93; PULSE 57–71; RESP 14–89; TEMP 36.1–36.6; O2SAT 92–100; BMI 36.6
[2024-12-19 06:00] LABS: Basophils # (Auto) 0.0 Thou/mm3 (0.0-0.2); Basophils % (Auto) 0 % (0-2.5); Eosinophils # (Auto) 0.0 Thou/mm3 (0.0-0.5); Eosinophils % (Auto) 0 % (0-10); Hematocrit 36.6 % (36.0-46.0); Hemoglobin 12.4 g/dL (12.0-16.0); Immature Granulocytes Auto 0.09 Thou/mm3 (0.00-0.00); Lymphocytes # (Auto) 0.8 Thou/mm3 (1.0-4.8); Lymphocytes % (Auto) 5 % (10-50); Mean Corpuscular HGB Conc 33.9 g/dl (31.0-37.0); Mean Corpuscular Hemoglobin 31.5 pg (25.0-35.0); Mean Corpuscular Volume 93 fL (80-100); Monocytes # (Auto) 0.6 Thou/mm3 (0.0-0.8); Monocytes % (Auto) 4 % (0-12); Neutrophils # (Auto) 15.1 Thou/mm3 (1.8-7.7); Neutrophils % (Auto) 91 % (37-80); Nucleated Red Blood Cell # 0.00 Thou/mm3 (0.00-0.00); Nucleated Red Blood Cell % 0 /100 WBC (0); Platelet Count 248 Thou/mm3 (140-440); RDW Standard Deviation 47.4 fL (36.4-46.3); Red Blood Count 3.94 Miln/mm3 (4.00-5.20); White Blood Count 16.6 Thou/mm3 (3.6-11.0)
[2024-12-19] MEDS: ONDANSETRON INJ 2 MG/ML INJ 2 ML 4 MG IVP (06:16)
[2024-12-19 08:23] LABS: Alanine Aminotransferase 27 U/L (10-49); Albumin, Serum 3.8 gm/dL (3.5-5.0); Albumin/Globulin Ratio 1.7 (1.2-2.2); Alkaline Phosphatase 121 U/L (46-116); Anion Gap 10 (7-16); Aspartate Amino Transferase 25 U/L (0-34); BUN/Creatinine Ratio 23 Ratio (12-20); Bilirubin,Total 3.8 mg/dL (0.3-1.2); Blood Urea Nitrogen 28 mg/dL (9-23); Calcium 8.5 mg/dL (8.3-10.6); Calcium (Corrected) 8.7 mg/dL (8.5-10.1); Carbon Dioxide 23.7 mMol/L (20.0-31.0); Chloride 105 mMol/L (98-107); Creatinine (Component) 1.2 mg/dL (0.6-1.3); Estimated Creatinine Clearance 77.3 mL/min (>60); Globulin 2.3 gm/dL (2.3-3.5); Glucose 148 mg/dL (74-106); Magnesium 1.8 mg/dL (1.6-2.6); Osmolality,Calculated 286 (275-295); Phosphorous 3.6 mg/dL (2.4-5.1); Potassium 3.8 mMol/L (3.4-5.1); Sodium 139 mMol/L (136-145); Total Protein 6.1 gm/dL (5.7-8.2); eGFR 58 See Note
[2024-12-19] MEDS: METHIMAZOLE 5 MG TABLET 30 MG PO ×2 (09:26→20:55)
[2024-12-19] MEDS: ALBUMIN HUMAN 25% IVPB 25 GM/100 ML BTL IV (09:26)
[2024-12-19] MEDS: CHOLESTYRAMINE/SUCROSE 1 PKT EA PO ×2 (09:27→20:55)
[2024-12-19] MEDS: HEPARIN SOD INJ 5000 UNIT/ML VIAL SC (09:27)
[2024-12-19] MEDS: SCOPOLAMINE 1 MG TDSY TOP (10:03)
--- NOTE | 2024-12-19 13:27 | ESPR_ITS ---
<Statement entered by Madhu Davis MD - 12/19/24 22:34> Note reviewed and agree with care plan as documented. Please refer to the note below for further details. Plan discussed with attending physician Dr. Santhosh Davis MD PGY-2 Internal Medicine Documentation for date of: 12/19/24 Subjective Subjective Interval history: Patient seen and examined at bedside. No acute overnight events. Patient still appears to have increased work of breathing though she is not tachypneic. WBC went up 7.6 to 16.6. ?Blood chemistry stable. ?BUN 28 up from 17, creatinine 1.2 and stable, total bilirubin 3.8. Patient's blood pressures have been softer, we will make adjustments to goal-directed medical therapy for heart failure. Exam Vital Signs Temp Pulse Resp BP Pulse Ox O2 Del Method O2 Flow Rate 97.1 F 71 16 113/86 H 98 Room Air 2 12/19/24 12:00 12/19/24 12:09 12/19/24 12:09 12/19/24 12:00 12/19/24 12:09 12/19/24 12:12/19/24 12:09 Narrative Exam General: Overweight woman. Appears uncomfortable, lethargic, increased work of breathing. Neurologic: GCS 15. Alert and oriented x3, no gross neurological deficit, and patient able to move all 4 extremities. HEENT: Normocephalic, atraumatic, mucous membranes moist. Pupils reactive to light. Heart: Regular rate and rhythm, normal S1 and S2, no murmurs. Lungs: Clear to auscultation bilaterally with no wheezing or crackles. Abdomen: Soft, nondistended, nontender, positive bowel sounds. No guarding or rebound tenderness. Extremities: No edema. 2+ radial and dorsalis pedis pulses bilaterally. Skin: Warm. Dry. No rash or ecchymoses. Objective Labs 12/21/24 05:45 12/21/24 05:45 Labs: Laboratory Results - last 24 hr 12/19/24 12/19/24 05:30 07:39 WBC 16.6 H D RBC 3.94 L Hgb 12.4 Hct 36.6 MCV 93 MCH 31.5 MCHC 33.9 RDW Std Deviation 47.4 H Plt Count 248 D Neut % (Auto) 91 H Lymph % (Auto) 5 L [place] % (Auto) 4 Eos % (Auto) 0 Baso % (Auto) 0 Neut # (Auto) 15.1 H Lymph # (Auto) 0.8 L [place] # (Auto) 0.6 Eos # (Auto) 0.0 Baso # (Auto) 0.0 Immature Gran # (Auto) 0.09 H Absolute Nucleated RBC 0.00 Immature Gran % 1 H Nucleated RBC % 0 Sodium 139 Potassium 3.8 D Chloride 105 Carbon Dioxide 23.7 Anion Gap 10 BUN 28 H Creatinine 1.2 Estim Creat Clear Calc 77.3 eGFR 58 L BUN/Creatinine Ratio 23 H Glucose 148 H Calculated Osmolality 286 Calcium 8.5 Corrected Calcium 8.7 Phosphorus 3.6 Magnesium 1.8 Total Bilirubin 3.8 H D AST 25 ALT 27 Alkaline Phosphatase 121 H Total Protein 6.1 Albumin 3.8 Globulin 2.3 Albumin/Globulin Ratio 1.7 Quality Measures Quality Measures none Assessment & Plan Assessment Current Active Medications: Generic Name Dose Route Start Last Admin Trade Name Freq PRN Reason Stop Dose Admin Acetaminophen 650 mg 12/17/24 21:01 Acetaminophen 325 Mg Tablet PO 01/16/25 21:00 Q6H PRN PAIN SCALE 1-3 (mild Hydrocodone Bitart/Acetaminophen 1 tab 12/17/24 21:01 Hydrocodone/Apap 5/325 Tablet PO 12/22/24 21:00 Q4HR PRN PAIN SCALE 4-6 (Moderate Alprazolam 0.25 mg 12/18/24 20:27 12/18/24 22:10 Alprazolam 0.25 Mg Tablet PO 12/23/24 20:26 0.25 mg HS PRN Administration ANXIETY Aripiprazole 20 mg 12/17/24 21:06 Aripiprazole 5 Mg Tablet PO 01/16/25 21:05 QDAY PRN Migraine Headache Bumetanide 2 mg 12/20/24 09:00 Bumetanide Inj 0.25 Mg/Ml Vial 4 Ml IVP 01/19/25 08:59 QDAY LEON Carvedilol 25 mg 12/17/24 21:15 12/19/24 06:16 Carvedilol 12.5 Mg Tablet PO 01/16/25 21:14 25 mg TID LEON Administration Cholestyramine Resin 1 pkt 12/18/24 09:00 12/19/24 09:27 Cholestyramine/Sucrose 1 Pkt Ea PO 01/17/25 08:59 1 pkt BID LEON Administration Duloxetine HCl 60 mg 12/18/24 21:00 12/18/24 22:00 Duloxetine Hcl 30 Mg Capsule PO 01/17/25 20:59 60 mg HS LEON Administration Heparin Sodium (Porcine) 5,000 unit 12/18/24 06:00 12/19/24 09:27 Heparin Sod Inj 5000 Unit/Ml Vial SC 01/01/25 05:59 5,000 unit BID LEON Administration Albumin Human 25 gm in 100 mls @ 100 mls/hr 12/18/24 08:25 12/19/24 09:26 Albuminar-25 Ivpb IV 12/21/24 08:24 100 mls/hr QDAY LEON Administration Levetiracetam 500 mg 12/17/24 21:15 12/19/24 09:27 Levetiracetam 250 Mg Tablet PO 01/16/25 21:14 500 mg BID LEON Administration Methimazole 30 mg 12/18/24 09:00 12/19/24 09:26 Methimazole 5 Mg Tablet PO 01/17/25 08:59 30 mg BID LEON Administration Morphine Sulfate 2 mg 12/17/24 21:01 Morphine Sulf Inj 4 Mg/Ml Vial IVP 12/22/24 21:00 Q2H PRN PAIN SCALE 7-10 (Severe Scopolamine 1 mg 12/19/24 09:45 12/19/24 10:03 Scopolamine 1 Mg Tdsy TOP 01/18/25 09:44 1 mg Q3D LEON Administration Spironolactone 50 mg 12/18/24 09:00 12/19/24 09:39 Spironolactone 25 Mg Tablet PO 01/17/25 08:59 Not Given QDAY LEON Valsartan 80 mg 12/19/24 21:00 Valsartan 80 Mg Tablet PO 01/18/25 20:59 BID LEON Plan Summary: Mrs. Adam is a 39 year-old female with past medical history of HFrEF (EF40-45%), hypertension, Graves disease, seizure disorder, asthma, IGNACIO, anxiety and depression who presented to the ED on 12/17/2024 with chest pain and shortness of breath. Admitted for acute possible heart failure secondary to CHF evaluation and management. #Acute hypoxic respiratory failure secondary to #Congestive heart failure exacerbation #HFreF (EF 40-45) #Hx asthma DDx; CHF exacerbation vs ashma exacerbation vs Pneumonia The patient reported acute shortness of breath on exertion, with oxygen saturation dropping to the 80s. The patient had recently visited PCP and was prescribed home oxygen. Upon evaluation in the clinic, the patient?s saturation improved to 95% on 2L NC, but they continued to experience shortness of breath. The NC was increased to 3L, but the patient still experienced difficulty breathing. In addition to shortness of breath, the patient exhibited trace bilateral extremity edema and a dry cough, likely due to vascular congestion, which supports the clinical diagnosis of volume overload. As a result, the AHRF is most likely secondary to CHF exacerbation rather than an asthma exacerbation, as there have been no recent asthma attacks, and the asthma is well-controlled with the current treatment. On physical examination, the pulmonary exam revealed no evidence of wheezes or crackles, further supporting the diagnosis of CHF exacerbation over an asthma attack. Less likely pneumonia, given CXR negative, lungs CTA, mild leukocytosis WBC 11.1 likely reactive, afebrile. COVID-19 negative BNP 1726 Trop 0.231> 0.208. Chest x-ray showed mild vascular congestion EKG showed mild sinus rhythm with nonspecific ST -T wave abnormalities Last echo on 07/03/24: LV EF 40-45%, RV is normal with RVSP 50 mmHg. Mild pulmonary hypertension The patient's blood pressures have been in the 110s/80s. She still appears short of breath with increased work of breathing though the most previous x-ray shows mild vascular congestion Plan: - Cardiology consulted, considering cath prior to discharge - Bumex 2 mg IVP twice daily changed to once daily - Valsartan 160 mg p.o. twice daily changed to 80 mg p.o. twice daily - Spironolactone 50 mg p.o. daily - Coreg 25 mg p.o. TID - Fluid restriction daily - Strict ins and outs, urinary catheter in place - MRSA nasal screen - Pain control with acetaminophen,morphine and norco #Leukocytosis White blood cell count spiked last night up to 16.6 from 7.6 No clear explanation at this time, patient is afebrile, normotensive, has a regular heart rate, and is not tachypneic Plan: - Will repeat CBC #Anxiety and Depression Patient became anxious afternoon of 12/18/2024 with associated shortness of breath and rapid speech Clinical picture of heart failure appears to be improving with treatment of Bumex. Patient's associated shortness of breath in the absence of crackles or wheezes on auscultation is likely in the presence of anxiety. She expressed fear of hypoxemia associated with taking a nap She was treated for several years with Wellbutrin but recently it was discontinued by her PCP. Plan: - Continue home Abilify 20 mg p.o - Continue home dose Cymbalta 60 mg p.o. - Hydroxyzine 25 mg as needed for anxiety #Obstructive sleep apnea The patient mentions that she intermittently uses a CPAP at home but that it is difficult for her She mentioned that she has anxiety about falling asleep and becoming hypoxemic, likely related to anxiety as mentioned earlier Plan: - Consider CPAP machine at night - Monitor oxygen saturation #Hypertensive emergency #Hx Resistant Hypertension #NSTEMI likely type II Hypertensive emergency given blood pressure BP 191/144 with signs of end organ damage (Trop 0.231> 0.208, shortness of breath and chest pain). High troponin is likely due to NSTEMI type II secondary to demand ischemia from hypertensive emergency. In the ED patient received labetalol 20 mg IVP x 2. Blood pressures have been soft, reduced goal-directed medical therapy doses as above. Consider that though the patient is normotensive, this is low for her and may be contributing to her lethargy. Plan: - Goal SBP 140-160, anything bellow that pt can't tolerate, prior hx of dizziness with soft BP #Graves Disease Patient has thyroidectomy scheduled for January 09. On admission Free T4 1.86, TSH <0.01; likely contributing to BP and HR lability. Patient has a history of resistant hypertension. Poorly control Grave disease Plan: - Continue home methimazole 30 mg p.o. twice daily - Follow-up outpatient for thyroidectomy #Elevated T.caridad #IBS s/p cholecystectomy (2018) Patient has chronic elevated T. bili. On evaluation patient and scleral icterus-no generalized jaundice. Patient has abdominal pain, itchiness, pale stool, no dark urine. MRCP ordered in the ED showed no extrahepatic biliary tract dilation, absent gallbladder, common hepatic 5 mm, bile duct 4 mm no stone. History of IBS s/p cholecystectomy T. bili 4.6 Plan: - Continue home Cholestryramine/sucrose 1 pkt - Continue to monitor - No acute intervention needed unless worsening - Follow-up LDH # Seizure Disorder Plan: - Continue home Keppra 500 mg twice daily #Migraine Patient is prescribed Ubrelvy at home but has not been taking it Plan - Hold home Ubrelvy Hospital management: Lines: peripheral IV Diet: Cardiac DVT prophylaxis: Heparin SC Disposition: Telemetry, cardiology considering cath, patient's condition has neither improved nor deteriorated, white blood cell count spiked last night, will repeat CBC and follow-up with an LDH level. CODE STATUS: Full code Patient was seen and discussed with my attending physician Dr. Santhosh JEREZ and my senior resident Dr. Susan JEREZ PGY-2. Kraig Joaquin DO PGY-1. Attending Provider Attestation/Addendum I attest that I was physically present for the evaluation, physical examination, lab and imaging review of the patient with the residents. I discussed the case with the residents and agree with the findings and plans of care as documented above. Patient seen and examined at bedside this morning, states she feels short of breath while laying flat, but does not have pedal edema, lungs are clear to auscultate. Decreased Bumex dosing to once daily. Continues to be on GDMT, cardiology following closely, appreciate recommendations. Patient continues to have high billirubin, mostly indirect hyperbillirubinemia. We will obtain LDH level. Continues to be on supplemental oxygen, saturating well. Continues to be on Cymbalta , added hydroxizine for anxiety. Macarena Trevizo MD
[2024-12-19 14:22] LABS: Basophils # (Auto) 0.0 Thou/mm3 (0.0-0.2); Basophils % (Auto) 0 % (0-2.5); Eosinophils # (Auto) 0.2 Thou/mm3 (0.0-0.5); Eosinophils % (Auto) 3 % (0-10); Hematocrit 39.3 % (36.0-46.0); Hemoglobin 12.9 g/dL (12.0-16.0); Immature Granulocytes Auto 0.01 Thou/mm3 (0.00-0.00); Lymphocytes # (Auto) 1.4 Thou/mm3 (1.0-4.8); Lymphocytes % (Auto) 20 % (10-50); Mean Corpuscular HGB Conc 32.8 g/dl (31.0-37.0); Mean Corpuscular Hemoglobin 28.5 pg (25.0-35.0); Mean Corpuscular Volume 87 fL (80-100); Monocytes # (Auto) 0.5 Thou/mm3 (0.0-0.8); Monocytes % (Auto) 8 % (0-12); Neutrophils # (Auto) 4.7 Thou/mm3 (1.8-7.7); Neutrophils % (Auto) 69 % (37-80); Nucleated Red Blood Cell # 0.00 Thou/mm3 (0.00-0.00); Nucleated Red Blood Cell % 0 /100 WBC (0); Platelet Count 187 Thou/mm3 (140-440); RDW Standard Deviation 51.4 fL (36.4-46.3); Red Blood Count 4.53 Miln/mm3 (4.00-5.20); White Blood Count 6.8 Thou/mm3 (3.6-11.0)
[2024-12-19 14:56] LABS: LDH (Lactate Dehydrogenase) 460 U/L (120-246)
--- NOTE | 2024-12-19 17:45 | ESPR_ITS ---
<Statement entered by Eliane Lomeli MD - 12/20/24 10:11> I personally examined the patient evaluated in the telemetry floor she is feeling better she was given anxiety medication able to lay flat today patient will be recommended to have coronary angiogram scheduled for tomorrow concerned about recurrent hospitalization elevated troponin level specially considering she is scheduled for thyroidectomy operation may require cardiac clearance and because of significant troponin elevation we will do coronary angiogram rule out significant CAD as a cause of her symptoms and for preop clearance. Assess the patient with PGY 2 Dr. Bryce Drake MD and will continue to monitor the patient closely scheduled for angiogram in the morning risk-benefit and alternatives are explained. Documentation for date of: 12/19/24 Subjective Subjective Interval history: Patient seen today at the bedside found awake, alert, orientedx3. No overnight events reported. Vitals and labs reviewed. No other complaints at this time. Patient is willing to go left heart cath tomorrow to evaluate coronary arteries as patient has had multiple admissions with same troponin leak and continues to endorse some chest pressure. Orders placed and n.p.o. after midnight placed. Exam Vital Signs Temp Pulse Resp BP Pulse Ox O2 Del Method O2 Flow Rate 97.8 F 58 L 19 124/89 H 92 L Room Air 2 12/19/24 16:00 12/19/24 16:00 12/19/24 16:00 12/19/24 16:00 12/19/24 16:00 12/19/24 16:00 12/19/24 12:09 Narrative Exam GENERAL: NAD, AAOx3 HEENT: Moist mucosa. Eyes open, scleral icterus, symmetrical, & clear CARDIO: Heart RRR, no obvious murmurs PULM: No noted coughing/dyspnea CTA B/L, no R/W/R GI: Abdomen soft, nondistended, no pain on palpation. BSx4 SKIN/MSK/EXT: No wounds/rashes/edema/amputations, no pain on palpation. Pedal pulses present B/L NEURO: AAOx3, no focal neuro deficits, able to move all 4 extremities Objective Labs 12/19/24 13:49 12/19/24 07:39 Labs: Laboratory Results - last 24 hr 12/19/24 12/19/24 12/19/24 05:30 07:39 13:49 WBC 16.6 H D 6.8 D RBC 3.94 L 4.53 Hgb 12.4 12.9 Hct 36.6 39.3 MCV 93 87 MCH 31.5 28.5 MCHC 33.9 32.8 RDW Std Deviation 47.4 H 51.4 H Plt Count 248 D 187 D Neut % (Auto) 91 H 69 Lymph % (Auto) 5 L 20 [place] % (Auto) 4 8 Eos % (Auto) 0 3 Baso % (Auto) 0 0 Neut # (Auto) 15.1 H 4.7 Lymph # (Auto) 0.8 L 1.4 [place] # (Auto) 0.6 0.5 Eos # (Auto) 0.0 0.2 Baso # (Auto) 0.0 0.0 Immature Gran # (Auto) 0.09 H 0.01 H Absolute Nucleated RBC 0.00 0.00 Immature Gran % 1 H 0 Nucleated RBC % 0 0 Sodium 139 Potassium 3.8 D Chloride 105 Carbon Dioxide 23.7 Anion Gap 10 BUN 28 H Creatinine 1.2 Estim Creat Clear Calc 77.3 eGFR 58 L BUN/Creatinine Ratio 23 H Glucose 148 H Calculated Osmolality 286 Calcium 8.5 Corrected Calcium 8.7 Phosphorus 3.6 Magnesium 1.8 Total Bilirubin 3.8 H D AST 25 ALT 27 Alkaline Phosphatase 121 H Lactate Dehydrogenase 460 H Total Protein 6.1 Albumin 3.8 Globulin 2.3 Albumin/Globulin Ratio 1.7 Quality Measures Quality Measures none Assessment & Plan Assessment Current Active Medications: Generic Name Dose Route Start Last Admin Trade Name Freq PRN Reason Stop Dose Admin Acetaminophen 650 mg 12/17/24 21:01 Acetaminophen 325 Mg Tablet PO 01/16/25 21:00 Q6H PRN PAIN SCALE 1-3 (mild Hydrocodone Bitart/Acetaminophen 1 tab 12/17/24 21:01 Hydrocodone/Apap 5/325 Tablet PO 12/22/24 21:00 Q4HR PRN PAIN SCALE 4-6 (Moderate Alprazolam 0.25 mg 12/19/24 16:44 Alprazolam 0.25 Mg Tablet PO 12/23/24 20:26 HS PRN Anxiety/sleep Aripiprazole 20 mg 12/17/24 21:06 Aripiprazole 5 Mg Tablet PO 01/16/25 21:05 QDAY PRN Migraine Headache Bumetanide 2 mg 12/20/24 09:00 Bumetanide Inj 0.25 Mg/Ml Vial 4 Ml IVP 01/19/25 08:59 QDAY LEON Carvedilol 25 mg 12/17/24 21:15 12/19/24 15:18 Carvedilol 12.5 Mg Tablet PO 01/16/25 21:14 Not Given TID LEON Cholestyramine Resin 1 pkt 12/18/24 09:00 12/19/24 09:27 Cholestyramine/Sucrose 1 Pkt Ea PO 01/17/25 08:59 1 pkt BID LEON Administration Duloxetine HCl 60 mg 12/18/24 21:00 12/18/24 22:00 Duloxetine Hcl 30 Mg Capsule PO 01/17/25 20:59 60 mg HS LEON Administration Heparin Sodium (Porcine) 5,000 unit 12/18/24 06:00 12/19/24 09:27 Heparin Sod Inj 5000 Unit/Ml Vial SC 01/01/25 05:59 5,000 unit BID LEON Administration Hydroxyzine HCl 25 mg 12/19/24 17:44 Hydroxyzine Hcl 25 Mg Tablet PO 12/19/24 17:45 HS ONE Albumin Human 25 gm in 100 mls @ 100 mls/hr 12/18/24 08:25 12/19/24 09:26 Albuminar-25 Ivpb IV 12/21/24 08:24 100 mls/hr QDAY LEON Administration Levetiracetam 500 mg 12/17/24 21:15 12/19/24 09:27 Levetiracetam 250 Mg Tablet PO 01/16/25 21:14 500 mg BID LEON Administration Methimazole 30 mg 12/18/24 09:00 12/19/24 09:26 Methimazole 5 Mg Tablet PO 01/17/25 08:59 30 mg BID LEON Administration Morphine Sulfate 2 mg 12/17/24 21:01 Morphine Sulf Inj 4 Mg/Ml Vial IVP 12/22/24 21:00 Q2H PRN PAIN SCALE 7-10 (Severe Scopolamine 1 mg 12/19/24 09:45 12/19/24 10:03 Scopolamine 1 Mg Tdsy TOP 01/18/25 09:44 1 mg Q3D LEON Administration Spironolactone 50 mg 12/18/24 09:00 12/19/24 09:39 Spironolactone 25 Mg Tablet PO 01/17/25 08:59 Not Given QDAY [facility] Valsartan 80 mg 12/19/24 21:00 Valsartan 80 Mg Tablet PO 01/18/25 20:59 BID [facility] Plan 39-year-old female with past medical history of severe Graves' disease, hypertension, heart failure with reduced ejection fraction [40-45%], seizure disorder, anxiety, depression, asthma who was sent to the ED due to worsening shortness of breath. Admitted for CHF exacerbation. 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 BNP: 1726 Trop 0.231> 0.208. EKG shows NSR Chest x-ray showed mild vascular congestion Last echo June 2024: Concentric LVH with mild global hypokinesis LV EF 40-45%. RV is normal with RVSP 50 mmHg. 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 Mild mitral and tricuspid regurgitation ? Cardiac cath in the am @7am, NPO placed ? Continue Bumex 2mg iV BID ? Resume goal-directed medical therapy, as tolerated ? Continue Graves disease medications ? Keep K>4, Mg>2 ? Provide oxygen as required ? Strict I's and O's ? Fluid restriction #Anxiety and Depression #Obstructive sleep apnea #Graves Disease #Elevated T.caridad #IBS s/p cholecystectomy (2018) # Seizure Disorder #Migraine - as per primary team Case discussed with my attending Dr. Armani Drake MD PGY-2 Disclaimer: Despite multiple revisions, due to the dictation software being used, the document bellow may not be free of grammatical errors including phonetic/typographic errors. However, this does not deter from our commitment to providing health care in the patient's best interest in mind.
[2024-12-19] MEDS: DULoxetine HCL 30 MG CAPSULE 60 MG PO (20:55)
[2024-12-20] VITALS (28 sets, daily range): BP systolic 117–197; BP diastolic 74–113; PULSE 53–96; RESP 1–31; TEMP 35.9–37.1; O2SAT 94–100; BMI 36.4; BMI 36.5
[2024-12-20 07:01] LABS: Basophils # (Auto) 0.0 Thou/mm3 (0.0-0.2); Basophils % (Auto) 0 % (0-2.5); Eosinophils # (Auto) 0.2 Thou/mm3 (0.0-0.5); Eosinophils % (Auto) 2 % (0-10); Hematocrit 41.1 % (36.0-46.0); Hemoglobin 13.4 g/dL (12.0-16.0); Immature Granulocytes Auto 0.03 Thou/mm3 (0.00-0.00); Lymphocytes # (Auto) 1.3 Thou/mm3 (1.0-4.8); Lymphocytes % (Auto) 16 % (10-50); Mean Corpuscular HGB Conc 32.6 g/dl (31.0-37.0); Mean Corpuscular Hemoglobin 28.7 pg (25.0-35.0); Mean Corpuscular Volume 88 fL (80-100); Monocytes # (Auto) 0.7 Thou/mm3 (0.0-0.8); Monocytes % (Auto) 9 % (0-12); Neutrophils # (Auto) 6.1 Thou/mm3 (1.8-7.7); Neutrophils % (Auto) 73 % (37-80); Nucleated Red Blood Cell # 0.00 Thou/mm3 (0.00-0.00); Nucleated Red Blood Cell % 0 /100 WBC (0); Platelet Count 193 Thou/mm3 (140-440); RDW Standard Deviation 51.7 fL (36.4-46.3); Red Blood Count 4.67 Miln/mm3 (4.00-5.20); White Blood Count 8.4 Thou/mm3 (3.6-11.0)
[2024-12-20 07:26] LABS: Alanine Aminotransferase 22 U/L (10-49); Albumin, Serum 4.0 gm/dL (3.5-5.0); Albumin/Globulin Ratio 1.7 (1.2-2.2); Alkaline Phosphatase 123 U/L (46-116); Anion Gap 12 (7-16); Aspartate Amino Transferase 17 U/L (0-34); BUN/Creatinine Ratio 16 Ratio (12-20); Bilirubin,Total 3.2 mg/dL (0.3-1.2); Blood Urea Nitrogen 25 mg/dL (9-23); Calcium 9.3 mg/dL (8.3-10.6); Calcium (Corrected) 9.3 mg/dL (8.5-10.1); Carbon Dioxide 25.2 mMol/L (20.0-31.0); Chloride 104 mMol/L (98-107); Creatinine (Component) 1.6 mg/dL (0.6-1.3); Estimated Creatinine Clearance 57.8 mL/min (>60); Globulin 2.4 gm/dL (2.3-3.5); Glucose 131 mg/dL (74-106); Magnesium 2.2 mg/dL (1.6-2.6); Osmolality,Calculated 287 (275-295); Phosphorous 3.7 mg/dL (2.4-5.1); Potassium 4.2 mMol/L (3.4-5.1); Sodium 141 mMol/L (136-145); Total Protein 6.4 gm/dL (5.7-8.2); eGFR 41 See Note
--- NOTE | 2024-12-20 09:09 | PC.NURSE ---
0852 patient is sleepy and arousable to name, breathing unlabored, s/p LHC by Dr. Lomeli, TR band to right wrist, no active bleeding or hematoma noted. Report received from Zaria BOWMAN, patient to recover until TR band off and monitor for 45min to 1hr post TR band removal.
--- NOTE | 2024-12-20 09:16 | ESPR_ITS ---
<Statement entered by Eliane Lomeli MD - 12/23/24 12:21> I personally examined the patient evaluated patient underwent coronary angiogram today showed nonobstructive coronary arteries normal left ventricle function excellent prognosis appears to be type II TAVR troponin elevation blood pressure is also controlled well. Will continue to monitor the patient for another day or 2 heart failure well compensated blood pressure is excellent control per medical discharge home. Patient has low cardiac risk for thyroidectomy she was scheduled for next couple of weeks. Evaluated patient with resident physician PGY 2 agree with the treatment plan recommendation as documented Documentation for date of: 12/20/24 Subjective Subjective Interval history: Patient seen today at the bedside found awake, alert, orientedx3. No overnight events reported. Vitals and labs reviewed. [facility] taken to [facility] today left heart catheterization phone with normal coronary arteries. The patient is reassured that there is no evidence of significant obstructive coronary artery disease. Troponin is type 2 troponin elevation, demand ischemia due to hypertension and heart failure. Can continue medical management. The patient is low risk for thyroidectomy, given cardiac clearance for thyroidectomy surgery. The patient also has significant issues with her anxiety and was started on duloxetine 60 mg at bedtime, which should help her as well. The patient was on Wellbutrin, which was taken off because it decreases seizure threshold. Can be discharged from a cardiology standpoint in the next 24-48 hours. Follow- up with cardiology in the office in the next 2 weeks. Exam Vital Signs Temp Pulse Resp BP Pulse Ox O2 Del Method O2 Flow Rate 97.5 F 60 31 H 151/113 H 98 Nasal Cannula 2 12/20/24 04:00 12/20/24 09:14 12/20/24 09:14 12/20/24 05:33 12/20/24 09:14 12/20/24 04:00 12/20/24 09:14 Narrative Exam GENERAL: NAD, AAOx3 HEENT: Moist mucosa. Eyes open, scleral icterus, symmetrical, & clear CARDIO: Heart RRR, no obvious murmurs PULM: No noted coughing/dyspnea CTA B/L, no R/W/R GI: Abdomen soft, nondistended, no pain on palpation. BSx4 SKIN/MSK/EXT: No wounds/rashes/edema/amputations, no pain on palpation. Pedal pulses present B/L NEURO: AAOx3, no focal neuro deficits, able to move all 4 extremities Objective Labs 12/20/24 06:25 12/20/24 06:25 Labs: Laboratory Results - last 24 hr 12/19/24 12/20/24 13:49 06:25 WBC 6.8 D 8.4 RBC 4.53 4.67 Hgb 12.9 13.4 Hct 39.3 41.1 MCV 87 88 MCH 28.5 28.7 MCHC 32.8 32.6 RDW Std Deviation 51.4 H 51.7 H Plt Count 187 D 193 Neut % (Auto) 69 73 Lymph % (Auto) 20 16 Sac % (Auto) 8 9 Eos % (Auto) 3 2 Baso % (Auto) 0 0 Neut # (Auto) 4.7 6.1 Lymph # (Auto) 1.4 1.3 Sac # (Auto) 0.5 0.7 Eos # (Auto) 0.2 0.2 Baso # (Auto) 0.0 0.0 Immature Gran # (Auto) 0.01 H 0.03 H Absolute Nucleated RBC 0.00 0.00 Immature Gran % 0 0 Nucleated RBC % 0 0 Sodium 141 Potassium 4.2 Chloride 104 Carbon Dioxide 25.2 Anion Gap 12 BUN 25 H Creatinine 1.6 H Estim Creat Clear Calc 57.8 L eGFR 41 L BUN/Creatinine Ratio 16 Glucose 131 H Calculated Osmolality 287 Calcium 9.3 Corrected Calcium 9.3 Phosphorus 3.7 Magnesium 2.2 Total Bilirubin 3.2 H D AST 17 ALT 22 Alkaline Phosphatase 123 H Lactate Dehydrogenase 460 H Total Protein 6.4 Albumin 4.0 Globulin 2.4 Albumin/Globulin Ratio 1.7 Quality Measures Quality Measures none Assessment & Plan Assessment Current Active Medications: Generic Name Dose Route Start Last Admin Trade Name Freq PRN Reason Stop Dose Admin Acetaminophen 650 mg 12/17/24 21:01 Acetaminophen 325 Mg Tablet PO 01/16/25 21:00 Q6H PRN PAIN SCALE 1-3 (mild Hydrocodone Bitart/Acetaminophen 1 tab 12/17/24 21:01 Hydrocodone/Apap 5/325 Tablet PO 12/22/24 21:00 Q4HR PRN PAIN SCALE 4-6 (Moderate Alprazolam 0.25 mg 12/19/24 16:44 Alprazolam 0.25 Mg Tablet PO 12/23/24 20:26 HS PRN Anxiety/sleep Aripiprazole 20 mg 12/17/24 21:06 Aripiprazole 5 Mg Tablet PO 01/16/25 21:05 QDAY PRN Migraine Headache Bumetanide 2 mg 12/20/24 09:00 Bumetanide Inj 0.25 Mg/Ml Vial 4 Ml IVP 01/19/25 08:59 On Hold: 12/20/24 09:08 QDAY LEON Carvedilol 25 mg 12/17/24 21:15 12/20/24 05:33 Carvedilol 12.5 Mg Tablet PO 01/16/25 21:14 25 mg TID LEON Administration Cholestyramine Resin 1 pkt 12/18/24 09:00 12/19/24 20:55 Cholestyramine/Sucrose 1 Pkt Ea PO 01/17/25 08:59 1 pkt BID LEON Administration Duloxetine HCl 60 mg 12/18/24 21:00 12/19/24 20:55 Duloxetine Hcl 30 Mg Capsule PO 01/17/25 20:59 60 mg HS LEON Administration Albumin Human 25 gm in 100 mls @ 100 mls/hr 12/18/24 08:25 12/19/24 09:26 Albuminar-25 Ivpb IV 12/21/24 08:24 100 mls/hr QDAY LEON Administration Levetiracetam 500 mg 12/17/24 21:15 12/19/24 20:55 Levetiracetam 250 Mg Tablet PO 01/16/25 21:14 500 mg BID LEON Administration Methimazole 30 mg 12/18/24 09:00 12/19/24 20:55 Methimazole 5 Mg Tablet PO 01/17/25 08:59 30 mg BID LEON Administration Morphine Sulfate 2 mg 12/17/24 21:01 Morphine Sulf Inj 4 Mg/Ml Vial IVP 12/22/24 21:00 Q2H PRN PAIN SCALE 7-10 (Severe Scopolamine 1 mg 12/19/24 09:45 12/19/24 10:03 Scopolamine 1 Mg Tdsy TOP 01/18/25 09:44 1 mg Q3D LEON Administration Spironolactone 50 mg 12/18/24 09:00 12/19/24 09:39 Spironolactone 25 Mg Tablet PO 01/17/25 08:59 Not Given QDAY LEON Valsartan 80 mg 12/19/24 21:00 12/19/24 20:55 Valsartan 80 Mg Tablet PO 01/18/25 20:59 Not Given BID LEON Plan 39-year-old female with past medical history of severe Graves' disease, hypertension, heart failure with reduced ejection fraction [40-45%], seizure disorder, anxiety, depression, asthma who was sent to the ED due to worsening shortness of breath. Admitted for CHF exacerbation. 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 BNP: 1726 Trop 0.231> 0.208. EKG shows NSR Chest x-ray showed mild vascular congestion Last echo June 2024: Concentric LVH with mild global hypokinesis LV EF 40-45%. RV is normal with RVSP 50 mmHg. 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 Mild mitral and tricuspid regurgitation Left heart cath findings: Normal nonobstructive epicardial coronary arteries. Normal left ventricular function. Ejection fraction is 60%. ? The patient is reassured that there is no evidence of significant obstructive coronary artery disease. ? Troponin is type 2 troponin elevation, demand ischemia due to hypertension and heart failure. ? Continue medical management. ? The patient can be discharged home later today or tomorrow and to continue present medications. ? The patient is low risk for thyroidectomy, given cardiac clearance for thyroidectomy surgery. She should not have any issues with the surgery. ? The patient also has significant issues with her anxiety and was started on duloxetine 60 mg at bedtime, which should help her as well. ? Continue Bumex 2mg iV BID ? Resume goal-directed medical therapy, as tolerated ? Continue Graves disease medications ? Keep K>4, Mg>2 ? Provide oxygen as required ? Strict I's and O's ? Fluid restriction #Anxiety and Depression #Obstructive sleep apnea #Graves Disease #Elevated T.caridad #IBS s/p cholecystectomy (2018) # Seizure Disorder #Migraine - as per primary team Case discussed with my attending Dr. Armani Drake MD PGY-2 Disclaimer: Despite multiple revisions, due to the dictation software being used, the document bellow may not be free of grammatical errors including phonetic/typographic errors. However, this does not deter from our commitment to providing health care in the patient's best interest in mind.
[2024-12-20] MEDS: ALBUMIN HUMAN 25% IVPB 25 GM/100 ML BTL IV (09:42)
[2024-12-20] MEDS: SPIRONOLACTONE 25 MG TABLET 50 MG PO (09:58)
[2024-12-20] MEDS: METHIMAZOLE 5 MG TABLET 30 MG PO ×2 (10:00→20:35)
[2024-12-20] MEDS: VALSARTAN 80 MG TABLET PO ×2 (10:01→20:35)
[2024-12-20] MEDS: CHOLESTYRAMINE/SUCROSE 1 PKT EA PO ×2 (10:09→20:35)
--- NOTE | 2024-12-20 10:32 | ESOP_ITS ---
RE: DIANA RIVAS : 1985 DATE OF OPERATION: 12/20/2024 PROCEDURES PERFORMED: 1. Diagnostic left heart cardiac catheterization, selective coronary angiogram and left ventricular angiogram, CPT 75878. 2. Conscious sedation for 30 minutes of duration. 3. Ultrasound-guided access for right radial artery access. DIAGNOSES: 1. Angina pectoris. 2. Elevated troponin levels. 3. Recurrent chest pain. 4. Multiple hospitalizations. HISTORY AND INDICATIONS: The patient is a 39-year-old with a history of severe hypertension, hyperthyroidism, on methimazole, multiple hospitalizations for HFpEF, acute heart failure, symptoms, shortness of breath and severe exertional chest pain, resting chest pain at rest. Troponin level is persistently elevated, slightly elevated. The patient did have an angiogram more than 4 years ago because of multiple hospitalizations every time troponin is high and chest pain at rest. The patient is also scheduled for thyroidectomy in the next couple of weeks. The patient was recommended a coronary angiogram and cardiac evaluation for assessment of underlying CAD and possible candidacy for revascularization or [facility]. DESCRIPTION OF PROCEDURE: The patient was brought to the cardiac catheterization laboratory. She was given conscious sedation with 2 mg of Versed and 100 mcg of fentanyl. The right radial artery was cannulated by micropuncture technique. A 5-[place] Glidesheath was introduced. Selective right and left coronary angiogram, left heart catheterization, and left ventricular angiogram performed with a 5-[place] TIG-4 diagnostic catheter. The patient tolerated the procedure well with no complications. A TR band was applied. Hemostasis was secured. A radial cocktail with 3000 units of heparin and 200 mcg of nitroglycerin was given in the radial artery. HEMODYNAMICS: Left ventricular pressure is 110/10, aortic pressure 110/70. No gradient across the aortic valve. FINDINGS: Left ventricular angiogram showed normal left ventricular wall motion. Ejection fraction of 60%. Coronary artery angiogram showed the following: Right coronary artery: Large and dominant. Giving rise to PDA and PL branches, which appear normal. Left coronary system: Left main is normal. Left anterior descending artery is normal. Giving rise to diagonal and septal branches, all of them appear normal. Circumflex artery is nondominant. Giving rise to obtuse marginal branches, which appear normal. SUMMARY OF FINDINGS: 1. Normal nonobstructive epicardial coronary arteries. 2. Normal left ventricular function. Ejection fraction is 60%. RECOMMENDATIONS: 1. The patient is reassured that there is no evidence of significant obstructive coronary artery disease. 2. Troponin is type 2 troponin elevation, demand ischemia due to hypertension and heart failure. 3. Continue medical management. 4. The patient can be discharged home later today or tomorrow and to continue present medications. 5. The patient is low risk for thyroidectomy, given cardiac clearance for thyroidectomy surgery. She should not have any issues with the surgery. 6. The patient also has significant issues with her anxiety and was started on duloxetine 60 mg at bedtime, which should help her as well. 7. The patient was on Wellbutrin, which was taken off because it decreases seizure threshold. DT: 09:53:23 TT: 10:31:00 Ref: [id number] - TID: [id number]
--- NOTE | 2024-12-20 10:37 | PC.NURSE ---
0945 patient more awake, 0900 meds given PO with water, patient does not want to eat food tray at this time. 0950 2ml air removed from TR band since hemostasis time 0845, no bleeding or hematoma noted. 1030 TR band removed, no bleeding or hematoma noted. Site covered with tegaderm and coban. coban can be removed in 24 hours, tegaderm can be removed in 48 hours.
--- NOTE | 2024-12-20 11:30 | PC.NURSE ---
1136 patient is awake alert, breathing unlabored, dressing to right wrist dry with no active bleeding or hematoma, report given to Rufina RN, patient transferred back to room 278 with tele box
--- NOTE | 2024-12-20 11:59 | PD.RESPRO ---
Documentation for date of: 12/20/24 Subjective Subjective Interval history: No acute overnight events. Patient went for cardiac cath today that showed nonobstructive coronary arteries and normal left ventricular function. Patient developed an LOUIE with a creatinine of 1.6 up from 1.2, will hold Bumex and encourage oral intake. The patient had a leukocytosis yesterday that resolved, likely an error. Exam Vital Signs Temp Pulse Resp BP Pulse Ox O2 Del Method O2 Flow Rate 98.7 F 57 L 20 134/97 H 99 Nasal Cannula 3 12/20/24 11:21 12/20/24 11:21 12/20/24 11:21 12/20/24 11:21 12/20/24 11:21 12/20/24 11:21 12/20/24 11:21 Narrative Exam General: Overweight woman. Appears lethargic. Neurologic: GCS 15. Alert and oriented x3, no gross neurological deficit, and patient able to move all 4 extremities. HEENT: Normocephalic, atraumatic, mucous membranes moist. Pupils reactive to light. Heart: Regular rate and rhythm, normal S1 and S2, no murmurs. Lungs: Clear to auscultation bilaterally with no wheezing or crackles. Abdomen: Soft, nondistended, nontender, positive bowel sounds. No guarding or rebound tenderness. Extremities: No edema. 2+ radial and dorsalis pedis pulses bilaterally. Skin: Warm. Dry. No rash or ecchymoses. Objective Labs 12/23/24 04:47 12/23/24 04:47 Labs: Laboratory Results - last 24 hr 12/19/24 12/20/24 13:49 06:25 WBC 6.8 D 8.4 RBC 4.53 4.67 Hgb 12.9 13.4 Hct 39.3 41.1 MCV 87 88 MCH 28.5 28.7 MCHC 32.8 32.6 RDW Std Deviation 51.4 H 51.7 H Plt Count 187 D 193 Neut % (Auto) 69 73 Lymph % (Auto) 20 16 [place] % (Auto) 8 9 Eos % (Auto) 3 2 Baso % (Auto) 0 0 Neut # (Auto) 4.7 6.1 Lymph # (Auto) 1.4 1.3 [place] # (Auto) 0.5 0.7 Eos # (Auto) 0.2 0.2 Baso # (Auto) 0.0 0.0 Immature Gran # (Auto) 0.01 H 0.03 H Absolute Nucleated RBC 0.00 0.00 Immature Gran % 0 0 Nucleated RBC % 0 0 Sodium 141 Potassium 4.2 Chloride 104 Carbon Dioxide 25.2 Anion Gap 12 BUN 25 H Creatinine 1.6 H Estim Creat Clear Calc 57.8 L eGFR 41 L BUN/Creatinine Ratio 16 Glucose 131 H Calculated Osmolality 287 Calcium 9.3 Corrected Calcium 9.3 Phosphorus 3.7 Magnesium 2.2 Total Bilirubin 3.2 H D AST 17 ALT 22 Alkaline Phosphatase 123 H Lactate Dehydrogenase 460 H Total Protein 6.4 Albumin 4.0 Globulin 2.4 Albumin/Globulin Ratio 1.7 Quality Measures Quality Measures none Assessment & Plan Assessment Current Active Medications: Generic Name Dose Route Start Last Admin Trade Name Freq PRN Reason Stop Dose Admin Acetaminophen 650 mg 12/17/24 21:01 Acetaminophen 325 Mg Tablet PO 01/16/25 21:00 Q6H PRN PAIN SCALE 1-3 (mild Hydrocodone Bitart/Acetaminophen 1 tab 12/17/24 21:01 Hydrocodone/Apap 5/325 Tablet PO 12/22/24 21:00 Q4HR PRN PAIN SCALE 4-6 (Moderate Alprazolam 0.25 mg 12/19/24 16:44 Alprazolam 0.25 Mg Tablet PO 12/23/24 20:26 HS PRN Anxiety/sleep Aripiprazole 20 mg 12/17/24 21:06 Aripiprazole 5 Mg Tablet PO 01/16/25 21:05 QDAY PRN Migraine Headache Bumetanide 2 mg 12/20/24 09:00 Bumetanide Inj 0.25 Mg/Ml Vial 4 Ml IVP 01/19/25 08:59 On Hold: 12/20/24 09:08 QDAY LEON Carvedilol 25 mg 12/17/24 21:15 12/20/24 05:33 Carvedilol 12.5 Mg Tablet PO 01/16/25 21:14 25 mg TID LEON Administration Cholestyramine Resin 1 pkt 12/18/24 09:00 12/20/24 10:09 Cholestyramine/Sucrose 1 Pkt Ea PO 01/17/25 08:59 1 pkt BID LEON Administration Duloxetine HCl 60 mg 12/18/24 21:00 12/19/24 20:55 Duloxetine Hcl 30 Mg Capsule PO 01/17/25 20:59 60 mg HS LEON Administration Albumin Human 25 gm in 100 mls @ 100 mls/hr 12/18/24 08:25 12/20/24 09:42 Albuminar-25 Ivpb IV 12/21/24 08:24 100 mls/hr QDAY LEON Administration Levetiracetam 500 mg 12/17/24 21:15 12/20/24 10:01 Levetiracetam 250 Mg Tablet PO 01/16/25 21:14 500 mg BID LEON Administration Methimazole 30 mg 12/18/24 09:00 12/20/24 10:00 Methimazole 5 Mg Tablet PO 01/17/25 08:59 30 mg BID LEON Administration Morphine Sulfate 2 mg 12/17/24 21:01 Morphine Sulf Inj 4 Mg/Ml Vial IVP 12/22/24 21:00 Q2H PRN PAIN SCALE 7-10 (Severe Scopolamine 1 mg 12/19/24 09:45 12/19/24 10:03 Scopolamine 1 Mg Tdsy TOP 01/18/25 09:44 1 mg Q3D LEON Administration Spironolactone 50 mg 12/18/24 09:00 12/20/24 09:58 Spironolactone 25 Mg Tablet PO 01/17/25 08:59 50 mg QDAY LEON Administration Valsartan 80 mg 12/19/24 21:00 12/20/24 10:01 Valsartan 80 Mg Tablet PO 01/18/25 20:59 80 mg BID LEON Administration Plan Summary: Mrs. Adam is a 39 year-old female with past medical history of HFrEF (EF40-45%), hypertension, Graves disease, seizure disorder, asthma, IGNACIO, anxiety and depression who presented to the ED on 12/17/2024 with chest pain and shortness of breath. Admitted for acute possible heart failure secondary to CHF evaluation and management. #Acute hypoxic respiratory failure secondary to #Congestive heart failure exacerbation #HFreF (EF 40-45) #Hx asthma DDx; CHF exacerbation vs ashma exacerbation vs Pneumonia The patient reported acute shortness of breath on exertion, with oxygen saturation dropping to the 80s. The patient had recently visited PCP and was prescribed home oxygen. Upon evaluation in the clinic, the patient?s saturation improved to 95% on 2L NC, but they continued to experience shortness of breath. The NC was increased to 3L, but the patient still experienced difficulty breathing. In addition to shortness of breath, the patient exhibited trace bilateral extremity edema and a dry cough, likely due to vascular congestion, which supports the clinical diagnosis of volume overload. As a result, the AHRF is most likely secondary to CHF exacerbation rather than an asthma exacerbation, as there have been no recent asthma attacks, and the asthma is well-controlled with the current treatment. On physical examination, the pulmonary exam revealed no evidence of wheezes or crackles, further supporting the diagnosis of CHF exacerbation over an asthma attack. Less likely pneumonia, given CXR negative, lungs CTA, mild leukocytosis WBC 11.1 likely reactive, afebrile. COVID-19 negative BNP 1726 Trop 0.231> 0.208. Chest x-ray showed mild vascular congestion EKG showed mild sinus rhythm with nonspecific ST -T wave abnormalities Last echo on 07/03/24: LV EF 40-45%, RV is normal with RVSP 50 mmHg. Mild pulmonary hypertension The patient's blood pressures have been in the 110s/80s. She still appears short of breath with increased work of breathing though the most previous x-ray shows mild vascular congestion Cardiac cath on 12/20/2024 showed normal coronary arteries, left ventricular ejection fraction 60%. Plan: - Cardiology consulted - Holding Bumex in the presence of LOUIE - Valsartan 80 mg p.o. twice daily - Spironolactone 50 mg p.o. daily - Coreg 25 mg p.o. TID - Fluid restriction daily - Strict ins and outs, urinary catheter in place - MRSA nasal screen - Pain control with acetaminophen,morphine and norco #LOUIE Patient's creatinine sharon from 1.2 up to 1.6 Plan: - Holding Bumex today #Anxiety and Depression Patient became anxious afternoon of 12/18/2024 with associated shortness of breath and rapid speech Clinical picture of heart failure appears to be improving with treatment of Bumex. Patient's associated shortness of breath in the absence of crackles or wheezes on auscultation is likely in the presence of anxiety. She expressed fear of hypoxemia associated with taking a nap She was treated for several years with Wellbutrin but recently it was discontinued by her PCP. Patient was given hydroxyzine for the past 2 days, but she mentioned that she does not remember taking it. Plan: - Continue home Abilify 20 mg p.o - Continue home dose Cymbalta 60 mg p.o. #Obstructive sleep apnea The patient mentions that she intermittently uses a CPAP at home but that it is difficult for her She mentioned that she has anxiety about falling asleep and becoming hypoxemic, likely related to anxiety as mentioned earlier Plan: - Consider CPAP machine at night - Monitor oxygen saturation #Hypertensive emergency #Hx Resistant Hypertension #NSTEMI likely type II Hypertensive emergency given blood pressure BP 191/144 with signs of end organ damage (Trop 0.231> 0.208, shortness of breath and chest pain). High troponin is likely due to NSTEMI type II secondary to demand ischemia from hypertensive emergency. In the ED patient received labetalol 20 mg IVP x 2. Blood pressures have been soft, reduced goal-directed medical therapy doses as above. Consider that though the patient is normotensive, this is low for her and may be contributing to her lethargy. Plan: - Goal SBP 140-160, anything bellow that pt can't tolerate, prior hx of dizziness with soft BP #Graves Disease Patient has thyroidectomy scheduled for January 09. On admission Free T4 1.86, TSH <0.01; likely contributing to BP and HR lability. Patient has a history of resistant hypertension. Poorly control Grave disease Plan: - Continue home methimazole 30 mg p.o. twice daily - Follow-up outpatient for thyroidectomy #Elevated T.caridad #IBS s/p cholecystectomy (2018) Patient has chronic elevated T. bili. On evaluation patient and scleral icterus-no generalized jaundice. Patient has abdominal pain, itchiness, pale stool, no dark urine. MRCP ordered in the ED showed no extrahepatic biliary tract dilation, absent gallbladder, common hepatic 5 mm, bile duct 4 mm no stone. History of IBS s/p cholecystectomy T. bili 4.6 Plan: - Continue home Cholestryramine/sucrose 1 pkt - Continue to monitor - No acute intervention needed unless worsening # Seizure Disorder Plan: - Continue home Keppra 500 mg twice daily #Migraine Patient is prescribed Ubrelvy at home but has not been taking it Plan - Hold home Ubrelvy #Leukocytosis (Resolved) Likely error Hospital management: Lines: peripheral IV Diet: Cardiac Bowel regimen: MiraLAX, milk of magnesia. DVT prophylaxis: Heparin SC Disposition: Telemetry, cardiac cath negative, holding Bumex in light of LOUIE. CODE STATUS: Full code Patient was seen and discussed with my attending physician Dr. Santhosh JEREZ. Kraig Joaquin DO PGY-1. Attending Provider Attestation/Addendum I attest that I was physically present for the evaluation, physical examination, lab and imaging review of the patient with the residents. I discussed the case with the residents and agree with the findings and plans of care as documented above. Patient seen and examined at bedside this morning, appears comfortable but tired. Patient underwent cardiac catheterization today, was found to have nonobstructive coronary arteries and normal left ventricular function. Patient has increasing her creatinine from 1.2-1.6. We will hold her diuresis and increase her oral intake. WBC count noted to go up slightly, no other evidence of infection, we will monitor closely. Macarena Trevizo MD
[2024-12-20] MEDS: Milk Of Magnesia Susp 30 ML UDC PO (14:02)
[2024-12-20] MEDS: POLYETHYLENE GLYCOL 17 GM PACKET PO (14:03)
[2024-12-20] MEDS: DULoxetine HCL 30 MG CAPSULE 60 MG PO (20:35)
[2024-12-21] VITALS (18 sets, daily range): BP systolic 134–148; BP diastolic 89–114; PULSE 58–69; RESP 10–99; TEMP 34.9–36.8; O2SAT 92–99; BMI 37.0
[2024-12-21 06:13] LABS: Basophils # (Auto) 0.0 Thou/mm3 (0.0-0.2); Basophils % (Auto) 0 % (0-2.5); Eosinophils # (Auto) 0.1 Thou/mm3 (0.0-0.5); Eosinophils % (Auto) 2 % (0-10); Hematocrit 44.5 % (36.0-46.0); Hemoglobin 14.1 g/dL (12.0-16.0); Immature Granulocytes Auto 0.02 Thou/mm3 (0.00-0.00); Lymphocytes # (Auto) 1.8 Thou/mm3 (1.0-4.8); Lymphocytes % (Auto) 20 % (10-50); Mean Corpuscular HGB Conc 31.7 g/dl (31.0-37.0); Mean Corpuscular Hemoglobin 28.3 pg (25.0-35.0); Mean Corpuscular Volume 89 fL (80-100); Monocytes # (Auto) 0.9 Thou/mm3 (0.0-0.8); Monocytes % (Auto) 10 % (0-12); Neutrophils # (Auto) 6.1 Thou/mm3 (1.8-7.7); Neutrophils % (Auto) 68 % (37-80); Nucleated Red Blood Cell # 0.00 Thou/mm3 (0.00-0.00); Nucleated Red Blood Cell % 0 /100 WBC (0); Platelet Count 192 Thou/mm3 (140-440); RDW Standard Deviation 52.9 fL (36.4-46.3); Red Blood Count 4.98 Miln/mm3 (4.00-5.20); White Blood Count 9.0 Thou/mm3 (3.6-11.0)
[2024-12-21 06:57] LABS: Alanine Aminotransferase < 7 U/L (10-49); Albumin, Serum 4.6 gm/dL (3.5-5.0); Albumin/Globulin Ratio 1.7 (1.2-2.2); Alkaline Phosphatase 126 U/L (46-116); Anion Gap 12 (7-16); Aspartate Amino Transferase 31 U/L (0-34); BUN/Creatinine Ratio 12 Ratio (12-20); Bilirubin,Total 3.6 mg/dL (0.3-1.2); Blood Urea Nitrogen 17 mg/dL (9-23); Calcium 9.4 mg/dL (8.3-10.6); Calcium (Corrected) 9.4 mg/dL (8.5-10.1); Carbon Dioxide 18.0 mMol/L (20.0-31.0); Chloride 103 mMol/L (98-107); Creatinine (Component) 1.4 mg/dL (0.6-1.3); Estimated Creatinine Clearance 65.4 mL/min (>60); Globulin 2.7 gm/dL (2.3-3.5); Glucose 134 mg/dL (74-106); Magnesium 2.6 mg/dL (1.6-2.6); Osmolality,Calculated 269 (275-295); Phosphorous 3.6 mg/dL (2.4-5.1); Potassium 4.9 mMol/L (3.4-5.1); Sodium 133 mMol/L (136-145); Total Protein 7.3 gm/dL (5.7-8.2); eGFR 48 See Note
[2024-12-21] MEDS: CHOLESTYRAMINE/SUCROSE 1 PKT EA PO ×2 (08:32→21:24)
[2024-12-21] MEDS: SPIRONOLACTONE 25 MG TABLET 50 MG PO (08:32)
[2024-12-21] MEDS: VALSARTAN 80 MG TABLET PO ×2 (08:33→21:25)
--- NOTE | 2024-12-21 09:33 | PC.SS ---
rounding note: Possible d/c home today per physician team. No d/c needs at this time.
--- NOTE | 2024-12-21 10:12 | ESPR_ITS ---
<Statement entered by Eliane Lomeli MD - 12/23/24 12:24> I evaluate the patient along with resident physician PGY 2 discussed treatment plan and guide recommendation and the patient is clinically improving she did have coronary angiogram yesterday showed negative angiogram no evidence of myocardial infarction left ventricle function is well-preserved. She definitely has had significant stress causing her symptoms and Cymbalta will be continued but should improve her symptoms in a few weeks apparently Wellbutrin had an interaction with seizure medications increasing possibility of seizure and decreasing seizure threshold and so Cymbalta has been given for now. Will continue to monitor the patient closely can be discharged home in a day or 2 depending on how her blood pressure is controlled and her symptoms Documentation for date of: 12/21/24 Subjective Subjective Interval history: Patient seen today at the bedside found awake, alert, orientedx3. No overnight events reported. Vitals and labs reviewed. Patient had diagnostic left heart cath which showed clean coronary arteries with normal ejection fraction of ventriculogram EF 60%. Her symptoms seems to be related more to anxiety rather than cardiac at this point. Patient should continue her Cymbalta and the rest of her home medications. Can be discharged from a cardiology standpoint and follow-up in Dr. Lomeli's office within 1 to 2 weeks. Exam Vital Signs Temp Pulse Resp BP Pulse Ox O2 Del Method O2 Flow Rate 96.8 F 62 26 H 138/114 H 94 L Nasal Cannula 2 12/21/24 08:00 12/21/24 08:33 12/21/24 08:20 12/21/24 08:33 12/21/24 08:20 12/21/24 08:00 12/21/24 08:20 Narrative Exam GENERAL: NAD, AAOx3 but slightly lethargic today HEENT: Moist mucosa. Eyes open, scleral icterus, symmetrical, & clear CARDIO: Heart RRR, no obvious murmurs PULM: No noted coughing/dyspnea CTA B/L, no R/W/R GI: Abdomen soft, nondistended, no pain on palpation. BSx4 SKIN/MSK/EXT: No wounds/rashes/edema/amputations, no pain on palpation. Pedal pulses present B/L NEURO: AAOx3, no focal neuro deficits, able to move all 4 extremities Objective Labs 12/21/24 05:45 12/21/24 05:45 Labs: Laboratory Results - last 24 hr 12/21/24 05:45 WBC 9.0 RBC 4.98 Hgb 14.1 Hct 44.5 MCV 89 MCH 28.3 MCHC 31.7 RDW Std Deviation 52.9 H Plt Count 192 Neut % (Auto) 68 Lymph % (Auto) 20 Boundary % (Auto) 10 Eos % (Auto) 2 Baso % (Auto) 0 Neut # (Auto) 6.1 Lymph # (Auto) 1.8 Boundary # (Auto) 0.9 H Eos # (Auto) 0.1 Baso # (Auto) 0.0 Immature Gran # (Auto) 0.02 H Absolute Nucleated RBC 0.00 Immature Gran % 0 Nucleated RBC % 0 Sodium 133 L Potassium 4.9 D Chloride 103 Carbon Dioxide 18.0 L Anion Gap 12 BUN 17 Creatinine 1.4 H Estim Creat Clear Calc 65.4 eGFR 48 L BUN/Creatinine Ratio 12 Glucose 134 H Calculated Osmolality 269 L Calcium 9.4 Corrected Calcium 9.4 Phosphorus 3.6 Magnesium 2.6 Total Bilirubin 3.6 H AST 31 ALT < 7 L Alkaline Phosphatase 126 H Total Protein 7.3 Albumin 4.6 D Globulin 2.7 Albumin/Globulin Ratio 1.7 Quality Measures Quality Measures none Assessment & Plan Assessment Current Active Medications: Generic Name Dose Route Start Last Admin Trade Name Freq PRN Reason Stop Dose Admin Acetaminophen 650 mg 12/17/24 21:01 Acetaminophen 325 Mg Tablet PO 01/16/25 21:00 Q6H PRN PAIN SCALE 1-3 (mild Hydrocodone Bitart/Acetaminophen 1 tab 12/17/24 21:01 Hydrocodone/Apap 5/325 Tablet PO 12/22/24 21:00 Q4HR PRN PAIN SCALE 4-6 (Moderate Alprazolam 0.25 mg 12/19/24 16:44 Alprazolam 0.25 Mg Tablet PO 12/23/24 20:26 HS PRN Anxiety/sleep Aripiprazole 20 mg 12/17/24 21:06 Aripiprazole 5 Mg Tablet PO 01/16/25 21:05 QDAY PRN Migraine Headache Bumetanide 2 mg 12/20/24 09:00 12/20/24 14:05 Bumetanide Inj 0.25 Mg/Ml Vial 4 Ml IVP 01/19/25 08:59 Not Given On Hold: 12/20/24 09:08 QDAY LEON Carvedilol 25 mg 12/17/24 21:15 12/21/24 05:08 Carvedilol 12.5 Mg Tablet PO 01/16/25 21:14 25 mg TID LEON Administration Cholestyramine Resin 1 pkt 12/18/24 09:00 12/21/24 08:32 Cholestyramine/Sucrose 1 Pkt Ea PO 01/17/25 08:59 1 pkt BID LEON Administration Duloxetine HCl 60 mg 12/18/24 21:00 12/20/24 20:35 Duloxetine Hcl 30 Mg Capsule PO 01/17/25 20:59 60 mg HS LEON Administration Levetiracetam 500 mg 12/17/24 21:15 12/21/24 08:33 Levetiracetam 250 Mg Tablet PO 01/16/25 21:14 500 mg BID LEON Administration Methimazole 30 mg 12/18/24 09:00 12/20/24 20:35 Methimazole 5 Mg Tablet PO 01/17/25 08:59 30 mg BID LEON Administration Morphine Sulfate 2 mg 12/17/24 21:01 Morphine Sulf Inj 4 Mg/Ml Vial IVP 12/22/24 21:00 Q2H PRN PAIN SCALE 7-10 (Severe Scopolamine 1 mg 12/19/24 09:45 12/19/24 10:03 Scopolamine 1 Mg Tdsy TOP 01/18/25 09:44 1 mg Q3D LEON Administration Spironolactone 50 mg 12/18/24 09:00 12/21/24 08:32 Spironolactone 25 Mg Tablet PO 01/17/25 08:59 50 mg QDAY LEON Administration Valsartan 80 mg 12/19/24 21:00 12/21/24 08:33 Valsartan 80 Mg Tablet PO 01/18/25 20:59 80 mg BID LEON Administration Plan 39-year-old female with past medical history of severe Graves' disease, hypertension, heart failure with reduced ejection fraction [40-45%], seizure disorder, anxiety, depression, asthma who was sent to the ED due to worsening shortness of breath. Admitted for CHF exacerbation. #Acute hypoxic respiratory failure secondary to #Acute on Chronic decompensated heart failure exacerbation #HFmrEF [40-45%] #NSTEMI type II #Hypertension Presented with clinical signs such as shortness of breath, dyspnea on exertion, bilateral leg swelling She also endorses some chest pressure radiating to right side Patient has resistant hypertension as well as hard to control graves disease She had previous angiogram which was negative around 4 years ago. BNP: 1726 Trop 0.231> 0.208. EKG shows NSR Chest x-ray showed mild vascular congestion Last echo June 2024: Concentric LVH with mild global hypokinesis LV EF 40-45%. RV is normal with RVSP 50 mmHg. 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 Mild mitral and tricuspid regurgitation Left heart cath findings: Normal nonobstructive epicardial coronary arteries. Normal left ventricular function. Ejection fraction is 60%. ? The patient is reassured that there is no evidence of significant obstructive coronary artery disease. ? Troponin is type 2 troponin elevation, demand ischemia due to hypertension and heart failure. ? Continue medical management. ? The patient can be discharged home later today or tomorrow and to continue present medications. ? The patient is low risk for thyroidectomy, given cardiac clearance for thyroidectomy surgery. She should not have any issues with the surgery. ? The patient also has significant issues with her anxiety and was started on duloxetine 60 mg at bedtime, which should help her as well. ? Continue Bumex 2mg iV BID ? Resume goal-directed medical therapy, as tolerated ? Continue Graves disease medications ? Keep K>4, Mg>2 ? Provide oxygen as required ? Strict I's and O's ? Fluid restriction #Anxiety and Depression #Obstructive sleep apnea #Graves Disease #Elevated T.caridad #IBS s/p cholecystectomy (2018) # Seizure Disorder #Migraine - as per primary team Case discussed with my attending Dr. Armani Drake MD PGY-2 Disclaimer: Despite multiple revisions, due to the dictation software being used, the document bellow may not be free of grammatical errors including phonetic/typographic errors. However, this does not deter from our commitment to providing health care in the patient's best interest in mind.
[2024-12-21] MEDS: METHIMAZOLE 5 MG TABLET 30 MG PO ×2 (10:37→21:25)
--- NOTE | 2024-12-21 10:41 | PD.RESDS ---
Planned Discharge Date 12/21/24 DS: Providers Provider Date of admission: 12/17/24 20:59 Primary care physician: Physician No Primary/Family Admitting Provider: Ha Silva MD Attending Provider on Admission: Macarena Trevizo MD Consults: 12/17/24 21:27 Consult to Cardiology Stat Comment: Consulting Provider: Eliane Lomeli Attending Provider on DC: Kraig Joaquin DO Discharging Provider: Kraig Joaquin DO Hospital Course Hospital Course Hospital course: Patient seen today at the bedside found awake, alert, orientedx3. No overnight events reported. Vitals and labs reviewed. Patient had diagnostic left heart cath which showed clean coronary arteries with normal ejection fraction of ventriculogram EF 60%. Her symptoms seems to be related more to anxiety rather than cardiac at this point. Patient should continue her Cymbalta and the rest of her home medications. Can be discharged from a cardiology standpoint and follow-up in Dr. Lomeli's office within 1 to 2 weeks. Time Spent with Patient Time attestation: Total time spent providing and/or coordinating discharge services: Exam Vital Signs Temp Pulse Resp BP Pulse Ox O2 Del Method O2 Flow Rate 96.8 F 62 26 H 138/114 H 94 L Nasal Cannula 2 12/21/24 08:00 12/21/24 08:33 12/21/24 08:20 12/21/24 08:33 12/21/24 08:20 12/21/24 08:00 12/21/24 08:20 Discharge Plan Plan Patient Disposition: HOME (Self Care) Patient condition on transfer: Stable Care Plan Goals: - We adjusted your Valsartan dose to 80mg twice daily - Continue taking all of your other home medications - We draw labs for a blood smear, Rossi test, Haptoglobin, and reticulocyte count - Follow-up with PCP within 1-2 weeks of discharge for these results - Stop taking your Bumex for 3 days. At that time, do a CMP and depending on the results consider restarting Bumex - If you do not have a PCP, you can follow-up at the [facility] [phone] - Return to ED if symptoms worsen Prescriptions/Referrals Prescriptions/Med Rec: New valsartan 80 mg tablet 80 mg PO BID 30 Days Qty: 60 0RF Continued duloxetine 60 mg capsule,delayed release(DR/EC) 60 mg PO HS Patient Comments: TAKE 1 CAPSULE BY MOUTH EVERY DAY carvedilol 25 mg Tablet 25 mg PO 3XD levetiracetam 500 mg tablet 500 mg PO BID Patient Comments: TAKE 1 TABLET BY MOUTH EVERY 12 HOURS FOR 30 DAYS Ubrelvy 50 mg tablet 50 mg PO .QD PRN (Reason: migraine headache) Arcalyst 220 mg recon soln 220 mg subcut Q7D aripiprazole [Abilify] 20 mg tablet 20 mg PO QDAY PRN (Reason: migraine headache) spironolactone 50 mg tablet 50 mg PO QDAY Qty: 30 2RF bumetanide 2 mg tablet 2 mg PO DAILY methimazole 10 mg tablet 30 mg PO BID hydroxyzine HCl 25 mg tablet 25 mg PO DAILY nicardipine 20 mg capsule 20 mg PO TID propranolol 10 mg tablet 10 mg PO TID Strong Iodine 5 % solution 0.05 ml PO TID Patient Comments: TAKE 0.05 ML ORALLY THREE TIMES A DAY aspirin 81 mg tablet,delayed release (DR/EC) 81 mg PO DAILY Patient Comments: TAKE 1 TABLET BY MOUTH EVERY DAY FOR TWO WEEKS Discontinued valsartan 160 mg tablet 160 mg PO BID Qty: 60 2RF Referrals: No Primary/Family,Physician [Primary Care Provider] Patient/Caregiver Discharge Instructions Education Materials: Having Cardiac Catheterization, Cardiac Cath Transradial Print Language: Croatian Stand Alone Forms: Nanci Award Info., Patient Portal Info Letter Discharge Order Discharge Orders: Discharge (Routine); Ordered 12/21/24 Ordered By: Nik Balderas
[2024-12-21 11:18] LABS: Immature Reticulocyte Fraction 21.4 % (3.0-15.9); Reticulocyte % (Auto) 5.2 % (0.5-1.5); Reticulocyte Absolute Auto 261.5 Biln/L (25.0-75.0); Reticulocyte Hgb Content 30.5 pg (28.0-35.0)
[2024-12-21 11:24] LABS: Path Review Blood Smear Sent to Pathologist
--- NOTE | 2024-12-21 13:38 | PC.NURSE ---
Patient oxygen saturation dropped to 72 on room air. After oxygen reapplied at 2L NC saturation increased to 94%
--- NOTE | 2024-12-21 14:10 | ESPR_ITS ---
<Statement entered by Nik Balderas MD - 12/22/24 07:27> Patient examined and case discussed with the team including attending physician. Note reviewed, I agree with the care plan as documented. Please refer to the note below for further details. - Nik Balderas MD, PGY 3 Disclaimer: The document may contain phonetic/typographic errors due to voice recognition software. These errors are purely due to imperfections in the software program. Documentation for date of: 12/21/24 Subjective Subjective Interval history: Patient seen and examined at bedside. Patient is lethargic today. Was started on duloxetine 60 last night. Monitoring for bowel movement. Cath yesterday showed no coronary artery disease. ?Cardiology cleared her for discharge and gave her cardiac clearance for her thyroidectomy.? LOUIE resolving, hemoglobin stable. LDH elevated with indirect hyperbilirubinemia, ordered blood smear, Rossi test, haptoglobin, reticulocyte count. Sodium 133, bicarb 18. Osmolality 269.? Total bilirubin 3.6 up from 3.2.? Alk phos 126 and stable.? Vitals significant for stage II hypertension 148/108.? Satting at 98% on 2 L nasal cannula. Exam Vital Signs Temp Pulse Resp BP Pulse Ox O2 Del Method O2 Flow Rate 98.2 F 62 20 141/108 H 92 L Room Air 2 12/21/24 12:00 12/21/24 13:20 12/21/24 12:00 12/21/24 13:20 12/21/24 12:00 12/21/24 12:00 12/21/24 08:20 Narrative Exam General: Overweight woman. Lethargic. Neurologic: GCS 15. Alert and oriented x3, no gross neurological deficit, and patient able to move all 4 extremities. HEENT: Normocephalic, atraumatic, mucous membranes moist. Pupils reactive to light. Heart: Regular rate and rhythm, normal S1 and S2, no murmurs. Lungs: Clear to auscultation bilaterally with no wheezing or crackles. Abdomen: Soft, nondistended, nontender, positive bowel sounds. No guarding or rebound tenderness. Extremities: No edema. 2+ radial and dorsalis pedis pulses bilaterally. Skin: Warm. Dry. No rash or ecchymoses. Objective Labs 12/23/24 04:47 12/23/24 04:47 Labs: Laboratory Results - last 24 hr 12/21/24 05:45 WBC 9.0 RBC 4.98 Hgb 14.1 Hct 44.5 MCV 89 MCH 28.3 MCHC 31.7 RDW Std Deviation 52.9 H Plt Count 192 Neut % (Auto) 68 Lymph % (Auto) 20 Lucas % (Auto) 10 Eos % (Auto) 2 Baso % (Auto) 0 Neut # (Auto) 6.1 Lymph # (Auto) 1.8 Lucas # (Auto) 0.9 H Eos # (Auto) 0.1 Baso # (Auto) 0.0 Immature Gran # (Auto) 0.02 H Absolute Nucleated RBC 0.00 Immature Gran % 0 Nucleated RBC % 0 Smear Path Review Sent to Pathologist Retic Count (auto) 5.2 H Absolute Retic 261.5 H Immature Retic Fraction 21.4 H Retic Hgb Content CHr 30.5 Sodium 133 L Potassium 4.9 D Chloride 103 Carbon Dioxide 18.0 L Anion Gap 12 BUN 17 Creatinine 1.4 H Estim Creat Clear Calc 65.4 eGFR 48 L BUN/Creatinine Ratio 12 Glucose 134 H Calculated Osmolality 269 L Calcium 9.4 Corrected Calcium 9.4 Phosphorus 3.6 Magnesium 2.6 Total Bilirubin 3.6 H AST 31 ALT < 7 L Alkaline Phosphatase 126 H Total Protein 7.3 Albumin 4.6 D Globulin 2.7 Albumin/Globulin Ratio 1.7 Quality Measures Quality Measures none Assessment & Plan Assessment Current Active Medications: Generic Name Dose Route Start Last Admin Trade Name Freq PRN Reason Stop Dose Admin Acetaminophen 650 mg 12/17/24 21:01 Acetaminophen 325 Mg Tablet PO 01/16/25 21:00 Q6H PRN PAIN SCALE 1-3 (mild Hydrocodone Bitart/Acetaminophen 1 tab 12/17/24 21:01 Hydrocodone/Apap 5/325 Tablet PO 12/22/24 21:00 Q4HR PRN PAIN SCALE 4-6 (Moderate Alprazolam 0.25 mg 12/19/24 16:44 Alprazolam 0.25 Mg Tablet PO 12/23/24 20:26 HS PRN Anxiety/sleep Aripiprazole 20 mg 12/17/24 21:06 Aripiprazole 5 Mg Tablet PO 01/16/25 21:05 QDAY PRN Migraine Headache Bumetanide 2 mg 12/20/24 09:00 12/20/24 14:05 Bumetanide Inj 0.25 Mg/Ml Vial 4 Ml IVP 01/19/25 08:59 Not Given On Hold: 12/20/24 09:08 QDAY LEON Carvedilol 25 mg 12/17/24 21:15 12/21/24 13:20 Carvedilol 12.5 Mg Tablet PO 01/16/25 21:14 25 mg TID LEON Administration Cholestyramine Resin 1 pkt 12/18/24 09:00 12/21/24 08:32 Cholestyramine/Sucrose 1 Pkt Ea PO 01/17/25 08:59 1 pkt BID LEON Administration Duloxetine HCl 60 mg 12/18/24 21:00 12/20/24 20:35 Duloxetine Hcl 30 Mg Capsule PO 01/17/25 20:59 60 mg HS LEON Administration Levetiracetam 500 mg 12/17/24 21:15 12/21/24 08:33 Levetiracetam 250 Mg Tablet PO 01/16/25 21:14 500 mg BID LEON Administration Methimazole 30 mg 12/18/24 09:00 12/21/24 10:37 Methimazole 5 Mg Tablet PO 01/17/25 08:59 30 mg BID LEON Administration Morphine Sulfate 2 mg 12/17/24 21:01 Morphine Sulf Inj 4 Mg/Ml Vial IVP 12/22/24 21:00 Q2H PRN PAIN SCALE 7-10 (Severe Scopolamine 1 mg 12/19/24 09:45 12/19/24 10:03 Scopolamine 1 Mg Tdsy TOP 01/18/25 09:44 1 mg Q3D LEON Administration Spironolactone 50 mg 12/18/24 09:00 12/21/24 08:32 Spironolactone 25 Mg Tablet PO 01/17/25 08:59 50 mg QDAY LEON Administration Valsartan 80 mg 12/19/24 21:00 12/21/24 08:33 Valsartan 80 Mg Tablet PO 01/18/25 20:59 80 mg BID LEON Administration Plan Summary: Mrs. Adam is a 39 year-old female with past medical history of HFrEF (EF40-45%), hypertension, Graves disease, seizure disorder, asthma, IGNACIO, anxiety and depression who presented to the ED on 12/17/2024 with chest pain and shortness of breath. Admitted for acute possible heart failure secondary to CHF evaluation and management. #Acute hypoxic respiratory failure secondary to #Congestive heart failure exacerbation #HFreF (EF 40-45) #Hx asthma DDx; CHF exacerbation vs ashma exacerbation vs Pneumonia The patient reported acute shortness of breath on exertion, with oxygen saturation dropping to the 80s. The patient had recently visited PCP and was prescribed home oxygen. Upon evaluation in the clinic, the patient?s saturation improved to 95% on 2L NC, but they continued to experience shortness of breath. The NC was increased to 3L, but the patient still experienced difficulty breathing. In addition to shortness of breath, the patient exhibited trace bilateral extremity edema and a dry cough, likely due to vascular congestion, which supports the clinical diagnosis of volume overload. As a result, the AHRF is most likely secondary to CHF exacerbation rather than an asthma exacerbation, as there have been no recent asthma attacks, and the asthma is well-controlled with the current treatment. On physical examination, the pulmonary exam revealed no evidence of wheezes or crackles, further supporting the diagnosis of CHF exacerbation over an asthma attack. Less likely pneumonia, given CXR negative, lungs CTA, mild leukocytosis WBC 11.1 likely reactive, afebrile. COVID-19 negative BNP 1726 Trop 0.231> 0.208. Chest x-ray showed mild vascular congestion EKG showed mild sinus rhythm with nonspecific ST -T wave abnormalities Last echo on 07/03/24: LV EF 40-45%, RV is normal with RVSP 50 mmHg. Mild pulmonary hypertension The patient's blood pressures have been in the 110s/80s. She still appears short of breath with increased work of breathing though the most previous x-ray shows mild vascular congestion Cardiac cath on 12/20/2024 showed normal coronary arteries, left ventricular ejection fraction 60%. Plan: - Cardiology consulted - Holding Bumex in the presence of LOUIE - Valsartan 80 mg p.o. twice daily - Spironolactone 50 mg p.o. daily - Coreg 25 mg p.o. TID - Fluid restriction daily - Strict ins and outs, urinary catheter in place - MRSA nasal screen - Pain control with acetaminophen,morphine and norco #LOUIE Resolving Plan: - Continue to hold Bumex - Upon discharge the patient will be held off of Bumex for 2-3 days at which point she will be instructed to get a CMP and from those results it will be determined if Bumex will be restarted #Anxiety and Depression Patient became anxious afternoon of 12/18/2024 with associated shortness of breath and rapid speech Clinical picture of heart failure appears to be improving with treatment of Bumex. Patient's associated shortness of breath in the absence of crackles or wheezes on auscultation is likely in the presence of anxiety. She expressed fear of hypoxemia associated with taking a nap She was treated for several years with Wellbutrin but recently it was discontinued by her PCP. Patient was given hydroxyzine for the past 2 days, but she mentioned that she does not remember taking it. Patient was started on duloxetine 60 at bedtime on 12/20/2024, appeared to cause lethargy the following day. Plan: - Continue home Abilify 20 mg p.o - Continue home dose Cymbalta 60 mg p.o. - Adjust Duloxetine to 30 mg HS nightly #Obstructive sleep apnea The patient mentions that she intermittently uses a CPAP at home but that it is difficult for her She mentioned that she has anxiety about falling asleep and becoming hypoxemic, likely related to anxiety as mentioned earlier Plan: - Consider CPAP machine at night - Monitor oxygen saturation #Hypertensive emergency #Hx Resistant Hypertension #NSTEMI likely type II Hypertensive emergency given blood pressure BP 191/144 with signs of end organ damage (Trop 0.231> 0.208, shortness of breath and chest pain). High troponin is likely due to NSTEMI type II secondary to demand ischemia from hypertensive emergency. In the ED patient received labetalol 20 mg IVP x 2. Blood pressures have been soft, reduced goal-directed medical therapy doses as above. Consider that though the patient is normotensive, this is low for her and may be contributing to her lethargy. Plan: - Goal SBP 140-160, anything bellow that pt can't tolerate, prior hx of dizziness with soft BP #Graves Disease Patient has thyroidectomy scheduled for January 09. On admission Free T4 1.86, TSH <0.01; likely contributing to BP and HR lability. Patient has a history of resistant hypertension. Poorly control Grave disease Plan: - Continue home methimazole 30 mg p.o. twice daily - Follow-up outpatient for thyroidectomy #Elevated T.caridad #IBS s/p cholecystectomy (2018) Patient has chronic elevated T. bili. On evaluation patient and scleral icterus-no generalized jaundice. Patient has abdominal pain, itchiness, pale stool, no dark urine. MRCP ordered in the ED showed no extrahepatic biliary tract dilation, absent gallbladder, common hepatic 5 mm, bile duct 4 mm no stone. History of IBS s/p cholecystectomy T. bili 4.6 LDH 460 Consider prehepatic etiology with direct bilirubin being 1.3 and total being 4.6 Plan: - Continue home Cholestryramine/sucrose 1 pkt - Ordered blood smear, Rossi test, haptoglobin, and reticulocyte count # Seizure Disorder Plan: - Continue home Keppra 500 mg twice daily #Migraine Patient is prescribed Ubrelvy at home but has not been taking it Plan - Hold home Ubrelvy #Leukocytosis (Resolved) Likely error Hospital management: Lines: peripheral IV Diet: Cardiac Bowel regimen: MiraLAX, milk of magnesia. DVT prophylaxis: Heparin SC Disposition: Telemetry, cardiac cath negative, holding Bumex in light of LOUIE. Patient started duloxetine 60 mg last evening, very lethargic today, will watch for 1 more day. LDH and total bilirubin elevated, direct bilirubin low in comparison to total, ordered blood smear, reticulocyte count, Rossi test, and haptoglobin. CODE STATUS: Full code Patient was seen and discussed with my attending physician Dr. Santhosh JEREZ and my senior resident Dr. Andrey JEREZ PGY-3. Kraig Joaquin DO PGY-1. Attending Provider Attestation/Addendum I attest that I was physically present for the evaluation, physical examination, lab and imaging review of the patient with the residents. I discussed the case with the residents and agree with the findings and plans of care as documented above. At bedside today, patient appears significantly lethargic, hard to awake. His oriented and able to answer questions appropriately when awake but tends to fall back to sleep right away. Unclear cause at this time, we will hold her duloxetine, start her on CPAP/BiPAP at night. We will continue to hold her Bumex and encourage oral hydration. We will skip the dose of duloxetine today and start her on 30 at bedtime starting tomorrow. Patient noted to have persistently elevated total bilirubin, LDH level is at 460, concerning for hemolytic picture, we will we will obtain peripheral blood smear, Rossi test, haptoglobin and reticulocyte count to further evaluate. Kidney function slightly improved, creatinine of 1.4 from 1.6 yesterday. Plan for discharge in next 24 to 48 hours once patient's mentation improves. Macarena Trevizo MD
--- NOTE | 2024-12-21 21:49 | PC.RT ---
Patient placed on NIV HS, patient tolerating 10/5, RR 10, and 30% FiO2 with no distress noted. Patient educated on how to remove mask if needed. Alarms on and audible.
[2024-12-22] VITALS (15 sets, daily range): BP systolic 113–167; BP diastolic 52–114; PULSE 55–61; RESP 16–30; TEMP 35.9–36.4; O2SAT 96–99; BMI 37.3
[2024-12-22 05:17] LABS: Basophils # (Auto) 0.1 Thou/mm3 (0.0-0.2); Basophils % (Auto) 1 % (0-2.5); Eosinophils # (Auto) 0.2 Thou/mm3 (0.0-0.5); Eosinophils % (Auto) 1 % (0-10); Hematocrit 42.0 % (36.0-46.0); Hemoglobin 13.3 g/dL (12.0-16.0); Immature Granulocytes Auto 0.02 Thou/mm3 (0.00-0.00); Lymphocytes # (Auto) 1.7 Thou/mm3 (1.0-4.8); Lymphocytes % (Auto) 15 % (10-50); Mean Corpuscular HGB Conc 31.7 g/dl (31.0-37.0); Mean Corpuscular Hemoglobin 27.7 pg (25.0-35.0); Mean Corpuscular Volume 87 fL (80-100); Monocytes # (Auto) 1.1 Thou/mm3 (0.0-0.8); Monocytes % (Auto) 9 % (0-12); Neutrophils # (Auto) 8.3 Thou/mm3 (1.8-7.7); Neutrophils % (Auto) 73 % (37-80); Nucleated Red Blood Cell # 0.00 Thou/mm3 (0.00-0.00); Nucleated Red Blood Cell % 0 /100 WBC (0); Platelet Count 209 Thou/mm3 (140-440); RDW Standard Deviation 51.4 fL (36.4-46.3); Red Blood Count 4.81 Miln/mm3 (4.00-5.20); White Blood Count 11.3 Thou/mm3 (3.6-11.0)
[2024-12-22 05:44] LABS: Alanine Aminotransferase 31 U/L (10-49); Albumin, Serum 4.4 gm/dL (3.5-5.0); Albumin/Globulin Ratio 1.7 (1.2-2.2); Alkaline Phosphatase 127 U/L (46-116); Anion Gap 11 (7-16); Aspartate Amino Transferase 30 U/L (0-34); BUN/Creatinine Ratio 16 Ratio (12-20); Bilirubin,Total 3.6 mg/dL (0.3-1.2); Blood Urea Nitrogen 24 mg/dL (9-23); Calcium 9.5 mg/dL (8.3-10.6); Calcium (Corrected) 9.5 mg/dL (8.5-10.1); Carbon Dioxide 20.1 mMol/L (20.0-31.0); Chloride 103 mMol/L (98-107); Creatinine (Component) 1.5 mg/dL (0.6-1.3); Estimated Creatinine Clearance 61.4 mL/min (>60); Globulin 2.6 gm/dL (2.3-3.5); Glucose 136 mg/dL (74-106); Magnesium 2.6 mg/dL (1.6-2.6); Osmolality,Calculated 274 (275-295); Phosphorous 3.6 mg/dL (2.4-5.1); Potassium 4.7 mMol/L (3.4-5.1); Sodium 134 mMol/L (136-145); Total Protein 7.0 gm/dL (5.7-8.2); eGFR 45 See Note
[2024-12-22] MEDS: VALSARTAN 80 MG TABLET PO (09:10)
[2024-12-22] MEDS: CHOLESTYRAMINE/SUCROSE 1 PKT EA PO ×2 (09:10→21:29)
[2024-12-22] MEDS: SCOPOLAMINE 1 MG TDSY TOP (09:10)
[2024-12-22] MEDS: SPIRONOLACTONE 25 MG TABLET 50 MG PO (09:11)
[2024-12-22] MEDS: METHIMAZOLE 5 MG TABLET 30 MG PO ×2 (09:51→21:29)
--- NOTE | 2024-12-22 10:56 | ESPR_ITS ---
<Statement entered by Eliane Lomeli MD - 12/23/24 12:25> Patient appears to clinically doing better evaluated the patient with Dr. Drake agree with the treatment plan recommendation as documented whenever she is up to date and ready to be discharged I am okay with discharge serum office as an outpatient for follow-up agree with the treatment plan recommendation as documented by PGY 2 Dr. Bryce Drake Documentation for date of: 12/22/24 Subjective Subjective Interval history: Patient seen today at the bedside found awake, alert, orientedx3, resting comfortably in bed. No overnight events reported. Vital signs and labs reviewed. No cardiac complaints at this time. Feels lethargic and wants to sleep. Diuresis can be transitioned to oral route to her home maintanance dose. Exam Vital Signs Temp Pulse Resp BP Pulse Ox O2 Del Method O2 Flow Rate 96.6 F L 60 28 H 146/97 H 98 Room Air 2 12/22/24 08:00 12/22/24 09:11 12/22/24 08:00 12/22/24 09:11 12/22/24 08:00 12/22/24 08:00 12/22/24 07:19 FiO2 30 12/21/24 21:36 Narrative Exam GENERAL: NAD, AAOx3 but slightly lethargic today HEENT: Moist mucosa. Eyes open, scleral icterus, symmetrical, & clear CARDIO: Heart RRR, no obvious murmurs PULM: No noted coughing/dyspnea CTA B/L, no R/W/R GI: Abdomen soft, nondistended, no pain on palpation. BSx4 SKIN/MSK/EXT: No wounds/rashes/edema/amputations, no pain on palpation. Pedal pulses present B/L NEURO: AAOx3, no focal neuro deficits, able to move all 4 extremities Objective Labs 12/22/24 04:35 12/22/24 04:35 Labs: Laboratory Results - last 24 hr 12/21/24 12/21/24 12/22/24 05:45 11:30 04:35 WBC 11.3 H RBC 4.81 Hgb 13.3 Hct 42.0 MCV 87 MCH 27.7 MCHC 31.7 RDW Std Deviation 51.4 H Plt Count 209 Neut % (Auto) 73 Lymph % (Auto) 15 [place] % (Auto) 9 Eos % (Auto) 1 Baso % (Auto) 1 Neut # (Auto) 8.3 H Lymph # (Auto) 1.7 [place] # (Auto) 1.1 H Eos # (Auto) 0.2 Baso # (Auto) 0.1 Immature Gran # (Auto) 0.02 H Absolute Nucleated RBC 0.00 Immature Gran % 0 Nucleated RBC % 0 Smear Path Review Sent to Pathologist Retic Count (auto) 5.2 H Absolute Retic 261.5 H Immature Retic Fraction 21.4 H Retic Hgb Content CHr 30.5 Sodium 134 L Potassium 4.7 Chloride 103 Carbon Dioxide 20.1 Anion Gap 11 BUN 24 H Creatinine 1.5 H Estim Creat Clear Calc 61.4 eGFR 45 L BUN/Creatinine Ratio 16 Glucose 136 H Calculated Osmolality 274 L Calcium 9.5 Corrected Calcium 9.5 Phosphorus 3.6 Magnesium 2.6 Total Bilirubin 3.6 H AST 30 ALT 31 Alkaline Phosphatase 127 H Total Protein 7.0 Albumin 4.4 Globulin 2.6 Albumin/Globulin Ratio 1.7 Direct Antiglob Test Negative Quality Measures Quality Measures none Assessment & Plan Assessment Current Active Medications: Generic Name Dose Route Start Last Admin Trade Name Freq PRN Reason Stop Dose Admin Acetaminophen 650 mg 12/17/24 21:01 Acetaminophen 325 Mg Tablet PO 01/16/25 21:00 Q6H PRN PAIN SCALE 1-3 (mild Hydrocodone Bitart/Acetaminophen 1 tab 12/17/24 21:01 Hydrocodone/Apap 5/325 Tablet PO 12/22/24 21:00 Q4HR PRN PAIN SCALE 4-6 (Moderate Alprazolam 0.25 mg 12/19/24 16:44 Alprazolam 0.25 Mg Tablet PO 12/23/24 20:26 HS PRN Anxiety/sleep Aripiprazole 20 mg 12/17/24 21:06 Aripiprazole 5 Mg Tablet PO 01/16/25 21:05 QDAY PRN Migraine Headache Bumetanide 2 mg 12/20/24 09:00 12/20/24 14:05 Bumetanide Inj 0.25 Mg/Ml Vial 4 Ml IVP 01/19/25 08:59 Not Given On Hold: 12/20/24 09:08 QDAY LEON Carvedilol 25 mg 12/17/24 21:15 12/22/24 05:12 Carvedilol 12.5 Mg Tablet PO 01/16/25 21:14 25 mg TID LEON Administration Cholestyramine Resin 1 pkt 12/18/24 09:00 12/22/24 09:10 Cholestyramine/Sucrose 1 Pkt Ea PO 01/17/25 08:59 1 pkt BID LEON Administration Duloxetine HCl 30 mg 12/22/24 21:00 Duloxetine Hcl 30 Mg Capsule PO 01/21/25 20:59 HS LEON Levetiracetam 500 mg 12/17/24 21:15 12/22/24 09:11 Levetiracetam 250 Mg Tablet PO 01/16/25 21:14 500 mg BID LEON Administration Methimazole 30 mg 12/18/24 09:00 12/22/24 09:51 Methimazole 5 Mg Tablet PO 01/17/25 08:59 30 mg BID LEON Administration Morphine Sulfate 2 mg 12/17/24 21:01 Morphine Sulf Inj 4 Mg/Ml Vial IVP 12/22/24 21:00 Q2H PRN PAIN SCALE 7-10 (Severe Scopolamine 1 mg 12/19/24 09:45 12/22/24 09:10 Scopolamine 1 Mg Tdsy TOP 01/18/25 09:44 1 mg Q3D LEON Administration Spironolactone 50 mg 12/18/24 09:00 12/22/24 09:11 Spironolactone 25 Mg Tablet PO 01/17/25 08:59 50 mg QDAY LEON Administration Valsartan 80 mg 12/19/24 21:00 12/22/24 09:10 Valsartan 80 Mg Tablet PO 01/18/25 20:59 80 mg BID LEON Administration Plan 39-year-old female with past medical history of severe Graves' disease, hypertension, heart failure with reduced ejection fraction [40-45%], seizure disorder, anxiety, depression, asthma who was sent to the ED due to worsening shortness of breath. Admitted for CHF exacerbation. #Acute hypoxic respiratory failure secondary to #Acute on Chronic decompensated heart failure exacerbation #HFmrEF [40-45%] #NSTEMI type II #Hypertension Presented with clinical signs such as shortness of breath, dyspnea on exertion, bilateral leg swelling She also endorses some chest pressure radiating to right side Patient has resistant hypertension as well as hard to control graves disease She had previous angiogram which was negative around 4 years ago. BNP: 1726 Trop 0.231> 0.208. EKG shows NSR Chest x-ray showed mild vascular congestion Last echo June 2024: Concentric LVH with mild global hypokinesis LV EF 40-45%. RV is normal with RVSP 50 mmHg. 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 Mild mitral and tricuspid regurgitation Left heart cath findings: Normal nonobstructive epicardial coronary arteries. Normal left ventricular function. Ejection fraction is 60%. ? The patient is reassured that there is no evidence of significant obstructive coronary artery disease. ? Troponin is type 2 troponin elevation, demand ischemia due to hypertension and heart failure. ? Continue medical management. ? The patient can be discharged home later today or tomorrow and to continue present medications. ? The patient is low risk for thyroidectomy, given cardiac clearance for thyroidectomy surgery. She should not have any issues with the surgery. ? The patient also has significant issues with her anxiety and was started on duloxetine 60 mg at bedtime, which should help her as well. ? Continue Bumex 2mg iV qday can transition to Oral route in am ? Resume goal-directed medical therapy, as tolerated ? Continue Graves disease medications ? Keep K>4, Mg>2 ? Provide oxygen as required ? Strict I's and O's ? Fluid restriction #Anxiety and Depression #Obstructive sleep apnea #Graves Disease #Elevated T.caridad #IBS s/p cholecystectomy (2018) # Seizure Disorder #Migraine - as per primary team Case discussed with my attending Dr. Armani Drake MD PGY-2 Disclaimer: Despite multiple revisions, due to the dictation software being used, the document bellow may not be free of grammatical errors including phonetic/typographic errors. However, this does not deter from our commitment to providing health care in the patient's best interest in mind.
[2024-12-22 11:44] LABS: Basophils # (Auto) 0.0 Thou/mm3 (0.0-0.2); Basophils % (Auto) 0 % (0-2.5); Eosinophils # (Auto) 0.1 Thou/mm3 (0.0-0.5); Eosinophils % (Auto) 1 % (0-10); Hematocrit 42.6 % (36.0-46.0); Hemoglobin 13.6 g/dL (12.0-16.0); Immature Granulocytes Auto 0.03 Thou/mm3 (0.00-0.00); Lymphocytes # (Auto) 1.9 Thou/mm3 (1.0-4.8); Lymphocytes % (Auto) 18 % (10-50); Mean Corpuscular HGB Conc 31.9 g/dl (31.0-37.0); Mean Corpuscular Hemoglobin 28.1 pg (25.0-35.0); Mean Corpuscular Volume 88 fL (80-100); Monocytes # (Auto) 0.9 Thou/mm3 (0.0-0.8); Monocytes % (Auto) 8 % (0-12); Neutrophils # (Auto) 7.7 Thou/mm3 (1.8-7.7); Neutrophils % (Auto) 72 % (37-80); Nucleated Red Blood Cell # 0.02 Thou/mm3 (0.00-0.00); Nucleated Red Blood Cell % 0 /100 WBC (0); Platelet Count 193 Thou/mm3 (140-440); RDW Standard Deviation 52.2 fL (36.4-46.3); Red Blood Count 4.84 Miln/mm3 (4.00-5.20); White Blood Count 10.7 Thou/mm3 (3.6-11.0)
[2024-12-22 12:04] LABS: Ferritin 56 ng/mL (7.3-270.7); Iron 51 mcg/dL (50-170); Percent Iron Saturation 14 % (20-55); Total Iron Binding Capacity 347 mcg/dL (250-425); Unsaturated Iron Binding 296 (225-295)
--- NOTE | 2024-12-22 14:46 | ESPR_ITS ---
<Statement entered by Nik Balderas MD - 12/22/24 18:50> Patient examined and case discussed with the team including attending physician. Note reviewed, I agree with the care plan as documented. Please refer to the note below for further details. - Nik Balderas MD, PGY 3 Disclaimer: The document may contain phonetic/typographic errors due to voice recognition software. These errors are purely due to imperfections in the software program. Documentation for date of: 12/22/24 Subjective Subjective Interval history: Patient seen and examined at bedside. Patient had a bowel movement for the first time in the hospital yesterday.?Spiked a white count 11.3 up from 9 that resolved on repeat CBC. Reticulocyte count elevated at 5.2, absolute reticulocyte count elevated to 61, immature reticulocyte fraction elevated at 21.4, haptoglobin pending. Sodium 134, remainder of chemistry stable, BUN 24 up from 17, creatinine 1.5 up from 1.4, total bilirubin 3.6. Vitals significant for stage II hypertension 146/97, bradycardic with a pulse of 58, tachypneic with a pulse of 28, temp 96.6, satting at 90% on room air. Ordered iron panel and ferritin. PT ordered. Exam Vital Signs Temp Pulse Resp BP Pulse Ox O2 Del Method O2 Flow Rate 97.3 F 58 L 16 119/88 H 99 Room Air 2 12/22/24 12:00 12/22/24 12:00 12/22/24 12:00 12/22/24 12:00 12/22/24 12:00 12/22/24 12:00 12/22/24 07:19 FiO2 30 12/21/24 21:36 Narrative Exam General: Overweight woman. Lethargic. Neurologic: GCS 15. Alert and oriented x3, no gross neurological deficit, and patient able to move all 4 extremities. HEENT: Normocephalic, atraumatic, mucous membranes moist. Pupils reactive to light. Heart: Bradycardic, regular rhythm, normal S1 and S2, grade 3 systolic ejection murmur left sternal border. Lungs: Clear to auscultation bilaterally with no wheezing or crackles. Abdomen: Soft, nondistended, nontender, positive bowel sounds. No guarding or rebound tenderness. Extremities: No edema. 2+ radial and dorsalis pedis pulses bilaterally. Skin: Warm. Dry. No rash or ecchymoses. Objective Labs 12/23/24 04:47 12/23/24 04:47 Labs: Laboratory Results - last 24 hr 12/21/24 12/22/24 12/22/24 11:30 04:35 11:25 WBC 11.3 H 10.7 RBC 4.81 4.84 Hgb 13.3 13.6 Hct 42.0 42.6 MCV 87 88 MCH 27.7 28.1 MCHC 31.7 31.9 RDW Std Deviation 51.4 H 52.2 H Plt Count 209 193 Neut % (Auto) 73 72 Lymph % (Auto) 15 18 [place] % (Auto) 9 8 Eos % (Auto) 1 1 Baso % (Auto) 1 0 Neut # (Auto) 8.3 H 7.7 Lymph # (Auto) 1.7 1.9 [place] # (Auto) 1.1 H 0.9 H Eos # (Auto) 0.2 0.1 Baso # (Auto) 0.1 0.0 Immature Gran # (Auto) 0.02 H 0.03 H Absolute Nucleated RBC 0.00 0.02 H Immature Gran % 0 0 Nucleated RBC % 0 0 Sodium 134 L Potassium 4.7 Chloride 103 Carbon Dioxide 20.1 Anion Gap 11 BUN 24 H Creatinine 1.5 H Estim Creat Clear Calc 61.4 eGFR 45 L BUN/Creatinine Ratio 16 Glucose 136 H Calculated Osmolality 274 L Calcium 9.5 Corrected Calcium 9.5 Phosphorus 3.6 Magnesium 2.6 Iron 51 TIBC 347 Iron Saturation 14 L Unsat Iron Binding 296 H Ferritin 56 Total Bilirubin 3.6 H AST 30 ALT 31 Alkaline Phosphatase 127 H Total Protein 7.0 Albumin 4.4 Globulin 2.6 Albumin/Globulin Ratio 1.7 Direct Antiglob Test Negative Quality Measures Quality Measures none Assessment & Plan Assessment Current Active Medications: Generic Name Dose Route Start Last Admin Trade Name Freq PRN Reason Stop Dose Admin Acetaminophen 650 mg 12/17/24 21:01 Acetaminophen 325 Mg Tablet PO 01/16/25 21:00 Q6H PRN PAIN SCALE 1-3 (mild Hydrocodone Bitart/Acetaminophen 1 tab 12/17/24 21:01 Hydrocodone/Apap 5/325 Tablet PO 12/22/24 21:00 Q4HR PRN PAIN SCALE 4-6 (Moderate Alprazolam 0.25 mg 12/19/24 16:44 Alprazolam 0.25 Mg Tablet PO 12/23/24 20:26 HS PRN Anxiety/sleep Aripiprazole 20 mg 12/17/24 21:06 Aripiprazole 5 Mg Tablet PO 01/16/25 21:05 QDAY PRN Migraine Headache Bumetanide 2 mg 12/20/24 09:00 12/20/24 14:05 Bumetanide Inj 0.25 Mg/Ml Vial 4 Ml IVP 01/19/25 08:59 Not Given On Hold: 12/20/24 09:08 QDAY LEON Carvedilol 25 mg 12/17/24 21:15 12/22/24 05:12 Carvedilol 12.5 Mg Tablet PO 01/16/25 21:14 25 mg TID LEON Administration Cholestyramine Resin 1 pkt 12/18/24 09:00 12/22/24 09:10 Cholestyramine/Sucrose 1 Pkt Ea PO 01/17/25 08:59 1 pkt BID LEON Administration Duloxetine HCl 30 mg 12/22/24 21:00 Duloxetine Hcl 30 Mg Capsule PO 01/21/25 20:59 HS LEON Levetiracetam 500 mg 12/17/24 21:15 12/22/24 09:11 Levetiracetam 250 Mg Tablet PO 01/16/25 21:14 500 mg BID LEON Administration Methimazole 30 mg 12/18/24 09:00 12/22/24 09:51 Methimazole 5 Mg Tablet PO 01/17/25 08:59 30 mg BID LEON Administration Morphine Sulfate 2 mg 12/17/24 21:01 Morphine Sulf Inj 4 Mg/Ml Vial IVP 12/22/24 21:00 Q2H PRN PAIN SCALE 7-10 (Severe Spironolactone 50 mg 12/18/24 09:00 12/22/24 09:11 Spironolactone 25 Mg Tablet PO 01/17/25 08:59 50 mg QDAY LEON Administration Valsartan 80 mg 12/19/24 21:00 12/22/24 09:10 Valsartan 80 Mg Tablet PO 01/18/25 20:59 80 mg BID LEON Administration Plan Summary: Mrs. Adam is a 39 year-old female with past medical history of HFrEF (EF40-45%), hypertension, Graves disease, seizure disorder, asthma, IGNACIO, anxiety and depression who presented to the ED on 12/17/2024 with chest pain and shortness of breath. Admitted for acute possible heart failure secondary to CHF evaluation and management. #Acute hypoxic respiratory failure secondary to #Congestive heart failure exacerbation #HFreF (EF 40-45) #Hx asthma DDx; CHF exacerbation vs ashma exacerbation vs Pneumonia The patient reported acute shortness of breath on exertion, with oxygen saturation dropping to the 80s. The patient had recently visited PCP and was prescribed home oxygen. Upon evaluation in the clinic, the patient?s saturation improved to 95% on 2L NC, but they continued to experience shortness of breath. The NC was increased to 3L, but the patient still experienced difficulty breathing. In addition to shortness of breath, the patient exhibited trace bilateral extremity edema and a dry cough, likely due to vascular congestion, which supports the clinical diagnosis of volume overload. As a result, the AHRF is most likely secondary to CHF exacerbation rather than an asthma exacerbation, as there have been no recent asthma attacks, and the asthma is well-controlled with the current treatment. On physical examination, the pulmonary exam revealed no evidence of wheezes or crackles, further supporting the diagnosis of CHF exacerbation over an asthma attack. Less likely pneumonia, given CXR negative, lungs CTA, mild leukocytosis WBC 11.1 likely reactive, afebrile. COVID-19 negative BNP 1726 Trop 0.231> 0.208. Chest x-ray showed mild vascular congestion EKG showed mild sinus rhythm with nonspecific ST -T wave abnormalities Last echo on 07/03/24: LV EF 40-45%, RV is normal with RVSP 50 mmHg. Mild pulmonary hypertension She still appears short of breath with increased work of breathing though the most previous x-ray shows mild vascular congestion Cardiac cath on 12/20/2024 showed normal coronary arteries, left ventricular ejection fraction 60%. Plan: - Cardiology consulted - Holding Bumex in the presence of LOUIE - Holding Valsartan 80 mg p.o. twice daily in the presence of LOUIE - Holding Spironolactone 50 mg p.o. daily in the presence of LOUIE - Coreg 25 mg p.o. TID - Fluid restriction daily - Strict ins and outs, urinary catheter in place - MRSA nasal screen - Pain control with acetaminophen,morphine and norco #LOUIE Creatinine elevated at 1.5 and has been stable around this level for the past 2 days Plan: - Hold Bumex, Valsartan, Spironolactone - Encourage oral hydration - Upon discharge the patient will be held off of Bumex for 2-3 days at which point she will be instructed to get a CMP and from those results it will be determined if Bumex will be restarted #Anxiety and Depression Patient became anxious afternoon of 12/18/2024 with associated shortness of breath and rapid speech Clinical picture of heart failure appears to be improving with treatment of Bumex. Patient's associated shortness of breath in the absence of crackles or wheezes on auscultation is likely in the presence of anxiety. She was treated for several years with Wellbutrin but recently it was discontinued by her PCP. Plan: - Continue home Abilify 20 mg p.o - Continue home dose Cymbalta 60 mg p.o. - Duloxetine 30 mg HS #Obstructive sleep apnea The patient mentions that she intermittently uses a CPAP at home but that it is difficult for her She mentioned that she has anxiety about falling asleep and becoming hypoxemic, likely related to anxiety as mentioned earlier Plan: - Consider CPAP machine at night - Monitor oxygen saturation #Hypertensive emergency #Hx Resistant Hypertension #NSTEMI likely type II Hypertensive emergency given blood pressure BP 191/144 with signs of end organ damage (Trop 0.231> 0.208, shortness of breath and chest pain). High troponin is likely due to NSTEMI type II secondary to demand ischemia from hypertensive emergency. In the ED patient received labetalol 20 mg IVP x 2. Blood pressures have been soft, reduced goal-directed medical therapy doses as above. Consider that though the patient is normotensive, this is low for her and may be contributing to her lethargy. Plan: - Goal SBP 140-160, anything bellow that pt can't tolerate, prior hx of dizziness with soft BP #Graves Disease Patient has thyroidectomy scheduled for January 09. On admission Free T4 1.86, TSH <0.01; likely contributing to BP and HR lability. Patient has a history of resistant hypertension. Poorly control Grave disease Plan: - Continue home methimazole 30 mg p.o. twice daily - Follow-up outpatient for thyroidectomy #Elevated T.caridad #IBS s/p cholecystectomy (2018) Patient has chronic elevated T. bili. On evaluation patient and scleral icterus-no generalized jaundice. Patient has abdominal pain, itchiness, pale stool, no dark urine. MRCP ordered in the ED showed no extrahepatic biliary tract dilation, absent gallbladder, common hepatic 5 mm, bile duct 4 mm no stone. History of IBS s/p cholecystectomy T. bili 4.6 LDH 460 Reticulocyte count elevated at 5.2. Absolute reticulocyte count elevated at 261.5. Immature reticulocyte fraction elevated at 21.4. Consider hemolysis with compensation reflected by leukocytosis and elevated LDH and T. bili with direct bilirubin being relatively low. Plan: - Continue home Cholestryramine/sucrose 1 pkt - Rossi test pending, haptoglobin pending - Iron panel and ferritin ordered # Seizure Disorder Plan: - Continue home Keppra 500 mg twice daily #Migraine Patient is prescribed Ubrelvy at home but has not been taking it Plan - Hold home Ubrelvy #Leukocytosis (Resolved) Hospital management: Lines: peripheral IV Diet: Cardiac Bowel regimen: MiraLAX, milk of magnesia. DVT prophylaxis: Heparin SC Disposition: Telemetry, cardiac cath negative, holding Bumex in light of LOUIE. Reticulocyte count elevated, haptoglobin pending. Patient still lethargic. CODE STATUS: Full code Patient was seen and discussed with my attending physician Dr. Santhosh JEREZ and my senior resident Dr. Andrey JEREZ PGY-3. Kraig Joaquin DO PGY-1. Attending Provider Attestation/Addendum I attest that I was physically present for the evaluation, physical examination, lab and imaging review of the patient with the residents. I discussed the case with the residents and agree with the findings and plans of care as documented above. At bedside today, patient appears slightly more awake compared to yesterday but continues to be lethargic. Noted that patient has been on scopolamine patch for her nausea, we will discontinue. WBC count has down trended compared to yesterday. Her BUN/creatinine also elevated to 24/1.5. Noted to have elevated reticulocyte count, immature reticulocyte fraction. Ordered iron panel, haptoglobin level and peripheral peripheral smear are pending. Holding valsartan and spironolactone and Bumex. Duloxetine dose reduced to 30 mg at bedtime. We will continue to monitor for her kidney function and mental status, if improved significantly, if kidney function is downtrending, we will start planning for discharge. Macarena Trevizo MD
--- NOTE | 2024-12-22 14:59 | PC.SS ---
Addendum entered by Larisa Szymanski 12/22/24 15:09: Rounding note: Home oxygen needed, being kept 1 more day until back to baseline; will discharge home when medically clear. Oxygen order booked with [facility]. Original Note: SS informed during rounding patient needing home oxygen, DME referral submitted via [place] to [facility], [facility], [facility], [facility], [facility], and [facility]. [facility] has accepted and will be providing oxygen 12/23/24.
[2024-12-22] MEDS: DULoxetine HCL 30 MG CAPSULE PO (21:29)
[2024-12-23] VITALS (12 sets, daily range): BP systolic 127–161; BP diastolic 82–100; PULSE 52–70; RESP 17–22; TEMP 36.1–36.4; O2SAT 98–100
--- NOTE | 2024-12-23 00:49 | PC.RT ---
Patient not placed on NIV, patient is feeling nauseous. RN made aware.
[2024-12-23] MEDS: ONDANSETRON INJ 2 MG/ML INJ 2 ML 4 MG IVP (02:40)
[2024-12-23 05:45] LABS: Basophils # (Auto) 0.0 Thou/mm3 (0.0-0.2); Basophils % (Auto) 0 % (0-2.5); Eosinophils # (Auto) 0.3 Thou/mm3 (0.0-0.5); Eosinophils % (Auto) 2 % (0-10); Hematocrit 43.0 % (36.0-46.0); Hemoglobin 13.7 g/dL (12.0-16.0); Immature Granulocytes Auto 0.05 Thou/mm3 (0.00-0.00); Lymphocytes # (Auto) 2.3 Thou/mm3 (1.0-4.8); Lymphocytes % (Auto) 22 % (10-50); Mean Corpuscular HGB Conc 31.9 g/dl (31.0-37.0); Mean Corpuscular Hemoglobin 28.3 pg (25.0-35.0); Mean Corpuscular Volume 89 fL (80-100); Monocytes # (Auto) 1.0 Thou/mm3 (0.0-0.8); Monocytes % (Auto) 9 % (0-12); Neutrophils # (Auto) 7.0 Thou/mm3 (1.8-7.7); Neutrophils % (Auto) 66 % (37-80); Nucleated Red Blood Cell # 0.00 Thou/mm3 (0.00-0.00); Nucleated Red Blood Cell % 0 /100 WBC (0); Platelet Count 175 Thou/mm3 (140-440); RDW Standard Deviation 52.6 fL (36.4-46.3); Red Blood Count 4.84 Miln/mm3 (4.00-5.20); White Blood Count 10.7 Thou/mm3 (3.6-11.0)
[2024-12-23 06:18] LABS: Alanine Aminotransferase 28 U/L (10-49); Albumin, Serum 4.0 gm/dL (3.5-5.0); Albumin/Globulin Ratio 1.7 (1.2-2.2); Alkaline Phosphatase 122 U/L (46-116); Anion Gap 12 (7-16); Aspartate Amino Transferase 23 U/L (0-34); BUN/Creatinine Ratio 15 Ratio (12-20); Bilirubin,Total 2.7 mg/dL (0.3-1.2); Blood Urea Nitrogen 21 mg/dL (9-23); Calcium 9.0 mg/dL (8.3-10.6); Calcium (Corrected) 9.0 mg/dL (8.5-10.1); Carbon Dioxide 20.4 mMol/L (20.0-31.0); Chloride 106 mMol/L (98-107); Creatinine (Component) 1.4 mg/dL (0.6-1.3); Estimated Creatinine Clearance 65.4 mL/min (>60); Globulin 2.3 gm/dL (2.3-3.5); Glucose 124 mg/dL (74-106); Osmolality,Calculated 279 (275-295); Potassium 4.6 mMol/L (3.4-5.1); Sodium 138 mMol/L (136-145); Total Protein 6.3 gm/dL (5.7-8.2); eGFR 48 See Note
[2024-12-23] MEDS: METHIMAZOLE 5 MG TABLET 30 MG PO (09:27)
[2024-12-23] MEDS: CHOLESTYRAMINE/SUCROSE 1 PKT EA PO (09:27)
--- NOTE | 2024-12-23 09:33 | PC.PT ---
PT eval received. Patient is ambulatory. Patient has O2 at bedside. Will cancel PT evaluation. Informed the MD team.
[2024-12-23] MEDS: ACETAMINOPHEN 325 MG TABLET 650 MG PO (10:17)
--- NOTE | 2024-12-23 13:13 | PD.RESPRO ---
Documentation for date of: 12/23/24 Exam Vital Signs Temp Pulse Resp BP Pulse Ox O2 Del Method O2 Flow Rate 97.5 F 54 L 21 H 127/82 99 Nasal Cannula 2 12/23/24 11:38 12/23/24 13:01 12/23/24 11:38 12/23/24 13:01 12/23/24 11:38 12/23/24 11:38 12/23/24 11:38 FiO2 30 12/21/24 21:36 Objective Labs 12/23/24 04:47 12/23/24 04:47 Labs: Laboratory Results - last 24 hr 12/23/24 04:47 WBC 10.7 RBC 4.84 Hgb 13.7 Hct 43.0 MCV 89 MCH 28.3 MCHC 31.9 RDW Std Deviation 52.6 H Plt Count 175 Neut % (Auto) 66 Lymph % (Auto) 22 [place] % (Auto) 9 Eos % (Auto) 2 Baso % (Auto) 0 Neut # (Auto) 7.0 Lymph # (Auto) 2.3 [place] # (Auto) 1.0 H Eos # (Auto) 0.3 Baso # (Auto) 0.0 Immature Gran # (Auto) 0.05 H Absolute Nucleated RBC 0.00 Immature Gran % 1 H Nucleated RBC % 0 Sodium 138 Potassium 4.6 Chloride 106 Carbon Dioxide 20.4 Anion Gap 12 BUN 21 Creatinine 1.4 H Estim Creat Clear Calc 65.4 eGFR 48 L BUN/Creatinine Ratio 15 Glucose 124 H Calculated Osmolality 279 Calcium 9.0 Corrected Calcium 9.0 Total Bilirubin 2.7 H D AST 23 ALT 28 Alkaline Phosphatase 122 H Total Protein 6.3 Albumin 4.0 Globulin 2.3 Albumin/Globulin Ratio 1.7 Quality Measures Quality Measures none Assessment & Plan Assessment Current Active Medications: Generic Name Dose Route Start Last Admin Trade Name Freq PRN Reason Stop Dose Admin Acetaminophen 650 mg 12/17/24 21:01 12/23/24 10:17 Acetaminophen 325 Mg Tablet PO 01/16/25 21:00 650 mg Q6H PRN Administration PAIN SCALE 1-3 (mild Alprazolam 0.25 mg 12/19/24 16:44 Alprazolam 0.25 Mg Tablet PO 12/23/24 20:26 HS PRN Anxiety/sleep Aripiprazole 20 mg 12/17/24 21:06 Aripiprazole 5 Mg Tablet PO 01/16/25 21:05 QDAY PRN Migraine Headache Bumetanide 2 mg 12/20/24 09:00 12/20/24 14:05 Bumetanide Inj 0.25 Mg/Ml Vial 4 Ml IVP 01/19/25 08:59 Not Given On Hold: 12/20/24 09:08 QDAY LEON Carvedilol 25 mg 12/17/24 21:15 12/23/24 13:01 Carvedilol 12.5 Mg Tablet PO 01/16/25 21:14 25 mg On Hold: 12/23/24 13:11 TID LEON Administration Cholestyramine Resin 1 pkt 12/18/24 09:00 12/23/24 09:27 Cholestyramine/Sucrose 1 Pkt Ea PO 01/17/25 08:59 1 pkt BID LEON Administration Duloxetine HCl 30 mg 12/22/24 21:00 12/22/24 21:29 Duloxetine Hcl 30 Mg Capsule PO 01/21/25 20:59 30 mg HS LEON Administration Levetiracetam 500 mg 12/17/24 21:15 12/23/24 09:26 Levetiracetam 250 Mg Tablet PO 01/16/25 21:14 500 mg BID LEON Administration Methimazole 30 mg 12/18/24 09:00 12/23/24 09:27 Methimazole 5 Mg Tablet PO 01/17/25 08:59 30 mg On Hold: 12/23/24 13:12 BID LEON Administration Spironolactone 50 mg 12/18/24 09:00 12/22/24 09:11 Spironolactone 25 Mg Tablet PO 01/17/25 08:59 50 mg On Hold: 12/22/24 15:32 QDAY LEON Administration Valsartan 80 mg 12/19/24 21:00 12/22/24 09:10 Valsartan 80 Mg Tablet PO 01/18/25 20:59 80 mg On Hold: 12/22/24 15:33 BID LEON Administration Attending Provider Attestation/Addendum I attest that I was physically present for the evaluation, physical examination, lab and imaging review of the patient with the residents. I discussed the case with the residents and agree with the findings and plans of care as documented above. Patient seen and examined at bedside this morning. Patient continues to be sleepy, slightly improved compared to yesterday. Continues to complain of mild chest pressure, tiredness. She is also noted to have mild bradycardia with heart rate ranging from low 50s to high 50s. She has been able to have good oral intake. Continues to have LOUIE with creatinine 1.4 today, slightly improved from 1.5 yesterday. We will continue to Bumex, valsartan and spironolactone. We will also hold carvedilol and monitor her blood pressure on pulse. We will also obtain T4 level with morning labs. If patient's mentation and alertness improves, anticipate discharge in next 24 to 48 hours. Macarena Trevizo MD
--- NOTE | 2024-12-23 16:25 | PC.NURSE ---
Rounded with Dr. Davis and patient at 1625. Doctor discussed with the patient being discharged. Dr. Davis still had some concerns but said Dr. Lomeli was good with her going home on his end. Dr. Davis explained that he will discuss it with his team and give this nurse a call when a dicision is made.
--- NOTE | 2024-12-23 16:31 | PD.RESDS ---
Planned Discharge Date 12/23/24 DS: Providers Provider Date of admission: 12/17/24 20:59 Primary care physician: Physician No Primary/Family Admitting Provider: Ha Silva MD Attending Provider on Admission: Macarena Trevizo MD Consults: 12/17/24 21:27 Consult to Cardiology Stat Comment: Consulting Provider: Eliane Lomeli Attending Provider on DC: Madhu Davis MD Discharging Provider: Madhu Davis MD DS: Diagnosis Problem List Completed Was Problem List Reviewed/Reconciled?: Yes Hospital Course Hospital Course Hospital course: Ashley Adam is a 39-year-old female with a history of poorly controlled Graves' disease, poorly controlled hypertension, hypertensive related CHF with EF 40-45%, seizure disorder, anxiety, depression, and asthma who was admitted for AHRF likely secondary to acute decompensated CHF exacerbation. She was started on bumex 2 mg IV BID and home antihypertensives were continued, including valsartan, aldactone, and coreg with fluid restrictions and strict I/O's. Also admitted for management of hypertensive emergency with history of resistant hypertension. She is known to [facility] and has history of significantly elevated BP (200s/100s per patient in outpatient setting) and her relative goal blood pressure is SBP 140-160 as she becomes symptomatic with lower pressures. Patient also endorsed chest heaviness for three days prior to admission and eventually underwent cardiac cath during hospital course that did not reveal any significant coronary artery disease. Throughout hospital course, patient's oxygen requirements stayed at 2 L NC and was saturating well and of note she qualified for oxygen on outpatient side and was deemed stable for her. Thus, she was deemed stable for discharge from [facility] perspective. However, patient's blood pressures were in 120s, which were low for her and causing her to be symptomatic, and her antihypertensives were held as a result with instructions to lower her coreg dose upon discharge and continue to hold valsartan and spironolactone with follow-up renal panel in 1 week. Diagnoses during admission: #Acute hypoxic respiratory failure secondary to #Congestive heart failure exacerbation #HFreF (EF 40-45) #Hx asthma #LOUIE #Anxiety and Depression #Obstructive sleep apnea #Hypertensive emergency #Hx Resistant Hypertension #NSTEMI likely type II #Graves Disease #Elevated T.caridad #IBS s/p cholecystectomy (2018) #Seizure Disorder #Migraine #Leukocytosis (Resolved) Discharge instructions: - Your Coreg/Carvedilol dose was changed from three times per day to two times per day - Hold taking your valsartan and spironolactone due to a decrease in your renal function, at least until you follow-up with your Primary Care Provider and/or [facility] - Continue taking all of your other home medications - Ordered complete metabolic panel to monitor renal function and to be obtained within 1 week - We joey labs for a blood smear, Rossi test, Haptoglobin, and reticulocyte count so please follow-up with your Primary Care Provider regarding results - Follow-up with Primary Care Provider within 1-2 weeks of discharge - Follow-up with your [facility] within 1-2 weeks of discharge - Stop taking your Bumex for 3 days. At that time, do a Comprehensive Metabolic Panel and depending on the results consider restarting Bumex - If you do not have a Primary Care Provider, you can follow-up at the [facility] [phone] - Return to Emergency Department if symptoms worsen ----- Plan discussed with attending physician Dr. Santhosh Davis MD PGY-2 Internal Medicine Time Spent with Patient Time attestation: Total time spent providing and/or coordinating discharge services: Time spent: Greater than 30 minutes Exam Vital Signs Temp Pulse Resp BP Pulse Ox O2 Del Method O2 Flow Rate 97.0 F 70 19 128/90 H 99 Nasal Cannula 2 12/23/24 16:00 12/23/24 16:00 12/23/24 16:00 12/23/24 16:00 12/23/24 16:00 12/23/24 16:00 12/23/24 16:00 FiO2 30 12/21/24 21:36 Narrative Exam General: alert and oriented x3, in no acute distress HEENT: Normocephalic, atraumatic, mucous membranes moist. Pupils reactive to light. Heart: Bradycardic, regular rhythm, normal S1 and S2, grade 3 systolic ejection murmur left sternal border. Lungs: Clear to auscultation bilaterally with no wheezing or crackles. Abdomen: Soft, nondistended, nontender, positive bowel sounds. No guarding or rebound tenderness. Extremities: No edema. 2+ radial and dorsalis pedis pulses bilaterally. Skin: Warm. Dry. No rash or ecchymoses. Neurologic: GCS 15, no gross neurological deficit, and patient able to move all 4 extremities. Discharge Plan Plan Patient Disposition: HOME (Self Care) Patient condition on transfer: Stable Care Plan Goals: - Your Coreg/Carvedilol dose was changed from three times per day to two times per day - Hold taking your valsartan and spironolactone due to a decrease in your renal function, at least until you follow-up with your Primary Care Provider and/or [facility] - Continue taking all of your other home medications - Ordered complete metabolic panel to monitor renal function and to be obtained within 1 week - We joey labs for a blood smear, Rossi test, Haptoglobin, and reticulocyte count so please follow-up with your Primary Care Provider regarding results - Follow-up with Primary Care Provider within 1-2 weeks of discharge - Follow-up with your [facility] within 1-2 weeks of discharge - Stop taking your Bumex for 3 days. At that time, do a Comprehensive Metabolic Panel and depending on the results consider restarting Bumex - If you do not have a Primary Care Provider, you can follow-up at the [facility] [phone] - Return to Emergency Department if symptoms worsen Prescriptions/Referrals Prescriptions/Med Rec: New valsartan 80 mg tablet 80 mg PO BID 30 Days Qty: 60 0RF carvedilol 25 mg tablet 25 mg PO BID 30 Days Qty: 60 0RF Rx Instructions: must administer with a meal/food Continued duloxetine 60 mg capsule,delayed release(DR/EC) 60 mg PO HS Patient Comments: TAKE 1 CAPSULE BY MOUTH EVERY DAY levetiracetam 500 mg tablet 500 mg PO BID Patient Comments: TAKE 1 TABLET BY MOUTH EVERY 12 HOURS FOR 30 DAYS Ubrelvy 50 mg tablet 50 mg PO .QD PRN (Reason: migraine headache) Arcalyst 220 mg recon soln 220 mg subcut Q7D aripiprazole [Abilify] 20 mg tablet 20 mg PO QDAY PRN (Reason: migraine headache) bumetanide 2 mg tablet 2 mg PO DAILY methimazole 10 mg tablet 30 mg PO BID hydroxyzine HCl 25 mg tablet 25 mg PO DAILY nicardipine 20 mg capsule 20 mg PO TID propranolol 10 mg tablet 10 mg PO TID Strong Iodine 5 % solution 0.05 ml PO TID Patient Comments: TAKE 0.05 ML ORALLY THREE TIMES A DAY aspirin 81 mg tablet,delayed release (DR/EC) 81 mg PO DAILY Patient Comments: TAKE 1 TABLET BY MOUTH EVERY DAY FOR TWO WEEKS Held spironolactone 50 mg tablet 50 mg PO QDAY Qty: 30 2RF Hold Instructions: Hold until you follow-up with your PCP or [facility] Discontinued carvedilol 25 mg Tablet 25 mg PO 3XD valsartan 160 mg tablet 160 mg PO BID Qty: 60 2RF Referrals: No Primary/Family,Physician [Primary Care Provider] Outpatient Orders (i.e. Home Health, Labs, Imaging): Comprehensive Metabolic Panel (Routine) Timeframe: 1 Week Location: Determined by Patient Ordered By: Madhu Davis Patient/Caregiver Discharge Instructions Education Materials: Understanding Oxygen Therapy, Having Cardiac Catheterization, Using Oxygen Safely, Heart Failure Dc, Heart Attack Dc, Hypertension Dc, Cardiac Cath Transradial Print Language: Nigerien Stand Alone Forms: Nanci Award Info., Patient Portal Info Letter Discharge Order Discharge Orders: Discharge (Routine); Ordered 12/23/24 Ordered By: Madhu Davis Quality Discharge Quality Measures VTE prophylaxis MD Attestestation MD Attestation I attest that I was physically present for the evaluation, physical examination, lab and imaging review of the patient with the residents. I discussed the case with the residents and agree with the findings and plans of care as documented above. Patient seen and evaluated at bedside this morning. Appears slightly more alert compared to yesterday but states that she is still tired. Continues to complain of mild chest tightness. Vital signs show mild bradycardia with heart rate in low 50s. Blood pressure has also been on normal limits, patient usually on the higher side at her baseline. Chemistry panel shows slight improvement in her creatinine from 1.5-1.4 today. Bilirubin level has also been slightly downtrending. Awaiting Rossi test, haptoglobin and peripheral blood smear. Discussed with patient in detail regarding her mild bradycardia, blood pressure being lower level than her baseline, history of depression which all might be contributing to her tiredness. Plan to discharge patient on lower dose of carvedilol and hold her diuresis for few days along with antihypertensive. Recommended to have follow-up CMP within a week, follow-up with PCP and cardiology in 1 to 2 weeks of discharge. Macarena Trevizo MD
[2024-12-30 07:19] LABS: Haptoglobin* 46 mg/dL (43-212)
== END 2024-12-23 17:55 | disposition home or self-care (01) | DRG 280 ==
LOC: SERX 16:12 → S2EX 21:47 → SERX 21:54 → S2NX 22:57 → SERHOLD 12-18 06:28 → S2NX 12-21 10:34 → S3NX 12-23 02:17
PROVIDERS: Internal Medicine Cardiovascular Disease; Nurse Practitioner Family; Student in an Organized Health Care Education/Training Program; Admitting Provider Student in an Organized Health Care Education/Training Program; Emergency Provider Emergency Medicine; Referring Provider Student in an Organized Health Care Education/Training Program; Visit Provider Student in an Organized Health Care Education/Training Program
PROC: 4A023N7 Measurement of Cardiac Sampling and Pressure, Left Heart, Percutaneous Approach (ICD-10-PCS; principal; 2024-12-20 08:00)
DX: I11.0 Hypertensive heart disease with heart failure (principal); I50.23 Acute on chronic systolic (congestive) heart failure; I21.A1 Myocardial infarction type 2; J96.01 Acute respiratory failure with hypoxia; I16.1 Hypertensive emergency; N17.9 Acute kidney failure, unspecified; E05.00 Thyrotoxicosis with diffuse goiter without thyrotoxic crisis or storm; F41.9 Anxiety disorder, unspecified; F32.A Depression, unspecified; J45.909 Unspecified asthma, uncomplicated; G40.909 Epilepsy, unspecified, not intractable, without status epilepticus; G43.909 Migraine, unspecified, not intractable, without status migrainosus; G47.33 Obstructive sleep apnea (adult) (pediatric); I27.20 Pulmonary hypertension, unspecified; Z79.82 Long term (current) use of aspirin; Z79.899 Other long term (current) drug therapy; Z90.49 Acquired absence of other specified parts of digestive tract; D72.829 Elevated white blood cell count, unspecified; Z88.8 Allergy status to other drugs, medicaments and biological substances
CPT/HCPCS: 36415; 71046; 74181; 80048; 80053; 80076; 80307; 81001; 82728; 83010; 83540; 83550; 83615; 83735; 83880; 84100; 84439; 84443; 84484; 85025; 85046; 85610; 85730; 86880; 87081; 87811; 93005; 94660; 96374; 96375; 96376; 99152; 99153; 99284; A4649; C1769; C1887; C1894; J0168; J0461; J1643; J1644; J1938; J2250; J2270; J2312; J2371; J2405; J3010; J3475; J3490; P9047; Q9967; A9270; J1920; J2305

== ENCOUNTER → 2024-12-25 | Outpatient (CLI) | payer BC, SELFPAY ==
[2024-12-25 15:00] LABS: Collection Type, Urine Clean Catch
[2024-12-25 17:22] LABS: Bacteria,Urine Rare; Bilirubin,Urine Negative (Negative); Blood,Urine 3+ (Negative); Color,Urine Yellow (Lt Yel-Yel); Glucose, Urine Negative (Negative); Ketones,Urine Negative (Negative); Leukocyte Esterase,Urine Positive (Negative); Nitrite,Urine Negative (Negative); PH,Urine 6.5 (5.0-7.0); Protein,Urine 2+ (Neg - Trace); RBC,Urine 563 /hpf (0-3); Specific Gravity,Urine 1.015 (1.001-1.035); Squamous Epithelial Cell,Urine 1 /hpf (0-5); Urobilinogen,Urine Negative mg/dL (0.0-1.0); WBC,Urine 276 /hpf (0-5)
[2024-12-25 17:25] LABS: Clarity,Urine Hazy (Clear/Hazy)
== END | disposition home or self-care (01) ==
LOC: SLDO 14:48
PROVIDERS: PCP Registered Nurse; Referring Provider Registered Nurse; Visit Provider Registered Nurse
DX: N39.0 Urinary tract infection, site not specified (principal)
CPT/HCPCS: 81001; 87086

== ENCOUNTER → 2024-12-27 | Outpatient (CLI) | payer BC, SELFPAY ==
[2024-12-27 13:05] LABS: Alanine Aminotransferase 26 U/L (10-49); Albumin, Serum 3.9 gm/dL (3.5-5.0); Albumin/Globulin Ratio 1.6 (1.2-2.2); Alkaline Phosphatase 131 U/L (46-116); Anion Gap 10 (7-16); Aspartate Amino Transferase 24 U/L (0-34); BUN/Creatinine Ratio 15 Ratio (12-20); Bilirubin,Total 4.5 mg/dL (0.3-1.2); Blood Urea Nitrogen 19 mg/dL (9-23); Calcium 9.1 mg/dL (8.3-10.6); Calcium (Corrected) 9.2 mg/dL (8.5-10.1); Carbon Dioxide 22.7 mMol/L (20.0-31.0); Chloride 108 mMol/L (98-107); Creatinine (Component) 1.3 mg/dL (0.6-1.3); Globulin 2.4 gm/dL (2.3-3.5); Glucose 132 mg/dL (74-106); Osmolality,Calculated 285 (275-295); Potassium 4.4 mMol/L (3.4-5.1); Sodium 141 mMol/L (136-145); Total Protein 6.3 gm/dL (5.7-8.2); eGFR 53 See Note
== END | disposition home or self-care (01) ==
LOC: COPL 11:14
PROVIDERS: PCP Family Medicine; Referring Provider Registered Nurse; Visit Provider Registered Nurse
DX: R79.89 Other specified abnormal findings of blood chemistry (principal)
CPT/HCPCS: 36415; 80053

== ENCOUNTER → 2025-02-10 | Outpatient (CLI) | payer BC, SELFPAY ==
[2025-02-10 14:22] LABS: Basophils # (Auto) 0.0 Thou/mm3 (0.0-0.2); Basophils % (Auto) 0 % (0-2.5); Eosinophils # (Auto) 0.1 Thou/mm3 (0.0-0.5); Eosinophils % (Auto) 1 % (0-10); Hematocrit 41.6 % (36.0-46.0); Hemoglobin 13.5 g/dL (12.0-16.0); Immature Granulocytes Auto 0.04 Thou/mm3 (0.00-0.00); Lymphocytes # (Auto) 2.1 Thou/mm3 (1.0-4.8); Lymphocytes % (Auto) 18 % (10-50); Mean Corpuscular HGB Conc 32.5 g/dl (31.0-37.0); Mean Corpuscular Hemoglobin 28.5 pg (25.0-35.0); Mean Corpuscular Volume 88 fL (80-100); Monocytes # (Auto) 0.6 Thou/mm3 (0.0-0.8); Monocytes % (Auto) 5 % (0-12); Neutrophils # (Auto) 8.8 Thou/mm3 (1.8-7.7); Neutrophils % (Auto) 76 % (37-80); Nucleated Red Blood Cell # 0.00 Thou/mm3 (0.00-0.00); Nucleated Red Blood Cell % 0 /100 WBC (0); Platelet Count 186 Thou/mm3 (140-440); RDW Standard Deviation 51.1 fL (36.4-46.3); Red Blood Count 4.74 Miln/mm3 (4.00-5.20); White Blood Count 11.7 Thou/mm3 (3.6-11.0)
[2025-02-10 14:47] LABS: Alanine Aminotransferase 18 U/L (10-49); Albumin, Serum 4.6 gm/dL (3.5-5.0); Albumin/Globulin Ratio 1.9 (1.2-2.2); Alkaline Phosphatase 140 U/L (46-116); Anion Gap 15 (7-16); Aspartate Amino Transferase 23 U/L (0-34); BUN/Creatinine Ratio 15 Ratio (12-20); Bilirubin,Total 5.8 mg/dL (0.3-1.2); Blood Urea Nitrogen 16 mg/dL (9-23); Calcium 10.1 mg/dL (8.3-10.6); Calcium (Corrected) 10.1 mg/dL (8.5-10.1); Carbon Dioxide 23.4 mMol/L (20.0-31.0); Chloride 101 mMol/L (98-107); Creatinine (Component) 1.1 mg/dL (0.6-1.3); Free T4 (Free Thyroxine) 1.74 ng/dL (0.89-1.76); Globulin 2.4 gm/dL (2.3-3.5); Glucose 189 mg/dL (74-106); Osmolality,Calculated 283 (275-295); Potassium 3.3 mMol/L (3.4-5.1); Sodium 139 mMol/L (136-145); Thyroid Stimulating Hormone < 0.01 uIU/mL (0.55-4.78); Total Protein 7.0 gm/dL (5.7-8.2); eGFR > 60 See Note
[2025-02-14 06:45] LABS: T3,Total* 73 ng/dL (76-181)
== END | disposition home or self-care (01) ==
LOC: COPL 12:38
PROVIDERS: PCP Registered Nurse; Referring Provider Internal Medicine Endocrinology, Diabetes & Metabolism; Visit Provider Internal Medicine Endocrinology, Diabetes & Metabolism
DX: E05.00 Thyrotoxicosis with diffuse goiter without thyrotoxic crisis or storm (principal)
CPT/HCPCS: 36415; 80053; 84439; 84443; 84480; 85025

== ENCOUNTER → 2025-03-17 | Outpatient (CLI) | payer BC, SELFPAY ==
[2025-03-17 09:43] LABS: Alanine Aminotransferase 29 U/L (10-49); Albumin, Serum 4.4 gm/dL (3.5-5.0); Alkaline Phosphatase 109 U/L (46-116); Anion Gap 15 (7-16); Aspartate Amino Transferase 40 U/L (0-34); BUN/Creatinine Ratio 11 Ratio (12-20); Bilirubin,Direct 1.2 mg/dL (0.0-0.3); Bilirubin,Indirect 3.1 mg/dL (0.0-1.1); Bilirubin,Total 4.3 mg/dL (0.3-1.2); Blood Urea Nitrogen 18 mg/dL (9-23); Calcium 9.6 mg/dL (8.3-10.6); Carbon Dioxide 26.2 mMol/L (20.0-31.0); Chloride 101 mMol/L (98-107); Creatinine (Component) 1.7 mg/dL (0.6-1.3); Glucose 120 mg/dL (74-106); Osmolality,Calculated 286 (275-295); Phosphorous 2.8 mg/dL (2.4-5.1); Potassium 3.0 mMol/L (3.4-5.1); Sodium 142 mMol/L (136-145); Thyroid Stimulating Hormone 42.25 uIU/mL (0.55-4.78); Total Protein 7.2 gm/dL (5.7-8.2); eGFR 38 See Note
== END | disposition home or self-care (01) ==
LOC: COPL 07:52
PROVIDERS: PCP Registered Nurse; Referring Provider Internal Medicine Cardiovascular Disease; Visit Provider Internal Medicine Cardiovascular Disease
DX: I10 Essential (primary) hypertension (principal); I15.0 Renovascular hypertension; I30.0 Acute nonspecific idiopathic pericarditis; R74.8 Abnormal levels of other serum enzymes
CPT/HCPCS: 36415; 80048; 80076; 82247; 82248; 84100; 84443

== ENCOUNTER → 2025-03-24 | Outpatient (CLI) | payer BC, SELFPAY ==
--- NOTE | 2025-03-24 14:03 | XR_ITS ---
Examination: Abdomen sonogram, complete Date and time of exam: March 24, 2025, 1445 hours INDICATIONS: Abdominal pain 1 month with jaundice. Technique: Multiple real-time grayscale transabdominal sonographic images of the abdomen have been obtained. Findings: Absent gallbladder Normal common bile duct 0.2 cm Pancreatic head 2.0 cm Aorta not enlarged. Liver 14.2 cm fatty infiltration irregular contour no focal liver lesions Normal hepatopetal portal venous flow Patent IVC Right kidney 9.1 cm renal cortex 1.1 cm Left kidney 9.5 cm renal cortex 1.4 cm Mild left renal scarring Spleen 9.8 cm IMPRESSION: Primary hepatocellular disease versus cirrhosis
[2025-03-24 16:49] LABS: Albumin, Serum 5.2 gm/dL (3.5-5.0); Anion Gap 16 (7-16); BUN/Creatinine Ratio 13 Ratio (12-20); Blood Urea Nitrogen 26 mg/dL (9-23); Calcium 10.1 mg/dL (8.3-10.6); Calcium (Corrected) 10.1 mg/dL (8.5-10.1); Carbon Dioxide 33.5 mMol/L (20.0-31.0); Chloride 89 mMol/L (98-107); Creatinine (Component) 2.0 mg/dL (0.6-1.3); Glucose 133 mg/dL (74-106); Osmolality,Calculated 282 (275-295); Phosphorous 4.3 mg/dL (2.4-5.1); Potassium 2.8 mMol/L (3.4-5.1); Sodium 138 mMol/L (136-145); eGFR 32 See Note
== END | disposition home or self-care (01) ==
LOC: CDIM 13:36 → COPL 15:05
PROVIDERS: Registered Nurse; PCP Family Medicine; Referring Provider Internal Medicine Cardiovascular Disease; Visit Provider Radiology Diagnostic Radiology
DX: R10.9 Unspecified abdominal pain (principal); R17 Unspecified jaundice; I10 Essential (primary) hypertension; I15.0 Renovascular hypertension; I30.0 Acute nonspecific idiopathic pericarditis; R74.8 Abnormal levels of other serum enzymes
CPT/HCPCS: 36415; 76700; 80069